=== PATIENT | female | born 1940 | race Caucasian/White ===

== ENCOUNTER → 2016-11-30 | Outpatient (CLI) | payer MEDICARE ==
--- NOTE | 2016-12-01 14:34 | PE ---
Nuclear medicine PET/CT HISTORY: Lung carcinoma Patient received 15.2 mCi F-18 FDG intravenously. Delayed scanning performed from the skull base to t he mid thighs. Localization and attenuation correction CT scan was. Correlation to CT chest December 27, 2015 FINDINGS: Neck and chest: There is a cavitary mass in the right middle lobe measuring approximately 4 cm in siz e with thickened wall. Corresponding hypermetabolic uptake is present, SUV 10.5. Granuloma also prese nt in the right upper lobe. There is a groundglass opacity present within the chest. There are chance ry artery calcifications. Abdomen pelvis: Low dense left adrenal mass is present measuring approximately 2.4 cm. No associated hypermetabolic uptake. Diffuse hypermetabolic uptake within the bowel. No retroperitoneal adenopathy. Granulomas are also present within the liver and spleen. There is a hiatal hernia. Osseous structures within normal limits IMPRESSION: Hypermetabolic uptake corresponding to patient's cavitary mass.
== END | disposition home or self-care (01) ==
LOC: RADPETMAIN 13:10
PROVIDERS: ATTEND Family Medicine
DX: R91.8 Other nonspecific abnormal finding of lung field (principal)
CPT/HCPCS: 78815; A9552

== ENCOUNTER → 2016-12-27 | Outpatient (CLI) | payer MEDICARE ==
[2016-12-27 09:55] LABS: EKG EKG PERFORMED
[2016-12-27 10:44] LABS: Basophils % (A) 0 %; CH 28.8; CHCM 31.9; Eosinophils # (A) 0.2 k/uL (0-0.7); Eosinophils % (A) 2 %; HCT 35.2 % (34.0-46.0); HGB 11.4 gm/dL (11.4-16.0); Hypochromasia Slight; Luc # (Auto) 0.13; Luc % (Auto) 2; Lymphocytes # (A) 1.3 k/uL (1.0-4.8); Lymphocytes % (A) 19 %; MCH 29.5 pg (25.0-35.0); MCHC 32.5 g/dL (31.0-37.0); MCV 90.8 fL (80.0-100.0); Mean Platelet Volume 7.4; Monocytes # (A) 0.5 k/uL (0-1.0); Monocytes % (A) 8 %; Neutrophils # (A) 4.6 k/uL (1.3-7.7); Neutrophils % (A) 68 %; RBC 3.88 m/uL (3.80-5.40); RDW 13.6 % (11.5-15.5); WBC 6.7 k/uL (3.8-10.6); WBC (Perox) 7.27
[2016-12-27 10:49] LABS: INR 1.1 (<1.1); Partial Thromboplastin Time 23.2 sec (22.0-30.0); Prothrombin Time 11.2 sec (9.0-12.0)
[2016-12-27 10:51] LABS: Appearance,Urine Cloudy (Clear); Bilirubin,Urine Negative (Negative); Glucose,Urine (UA) Negative (Negative); Ketones,Urine Negative (Negative); Leukocyte Esterase,Urine Large (Negative); Nitrite,Urine Negative (Negative); Particle Count 1841; Protein,Urine 1+ (Negative); RBC,Urine 9 /hpf (0-5); Specific Gravity,Urine 1.018 (1.001-1.035); Squamous Epithelial Cell,Urine 3 /hpf (0-4); UA Billing (MACRO vs. MICRO) MICRO; Urobilinogen,Urine <2.0 mg/dL (<2.0); WBC,Urine >182 /hpf (0-5)
[2016-12-27 11:06] LABS: ALT 28 U/L (9-52); AST 26 U/L (14-36); Alkaline Phosphatase 57 U/L (38-126); Anion Gap 13 mmol/L; Blood Urea Nitrogen 31 mg/dL (7-17); Carbon Dioxide 26 mmol/L (22-30); Chloride 104 mmol/L (98-107); Glucose 81 mg/dL (74-99); Non-African American GFR(MDRD) 42 (>60 ml/min/1.73 sqM); Potassium 4.6 mmol/L (3.5-5.1); Sodium 143 mmol/L (137-145); Total Bilirubin 0.6 mg/dL (0.2-1.3); Total Protein 7.1 g/dL (6.3-8.2)
== END | disposition home or self-care (01) ==
LOC: LABPAT 09:42
PROVIDERS: ATTEND Thoracic Surgery (Cardiothoracic Vascular Surgery)
DX: Z01.818 Encounter for other preprocedural examination (principal); I10 Essential (primary) hypertension; R91.8 Other nonspecific abnormal finding of lung field
CPT/HCPCS: 80053; 81001; 85025; 85610; 85730; 86850; 86900; 86901; 93005

== ENCOUNTER 2017-01-06 08:09 | Inpatient (IN) | payer MEDICARE ==
[2016-12-31 14:18] VITALS: BMI 23.3
[~2017-01-06 08:09] MED LIST: DEXAMETHASONE SOD PHOSPHATE 10 MG/ML 1 ML VIAL IV ONE; HYDROmorphone 1 MG/ML 1 ML SYRINGE IVP PRN; LACTATED RINGERS 1,000 ML IV SCH; MIDAZOLAM 2 MG/2 ML VIAL IV PRN; ONDANSETRON 4 MG/2 ML VIAL IVP ONE; ceFAZolin 1,000 MG in DEXTROSE/WATER 1 50ML.BAG IV ONE
[2017-01-06 09:04] LABS: Appearance,Urine Clear (Clear); Bilirubin,Urine Negative (Negative); Glucose,Urine (UA) Negative (Negative); Ketones,Urine Negative (Negative); Leukocyte Esterase,Urine Trace (Negative); Mucus,Urine Rare /hpf; Nitrite,Urine Negative (Negative); PH, Urine 5.5 (5.0-8.0); Particle Count 1179; Protein,Urine Negative (Negative); Specific Gravity,Urine 1.012 (1.001-1.035); Squamous Epithelial Cell,Urine 1 /hpf (0-4); UA Billing (MACRO vs. MICRO) MICRO; Urobilinogen,Urine <2.0 mg/dL (<2.0); WBC,Urine 2 /hpf (0-5)
[2017-01-06] MEDS ORDERED: LIDOCAINE 1% 20 ML VIAL (10MG/ML) FOR IV START INTRADERMA ONE (09:04)
[2017-01-06 09:16] LABS: Glucose,Whole Blood 123 mg/dL (75-99)
[2017-01-06] MEDS ORDERED: ROCURONIUM BROMIDE 10 MG/ML 10 ML VIAL IV ONE (10:44)
[2017-01-06] MEDS ORDERED: PROPOFOL 10 MG/ML 20 ML VIAL IV ONE (10:44)
[2017-01-06] MEDS ORDERED: LIDOCAINE 1% INJ 10MG/ML (20 ML MDV) ONE (10:44)
[2017-01-06] MEDS ORDERED: NEOSTIGMINE 1 MG/ML 10 ML VIAL ONE (10:44)
[2017-01-06] MEDS ORDERED: METOPROLOL TARTRATE 5 MG/5 ML VIAL IVP ONE (10:44)
[2017-01-06] MEDS ORDERED: fentaNYL (PF) 50 MCG/ML 2 ML AMP ONE (10:44)
[2017-01-06] MEDS ORDERED: HYDROmorphone (PF) 1 MG/ML ONE (10:44)
[2017-01-06] MEDS ORDERED: SUCCINYLCHOLINE CHLORIDE 100 MG/5 ML SYR IV ONE (10:44)
[2017-01-06] MEDS ORDERED: GLYCOPYRROLATE 0.2 MG/ML 2 ML VIAL ONE (10:44)
[2017-01-06] MEDS ORDERED: BUPIVACAINE (PF) 0.5% 30 ML VIAL SQ ONE ×2 (10:46→13:41)
[2017-01-06] MEDS ORDERED: LACTATED RINGERS 1,000 ML IV ONE ×3 (11:45→18:08)
--- NOTE | 2017-01-06 14:44 | P.OP ---
Date of Procedure: 01/06/17 Preoperative Diagnosis: Right middle lobe lung mass Postoperative Diagnosis: Right middle lobe lung mass Procedure(s) Performed: Robotic-assisted thoracoscopic right middle lobectomy with mediastinal lymph node sampling Anesthesia: LAZ Surgeon: Horace Dewitt Senior Energy Consultant #1: [place] Car Estimated Blood Loss (ml): 100 Pathology: other (Right middle lobe, R 11 lymph nodes, R4 lymph nodes) Condition: stable Disposition: PACU Indications for Procedure: The patient is a 76 year old female with a chronic mass in the right middle lobe. This has been increasing in size on serial CAT scans. Bronchoscopy was nondiagnostic. PET scan was suggestive of primary malignancy with no evidence of metastasis. Operative Findings: There was a small palpable mass in the right middle lobe. The fissures were incomplete. There was minimal adenopathy present. 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 Frozen section of the bronchial margin was negative. Description of Procedure: The patient was brought to the operating room, placed supine on the operating table, anesthetized and intubated with a double-lumen endotracheal tube. The tube was positioned with fiberoptic bronchoscopy. No endobronchial lesions were noted. The tube was secured and the patient turned into the left lateral decubitus position. The patient was appropriately positioned for robotic lobectomy. The ribs were counted and marked. The chest was sterilely prepped and draped. Initial incision was made in the eighth interspace in the anterior axillary line. It was a centimeter in length. Single lung ventilation was initiated. A robotic camera port was placed into the right pleural space. After confirming appropriate positioning of the port in the right pleural space CO2 insufflation was begun into the pleural space. 3 further robotic ports were placed, one in interspace higher and 10 cm anterior one in the same interspace 10 cm posterior both of these were 8 mm ports. The final robotic port was placed in the sixth interspace just anterior to the spine and this was a 5 mm port. A 15 mm working port was placed in the 10th interspace just anterior to the camera port. The robot was now docked. Appropriate instrumentation was placed through the robotic ports. A bipolar dissector was placed in the most anterior port, a cadiere grasper was placed in the arm to port, and a thoracic grasper was placed through the most posterior port. We now proceeded with the robotic dissection. The inferior pulmonary ligament was taken down. Dissection was carried up anteriorly to the inferior portion of the superior pulmonary vein. The vein draining the middle lobe was identified encircled ligated and divided with a Endo JOSHUA thin stapler. Dissection was now carried out around the bronchus the middle lobe bronchus was encircled ligated and divided with a Endo JOSHUA medium thick stapler. This allowed exposure and dissection of the pulmonary artery branch to the middle lobe. This was encircled and ligated and divided with a Endo JOSHUA thin stapler. We now completed the dissection by dividing the fissures both superior and inferior to the middle lobe with medium thick staplers. The lobectomy was placed in an Endo Catch bag. We completed the hilar lymph node dissection ascending R 11 lymph nodes and then proceeded to the orotracheal region resecting the R4 lymph nodes. Water was used to cover the bronchial stump and the lung was inflated under direct vision no air leaks were noted. We now undocked the robot and removed the lobectomy specimen through the working port. Lobectomy specimen was sent for frozen section with findings as noted above. 28-Malay chest tube was placed through the most anterior incision and positioned posterior apically the lung was then inflated under thoracoscopic visualization. Rib blocks were performed at the level of the incisions. Half percent Marcaine was used. Total of 18 mL was used. Incisions were then closed with layers of Vicryl suture. They were dressed with skin glue. Chest tube dressing was placed around the chest tube site. His tube was connected to a Pleur-evac. The patient was turned supine and extubated and transferred to recovery in stable condition.
[2017-01-06] MEDS ORDERED: KETOROLAC 30 MG/ML 1 ML VIAL IVP ONE (14:55)
[2017-01-06] MEDS ORDERED: INSULIN LISPRO (humaLOG) 300 UNIT/3 ML VIAL SQ ONE (15:00)
[2017-01-06 15:07] LABS: Glucose,Whole Blood 203 mg/dL (75-99)
[2017-01-06] MEDS ORDERED: ACETAMINOPHEN IV (For NPO) 1,000 MG/100 ML VIAL IVPB ONE (15:14)
--- NOTE | 2017-01-06 15:16 | XR ---
EXAMINATION TYPE: XR chest 1V portable DATE OF EXAM: 01/06/2017 3:01 PM COMPARISON: 12/20/2015 HISTORY: Postop TECHNIQUE: Single frontal view of the chest is obtained. FINDINGS: Postsurgical changes noted with right-sided chest tube with no sizable pneumothorax. Subse gmental consolidation right lung base suggestive of scar or atelectasis. Heart size stable. Atheroscl erotic change aorta and arthritic change shoulders. No overt failure. Radiopaque density along the right heart border likely from lobectomy. Correlate clinically. IMPRESSION: 1. Postoperative change with no sizable pneumothorax.
[2017-01-06] MEDS ORDERED: IPRATROPIUM-ALBUTEROL 3 ML NEB IH PRN (20:04)
[2017-01-06] MEDS ORDERED: BISACODYL 10 MG SUPP RECTAL PRN (20:04)
[2017-01-06] MEDS ORDERED: SODIUM CHLORIDE 0.9% 1,000 ML IV SCH (20:04)
--- NOTE | 2017-01-06 20:28 | XR ---
EXAMINATION TYPE: XR chest 1V DATE OF EXAM: 01/06/2017 8:21 PM CLINICAL HISTORY: Difficulty breathing progress study. Postop right lobectomy. TECHNIQUE: Single AP portable semiupright view of the chest is obtained. COMPARISON: Chest x-ray from earlier today FINDINGS: There is persistent right apical chest tube. No sizable pneumothorax is seen. There is int erval improvement in interstitial edema. No new focal airspace opacity, pleural effusion, or pneumoth orax is present bilaterally. No mediastinal shift is seen. Cardiac silhouette size is upper limits of normal with atherosclerotic thoracic aorta. Osseous structures are intact. IMPRESSION: Interval resolution of mild interstitial edema. No acute pulmonary process currently.
[2017-01-06 20:38] LABS: Glucose,Whole Blood 154 mg/dL (75-99)
[2017-01-06] MEDS: ACETAMINOPHEN IV (For NPO) 1,000 MG in EMPTY BAG 1 BAG IVPB SCH (21:07)
[2017-01-06] MEDS: HEPARIN SODIUM,PORCINE 5,000 UNIT/ML 1 ML VIAL SQ SCH (21:12)
[2017-01-06] MEDS: IPRATROPIUM-ALBUTEROL 3 ML NEB IH SCH (21:20)
[2017-01-06] MEDS: ceFAZolin 2 GM in SODIUM CHLORIDE 0.9% 100 ML IVPB SCH (21:54)
[2017-01-06] MEDS: TOBRAMYCIN 0.3% OPHTH OINT 3.5 GM TUBE LEFT EYE SCH ×2 (22:00)
[2017-01-07] MEDS: ACETAMINOPHEN IV (For NPO) 1,000 MG in EMPTY BAG 1 BAG IVPB SCH ×3 (03:19→15:00)
[2017-01-07 06:21] LABS: Glucose,Whole Blood 220 mg/dL (75-99)
[2017-01-07] MEDS: LEVOTHYROXINE 25 MCG TAB PO SCH (06:38)
[2017-01-07] MEDS: ceFAZolin 2 GM in SODIUM CHLORIDE 0.9% 100 ML IVPB SCH (06:38)
[2017-01-07] MEDS: REPAGLINIDE 1 MG TAB PO SCH ×2 (06:38→16:54)
[2017-01-07 06:53] LABS: Basophils % (A) 0 %; CH 28.5; CHCM 31.7; Eosinophils % (A) 0 %; HCT 27.3 % (34.0-46.0); HDW 2.81; HGB 8.8 gm/dL (11.4-16.0); Hypochromasia Slight; Luc # (Auto) 0.09; Luc % (Auto) 1; Lymphocytes # (A) 1.3 k/uL (1.0-4.8); Lymphocytes % (A) 16 %; MCH 28.9 pg (25.0-35.0); MCV 90.2 fL (80.0-100.0); Mean Platelet Volume 8.2; Monocytes # (A) 0.6 k/uL (0-1.0); Monocytes % (A) 8 %; Neutrophils # (A) 6.3 k/uL (1.3-7.7); Neutrophils % (A) 75 %; RBC 3.03 m/uL (3.80-5.40); RDW 13.6 % (11.5-15.5); WBC 8.3 k/uL (3.8-10.6); WBC (Perox) 8.49
[2017-01-07 07:07] LABS: Calcium 8.2 mg/dL (8.4-10.2); Potassium 4.6 mmol/L (3.5-5.1); Total Bilirubin 0.3 mg/dL (0.2-1.3)
[2017-01-07] MEDS: IPRATROPIUM-ALBUTEROL 3 ML NEB IH SCH ×5 (07:14→19:36)
[2017-01-07] MEDS ORDERED: ATORVASTATIN 40 MG TAB PO SCH (09:00)
[2017-01-07] MEDS: ASPIRIN 81 MG CHEW PO SCH (09:06)
[2017-01-07] MEDS: HEPARIN SODIUM,PORCINE 5,000 UNIT/ML 1 ML VIAL SQ SCH ×3 (09:06→23:24)
[2017-01-07] MEDS: DILTIAZEM CD 120 MG CAP.ER.24H PO SCH (09:07)
[2017-01-07] MEDS: TOBRAMYCIN 0.3% OPHTH OINT 3.5 GM TUBE LEFT EYE SCH ×3 (09:07→20:48)
[2017-01-07] MEDS: metFORMIN 500 MG TAB PO SCH ×2 (09:07→20:48)
--- NOTE | 2017-01-07 09:07 | XR ---
EXAMINATION TYPE: XR chest 1V portable DATE OF EXAM: 01/07/2017 7:30 AM COMPARISON: 01/06/2017 HISTORY: Post surgery TECHNIQUE: Single frontal view of the chest is obtained. FINDINGS: Right-sided chest tube seen with no pneumothorax. Right hilar prominence noted. No new con solidation. Arthropathy of the shoulders. Heart size stable. Atherosclerotic change aorta. IMPRESSION: 1. Postsurgical changes with no sizable pneumothorax. Persistent right hilar prominence is stable.
[2017-01-07] MEDS: traMADol 50 MG TAB PO PRN (10:29)
[2017-01-07 12:07] LABS: Glucose,Whole Blood 201 mg/dL (75-99)
--- NOTE | 2017-01-07 12:37 | P.CNPUL ---
History of Present Illness Consult date: 01/07/17 Chief complaint: Lung mass History of present illness: 76-year-old female patient, was being evaluated and treated for a right lung cavitating mass involving the right middle lobe. The patient had an outpatient bronchoscopy by Dr. Raza and that was nondiagnostic. At that point she was referred to thoracic surgery due to the high concern of malignancy. The patient 's scan was suggestive of primary malignancy without evidence of any metastases. 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 The frozen section margins were negative. Based on that, the patient underwent a robotic-assisted thoracoscopic right middle lobectomy with mediastinal lymph node sampling involving the R 11 and R4 lymph nodes. Today the patient is doing well. She has a right-sided chest tube today without significant output. There is minimal amount of air leak. On the chest x-ray there is no evidence of pneumothorax in the right lung is well expanded. Her pain is under good control. No respiratory distress. No nausea or vomiting. No change in mental status. No other complaints otherwise for now. Review of Systems 12 point review of system was done and the positive findings are almost above in history of present illness Past Medical History Past Medical History: Cancer, Diabetes Mellitus, Hyperlipidemia, Hypertension, Pneumonia, Thyroid Disorder Additional Past Medical History / Comment(s): Thyroid cancer in November 2015, post thyroidectomy, right lung mass on that investigation, diabetes mellitus, hyperlipidemia, hypertension History of Any Multi-Drug Resistant Organisms: None Reported Past Surgical History: Appendectomy, Heart Catheterization, Hysterectomy, Orthopedic Surgery, Tonsillectomy Additional Past Surgical History / Comment(s): Partial thyroidectomy December 08, 2015,ORIF lt ankle,rt shoulder rotator cuff Past Anesthesia/Blood Transfusion Reactions: Previous Problems w/ Anesthesia, Postoperative Nausea & Vomiting (PONV) Additional Past Anesthesia/Blood Transfusion Reaction / Comment(s): states "has a hard time waking up with anesthesia" Past Psychological History: No Psychological Hx Reported Smoking Status: Former smoker Past Alcohol Use History: None Reported Additional Past Alcohol Use History / Comment(s): quit smoking ,started 1952 <1ppd Past Drug Use History: None Reported - Past Family History Father Additional Family Medical History / Comment(s): emphysema Mother Additional Family Medical History / Comment(s): -fell down stairs Sister(s) Family Medical History: Cancer Additional Family Medical History / Comment(s): breast Medications and Allergies Home Medications Medication Instructions Recorded Confirmed Type Repaglinide [Prandin] 1 mg PO AC-BID 12/15/15 01/06/17 History Simvastatin [Zocor] 80 mg PO HS 12/15/15 01/06/17 History metFORMIN HCL [Glucophage] 1,000 mg PO BID 12/15/15 01/06/17 History Aspirin 81 mg PO DAILY 12/31/16 01/06/17 History Bisacodyl [Dulcolax] 5 mg PO HS 12/31/16 01/06/17 History Diltiazem HCl [Cardizem] 120 mg PO DAILY 12/31/16 01/06/17 History Iron Complex 1 tab PO DAILY 12/31/16 01/06/17 History Levothyroxine Sodium [Synthroid] 25 mcg PO DAILY 12/31/16 01/06/17 History Lisinopril [Zestril] 10 mg PO DAILY 12/31/16 01/06/17 History Lutein 10 mg PO DAILY 12/31/16 01/06/17 History Super Cleanse 1 tab PO Q2D PRN 12/31/16 01/06/17 History Allergies Allergy/AdvReac Type Severity Reaction Status Date / Time ciprofloxacin [From Cipro] Allergy Nausea & Verified 12/31/16 14:11 Vomiting-severe Penicillins Allergy Rash/Hives Verified 12/31/16 14:11 codeine AdvReac Nausea & Verified 01/06/17 20:02 Vomiting Physical Exam Vitals: Vital Signs Temp Pulse Pulse Resp BP BP BP 01/07/17 11:49 100 18 01/07/17 11:48 98.0 F 100 18 112/53 01/07/17 11:16 96 01/07/17 11:03 92 01/07/17 08:00 98.4 F 88 18 132/64 01/07/17 07:15 01/07/17 04:00 98.6 F 94 16 127/60 01/07/17 00:00 98.4 F 107 H 16 123/53 01/06/17 21:35 94 01/06/17 21:25 90 01/06/17 20:00 97.6 F 88 16 130/62 01/06/17 19:02 83 16 119/62 01/06/17 18:45 84 16 121/62 01/06/17 18:15 92 18 123/60 01/06/17 18:00 80 18 127/60 01/06/17 17:30 81 18 129/60 01/06/17 17:00 84 16 133/61 01/06/17 16:25 88 16 122/61 01/06/17 16:10 86 16 124/65 01/06/17 15:55 87 16 124/62 01/06/17 15:40 85 16 118/62 01/06/17 15:25 84 16 119/58 01/06/17 15:10 83 16 01/06/17 14:55 88 16 129/63 01/06/17 14:40 84 16 130/61 01/06/17 14:25 86 16 123/58 01/06/17 14:10 96.8 F L 86 16 106/56 Pulse Ox 01/07/17 11:49 01/07/17 11:48 97 01/07/17 11:16 01/07/17 11:03 01/07/17 08:00 98 01/07/17 07:15 98 01/07/17 04:00 98 01/07/17 00:00 99 01/06/17 21:35 01/06/17 21:25 01/06/17 20:00 98 01/06/17 19:02 96 01/06/17 18:45 92 L 01/06/17 18:15 96 01/06/17 18:00 98 01/06/17 17:30 98 01/06/17 17:00 98 01/06/17 16:25 97 01/06/17 16:10 98 01/06/17 15:55 98 01/06/17 15:40 100 01/06/17 15:25 100 01/06/17 15:10 100 01/06/17 14:55 100 01/06/17 14:40 100 01/06/17 14:25 100 01/06/17 14:10 100 Intake and Output 01/06/17 01/07/17 01/07/17 22:59 06:59 14:59 Intake Total 1460 1070 300 Output Total 275 60 600 Balance 1185 1010 -300 Intake: IV 1460 720 ACETAMINOPHEN IV (For NPO 400 400 ) 1,000 mg In Empty Bag 1 bag @ 400 mls/hr IVPB Q6H [facility] Rx#:[id number] Lactated Ringers 1,000 ml 40 @ 20 mls/hr IV .Q24H [facility] Rx#:[id number] Sodium Chloride 0.9% 1, 120 320 000 ml @ 40 mls/hr IV . Q24H [facility] Rx#:[id number] ceFAZolin 2 gm In Sodium 100 Chloride 0.9% 100 ml @ 100 mls/hr IVPB Q8H [facility] Rx#:[id number] Oral 350 300 Output: Chest Tube Drainage 60 0 Chest Tube Right Lateral 60 0 Chest Urine 275 600 Uretheral (Murray) 600 Other: Voiding Method Indwelling Catheter Indwelling Catheter Indwelling Catheter Weight 63.503 kg 67.9 kg The patient appeared well nourished and normally developed. Vital signs as documented. Head exam is unremarkable. No scleral icterus or corneal arcus noted. Neck is without jugular venous distension, thyromegaly, or carotid bruits. Carotid upstrokes are brisk bilaterally. Lung examination shows the mesh breast on the right compared to the left. No wheezes or rhonchi. There is a right-sided chest tube in place. Surgical wound site over the right chest area is clean and intact.. Cardiac exam reveals the PMI to be normally sized and situated. Rhythm is regular. First and second heart sounds normal. No murmurs, rubs or gallops. Abdominal exam reveals normal bowel sounds, no masses , no organomegaly and no aortic enlargement. Extremities are nonedematous and both femoral and pedal pulses are normal. Results - Laboratory Findings CBC and BMP: 01/07/17 05:32 01/07/17 05:32 PT/INR, D-dimer PT Cancelled 12/27/16 09:49 INR Cancelled 12/27/16 09:49 Abnormal lab findings: Abnormal Labs 01/06/17 01/06/17 01/06/17 08:50 09:05 14:55 RBC Hgb Hct Sodium BUN Creatinine Glucose POC Glucose (mg/dL) 123 H 203 H Calcium Total Protein Albumin Ur Leukocyte Esterase Trace H Urine Mucus Rare H 01/06/17 01/07/17 01/07/17 20:36 05:32 05:32 RBC 3.03 L Hgb 8.8 L D Hct 27.3 L Sodium 136 L BUN 27 H Creatinine 1.22 H Glucose 183 H POC Glucose (mg/dL) 154 H Calcium 8.2 L Total Protein 5.0 L Albumin 2.9 L Ur Leukocyte Esterase Urine Mucus 01/07/17 01/07/17 06:20 11:50 RBC Hgb Hct Sodium BUN Creatinine Glucose POC Glucose (mg/dL) 220 H 201 H Calcium Total Protein Albumin Ur Leukocyte Esterase Urine Mucus - Diagnostic Findings Chest x-ray: image reviewed Assessment and Plan Plan: Assessment 1 right mid lobe cavitating lesion/mass, status post right middle lobe resection and the patient is postop day #1. The patient underwent a robotic- assisted thoracoscopic right middle lobe resection with mediastinal lymph node sampling. 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 2 postoperative anemia, hemoglobin is stable 3 postoperative thoracic/chest wall pain and the patient has a right-sided chest tube in place 4 diabetes mellitus 5 hypertension 6 hyperlipidemia 7 thyroid cancer status post thyroidectomy currently on thyroid hormone replacement 8 renal insufficiency, likely chronic Plan Continue using incentive spirometer. The patient is adequate pain control. Monitor the output from the chest tube. Daily chest x-rays. Awaiting final path from the thoracotomy. We'll continue to follow make further recommendations based on her progress. Continue bronchodilators. Heparin subcu for DVT prophylaxis
[2017-01-07] MEDS: MORPHINE SULFATE 2 MG/ML SYRINGE IVP PRN ×3 (13:03→20:51)
--- NOTE | 2017-01-07 16:02 | P.PN ---
Progress Note - Text CV Surgery Nursing Principal diagnosis: Right middle lobe lung mass Postop day #1, robot-assisted thoracoscopic right middle lobectomy with mediastinal lymph node sampling. Patient awake and alert, no distress noted, no specific complaints. Patient is sitting up to bedside chair. Vital Signs: Afebrile Vital Signs - 24 hr 01/06/17 01/06/17 01/06/17 15:55 16:10 16:25 Temperature Pulse Rate Pulse Rate [ 87 86 88 Right Pulse Oximetery] Respiratory 16 16 16 Rate Blood Pressure [Left Arm] Blood Pressure 124/62 124/65 122/61 [Right Arm Supine] O2 Sat by Pulse 98 98 97 Oximetry 01/06/17 01/06/17 01/06/17 17:00 17:30 18:00 Temperature Pulse Rate Pulse Rate [ 84 81 80 Right Pulse Oximetery] Respiratory 16 18 18 Rate Blood Pressure [Left Arm] Blood Pressure 133/61 129/60 127/60 [Right Arm Supine] O2 Sat by Pulse 98 98 98 Oximetry 01/06/17 01/06/17 01/06/17 18:15 18:45 19:02 Temperature Pulse Rate Pulse Rate [ 92 84 83 Right Pulse Oximetery] Respiratory 18 16 16 Rate Blood Pressure [Left Arm] Blood Pressure 123/60 121/62 119/62 [Right Arm Supine] O2 Sat by Pulse 96 92 L 96 Oximetry 01/06/17 01/06/17 01/06/17 20:00 21:25 21:35 Temperature 97.6 F Pulse Rate 90 94 Pulse Rate [ 88 Right Pulse Oximetery] Respiratory 16 Rate Blood Pressure [Left Arm] Blood Pressure 130/62 [Right Arm Supine] O2 Sat by Pulse 98 Oximetry 01/07/17 01/07/17 01/07/17 00:00 04:00 07:15 Temperature 98.4 F 98.6 F Pulse Rate Pulse Rate [ 107 H 94 Right Pulse Oximetery] Respiratory 16 16 Rate Blood Pressure 123/53 127/60 [Left Arm] Blood Pressure [Right Arm Supine] O2 Sat by Pulse 99 98 98 Oximetry 01/07/17 01/07/17 01/07/17 08:00 11:03 11:16 Temperature 98.4 F Pulse Rate 92 96 Pulse Rate [ 88 Right Pulse Oximetery] Respiratory 18 Rate Blood Pressure 132/64 [Left Arm] Blood Pressure [Right Arm Supine] O2 Sat by Pulse 98 Oximetry 01/07/17 01/07/17 01/07/17 11:48 11:49 14:58 Temperature 98.0 F Pulse Rate Pulse Rate [ 100 100 86 Right Pulse Oximetery] Respiratory 18 18 18 Rate Blood Pressure [Left Arm] Blood Pressure 112/53 [Right Arm Supine] O2 Sat by Pulse 97 Oximetry 01/07/17 01/07/17 01/07/17 15:13 15:37 15:47 Temperature 97.6 F Pulse Rate 90 90 Pulse Rate [ 89 Right Pulse Oximetery] Respiratory 16 Rate Blood Pressure [Left Arm] Blood Pressure 114/57 [Right Arm Supine] O2 Sat by Pulse 99 Oximetry Labs: Short CBC 01/07/17 Range/Units 05:32 WBC 8.3 (3.8-10.6) k/uL Hgb 8.8 L D (11.4-16.0) gm/dL Hct 27.3 L (34.0-46.0) % Plt Count 211 (150-450) k/uL Neutrophils # 6.3 (1.3-7.7) k/uL BMP 01/07/17 05:32 Sodium 136 L Potassium 4.6 Chloride 103 Carbon Dioxide 24 BUN 27 H Creatinine 1.22 H Glucose 183 H Calcium 8.2 L Liver Function 01/07/17 Range/Units 05:32 Total Bilirubin 0.3 (0.2-1.3) mg/dL AST 23 (14-36) U/L ALT 23 (9-52) U/L Alkaline Phosphatase 42 (38-126) U/L Albumin 2.9 L (3.5-5.0) g/dL Pathology results pending. IV Fluids: 0.9% normal saline at 40 mL per hour. Lungs: Essentially clear throughout, diminished bilateral bases. Respirations are unlabored. Patient is is guarding her respirations when taking deep breaths. O2 sat: 99% on room air. I/S: 1250 mL, reviewed with the patient importance of using her incentive spirometry every hour while awake. The patient did give a good return demonstration on her incentive spirometry. Heart: S1S2, regular rhythm and rate, negative for S3, gallop or murmur. Remote telemetry showing normal sinus rhythm with first-degree heart block and slight ST elevation in her feet lead. Right chest incisions clean and dry. No drainage noted. Right chest tube secured in place with dressing dry and intact. Knee-high WENDIE hose and sequential compression devices in place to bilateral lower extremity Warren. Abdomen: Soft, Positive bowel sounds present in all 4 quadrants, CBGs: 123-220 mg/dL in the last 24 hours. U/O: Adequate, Murray catheter for accurate I&O. Chest Tubes: Right pleural chest tube with intermittent air leak, draining thin serosanguineous drainage. 60 mL output in the last 8 hours, 250 mL output since surgery. 24 hr Total: Intake & Output 01/05/17 01/06/17 01/07/17 01/08/17 06:59 06:59 06:59 06:59 Intake Total 5130 480 Output Total 1085 600 Balance 4045 -120 Weight 67.9 kg Active Medications Albuterol/Ipratropium (Duoneb 0.5 Mg-3 Mg/3 Ml Soln) 3 ml IH RT-Q1H PRN PRN Reason: Shortness Of Breath Or Wheezing Albuterol/Ipratropium (Duoneb 0.5 Mg-3 Mg/3 Ml Soln) 3 ml IH RT-QID [facility] Last Admin: 01/07/17 15:36 Dose: 3 ml Aspirin (Aspirin) 81 mg PO DAILY [facility] Last Admin: 01/07/17 09:06 Dose: 81 mg Atorvastatin Calcium (Lipitor) 40 mg PO DAILY [facility] Last Admin: 01/07/17 09:07 Dose: 40 mg Atorvastatin Calcium (Lipitor) 40 mg PO HS [facility] Bisacodyl (Dulcolax) 10 mg RECTAL DAILY PRN PRN Reason: Constipation Diltiazem HCl (Cardizem Cd) 120 mg PO DAILY [facility] Last Admin: 01/07/17 09:07 Dose: 120 mg Heparin Sodium (Porcine) (Heparin) 5,000 unit SQ Q8HR [facility] Last Admin: 01/07/17 09:06 Dose: 5,000 unit Levothyroxine Sodium (Synthroid) 25 mcg PO DAILY@0630 [facility] Last Admin: 01/07/17 06:38 Dose: 25 mcg Metformin HCl (Glucophage) 1,000 mg PO BID [facility] Last Admin: 01/07/17 09:07 Dose: 1,000 mg Metoclopramide HCl (Reglan) 5 mg IVP Q4HR PRN PRN Reason: Nausea And Vomiting Morphine Sulfate (Morphine Sulfate (Inj)) 2 mg IVP Q4H PRN PRN Reason: Pain/Discomfort Last Admin: 01/07/17 13:03 Dose: 2 mg Ondansetron HCl (Zofran) 4 mg IVP Q8HR PRN PRN Reason: Nausea And Vomiting Repaglinide (Prandin) 1 mg PO AC-BID [facility] Last Admin: 01/07/17 06:38 Dose: 1 mg Tobramycin (Tobrex) 1 applic LEFT EYE TID [facility] Last Admin: 01/07/17 09:07 Dose: 1 applic Tramadol HCl (Ultram) 50 mg PO Q6H PRN PRN Reason: Pain Last Admin: 01/07/17 10:29 Dose: 50 mg Plan: 1. Pain control per when necessary orders. 2. Encourage use of incentive spirometry every hour while awake. 3. Continue tobramycin ointment to left eye as scheduled. Dr. Reeves ophthalmology consult and recommendations pending. 4. Pathology results for lung specimen pending, will monitor. 5. Out of bed to chair 3 times a day as tolerated, physical therapy consult. 6. DVT prophylaxis in place. 7. Saline lock IV, discontinue Murray catheter. 8. Maintain right pleural chest tube to low continuous wall suction. 9. Further recommendations to follow as the patient progresses.
[2017-01-07 16:57] LABS: Glucose,Whole Blood 232 mg/dL (75-99)
[2017-01-07 20:47] LABS: Glucose,Whole Blood 239 mg/dL (75-99)
--- NOTE | 2017-01-07 21:04 | CONS ---
DATE OF CONSULTATION: 01/07/2017 REASON FOR CONSULTATION: Medical management requested by Dr. Dewitt. CONSULTATION: This is a pleasant 76-year-old patient of my partner Dr. Arciniega. Patient has undergone a right middle lobectomy with lymph node resection for a mass. Patient has a chest tube in place. Some pain is present. Patient's chronic stable medical conditions include chronic kidney disease, diabetes, hyperlipidemia, hypertension, hypothyroid. Patient did eat some food. Somewhat uncomfortable, lying in bed. REVIEW OF SYSTEMS: CONSTITUTIONAL: Tired. HEENT: None. RESPIRATORY: None. CARDIOVASCULAR: None. GASTROINTESTINAL: None. GENITOURINARY: None. MUSCULOSKELETAL: None. DERMATOLOGIC: None. HEMATOLOGIC: None. LYMPHATICS: None. PSYCHIATRY: None. NEUROLOGICAL: None. PAST HISTORY: 1. Chronic kidney disease. 2. Diabetes. 3. Hyperlipidemia. 4. Hypertension. 5. Hypothyroid. PAST SURGICAL HISTORY: 1. Thyroid cancer leading to thyroidectomy. 2. Appendectomy. 3. Cardiac catheterization. 4. Hysterectomy. 5. Tonsillectomy. 6. ORIF of left ankle. 7. Right shoulder rotator cuff surgery. SOCIAL HISTORY: Patient smoked a pack a day for 20 years; stopped in the '70s. Lives by herself. FAMILY HISTORY: Cancer and emphysema. HOME MEDICATIONS: 1. Metformin 1000 mg p.o. b.i.d. 2. Super Cleanse 1 tablet p.o. daily p.r.n. 3. Zocor 80 mg at bedtime. 4. Prandin 1 mg p.o. before meals t.i.d. 5. Lutein 10 mg p.o. daily. 6. Zestril 10 mg p.o. daily. 7. Synthroid 25 mcg p.o. daily. 8. Cardizem 120 mg p.o. daily. 9. Dulcolax 5 mg p.o. at bedtime. 10. Aspirin 81 mg p.o. daily. ALLERGIES: 1. CIPRO. 2. PENICILLIN. 3. CODEINE. On examination, temperature 98, pulse 100, respiration 18, blood pressure 112/53, pulse ox 97% on room air. GENERAL APPEARANCE: Average build. Lying in bed, not in distress. EYES: Pupils equal. Conjunctivae normal. HEENT: External appearance of nose and ears normal. Oral cavity normal. NECK: JVD not raised. Mass not palpable. RESPIRATORY: Effort normal. LUNGS: Decreased breath sounds on the right side. CARDIOVASCULAR: First and second sounds normal. No edema. ABDOMEN: Soft, non-tender. Liver and spleen not palpable. LYMPHATIC: No lymph node palpable in neck or axillae. PSYCHIATRIC: Alert and oriented x3. Mood and affect normal. NEUROLOGICAL: Pupils equal. Cranial nerves grossly intact. Power and sensation grossly intact. MUSCULOSKELETAL: Right chest tube present ( ). INVESTIGATIONS: White count 8.3, hemoglobin 8.8, platelets 211. Potassium 4.6. BUN 27, creatinine 1.22. Patient's BUN and creatinine were 31 and 1.24 on 12/27/16. Hemoglobin was 11.4 on 12/27/16. ASSESSMENT: 1. Lung mass leading to right middle lobectomy with lymph node removal with a resulting chest tube in place, right-sided. 2. Acute blood loss anemia as expected from right middle lobectomy. 3. Chronic kidney disease, stage III, likely hypertensive nephrosclerosis and diabetic nephropathy. 4. Diabetes mellitus, type 2, on oral hypoglycemic. 5. Hyperlipidemia. 6. Essential hypertension. 7. Hypothyroidism. PLAN: Home medications are resumed. Accu-Cheks will be followed. DuoNeb and pain control are place. Patient also has Venodyne boots in place. Care was discussed with the patient. Thank you, Dr. Dewitt.
[2017-01-07] MEDS: INSULIN LISPRO (humaLOG) 300 UNIT/3 ML VIAL SQ SCH (21:37)
[2017-01-07] MEDS: ATORVASTATIN 40 MG TAB PO SCH (21:37)
[2017-01-08] MEDS: MORPHINE SULFATE 2 MG/ML SYRINGE IVP PRN ×5 (01:10→23:57)
[2017-01-08 06:12] LABS: Glucose,Whole Blood 169 mg/dL (75-99)
[2017-01-08] MEDS: LEVOTHYROXINE 25 MCG TAB PO SCH (06:32)
[2017-01-08] MEDS: INSULIN LISPRO (humaLOG) 300 UNIT/3 ML VIAL SQ SCH ×4 (06:34→22:10)
[2017-01-08] MEDS: REPAGLINIDE 1 MG TAB PO SCH ×2 (07:01→17:33)
--- NOTE | 2017-01-08 07:47 | XR ---
EXAMINATION TYPE: XR chest 1V portable DATE OF EXAM: 01/08/2017 7:02 AM COMPARISON: 01/07/2017 HISTORY: Postoperative lobectomy TECHNIQUE: Single frontal view of the chest is obtained. FINDINGS: Right-sided chest tube seen with no pneumothorax. Right hilar prominence noted. Right jl hilar left lower lobe subsegmental consolidation. Granuloma right lower lobe suspected. No new consol idation. Arthropathy of the shoulders. Heart size stable. Atherosclerotic change aorta. IMPRESSION: 1. Postsurgical changes with no sizable pneumothorax. Persistent right hilar prominence is stable. Ferreira bsegmental right perihilar consolidation noted. There now is linear changes at the left lung base. Co rrelate postoperative atelectasis.
[2017-01-08 07:49] LABS: Hemoglobin A1C 6.4 % (4.2-6.1)
[2017-01-08] MEDS: IPRATROPIUM-ALBUTEROL 3 ML NEB IH SCH ×4 (08:01→21:05)
[2017-01-08 08:11] LABS: Basophils % (A) 0 %; CH 28.5; Eosinophils # (A) 0.2 k/uL (0-0.7); Eosinophils % (A) 2 %; HCT 31.4 % (34.0-46.0); HDW 2.58; HGB 9.6 gm/dL (11.4-16.0); Hypochromasia Slight; Luc % (Auto) 1; Lymphocytes # (A) 1.2 k/uL (1.0-4.8); Lymphocytes % (A) 12 %; MCH 28.3 pg (25.0-35.0); MCHC 30.7 g/dL (31.0-37.0); MCV 92.3 fL (80.0-100.0); Mean Platelet Volume 7.7; Monocytes # (A) 0.7 k/uL (0-1.0); Monocytes % (A) 7 %; Neutrophils # (A) 7.9 k/uL (1.3-7.7); Neutrophils % (A) 78 %; RDW 13.9 % (11.5-15.5); WBC 10.1 k/uL (3.8-10.6); WBC (Perox) 10.14
[2017-01-08 08:17] LABS: Calcium 8.6 mg/dL (8.4-10.2); Potassium 4.3 mmol/L (3.5-5.1)
[2017-01-08] MEDS ORDERED: DOCUSATE 100 MG CAP PO PRN (08:54)
[2017-01-08] MEDS: HEPARIN SODIUM,PORCINE 5,000 UNIT/ML 1 ML VIAL SQ SCH ×3 (09:01→23:39)
[2017-01-08] MEDS: metFORMIN 500 MG TAB PO SCH ×2 (09:02→22:10)
[2017-01-08] MEDS: ASPIRIN 81 MG CHEW PO SCH (09:02)
[2017-01-08] MEDS: TOBRAMYCIN 0.3% OPHTH OINT 3.5 GM TUBE LEFT EYE SCH ×3 (09:50→22:10)
[2017-01-08 11:30] LABS: Glucose,Whole Blood 165 mg/dL (75-99)
[2017-01-08] MEDS: DILTIAZEM CD 120 MG CAP.ER.24H PO SCH (11:44)
[2017-01-08] MEDS: ONDANSETRON 4 MG/2 ML VIAL IVP PRN (11:51)
[2017-01-08] MEDS: METOCLOPRAMIDE 5 MG/ML 2 ML VIAL IVP PRN ×2 (12:10→18:08)
--- NOTE | 2017-01-08 13:43 | P.PN ---
Progress Note - Text CV Surgery Nursing Principal diagnosis: Right middle lobe lung mass Postop day #2, robot-assisted thoracoscopic right middle lobectomy with mediastinal lymph node sampling. Patient awake and alert, no distress noted, she states that she has had some complaints of nausea this a.m and had an emesis 1. She states she has had the emesis she feels much better. Patient is sitting up to bedside chair. Vital Signs: Afebrile Vital Signs - 24 hr 01/07/17 01/07/17 01/07/17 14:58 15:13 15:37 Temperature 97.6 F Pulse Rate 90 Pulse Rate [ 86 89 Right Pulse Oximetery] Respiratory 18 16 Rate Blood Pressure [Left Arm] Blood Pressure 114/57 [Right Arm Supine] O2 Sat by Pulse 99 Oximetry 01/07/17 01/07/17 01/07/17 15:47 19:36 19:50 Temperature 97.9 F Pulse Rate 90 90 90 Pulse Rate [ 100 Right Pulse Oximetery] Respiratory 18 Rate Blood Pressure 129/61 [Left Arm] Blood Pressure [Right Arm Supine] O2 Sat by Pulse 99 Oximetry 01/07/17 01/08/17 01/08/17 23:41 04:00 08:00 Temperature 98.7 F 98.2 F 98.1 F Pulse Rate Pulse Rate [ 98 95 98 Right Pulse Oximetery] Respiratory 16 18 16 Rate Blood Pressure 113/60 141/67 127/60 [Left Arm] Blood Pressure [Right Arm Supine] O2 Sat by Pulse 93 L 96 95 Oximetry 01/08/17 01/08/17 01/08/17 08:01 08:13 08:30 Temperature Pulse Rate 80 80 Pulse Rate [ Right Pulse Oximetery] Respiratory 16 Rate Blood Pressure [Left Arm] Blood Pressure [Right Arm Supine] O2 Sat by Pulse Oximetry 01/08/17 11:51 Temperature 98.4 F Pulse Rate Pulse Rate [ 101 H Right Pulse Oximetery] Respiratory 16 Rate Blood Pressure 141/65 [Left Arm] Blood Pressure [Right Arm Supine] O2 Sat by Pulse 93 L Oximetry Labs: Short CBC 01/08/17 Range/Units 07:23 WBC 10.1 (3.8-10.6) k/uL Hgb 9.6 L (11.4-16.0) gm/dL Hct 31.4 L (34.0-46.0) % Plt Count 226 (150-450) k/uL Neutrophils # 7.9 H (1.3-7.7) k/uL BMP 01/08/17 07:23 Sodium 138 Potassium 4.3 Chloride 102 Carbon Dioxide 25 BUN 23 H Creatinine 1.14 H Glucose 135 H Calcium 8.6 Lungs: Essentially clear throughout, diminished bilateral bases right greater than left. Respirations are unlabored and symmetrical. O2 sat: 93% on room air. I/S: 1000 mL, reviewed with patient the importance of using her incentive spirometry every hour while awake. The patient did give a good return demonstration on her incentive spirometry. Heart: S1S2, regular rhythm and rate, negative for S3, gallop or murmur. Remote telemetry showing normal sinus rhythm heart rate 91. Right chest incisions clean dry and well approximated, no drainage noted. Chest tube insertion site with some scant serosanguineous drainage. Knee-high WENDIE hose and sequential compression devices in place to bilateral lower extremities Abdomen: Soft, Positive bowel sounds present in all 4 quadrants. No complaints of nausea at this time although did have 1 episode of emesis. CBGs: 169-239 mg/dL in the last 24 hours. U/O: Adequate, getting up to the restroom with assist. Chest Tubes: Right pleural chest tube with intermittent air leak, remains to low continuous wall suction. Draining thin serosanguineous drainage. 40 mL output in the last 8 hours, 100 mL output in the last 24 hours. 24 hr Total: Intake & Output 01/06/17 01/07/17 01/08/17 01/09/17 06:59 06:59 06:59 06:59 Intake Total 5130 2120 118 Output Total 1085 1740 190 Balance 4045 380 -72 Weight 67.9 kg 68.4 kg Active Medications Albuterol/Ipratropium (Duoneb 0.5 Mg-3 Mg/3 Ml Soln) 3 ml IH RT-Q1H PRN PRN Reason: Shortness Of Breath Or Wheezing Albuterol/Ipratropium (Duoneb 0.5 Mg-3 Mg/3 Ml Soln) 3 ml IH RT-QID [facility] Last Admin: 01/08/17 08:01 Dose: 3 ml Aspirin (Aspirin) 81 mg PO DAILY [facility] Last Admin: 01/08/17 09:02 Dose: 81 mg Atorvastatin Calcium (Lipitor) 40 mg PO HS [facility] Last Admin: 01/07/17 21:37 Dose: 40 mg Bisacodyl (Dulcolax) 10 mg RECTAL DAILY PRN PRN Reason: Constipation Last Admin: 01/08/17 11:44 Dose: 10 mg Diltiazem HCl (Cardizem Cd) 120 mg PO DAILY [facility] Last Admin: 01/08/17 11:44 Dose: 120 mg Docusate Sodium (Colace) 100 mg PO DAILY PRN PRN Reason: Constipation Last Admin: 01/08/17 11:44 Dose: 100 mg Heparin Sodium (Porcine) (Heparin) 5,000 unit SQ Q8HR [facility] Last Admin: 01/08/17 09:01 Dose: 5,000 unit Insulin Human Lispro (Humalog) 0 unit SQ [facility] PRN Reason: Protocol Last Admin: 01/08/17 12:32 Dose: 1 unit Levothyroxine Sodium (Synthroid) 25 mcg PO DAILY@0630 [facility] Last Admin: 01/08/17 06:32 Dose: 25 mcg Metformin HCl (Glucophage) 1,000 mg PO BID [facility] Last Admin: 01/08/17 09:02 Dose: 1,000 mg Metoclopramide HCl (Reglan) 5 mg IVP Q4HR PRN PRN Reason: Nausea And Vomiting Last Admin: 01/08/17 12:10 Dose: 5 mg Morphine Sulfate (Morphine Sulfate (Inj)) 2 mg IVP Q4H PRN PRN Reason: Pain/Discomfort Last Admin: 01/08/17 11:51 Dose: 2 mg Ondansetron HCl (Zofran) 4 mg IVP Q8HR PRN PRN Reason: Nausea And Vomiting Last Admin: 01/08/17 11:51 Dose: 4 mg Repaglinide (Prandin) 1 mg PO AC-BID [facility] Last Admin: 01/08/17 07:01 Dose: 1 mg Tobramycin (Tobrex) 1 applic LEFT EYE TID [facility] Last Admin: 01/08/17 09:50 Dose: 1 applic Tramadol HCl (Ultram) 50 mg PO Q6H PRN PRN Reason: Pain Last Admin: 01/07/17 10:29 Dose: 50 mg Plan: 1. Pain control per when necessary orders. 2. Encourage use of incentive spirometry every hour while awake. 3. Continue tobramycin ointment to left eye as scheduled. Dr. Reeves ophthalmology consult and recommendations pending. 4. Pathology results for lung specimen pending, will monitor for results. 5. Out of bed to chair 3 times a day as tolerated, ambulate in the hallway with minimal assistance as tolerated. Physical therapy consult. 6. DVT prophylaxis in place. 7. Saline lock IV, discontinue Murray catheter. 8. Right pleural chest tube will be placed to waterseal. 9. Dulcolax suppository today. 10. Further recommendations to follow as the patient progresses.
--- NOTE | 2017-01-08 13:52 | XR ---
EXAMINATION TYPE: XR chest 1V portable DATE OF EXAM: 01/08/2017 1:40 PM COMPARISON: NONE HISTORY: Postop TECHNIQUE: Single frontal view of the chest is obtained. FINDINGS: Right-sided chest tube seen with no pneumothorax. Right hilar prominence noted. Right jl hilar left lower lobe subsegmental consolidation. Granuloma right lower lobe suspected. No new consol idation. Arthropathy of the shoulders. Heart size stable. Atherosclerotic change aorta. IMPRESSION: 1. Postsurgical changes with no sizable pneumothorax. Persistent right hilar prominence is stable. Ferreira bsegmental right perihilar consolidation noted. There now is linear changes at the left lung base. Co rrelate postoperative atelectasis.
--- NOTE | 2017-01-08 15:41 | P.PN ---
Subjective 76-year-old female patient, was being evaluated and treated for a right lung cavitating mass involving the right middle lobe. The patient had an outpatient bronchoscopy by Dr. Raza and that was nondiagnostic. At that point she was referred to thoracic surgery due to the high concern of malignancy. The patient 's scan was suggestive of primary malignancy without evidence of any metastases. 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 The frozen section margins were negative. Based on that, the patient underwent a robotic-assisted thoracoscopic right middle lobectomy with mediastinal lymph node sampling involving the R 11 and R4 lymph nodes. Today the patient is doing well. She has a right-sided chest tube today without significant output. There is minimal amount of air leak. On the chest x-ray there is no evidence of pneumothorax in the right lung is well expanded. Her pain is under good control. No respiratory distress. No nausea or vomiting. No change in mental status. No other complaints otherwise for now. On 01/08/2017 the patient is being seen in follow-up. She is doing well. Her pain is under better control. She still has a right-sided chest tube in place and output has been around 70 mL over the past 12 hours. No significant air leaks. Chest x-ray shows adequate expansion of the right lung and the results of pneumothorax. The patient has been otherwise stable and she has no specific complaints. No nausea. No vomiting. No abdominal pain. No cardiac arrhythmias. The pain is under good control for now. Objective - Vital Signs Vital signs: Vital Signs Temp 98.4 F 01/08/17 11:51 Pulse 101 H 01/08/17 11:51 Resp 16 01/08/17 11:51 BP 141/65 01/08/17 11:51 Pulse Ox 93 L 01/08/17 11:51 Intake & Output 01/07/17 01/08/17 01/08/17 18:59 06:59 18:59 Intake Total 2100 20 168 Output Total 700 1040 500 Balance 1400 -1020 -332 Weight 68.4 kg Intake: IV 1020 20 0.9% NS FLUSH 10 mL 20 ACETAMINOPHEN IV (For NPO 800 ) 1,000 mg In Empty Bag 1 bag @ 400 mls/hr IVPB Q6H [facility] Rx#:[id number] Sodium Chloride 0.9% 1, 120 000 ml @ 40 mls/hr IV . Q24H [facility] Rx#:[id number] ceFAZolin 2 gm In Sodium 100 Chloride 0.9% 100 ml @ 100 mls/hr IVPB Q8H [facility] Rx#:[id number] Oral 1080 168 Output: Chest Tube Drainage 0 90 50 Chest Tube Right Lateral 0 90 50 Chest Urine 700 950 300 Uretheral (Murray) 600 Emesis 150 Other: Voiding Method Indwelling Catheter Toilet Toilet # Voids 1 1 1 # Bowel Movements 0 - Exam The patient appeared well nourished and normally developed. Vital signs as documented. Head exam is unremarkable. No scleral icterus or corneal arcus noted. Neck is without jugular venous distension, thyromegaly, or carotid bruits. Carotid upstrokes are brisk bilaterally. Lung examination shows the mesh breast on the right compared to the left. No wheezes or rhonchi. There is a right-sided chest tube in place. Surgical wound site over the right chest area is clean and intact.. Cardiac exam reveals the PMI to be normally sized and situated. Rhythm is regular. First and second heart sounds normal. No murmurs, rubs or gallops. Abdominal exam reveals normal bowel sounds, no masses , no organomegaly and no aortic enlargement. Extremities are nonedematous and both femoral and pedal pulses are normal. - Labs CBC & Chem 7: 01/08/17 07:23 01/08/17 07:23 Labs: Abnormal Lab Results - Last 24 Hours (Table) 01/07/17 01/07/17 01/07/17 Range/Units 05:32 16:45 20:45 RBC (3.80-5.40) m/uL Hgb (11.4-16.0) gm/dL Hct (34.0-46.0) % MCHC (31.0-37.0) g/dL Neutrophils # (1.3-7.7) k/uL BUN (7-17) mg/dL Creatinine (0.52-1.04) mg/dL Glucose (74-99) mg/dL POC Glucose (mg/dL) 232 H 239 H (75-99) mg/dL Hemoglobin A1c 6.4 H (4.2-6.1) % 01/08/17 01/08/1701/08/17 Range/Units 06:10 07:23 07:23 RBC 3.40 L (3.80-5.40) m/uL Hgb 9.6 L (11.4-16.0) gm/dL Hct 31.4 L (34.0-46.0) % MCHC 30.7 L (31.0-37.0) g/dL Neutrophils # 7.9 H (1.3-7.7) k/uL BUN 23 H (7-17) mg/dL Creatinine 1.14 H (0.52-1.04) mg/dL Glucose 135 H (74-99) mg/dL POC Glucose (mg/dL) 169 H (75-99) mg/dL Hemoglobin A1c (4.2-6.1) % 01/08/17 Range/Units 11:27 RBC (3.80-5.40) m/uL Hgb (11.4-16.0) gm/dL Hct (34.0-46.0) % MCHC (31.0-37.0) g/dL Neutrophils # (1.3-7.7) k/uL BUN (7-17) mg/dL Creatinine (0.52-1.04) mg/dL Glucose (74-99) mg/dL POC Glucose (mg/dL) 165 H (75-99) mg/dL Hemoglobin A1c (4.2-6.1) % Assessment and Plan Plan: Assessment 1 right mid lobe cavitating lesion/mass, status post right middle lobe resection and the patient is postop day #2. The patient underwent a robotic- assisted thoracoscopic right middle lobe resection with mediastinal lymph node sampling. 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 2 postoperative anemia, hemoglobin is stable at 9.6 3 postoperative thoracic/chest wall pain and the patient has a right-sided chest tube in place 4 diabetes mellitus 5 hypertension 6 hyperlipidemia 7 thyroid cancer status post thyroidectomy currently on thyroid hormone replacement 8 renal insufficiency, likely chronic Plan Continue using incentive spirometer. The patient is adequate pain control. Monitor the output from the chest tube. I reviewed the chest x-ray from today and there is no evidence of pneumothorax. There is no evidence of any air leak from the chest tube. Daily chest x-ray. Consider removing the chest tube in a.m. if the output remains diminished. Hemoglobin is at 9.6 and stable. We'll continue to follow.
[2017-01-08 16:48] LABS: Glucose,Whole Blood 174 mg/dL (75-99)
--- NOTE | 2017-01-08 17:41 | PN ---
DATE OF SERVICE: 01/08/2017 Presenting complaint: Status post right middle lobectomy with lymph node resection for a mass. INTERVAL HISTORY: This is a 76-year-old patient who underwent a right middle lobectomy with lymph node dissection for a mass. Patient has a chest tube in place on the right chest wall. Minimal output noted for today. Patient feels better today, sitting up in the chair. States pain control is better. Review of systems done for constitutional GI, cardiovascular, pulmonary, with relevant findings as listed above. Current medications: Continues to be on: 1. DuoNeb. 2. Atorvastatin. 3. Calcium. 4. Diltiazem. 5. Ultram. 6. Morphine sulfate for pain. Physical exam: Vital signs: Temperature 98.7 pulse 89 respirations 16, blood pressure 130/61, oxygen saturation 94% on room air. General appearance: Patient sitting up in the chair, eating lunch, not in any distress. Eyes pupils equal. Conjunctivae normal neck JVD not raised. Mass not palpable. Respiratory effort normal. Lungs decreased breath sounds on the right. Cardiovascular: S1, S2 noted and normal. No edema. Abdomen soft, nontender. Liver and spleen not palpable. Psychiatric: Alert and oriented x3. Mood and affect normal, in good spirits today. Musculoskeletal: Right chest tube present in the chest wall. Investigations: Daily labs, hemoglobin 9.7, creatinine 1.12. Chest x-ray shows no sizable pneumothorax and presence of the right chest tube. ASSESSMENT: 1. Lung mass leading to right middle lobectomy with lymph node removal with resulting chest tube in place located on the right side. 2. Acute blood loss anemia as expected from right middle lobectomy surgery. 3. Chronic kidney disease stage III likely hypertensive nephrosclerosis and diabetic nephropathy. 4. Diabetes mellitus, type II on oral hypoglycemic. 5. Hyperlipidemia. 6. Essential hypertension. 7. Hypothyroidism. PLAN: Continuing to follow Accu-Cheks. We will continue to manage and adjust pain medications as needed. DuoNeb and appropriate pain control is in place. Patient also has Venodyne boots in place. Plan of care was discussed with the patient. The history and physical examination was performed by me and the nurse practitioner and attending/Dr. Mueller. The relevant points of the history, physical, diagnosis/plan was discussed and is as dictated above. I performed a history and physical examination of this patient and discussed the same with the dictator. I agree with the dictator's note. Any additional findings/opinions, etc. will be noted.
[2017-01-08 21:48] LABS: Glucose,Whole Blood 137 mg/dL (75-99)
[2017-01-08] MEDS: ATORVASTATIN 40 MG TAB PO SCH (22:10)
[2017-01-09 06:21] LABS: Glucose,Whole Blood 138 mg/dL (75-99)
[2017-01-09 06:32] LABS: Calcium 8.8 mg/dL (8.4-10.2); Potassium 4.2 mmol/L (3.5-5.1)
[2017-01-09] MEDS: INSULIN LISPRO (humaLOG) 300 UNIT/3 ML VIAL SQ SCH ×4 (06:34→21:00)
[2017-01-09] MEDS: LEVOTHYROXINE 25 MCG TAB PO SCH (06:34)
[2017-01-09] MEDS: REPAGLINIDE 1 MG TAB PO SCH ×2 (06:34→17:18)
[2017-01-09] MEDS: MORPHINE SULFATE 2 MG/ML SYRINGE IVP PRN ×3 (07:50→15:49)
[2017-01-09] MEDS: metFORMIN 500 MG TAB PO SCH ×2 (07:51→21:00)
[2017-01-09] MEDS: HEPARIN SODIUM,PORCINE 5,000 UNIT/ML 1 ML VIAL SQ SCH ×3 (07:51→23:08)
[2017-01-09] MEDS: DILTIAZEM CD 120 MG CAP.ER.24H PO SCH (07:51)
[2017-01-09] MEDS: TOBRAMYCIN 0.3% OPHTH OINT 3.5 GM TUBE LEFT EYE SCH ×3 (07:51→21:00)
[2017-01-09] MEDS: ASPIRIN 81 MG CHEW PO SCH (07:51)
[2017-01-09] MEDS: ONDANSETRON 4 MG/2 ML VIAL IVP PRN (07:59)
[2017-01-09] MEDS: IPRATROPIUM-ALBUTEROL 3 ML NEB IH SCH ×4 (09:03→19:02)
--- NOTE | 2017-01-09 10:04 | XR ---
EXAMINATION TYPE: XR chest 1V portable DATE OF EXAM: 01/09/2017 7:17 AM COMPARISON: 01/08/2017 HISTORY: Postop TECHNIQUE: Single frontal view of the chest is obtained. FINDINGS: There is a less than 5% right apical pneumothorax. Subsegmental consolidation involving th e right perihilar region and stable. Canal is also subsegmental consolidation involving the left lowe r lobe. No overt failure. IMPRESSION: 1. Interval development of a less than 5% right apical pneumothorax. 2. Stable bilateral areas of consolidation.
[2017-01-09 11:21] LABS: Glucose,Whole Blood 166 mg/dL (75-99)
--- NOTE | 2017-01-09 13:03 | P.PN ---
Subjective 76-year-old female patient, was being evaluated and treated for a right lung cavitating mass involving the right middle lobe. The patient had an outpatient bronchoscopy by Dr. Raza and that was nondiagnostic. At that point she was referred to thoracic surgery due to the high concern of malignancy. The patient 's scan was suggestive of primary malignancy without evidence of any metastases. 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 The frozen section margins were negative. Based on that, the patient underwent a robotic-assisted thoracoscopic right middle lobectomy with mediastinal lymph node sampling involving the R 11 and R4 lymph nodes. Today the patient is doing well. She has a right-sided chest tube today without significant output. There is minimal amount of air leak. On the chest x-ray there is no evidence of pneumothorax in the right lung is well expanded. Her pain is under good control. No respiratory distress. No nausea or vomiting. No change in mental status. No other complaints otherwise for now. On 01/08/2017 the patient is being seen in follow-up. She is doing well. Her pain is under better control. She still has a right-sided chest tube in place and output has been around 70 mL over the past 12 hours. No significant air leaks. Chest x-ray shows adequate expansion of the right lung and the results of pneumothorax. The patient has been otherwise stable and she has no specific complaints. No nausea. No vomiting. No abdominal pain. No cardiac arrhythmias. The pain is under good control for now. The patient is seen again today 01/09/2017 in follow-up. She is awake and alert in no acute distress. Her right-sided chest tube remains in place with minimal drainage. Today's chest x-ray shows less than 5% right apical pneumothorax. There is stable bilateral areas of consolidation. He is maintaining good O2 saturations in the 90s on room air. She is afebrile. Hemodynamically stable. She's been up ambulating with assistance. Her pain is under good control. Objective - Vital Signs Vital signs: Vital Signs Temp 97.0 F L 01/09/17 11:39 Pulse 102 H 01/09/17 11:40 Resp 16 01/09/17 11:40 BP 155/67 01/09/17 11:39 Pulse Ox 93 L 01/09/17 11:39 Intake & Output 01/08/17 01/09/17 01/09/17 18:59 06:59 18:59 Intake Total 286 0 Output Total 800 30 150 Balance -514 -30 -150 Weight 66.9 kg Intake: Oral 286 0 Output: Chest Tube Drainage 50 30 0 Chest Tube Right Lateral 50 30 0 Chest Urine 600 Emesis 150 150 Other: Voiding Method Toilet Toilet Toilet # Voids 1 - Exam The patient appeared well nourished and normally developed. Vital signs as documented. Head exam is unremarkable. No scleral icterus or corneal arcus noted. Neck is without jugular venous distension, thyromegaly, or carotid bruits. Carotid upstrokes are brisk bilaterally. Lung examination shows the mesh breast on the right compared to the left. No wheezes or rhonchi. There is a right-sided chest tube in place. Surgical wound site over the right chest area is clean and intact.. Cardiac exam reveals the PMI to be normally sized and situated. Rhythm is regular. First and second heart sounds normal. No murmurs, rubs or gallops. Abdominal exam reveals normal bowel sounds, no masses , no organomegaly and no aortic enlargement. Extremities are nonedematous and both femoral and pedal pulses are normal. - Labs CBC & Chem 7: 01/08/17 07:23 01/09/17 05:41 Labs: Abnormal Lab Results - Last 24 Hours (Table) 01/08/17 01/08/17 01/09/17 Range/Units 16:46 21:47 05:41 Creatinine 1.10 H (0.52-1.04) mg/dL Glucose 120 H (74-99) mg/dL POC Glucose (mg/dL) 174 H 137 H (75-99) mg/dL 01/09/17 01/09/17 Range/Units 06:20 11:20 Creatinine (0.52-1.04) mg/dL Glucose (74-99) mg/dL POC Glucose (mg/dL) 138 H 166 H (75-99) mg/dL Assessment and Plan Plan: Assessment 1 right mid lobe cavitating lesion/mass, status post right middle lobe resection and the patient is postop day #2. The patient underwent a robotic- assisted thoracoscopic right middle lobe resection with mediastinal lymph node sampling. 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 2 postoperative anemia, hemoglobin is stable at 9.6 3 postoperative thoracic/chest wall pain and the patient has a right-sided chest tube in place 4 diabetes mellitus 5 hypertension 6 hyperlipidemia 7 thyroid cancer status post thyroidectomy currently on thyroid hormone replacement 8 renal insufficiency, likely chronic Plan The patient was seen and evaluated by Dr. Diaz. Her chest x-ray and labs were reviewed. She is maintaining good O2 saturations on room air. The plan is for removal of the chest tube today. We'll increase her activity as tolerated. Hopefully home tomorrow.
--- NOTE | 2017-01-09 16:44 | P.PN ---
<Vasquez Rodriguez - Last Filed: 01/09/17 16:43> Progress Note - Text CV Surgery Nursing Principal diagnosis: Right middle lobe lung mass Postop day #2, robot-assisted thoracoscopic right middle lobectomy with mediastinal lymph node sampling. Patient awake and alert, no distress noted, she denies complaints of nausea today. Rates her pain 1 out of 10 on the pain scale. Vital Signs: Afebrile Vital Signs - 24 hr 01/08/17 01/08/17 01/08/17 16:00 20:00 21:07 Temperature 98.7 F 98.9 F Pulse Rate 101 H Pulse Rate [ 89 102 H Right Pulse Oximetery] Respiratory 16 17 Rate Blood Pressure 130/61 [Left Arm] Blood Pressure 161/72 [Right Arm Supine] O2 Sat by Pulse 94 L 93 L 93 L Oximetry 01/08/17 01/09/17 01/09/17 21:25 00:00 04:00 Temperature 98.6 F Pulse Rate 99 Pulse Rate [ 107 H 100 Right Pulse Oximetery] Respiratory 16 16 Rate Blood Pressure 126/59 133/62 [Left Arm] Blood Pressure [Right Arm Supine] O2 Sat by Pulse 92 L 90 L Oximetry 01/09/17 01/09/17 01/09/17 08:00 09:05 09:15 Temperature 97.8 F Pulse Rate 98 98 Pulse Rate [ 100 Right Pulse Oximetery] Respiratory 18 Rate Blood Pressure 159/77 [Left Arm] Blood Pressure [Right Arm Supine] O2 Sat by Pulse 95 Oximetry 01/09/17 01/09/17 11:39 11:40 Temperature 97.0 F L Pulse Rate Pulse Rate [ 102 H 102 H Right Pulse Oximetery] Respiratory 16 16 Rate Blood Pressure 155/67 [Left Arm] Blood Pressure [Right Arm Supine] O2 Sat by Pulse 93 L Oximetry Labs: [facility] 01/09/17 05:41 Sodium 139 Potassium 4.2 Chloride 106 Carbon Dioxide 28 BUN 17 Creatinine 1.10 H Glucose 120 H Calcium 8.8 Lungs: Essentially clear throughout, diminished bilateral bases right greater than left. Respirations are symmetrical and unlabored. O2 sat: 92% on room air. I/S: 1000 mL, reviewed with the patient importance of using her incentive spirometry every hour while awake. The patient did give a good return demonstration on her incentive spirometry. Heart: S1S2, regular rhythm with regular rate. Negative for S3, gallop or murmur. Remote telemetry showing normal sinus rhythm heart rate 98. Right chest incisions clean dry and well approximated. No drainage noted. Scant serosanguineous drainage noted around the chest tube insertion site. Dressing dry and intact. Abdomen: Soft, Positive bowel sounds present in all 4 quadrants, denies bowel movement since surgery. CBGs: 137-174 mg/dL in the last 24 hours. U/O: Adequate. Chest Tubes: Right pleural chest tube without air leak, draining scant thin serosanguineous drainage. 60 mL output within the last 24 hours. 24 hr Total: Intake & Output 01/07/17 01/08/17 01/09/17 01/10/17 06:59 06:59 06:59 06:59 Intake Total 5130 2120 286 0 Output Total 1085 1740 830 150 Balance 4045 380 544 -150 Weight 67.9 kg 68.4 kg 66.9 kg Active Medications Albuterol/Ipratropium (Duoneb 0.5 Mg-3 Mg/3 Ml Soln) 3 ml IH RT-Q1H PRN PRN Reason: Shortness Of Breath Or Wheezing Albuterol/Ipratropium (Duoneb 0.5 Mg-3 Mg/3 Ml Soln) 3 ml IH RT-QID [facility] Last Admin: 01/09/17 09:03 Dose: 3 ml Aspirin (Aspirin) 81 mg PO DAILY [facility] Last Admin: 01/09/17 07:51 Dose: 81 mg Atorvastatin Calcium (Lipitor) 40 mg PO HS [facility] Last Admin: 01/08/17 22:10 Dose: 40 mg Bisacodyl (Dulcolax) 10 mg RECTAL DAILY PRN PRN Reason: Constipation Last Admin: 01/08/17 11:44 Dose: 10 mg Diltiazem HCl (Cardizem Cd) 120 mg PO DAILY [facility] Last Admin: 01/09/17 07:51 Dose: 120 mg Docusate Sodium (Colace) 100 mg PO DAILY PRN PRN Reason: Constipation Last Admin: 01/08/17 11:44 Dose: 100 mg Heparin Sodium (Porcine) (Heparin) 5,000 unit SQ Q8HR [facility] Last Admin: 01/09/17 07:51 Dose: 5,000 unit Insulin Human Lispro (Humalog) 0 unit SQ ACHS [facility] PRN Reason: Protocol Last Admin: 01/09/17 11:58 Dose: 2 unit Levothyroxine Sodium (Synthroid) 25 mcg PO DAILY@0630 [facility] Last Admin: 01/09/17 06:34 Dose: 25 mcg Metformin HCl (Glucophage) 1,000 mg PO BID [facility] Last Admin: 01/09/17 07:51 Dose: 1,000 mg Metoclopramide HCl (Reglan) 5 mg IVP Q4HR PRN PRN Reason: Nausea And Vomiting Last Admin: 01/08/17 18:08 Dose: 5 mg Morphine Sulfate (Morphine Sulfate (Inj)) 2 mg IVP Q4H PRN PRN Reason: Pain/Discomfort Last Admin: 01/09/17 11:57 Dose: 2 mg Ondansetron HCl (Zofran) 4 mg IVP Q8HR PRN PRN Reason: Nausea And Vomiting Last Admin: 01/09/17 07:59 Dose: 4 mg Repaglinide (Prandin) 1 mg PO AC-BID [facility] Last Admin: 01/09/17 06:34 Dose: 1 mg Tobramycin (Tobrex) 1 applic LEFT EYE TID [facility] Last Admin: 01/09/17 07:51 Dose: 1 applic Tramadol HCl (Ultram) 50 mg PO Q6H PRN PRN Reason: Pain Last Admin: 01/07/17 10:29 Dose: 50 mg Intake & Output 01/07/17 01/08/17 01/09/17 01/10/17 06:59 06:59 06:59 06:59 Intake Total 5130 2120 286 0 Output Total 1085 1740 830 150 Balance 4045 380 544 -150 Weight 67.9 kg 68.4 kg 66.9 kg Plan: 1. Pain control per when necessary orders. 2. Encourage use of incentive spirometry every hour while awake. 3. Continue tobramycin ointment to left eye as scheduled. 4. Pathology results for lung specimen pending, will monitor for results. 5. Out of bed to chair 3 times a day as tolerated, ambulate in the hallway with minimal assistance as tolerated. Physical therapy is working with patient. 6. DVT prophylaxis in place. 7. Saline lock IV, discontinue Murray catheter. 8. Right pleural chest tube remains to waterseal. Her chest tube will be removes today. 9. Further recommendations to follow as the patient progresses. 10. Discharge planning, home tomorrow. <JollyRoderick - Last Filed: 01/09/17 16:46> Progress Note - Text The patient was seen and examined. I agree with the above assessment and plan. Overall she looks good. She has ambulated in the hallway and is currently on room air. She does have a poor appetite, and I did encourage her to eat as much as possible. Chest tube has no air leak and we will remove it this afternoon. She will likely be discharged home tomorrow.
[2017-01-09 17:00] LABS: Glucose,Whole Blood 236 mg/dL (75-99)
--- NOTE | 2017-01-09 19:24 | PN ---
DATE OF SERVICE: 01/09/2017 PRESENTING COMPLAINT: Status post right middle lobectomy with lymph node dissection for a mass. INTERVAL HISTORY: This is a 76-year-old patient who underwent a right middle lobectomy with lymph node dissection for a mass. Patient has a chest tube in place on the right chest wall. Minimal output noted for the past 24 hours. Possible removal of chest tube today. Patient feels better today, sitting up in chair. States pain has been well controlled. Review of systems done for constitutional, GI, cardiovascular, pulmonary, with relevant findings as listed above. CURRENT MEDICATIONS: 1. DuoNeb. 2. Atorvastatin. 3. Calcium. 4. Diltiazem. 5. Ultram. 6. Morphine sulfate for pain. PHYSICAL EXAMINATION: VITAL SIGNS: Temperature 97.0, heart rate 102, respirations 16, blood pressure 155/67, oxygen saturation 93% on room air. GENERAL APPEARANCE: Patient is sitting up in the chair. No acute distress noted. EYES: Pupils equal. Conjunctivae normal. NECK: JVD not raised. Mass not palpable. RESPIRATORY: Effort normal. LUNGS: Decreased breath sounds on the right. CARDIOVASCULAR: S1, S2 noted and normal. No edema. ABDOMEN: Soft, nontender. Liver and spleen not palpable. PSYCHIATRIC: Alert and oriented x3. Mood and affect normal. INVESTIGATIONS: Chest x-ray shows interval development of less than a 5% apical pneumothorax and a stable bilateral area of consolidation. Basic metabolic panel within normal limits. ASSESSMENT: 1. Lung mass leading to right middle lobectomy with lymph node removal resulting in a chest tube placed located on the right side. Minimal output from chest tube. Pulmonology planning to pull chest tube today. 2. Acute blood loss anemia, expected from right middle lobectomy surgery. 3. Chronic kidney disease, stage III, likely hypertensive nephrosclerosis and diabetic nephropathy, improving. 4. Diabetes mellitus, type 2, on oral hypoglycemic, stable. 5. Hyperlipidemia. 6. Essential hypertension. 7. Hypothyroidism. PLAN: Continue to follow Accu-Cheks. We will continue to manage and adjust pain medication as needed. DuoNeb and appropriate pain control in place. Patient also has Venodyne boots in place. Expecting chest tube removal later this afternoon by Pulmonology. Possible discharge on 01/10/2017. Plan of care was discussed with the patient. History and physical exam were performed by me, the nurse practitioner, and attending, Dr. Mueller. The relevant points of the history, physical, diagnoses and plan were discussed and are as dictated above.
[2017-01-09 20:20] LABS: Glucose,Whole Blood 234 mg/dL (75-99)
[2017-01-09] MEDS: ATORVASTATIN 40 MG TAB PO SCH (21:00)
[2017-01-09] MEDS: traMADol 50 MG TAB PO PRN (21:03)
[2017-01-10 05:53] LABS: Glucose,Whole Blood 172 mg/dL (75-99)
[2017-01-10] MEDS: REPAGLINIDE 1 MG TAB PO SCH (06:36)
[2017-01-10] MEDS: INSULIN LISPRO (humaLOG) 300 UNIT/3 ML VIAL SQ SCH (06:36)
[2017-01-10] MEDS: LEVOTHYROXINE 25 MCG TAB PO SCH (06:36)
[2017-01-10] MEDS: IPRATROPIUM-ALBUTEROL 3 ML NEB IH SCH ×2 (06:57→10:58)
[2017-01-10 07:06] LABS: Calcium 9.3 mg/dL (8.4-10.2); Magnesium 1.4 mg/dL (1.6-2.3)
[2017-01-10] MEDS ORDERED: Magnesium Replacement Protocol 1 EACH MISC MISCELLANE PRN (07:50)
[2017-01-10 08:58] LABS: CH 28.1; CHCM 30.3; HCT 30.2 % (34.0-46.0); HDW 2.57; HGB 9.5 gm/dL (11.4-16.0); Hypochromasia Moderate; MCH 29.2 pg (25.0-35.0); MCHC 31.4 g/dL (31.0-37.0); Mean Platelet Volume 8.6; RBC 3.24 m/uL (3.80-5.40); RDW 13.9 % (11.5-15.5); WBC 9.2 k/uL (3.8-10.6)
--- NOTE | 2017-01-10 09:57 | XR ---
EXAMINATION TYPE: XR chest 2V DATE OF EXAM: 01/10/2017 6:37 AM COMPARISON: 01/09/2017 TECHNIQUE: PA and lateral views submitted. HISTORY: Chest tube removal FINDINGS: Tiny less than 5% right apical residual pneumothorax noted. Subsegmental right lower lobe and perihil ar consolidation stable with stable right hilar soft tissue prominence. Arthropathy of the shoulders. No pleural effusion. Granuloma right lower lobe. IMPRESSION: 1. Less than 5% right apical pneumothorax post chest tube removal.
[2017-01-10] MEDS: MAGNESIUM SULFATE-D5W PMX 1 GM in DEXTROSE/WATER 1 100ML.BAG IVPB SCH ×2 (10:18→11:44)
[2017-01-10] MEDS: metFORMIN 500 MG TAB PO SCH (10:19)
[2017-01-10] MEDS: ASPIRIN 81 MG CHEW PO SCH (10:19)
[2017-01-10] MEDS: HEPARIN SODIUM,PORCINE 5,000 UNIT/ML 1 ML VIAL SQ SCH (10:19)
[2017-01-10] MEDS: DILTIAZEM CD 120 MG CAP.ER.24H PO SCH (10:19)
[2017-01-10] MEDS: TOBRAMYCIN 0.3% OPHTH OINT 3.5 GM TUBE LEFT EYE SCH (10:20)
[2017-01-10 11:37] VITALS: BP 128/58; PULSE 98; RESP 18; TEMP 98.7
[2017-01-10 11:57] LABS: Glucose,Whole Blood 198 mg/dL (75-99)
--- NOTE | 2017-01-10 15:36 | P.PN ---
Subjective 76-year-old female patient, was being evaluated and treated for a right lung cavitating mass involving the right middle lobe. The patient had an outpatient bronchoscopy by Dr. Raza and that was nondiagnostic. At that point she was referred to thoracic surgery due to the high concern of malignancy. The patient 's scan was suggestive of primary malignancy without evidence of any metastases. 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 The frozen section margins were negative. Based on that, the patient underwent a robotic-assisted thoracoscopic right middle lobectomy with mediastinal lymph node sampling involving the R 11 and R4 lymph nodes. Today the patient is doing well. She has a right-sided chest tube today without significant output. There is minimal amount of air leak. On the chest x-ray there is no evidence of pneumothorax in the right lung is well expanded. Her pain is under good control. No respiratory distress. No nausea or vomiting. No change in mental status. No other complaints otherwise for now. On 01/08/2017 the patient is being seen in follow-up. She is doing well. Her pain is under better control. She still has a right-sided chest tube in place and output has been around 70 mL over the past 12 hours. No significant air leaks. Chest x-ray shows adequate expansion of the right lung and the results of pneumothorax. The patient has been otherwise stable and she has no specific complaints. No nausea. No vomiting. No abdominal pain. No cardiac arrhythmias. The pain is under good control for now. On 01/09/2017, the patient is doing well. The chest is of utmost. The patient is breathing comfortably. She is using incentive spirometer. No respiratory difficulties. No fever. No chills. Tolerating diet. No nausea. No vomiting. No other complaints otherwise for now. Post chest tube removal, there was a less than 5% right apical pneumothorax. Objective - Vital Signs Vital signs: Vital Signs Temp 98.7 F 01/10/17 08:00 Pulse 88 01/10/17 11:12 Resp 18 01/10/17 08:00 BP 128/58 01/10/17 08:00 Pulse Ox 93 L 01/10/17 08:00 Intake & Output 01/09/17 01/10/17 01/10/17 18:59 06:59 18:59 Intake Total 380 100 125 Output Total 170 275 Balance 210 -175 125 Weight 66.7 kg Intake: Oral 380 100 125 Output: Chest Tube Drainage 20 Chest Tube Right Lateral 20 Chest Urine 275 Emesis 150 Other: Voiding Method Toilet Toilet # Voids 1 - Exam The patient appeared well nourished and normally developed. Vital signs as documented. Head exam is unremarkable. No scleral icterus or corneal arcus noted. Neck is without jugular venous distension, thyromegaly, or carotid bruits. Carotid upstrokes are brisk bilaterally. Lung examination shows the mesh breast on the right compared to the left. No wheezes or rhonchi. There is a right-sided chest tube in place. Surgical wound site over the right chest area is clean and intact.. Cardiac exam reveals the PMI to be normally sized and situated. Rhythm is regular. First and second heart sounds normal. No murmurs, rubs or gallops. Abdominal exam reveals normal bowel sounds, no masses , no organomegaly and no aortic enlargement. Extremities are nonedematous and both femoral and pedal pulses are normal. - Labs CBC & Chem 7: 01/10/17 05:33 01/10/17 05:33 Labs: Abnormal Lab Results - Last 24 Hours (Table) 01/09/17 01/09/17 01/10/17 Range/Units 16:46 20:18 05:33 RBC (3.80-5.40) m/uL Hgb (11.4-16.0) gm/dL Hct (34.0-46.0) % Creatinine 1.16 H (0.52-1.04) mg/dL Glucose 152 H (74-99) mg/dL POC Glucose (mg/dL) 236 H 234 H (75-99) mg/dL Magnesium 1.4 L (1.6-2.3) mg/dL 01/10/17 01/10/17 01/10/17 Range/Units 05:33 05:52 11:52 RBC 3.24 L (3.80-5.40) m/uL Hgb 9.5 L (11.4-16.0) gm/dL Hct 30.2 L (34.0-46.0) % Creatinine (0.52-1.04) mg/dL Glucose (74-99) mg/dL POC Glucose (mg/dL) 172 H 198 H (75-99) mg/dL Magnesium (1.6-2.3) mg/dL Assessment and Plan Plan: Assessment 1 right mid lobe cavitating lesion/mass, status post right middle lobe resection and the patient is postop day #3. The patient underwent a robotic- assisted thoracoscopic right middle lobe resection with mediastinal lymph node sampling. Post operative diagnosis is consistent with adenocarcinoma of the right lung. The post surgical staging is T2a,N 0, M0. The tumor is moderate to poorly differentiated. Greatest dimension is 4 cm in the right middle lobe and margins were clear. 2 postoperative anemia, hemoglobin is stable at 9.5 3 postoperative thoracic/chest wall pain and the patient has a right-sided chest tube in place 4 diabetes mellitus 5 hypertension 6 hyperlipidemia 7 thyroid cancer status post thyroidectomy currently on thyroid hormone replacement 8 renal insufficiency, likely chronic Plan Continue using incentive spirometer. The post operative staging was noted. Postoperative histology was noted. The patient can be discharged home today to be followed up by surgery and pulmonary.
[2017-01-10] MEDS: traMADol 50 MG TAB PO PRN (16:10)
--- NOTE | 2017-01-10 17:32 | P.PN ---
Progress Note - Text CV Surgery Nursing Principal diagnosis: Right middle lobe lung mass Postop day #3, robot-assisted thoracoscopic right middle lobectomy with mediastinal lymph node sampling. Patient awake and alert, no distress noted, no specific complaints. Denies complaints of pain at this time. Vital Signs: Afebrile Vital Signs - 24 hr 01/09/17 01/09/17 01/09/17 11:39 11:40 13:15 Temperature 97.0 F L Pulse Rate 96 Pulse Rate [ 102 H 102 H Right Pulse Oximetery] Respiratory 16 16 Rate Blood Pressure 155/67 [Left Arm] Blood Pressure [Right Arm Supine] O2 Sat by Pulse 93 L Oximetry 01/09/17 01/09/17 01/09/17 16:00 19:02 19:14 Temperature 97.6 F Pulse Rate 107 H 107 H Pulse Rate [ 109 H Right Pulse Oximetery] Respiratory 16 Rate Blood Pressure 135/65 [Left Arm] Blood Pressure [Right Arm Supine] O2 Sat by Pulse 93 L 95 Oximetry 01/09/17 01/10/17 01/10/17 20:00 00:00 04:00 Temperature 99.7 F H 98.9 F Pulse Rate Pulse Rate [ 114 H 104 H 96 Right Pulse Oximetery] Respiratory 16 16 17 Rate Blood Pressure 108/54 [Left Arm] Blood Pressure 123/58 126/63 [Right Arm Supine] O2 Sat by Pulse 93 L 92 L 92 L Oximetry 01/10/17 01/10/17 06:57 07:06 Temperature Pulse Rate 88 92 Pulse Rate [ Right Pulse Oximetery] Respiratory Rate Blood Pressure [Left Arm] Blood Pressure [Right Arm Supine] O2 Sat by Pulse Oximetry Labs: Short CBC 01/10/17 Range/Units 05:33 WBC 9.2 (3.8-10.6) k/uL Hgb 9.5 L (11.4-16.0) gm/dL Hct 30.2 L (34.0-46.0) % Plt Count 249 (150-450) k/uL BMP 01/10/17 05:33 Sodium 139 Potassium 5.0 Chloride 103 Carbon Dioxide 26 BUN 16 Creatinine 1.16 H Glucose 152 H Calcium 9.3 Magnesium 1.4 Lungs: Essentially clear throughout, diminished bilateral bases right greater than left. Respirations are symmetrical and unlabored. O2 sat: 93% on room air. I/S: 1250 mL, reviewed with the patient the importance of using her incentive spirometry every hour while awake. The patient did give a good return demonstration on the incentive spirometry. Heart: S1S2, regular rhythm and rate, negative for S3, gallop or murmur. Remote telemetry showing normal sinus rhythm heart rate 90. Right chest incisions clean dry and well approximated. No drainage noted. Abdomen: Soft, Positive bowel sounds present in all 4 quadrants, CBGs: 138-236 mg/dL in the last 24 hours. U/O: Adequate. 24 hr Total: Intake & Output 01/08/17 01/09/17 01/10/17 01/11/17 06:59 06:59 06:59 06:59 Intake Total 2120 286 480 125 Output Total 1740 830 445 Balance 380 -544 35 125 Weight 68.4 kg 66.9 kg 66.7 kg Active Medications Albuterol/Ipratropium (Duoneb 0.5 Mg-3 Mg/3 Ml Soln) 3 ml IH RT-Q1H PRN PRN Reason: Shortness Of Breath Or Wheezing Albuterol/Ipratropium (Duoneb 0.5 Mg-3 Mg/3 Ml Soln) 3 ml IH RT-QID [facility] Last Admin: 01/10/17 06:57 Dose: 3 ml Aspirin (Aspirin) 81 mg PO DAILY [facility] Last Admin: 01/09/17 07:51 Dose: 81 mg Atorvastatin Calcium (Lipitor) 40 mg PO HS [facility] Last Admin: 01/09/17 21:00 Dose: 40 mg Bisacodyl (Dulcolax) 10 mg RECTAL DAILY PRN PRN Reason: Constipation Last Admin: 01/08/17 11:44 Dose: 10 mg Diltiazem HCl (Cardizem Cd) 120 mg PO DAILY [facility] Last Admin: 01/09/17 07:51 Dose: 120 mg Docusate Sodium (Colace) 100 mg PO DAILY PRN PRN Reason: Constipation Last Admin: 01/08/17 11:44 Dose: 100 mg Heparin Sodium (Porcine) (Heparin) 5,000 unit SQ Q8HR [facility] Last Admin: 01/09/17 23:08 Dose: 5,000 unit Magnesium Sulfate/Dextrose 1 (gm/ IV Solution) 100 mls @ 100 mls/hr IVPB Q1H [facility] Stop: 01/10/17 11:59 Insulin Human Lispro (Humalog) 0 unit SQ ACHS [facility] PRN Reason: Protocol Last Admin: 01/10/17 06:36 Dose: 2 unit Levothyroxine Sodium (Synthroid) 25 mcg PO DAILY@0630 [facility] Last Admin: 01/10/17 06:36 Dose: 25 mcg Metformin HCl (Glucophage) 1,000 mg PO BID [facility] Last Admin: 01/09/17 21:00 Dose: 1,000 mg Metoclopramide HCl (Reglan) 5 mg IVP Q4HR PRN PRN Reason: Nausea And Vomiting Last Admin: 01/08/17 18:08 Dose: 5 mg Miscellaneous Information (Magnesium Per Protocol) 1 each MISCELLANE DAILY PRN ; Protocol PRN Reason: Per Protocol Morphine Sulfate (Morphine Sulfate (Inj)) 2 mg IVP Q4H PRN PRN Reason: Pain/Discomfort Last Admin: 01/09/17 15:49 Dose: 2 mg Ondansetron HCl (Zofran) 4 mg IVP Q8HR PRN PRN Reason: Nausea And Vomiting Last Admin: 01/09/17 07:59 Dose: 4 mg Repaglinide (Prandin) 1 mg PO AC-BID [facility] Last Admin: 01/10/17 06:36 Dose: 1 mg Tobramycin (Tobrex) 1 applic LEFT EYE TID [facility] Last Admin: 01/09/17 21:00 Dose: 1 applic Tramadol HCl (Ultram) 50 mg PO Q6H PRN PRN Reason: Pain Last Admin: 01/09/17 21:03 Dose: 50 mg Plan: 1. Pain control per when necessary orders. 2. Encourage use of incentive spirometry every hour while awake. 3. Continue tobramycin ointment to left eye as scheduled. 4. Pathology results for lung specimen will be reviewed with the patient by Dr. Dewitt. 5. Out of bed to chair 3 times a day as tolerated, ambulate in the hallway with minimal assistance as tolerated. Physical therapy is working with patient. 6. DVT prophylaxis in place. 7. Discharge planning, home today, discharge instructions reviewed with the patient.
--- NOTE | 2017-01-10 17:49 | P.DS ---
Providers Date of admission: 01/06/17 08:09 Attending physician: Horace Dewitt Consults: 01/06/17 13:47 Consult Physician Routine Consulting Provider: Malachi Mueller Consult Reason/Comments: Medical mangement Do you want consulting provider notified?: Yes 01/06/17 14:50 Consult Physician Routine Consulting Provider: Tigre Reeves Consult Reason/Comments: Conjunctivitis Do you want consulting provider notified?: Yes 01/06/17 20:04 Consult Physician Routine Consulting Provider: Eldon Lynn Consult Reason/Comments: Pulmonary Management Do you want consulting provider notified?: Yes Primary care physician: [facility] Course: FINAL DIAGNOSIS: 1.[Right middle lobe lung mass, consistent with adenocarcinoma stage TIIa N0 M0] 2.[Hyperlipidemia] 3.[Hypertension] 4.[Hypothyroidism] 5.[Diabetes type 2] 6.[Chronic kidney disease, stage III] PRINCIPAL PROCEDURE: 1.[Robotic assisted thorascopic right middle lobectomy with mediastinal lymph node sampling] HISTORY OF PRESENT ILLNESS: [This is a 76-year-old female patient who is followed by Dr. Arciniega on an outpatient basis. The patient has a history of a right lung mass which is been followed closely by Dr. Lynn from pulmonary medicine. It is a cavitary mass in the right middle lobe which is progressively increasing in size. Subsequently she had undergone evaluation including a bronchoscopy with diagnostic approach and unfortunately no diagnosis was made. In November 2016 the patient underwent a PET scan which demonstrated hypermetabolic uptake corresponding to patient's cavitary mass to her right middle lobe. Subsequently she was referred to Dr. Dewitt from cardiothoracic surgery who also reviewed the studies with the patient and recommended an elective robotic assisted thoracoscopic right middle lobectomy.] HOSPITAL COURSE:[The patient was admitted to the hospital and after obtaining consent underwent an elective robotic assisted thoracoscopic right middle lobectomy with mediastinal lymph node sampling. The patient was recovered and then transferred to [address] [place] [address] for further monitoring and rehabilitation. Her pathology results demonstrated adenocarcinoma of the lung with the lymph nodes negative for metastasis. Pathology is consistent with T2aN0 M0 staging. The pathology results were reviewed with the patient by Dr. Dewitt and the patient will follow-up in the office as scheduled.] COMPLICATIONS: [There were no postoperative, locations] CONSULTATIONS: 1.[Dr. Lynn for pulmonary management] 2.[Dr. Mueller for medical management] DISCHARGE INSTRUCTIONS: 1. No driving for 4 weeks, or until physician gives their ok. 2. The patient may take a shower in the a.m. 01/11/2017 and remove the dressing to her right chest tube site. Plan - Discharge Summary New Discharge Prescriptions: traMADol HCl [Ultram] 50 mg PO Q6H PRN #60 tab PRN Reason: Pain Discharge Medication List Repaglinide [Prandin] 1 mg PO AC-BID 12/15/15 [History] Simvastatin [Zocor] 80 mg PO HS 12/15/15 [History] metFORMIN HCL [Glucophage] 1,000 mg PO BID 12/15/15 [History] Aspirin 81 mg PO DAILY 12/31/16 [History] Bisacodyl [Dulcolax] 5 mg PO HS 12/31/16 [History] Diltiazem HCl [Cardizem] 120 mg PO DAILY 12/31/16 [History] Iron Complex 1 tab PO DAILY 12/31/16 [History] Levothyroxine Sodium [Synthroid] 25 mcg PO DAILY 12/31/16 [History] Lisinopril [Zestril] 10 mg PO DAILY 12/31/16 [History] Lutein 10 mg PO DAILY 12/31/16 [History] Super Cleanse 1 tab PO Q2D PRN 12/31/16 [History] traMADol HCl [Ultram] 50 mg PO Q6H PRN #60 tab 01/10/17 [Rx] Follow up Appointment(s)/Referral(s): Champ Arciniega MD [Primary Care Provider] - 01/23/17 2:00 pm Horace Dewitt MD [STAFF PHYSICIAN] - 01/29/17 9:00 am Eldon Lynn DO [Doctor of Osteopathic Medicine] - 01/28/17 1:00 pm [facility], [NON-STAFF] - Patient Instructions/Handouts: Lung Lobectomy (DC) Discharge Disposition: HOME SELF-CARE
--- NOTE | 2017-01-10 19:18 | PN ---
DATE OF SERVICE: 01/10/2017 PRESENTING COMPLAINT: Status post right middle lobectomy with lymph node dissection for a mass. INTERVAL HISTORY: This is a 76-year-old patient who underwent a right middle lobectomy with lymph node dissection for a mass. Chest tube was removed yesterday. Patient is awake, alert, looking very comfortable. Patient states she feels better today, lying on the bed. States pain has been well controlled. Review of systems done for constitutional, GI, cardiovascular, pulmonary, relevant findings as listed above. CURRENT MEDICATIONS: 1. DuoNeb. 2. Atorvastatin. 3. Calcium. 4. Diltiazem. 5. Ultram. 6. Morphine sulfate for pain. PHYSICAL EXAMINATION: VITAL SIGNS: Temperature 98.7, pulse 98, respiratory rate 18, blood pressure 128/58, oxygen saturation 93% on room air. GENERAL APPEARANCE: Patient is sitting up in the bed. No acute distress noted. EYES: Pupils equal. Conjunctivae normal. NECK: JVD not raised. Mass not palpable. RESPIRATORY: Effort normal. LUNGS: Decreased breath sounds on the right. Dressing over chest tube site. CARDIOVASCULAR: S1, S2 noted and normal. No edema. ABDOMEN: Soft, nontender. Liver and spleen not palpable. PSYCHIATRIC: Alert and oriented x3. Mood and affect normal. INVESTIGATIONS: Hemoglobin 9.5. Creatinine 1.16, slightly increased from previous day's value of 1.10. Pathology report returned: lung, right middle lobectomy: adenocarcinoma of the lung, [id number] carcinoma; lymph node negative for metastasis. ASSESSMENT: 1. Lung mass leading to right middle lobectomy with lymph node removal. Pathology reveals [id number] adenocarcinoma of the lung; negative for metastases. 2. Acute blood loss anemia, expected from right middle lobectomy surgery. 3. Chronic kidney disease, stage III, likely hypertensive nephrosclerosis and diabetic nephropathy, improving. 4. Diabetes mellitus, type 2, on oral hypoglycemics, stable. 5. Hyperlipidemia. 6. Essential hypertension. 7. Hypothyroidism. PLAN: Continue to follow Accu-Cheks. Pain is well controlled on current regimen. DuoNeb continues. Patient to be discharged later today, 01/10/2017. History and physical was performed on the patient by me, the nurse practitioner, and attending, Dr. Mueller. The relevant points of the history, physical, diagnoses and plan were discussed and are as dictated above.
--- NOTE | 2017-02-05 22:37 | PN ---
DATE OF SERVICE: 01/06/2017 Attending note: This patient was seen and examined by me. I reviewed the note of my nurse practitioner, Ms. Shanks, agree with the same, discussed with her. Patient is status post right middle lobectomy and lymph node dissection. Chest tube remains in place. The patient is sitting up. On examination, blood pressure 155/67, pulse ox 93% on room on room air. LUNGS: Decreased breath sounds especially on the right side. CARDIOVASCULAR: First and second sounds normal. Answering questions. BMP noted. ASSESSMENT: 1. Status post right middle lobectomy with chest tube in place. 2. Acute blood loss anemia as expected from surgery. PLAN: Continue current medication and treatment plan. Follow.
--- NOTE | 2017-02-07 06:33 | PN ---
DATE OF SERVICE: 01/08/2017 ATTENDING NOTE: This patient was seen and examined by me on 01/08/2017. I reviewed the note of my nurse practitioner, Ms. Shanks. I discussed and agreed with the same. Patient is status post right middle lobectomy with a chest tube in place. Pain is somewhat better controlled, sitting up in a chair. On examination, blood pressure 130/61, pulse ox 94% on room air. Sitting on a chair. On examination, lungs reveal decreased breath sounds right side. CARDIOVASCULAR: First and second sounds normal. No edema. PSYCH: Awake. Right chest wall tube in place. Hemoglobin is 9.7. ASSESSMENT: 1. Right middle lobectomy with a chest tube in place. 2. Chronic kidney disease stage III. PLAN: Continue current medication and treatment plan including DuoNeb. Care was discussed with the patient.
--- NOTE | 2017-02-07 07:26 | PN ---
DATE OF SERVICE: 01/10/2017 ATTENDING NOTE: This patient was seen and examined by me on 01/10/2017. I reviewed the note of my nurse practitioner, Ms. Shanks. Agreed and discussed. Patient is status post right middle lobectomy. Pathology showing non-small cell adenocarcinoma, negative for mets. Chest tube has been out. Patient more comfortable, lying in bed. On examination, afebrile, blood pressure 120/58, pulse ox 93% on room air. LUNGS: Decreased breath sounds with a dressing over the chest tube site. CARDIOVASCULAR: First and second sounds normal. PSYCH: Alert and oriented x3. INVESTIGATIONS: Pathology as above. ASSESSMENT: 1. Right middle lobectomy showing non-small cell adenocarcinoma of the lung. 2. Chronic kidney disease stage III. Overall, patient doing better. Care was discussed with the patient. Continue medications.
--- NOTE | 2017-02-15 18:25 | PN ---
ADDENDUM: DATE OF SERVICE: 01/09/2017 The progress note dictated on 02/05/2017, time 1949, dated transcribed 02/05/2017 at 2235. The correct date of service is 01/09/2017.
== END 2017-01-10 16:54 | disposition home health service (06) | DRG 164 ==
LOC: 2ORWHC 08:09 → 6SEL 16:13
PROVIDERS: ADMIT Thoracic Surgery (Cardiothoracic Vascular Surgery); ATTEND Thoracic Surgery (Cardiothoracic Vascular Surgery)
PROC: 8E0W0CZ Robotic Assisted Procedure of Trunk Region, Open Approach (ICD-10-PCS; 2017-01-06)
PROC: 0BTD0ZZ Resection of Right Middle Lung Lobe, Open Approach (ICD-10-PCS; principal; 2017-01-06 10:00)
DX: C34.91 Malignant neoplasm of unspecified part of right bronchus or lung (principal); D62 Acute posthemorrhagic anemia; J93.9 Pneumothorax, unspecified; E11.22 Type 2 diabetes mellitus with diabetic chronic kidney disease; N18.3 Chronic kidney disease, stage 3 (moderate); E78.5 Hyperlipidemia, unspecified; E89.0 Postprocedural hypothyroidism; H10.9 Unspecified conjunctivitis; I12.9 Hypertensive chronic kidney disease with stage 1 through stage 4 chronic kidney disease, or unspecified chronic kidney disease; R07.89 Other chest pain; Z79.82 Long term (current) use of aspirin; Z79.84 Long term (current) use of oral hypoglycemic drugs; Z79.899 Other long term (current) drug therapy; Z85.850 Personal history of malignant neoplasm of thyroid; Z87.891 Personal history of nicotine dependence; Z88.1 Allergy status to other antibiotic agents; Z88.5 Allergy status to narcotic agent; Z88.0 Allergy status to penicillin
CPT/HCPCS: 71010; 71020; 80048; 80053; 81001; 83036; 83735; 85025; 85027; 86850; 86900; 86901; 88305; 88309; 88313; 88331; 88332; 88341; 88342; 94640; 94760

== ENCOUNTER 2017-10-25 15:30 | Emergency (ER) | payer MEDICARE ==
[2017-10-25 15:37] VITALS: RESP 20
[2017-10-25] MEDS ORDERED: LORazepam 1 MG TAB PO STA (16:39)
--- NOTE | 2017-10-25 17:02 | XR ---
EXAMINATION TYPE: XR KUB DATE OF EXAM: 10/25/2017 4:48 PM CLINICAL HISTORY: Abdominal pain TECHNIQUE: Single supine KUB image of the abdomen is obtained. COMPARISON: None. FINDINGS: Scattered gas is seen in non-distended small bowel loops. Gas and fecal material is seen in non-distended colon. There is no visceromegaly, pneumoperitoneum, or abnormal calcification apprecia meagan. Some stool is seen in the colon. 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 Multiple phleboli ths are seen in the pelvis. IMPRESSION: Overall nonobstructive bowel gas pattern.
--- NOTE | 2017-10-25 18:06 | ED ---
Abdominal Pain HPI - General Chief Complaint: Abdominal Pain Stated Complaint: Constipated Time Seen by Provider: 10/25/17 16:22 Source: patient, RN notes reviewed Mode of arrival: wheelchair Limitations: no limitations - History of Present Illness Initial Comments: 77-year-old female presented from for constipation. Patient states that she has had constipation a few times in the past. She states she feels ball in the rectum states that she needs to go but can't. She has tried since offers last is were no relief. She did try a suppository though when he came right back out. She denies chest pain, headache, fever, chills, nausea, vomiting. She is very anxious and family states that she has a lot of associated symptoms when she is anxious. - Related Data Home Medications Medication Instructions Recorded Confirmed Repaglinide [Prandin] 1 mg PO AC-BID 12/15/15 10/25/17 Aspirin 81 mg PO DAILY 12/31/16 10/25/17 Diltiazem HCl [Cardizem] 120 mg PO DAILY 12/31/16 10/25/17 Iron Complex 1 tab PO DAILY 12/31/16 10/25/17 Levothyroxine Sodium [Synthroid] 25 mcg PO DAILY 12/31/16 10/25/17 Lisinopril [Zestril] 10 mg PO DAILY 12/31/16 10/25/17 Atorvastatin [Lipitor] 20 mg PO HS 10/25/17 10/25/17 Cholecalciferol [Vitamin D3] 5,000 unit PO DAILY 10/25/17 10/25/17 Docusate [Colace] 100 mg PO DAILY 10/25/17 10/25/17 metFORMIN HCL [Glucophage] 500 mg PO AC-BID 10/25/17 10/25/17 Allergies Allergy/AdvReac Type Severity Reaction Status Date / Time ciprofloxacin [From Cipro] Allergy Nausea & Verified 10/25/17 16:35 Vomiting-severe Penicillins Allergy Rash/Hives Verified 10/25/17 16:35 codeine AdvReac Nausea & Verified 10/25/17 16:35 Vomiting Review of Systems ROS Statement: Those systems with pertinent positive or pertinent negative responses have been documented in the HPI. ROS Other: All systems not noted in ROS Statement are negative. Past Medical History Past Medical History: Cancer, Diabetes Mellitus, Hyperlipidemia, Hypertension, Thyroid Disorder Additional Past Medical History / Comment(s): Thyroid cancer in November 2015, post thyroidectomy, right lung mass on that investigation, diabetes mellitus, hyperlipidemia, hypertension History of Any Multi-Drug Resistant Organisms: None Reported Past Surgical History: Appendectomy, Hysterectomy, Orthopedic Surgery, Tonsillectomy Additional Past Surgical History / Comment(s): Partial thyroidectomy December 08, 2015,ORIF lt ankle,rt shoulder rot cuff Past Anesthesia/Blood Transfusion Reactions: Previous Problems w/ Anesthesia, Postoperative Nausea & Vomiting (PONV) Additional Past Anesthesia/Blood Transfusion Reaction / Comment(s): states "has a hard time waking up with anesthesia" Past Psychological History: No Psychological Hx Reported Smoking Status: Former smoker Past Alcohol Use History: None Reported Past Drug Use History: None Reported - Past Family History Father Additional Family Medical History / Comment(s): emphysema Mother Additional Family Medical History / Comment(s): -fell down stairs Sister(s) Family Medical History: Cancer Additional Family Medical History / Comment(s): breast General Exam Limitations: no limitations General appearance: alert, in no apparent distress, anxious Respiratory exam: Present: normal lung sounds bilaterally. Absent: respiratory distress, wheezes, rales, rhonchi, stridor Cardiovascular Exam: Present: regular rate, normal rhythm, normal heart sounds. Absent: systolic murmur, diastolic murmur, rubs, gallop, clicks GI/Abdominal exam: Present: soft, normal bowel sounds. Absent: distended, tenderness, guarding, rebound, rigid Course Vital Signs 10/25/17 15:35 Temperature 98.1 F Pulse Rate 102 H Respiratory 20 Rate Blood Pressure 133/63 O2 Sat by Pulse 99 Oximetry Medical Decision Making - Medical Decision Making 77-year-old female presents from for constipation. X-ray which showed a moderate amount of stool, enema given large amount of stool evacuated. Patient will be discharged advised take Colace or other stool softeners daily. Disposition Clinical Impression: Constipation Disposition: HOME SELF-CARE Condition: Stable Instructions: Constipation (ED) Additional Instructions: Please take Colace or other stool softeners as directed. Please return to the Emergency Department if symptoms worsen or any other concerns. Referrals: Champ Arciniega MD [Primary Care Provider] - 1-2 days Time of Disposition: 18:06
[2017-10-25 18:53] VITALS: BP 135/65; PULSE 98; TEMP 98.3
== END 2017-10-25 18:45 | disposition home or self-care (01) ==
LOC: EC 15:30
DX: K59.00 Constipation, unspecified (principal); E11.9 Type 2 diabetes mellitus without complications; E78.5 Hyperlipidemia, unspecified; I10 Essential (primary) hypertension; E07.9 Disorder of thyroid, unspecified; Z85.850 Personal history of malignant neoplasm of thyroid; Z87.891 Personal history of nicotine dependence; Z90.89 Acquired absence of other organs; Z79.82 Long term (current) use of aspirin; Z79.84 Long term (current) use of oral hypoglycemic drugs; Z79.899 Other long term (current) drug therapy; Z88.0 Allergy status to penicillin; Z88.1 Allergy status to other antibiotic agents; Z88.5 Allergy status to narcotic agent
CPT/HCPCS: 74018; 99283

== ENCOUNTER → 2018-01-28 | Outpatient (CLI) | payer MEDICARE ==
--- NOTE | 2018-01-28 16:35 | US ---
EXAMINATION TYPE: US carotid duplex BILAT DATE OF EXAM: 01/28/2018 COMPARISON: NONE CLINICAL HISTORY: R55 Syncope and collapse. EXAM MEASUREMENTS: RIGHT: Peak Systolic Velocity (PSV) cm/sec ----- Right CCA: 72.9 ----- Right ICA: 78.1 ----- Right ECA: 50.7 ICA/CCA ratio: 1.1 RIGHT: End Diastole cm/sec ----- Right CCA: 11.6 ----- Right ICA: 23.3 ----- Right ECA: 2.5 LEFT: Peak Systolic Velocity (PSV) cm/sec ----- Left CCA: 59.4 ----- Left ICA: 83.2 ----- Left ECA: 67.3 ICA/CCA ratio: 1.4 LEFT: End Diastole cm/sec ----- Left CCA: 11.8 ----- Left ICA: 22.3 ----- Left ECA: 6.5 VERTEBRALS (direction of flow): Right Vertebral: Antegrade Left Vertebral: Antegrade Rhythm: Normal Mild amount of plaque visualized bilaterally. No elevated velocities, no significant stenosis. Grayscale, color Doppler, spectral Doppler imaging performed of the carotid arteries. IMPRESSION: No hemodynamic significant stenosis of the proximal internal carotid arteries bilaterall y by Doppler criteria, an indirect measurement of carotid stenosis
--- NOTE | 2018-01-28 20:31 | ECHOF ---
Referral Reason:R55 Syncope and collapse MEASUREMENTS -------- HEIGHT: 165.1 cm WEIGHT: 63.5 kg BP: 131/67 RVIDd: 2.7 cm (< 3.3) IVSd: 1.1 cm (0.6 - 1.1) LVIDd: 5.4 cm (3.9 - 5.3) LVPWd: 1.2 cm (0.6 - 1.1) IVSs: 1.2 cm LVIDs: 4.7 cm LVPWs: 1.5 cm LAESV Index (A-L): 23.90 ml/m Ao Diam: 3.3 cm (2.0 - 3.7) AV Cusp: 2.0 cm (1.5 - 2.6) LA Diam: 2.3 cm (2.7 - 3.8) MV EXCURSION: 12.690 mm (> 18.000) MV EF SLOPE: 83 mm/s (70 - 150) EPSS: 1.9 cm MV E Kishore: 0.65 m/s MV DecT: 309 ms MV A Kishore: 1.24 m/s MV E/A Ratio: 0.52 RAP: 5.00 mmHg RVSP: 36.78 mmHg FINDINGS -------- Sinus rhythm. This was a technically adequate study. The left ventricle is mildly dilated. There is borderline concentric left ventricular hypertrophy. There is severe global hypokinesis of LV . Overall left ventricular systolic function is severely impaired with, an EF between 20 - 25 %. The right ventricle is normal in size and function. The right ventricular systolic function is mode rately impaired. Normal LA size by volume 22+/-6 ml/m2. The right atrium is normal in size. The aortic valve is trileaflet, and appears structurally normal. No aortic stenosis or regurgitation. The mitral valve leaflets are mildly thickened. [id number] mitral regurgitation is present. Mild tricuspid regurgitation present. There is mild pulmonary hypertension. The right ventricular systolic pressure, as measured by Doppler, is 36.78mmHg. Trace/mild (physiologic) pulmonic regurgitation. The aortic root size is normal. Normal inferior vena cava with normal inspiratory collapse consistent with estimated right atrial pre ssure of 5 mmHg. There is no pericardial effusion. CONCLUSIONS -------- 1. Sinus rhythm. 2. This was a technically adequate study. 3. The left ventricle is mildly dilated. 4. There is borderline concentric left ventricular hypertrophy. 5. There is severe global hypokinesis of LV . 6. Overall left ventricular systolic function is severely impaired with, an EF between 20 - 25 %. 7. The right ventricular systolic function is moderately impaired. 8. Normal LA size by volume 22+/-6 ml/m2. 9. The aortic valve is trileaflet, and appears structurally normal. No aortic stenosis or regurgitati on. 10. The mitral valve leaflets are mildly thickened. 11. Ksui-ca-wkqynabn mitral regurgitation is present. 12. Mild tricuspid regurgitation present. 13. There is mild pulmonary hypertension. 14. Trace/mild (physiologic) pulmonic regurgitation. 15. The aortic root size is normal. 16. There is no pericardial effusion. LITIGATION EXAMINER: Ventura Osborne RDCS
== END | disposition home or self-care (01) ==
LOC: RADECHMAIN 14:39
PROVIDERS: ATTEND Family Medicine
DX: R55 Syncope and collapse (principal)
CPT/HCPCS: 93306; 93880

== ENCOUNTER → 2018-09-10 | Outpatient (CLI) | payer MEDICARE ==
--- NOTE | 2018-09-11 16:59 | BD ---
EXAMINATION TYPE: Axial Bone Density DATE OF EXAM: 09/10/2018 COMPARISON: 07.14.2009 CLINICAL HISTORY: 78 YR OLD FEMALE....ICD-10 CODE: Z78.0 ASYMPTOMATIC MENOPAUSE Height: 63.6 Weight: 149 FRAX RISK QUESTIONS: ADRENAL INSUFFICEINCY History of Fracture in Adulthood: YES Secondary Osteoporosis: YES 3. Menopause before 45: YES AT 28 YRS OLD RISK FACTORS HISTORY OF: HX OF LT ANKLE, AND UPPER TIB FIB FX....WITH SURGICAL REPAIR, OVER 50 YRS OLD WHEN OCCURED Postmenopausal woman: TOTAL HYST AT AGE 28 Take estrogen and/or progesterone medications: IN THE PAST FOR 5 YRS Adrenal Insufficiency: YES, KIDNEY DISEASE, WITH MASS ON ADRENAL GLAND MEDICATIONS: Thyroid Medications: YES, SYNTHROID FOR UNDER 1 YR Additional Medications: BP MEDS, ORAL DIABETIC MEDS, ASPIRIN, STATIN FOR CHOLESTEROL, MULTIVITAMIN, V IT D3 Additional History: HX OF THYROID CANCER, AND LUNG CANCER...RT MIDDLE LOBE, DIABETIC, HYPERTENSION, C HOLESTEROL EXAM MEASUREMENTS: Bone mineral densitometry was performed using the [employer] System. Bone mineral density as measured about the Lumbar spine is: ----- L1-L4(G/cm2): 1.701 T Score Values are as follows: ----- L1: 3.8 ----- L2: 4.5 ----- L3: 4.2 ----- L4: 4.7 ----- L1-L4: 4.3 Bone mineral density has: Increased 9.3% since study of: 07.14.2009 Bone mineral density about the R hip (g/cm2): 0.978 Bone mineral density about the L hip (g/cm2): 1.048 T Score values are as follows: -----R Neck: -1.3 -----L Neck: -0.7 -----R Total: -0.2 -----L Total: 0.3 Bone mineral density has: Decreased -9.0% since study of: 07.14.2009 FRAX%s: THERE IS A 18.2% CHANCE FOR A MAJOR OSTEOPOROTIC FX AND A 3.5% FOR HIP.....PROBABILITY OF FX IN 10 YRS TIME IMPRESSION: Osteopenia (T Score between -2.5 and -1). There is slightly increased risk of fracture and the patient may be considered for treatment. Re-Screen 2-5 years. NOTE: T-SCORE=SD OF THE YOUNG ADULT MEAN.
--- NOTE | 2018-09-14 09:45 | MM ---
Reason for exam: screening (asymptomatic). Last mammogram was performed 6 years ago. History: Patient is postmenopausal. Family history of breast cancer in sister at age 73 and breast cancer in maternal aunt at age 70. Took hormonal contraceptives for 4 years. Took estrogen for 5 years. Physical Findings: A clinical breast exam by your physician is recommended on an annual basis and results should be correlated with mammographic findings. MG 3D Screening Mammo W/Cad Bilateral CC and MLO view(s) were taken. Prior study comparison: September 11, 2012, bilateral digital screening mammo w/CAD. September 02, 2011, bilateral digital screening mammo w/CAD. There are scattered fibroglandular densities. There is no discrete abnormality. ASSESSMENT: Benign, BI-RAD 2 RECOMMENDATION: Routine screening mammogram of both breasts in 1 year.
== END | disposition home or self-care (01) ==
LOC: RADMAMWWP 14:52
PROVIDERS: ATTEND Family Medicine
DX: Z12.31 Encounter for screening mammogram for malignant neoplasm of breast (principal); M85.80 Other specified disorders of bone density and structure, unspecified site; Z78.0 Asymptomatic menopausal state
CPT/HCPCS: 77063; 77067; 77080

== ENCOUNTER → 2019-01-26 | Outpatient (CLI) | payer MEDICARE ==
--- NOTE | 2019-01-26 15:29 | CT ---
EXAMINATION TYPE: CT chest w con DATE OF EXAM: 01/26/2019 COMPARISON: Prior PET/CT 11/30/2016 and 12/20/2015 HISTORY: 78-year-old female Prior abnormal exam. History of lung cancer. TECHNIQUE: Contiguous axial scanning of the chest after the administration of 80ml mL of Isovue 300. Coronal/sagittal reconstructions performed. CT DLP: 482mGycm. Automatic exposure control utilized for a dose reduction. FINDINGS: Heart upper limits of normal in size with small basilar pericardial effusion towards the right. Coron alex vessel calcifications are present and are a marker for coronary artery disease. Aorta normal caliber with mild atherosclerotic arch calcifications and conventional arch vessel branc perez anatomy. Some stable nodularity posteriorly along the left lobe of the thyroid gland. No thoracic lymphadenopathy by CT size criteria. Mild centrilobular emphysema. No consolidation or pleural effusion. Postsurgical changes of prior right middle lobectomy. There is a 4 mm peripheral right basilar pulmonary nodule at the site of prior calcified granuloma. S ome punctate densities just adjacent confirm that this is the same lesion despite the lack of apparen t calcifications on the current study. Small 6 mm groundglass focus posterior right lower lobe on axial image 35 was present back in 2016. Minimal new nodularity measuring 4 mm at the right upper lobe, axial image 11. Six-month follow-up re commended. Small hiatal hernia. Multiple calcified granulomas in the spleen. Bones: No osseous destructive process. IMPRESSION: 1. COPD with mild emphysema. Status post right middle lobectomy. 2. Minimal new 4 mm nodularity at the right upper lobe, axial image 11. Six-month follow-up recommend ed. 3. Prior granulomatous disease. A couple other nodules are stable back to 2016. 4. Small hiatal hernia.
== END | disposition home or self-care (01) ==
LOC: RADCTMAIN 13:25
PROVIDERS: ATTEND Internal Medicine Critical Care Medicine
DX: J43.9 Emphysema, unspecified (principal); R91.8 Other nonspecific abnormal finding of lung field; Z98.890 Other specified postprocedural states
CPT/HCPCS: 82565; 84520; 71260; 36415; Q9967

== ENCOUNTER → 2019-07-28 | Outpatient (CLI) | payer MEDICARE ==
--- NOTE | 2019-07-28 12:10 | CT ---
EXAMINATION TYPE: CT chest w con DATE OF EXAM: 07/28/2019 COMPARISON: Prior CT chest 01/26/2019 HISTORY: Follow up prior Ct. abnormal imaging. CT DLP: 430 mGycm Automated exposure control for dose reduction was used. CONTRAST: CT scan of the chest is performed with IV Contrast, patient injected with 80 mL of Isovue 300. FINDINGS: LUNGS: The lungs are grossly clear, there is no concerning parenchymal mass or nodule identified. The lungs show stable appearance. There is emphysematous change. Evidence of old granulomatous disease. There is no pleural effusion or pneumothorax seen. The tracheobronchial tree is patent. MEDIASTINUM: There are no greater than 1 cm hilar or mediastinal lymph nodes. No pericardial effusi on is seen. There are coronary calcifications present. There is a small hiatal hernia. AORTA: No additional significant abnormality is seen. OTHER: Calcifications are scattered within the spleen and liver. Liver shows a small low-attenuation focus left lobe which is stable lateral segment. Left adrenal mass is again seen and is stable. Cyst ic focus in the pancreatic neck is again seen. IMPRESSION: Stable findings.
== END | disposition home or self-care (01) ==
LOC: RADCTMAIN 10:06
PROVIDERS: ATTEND Internal Medicine Critical Care Medicine
DX: R91.8 Other nonspecific abnormal finding of lung field (principal); Z88.0 Allergy status to penicillin
CPT/HCPCS: 82565; 84520; 71260; 36415; Q9967

== ENCOUNTER → 2019-10-29 | Outpatient (CLI) | payer MEDICARE ==
--- NOTE | 2019-11-02 09:08 | MM ---
Reason for exam: screening (asymptomatic). Last mammogram was performed 1 year and 2 months ago. History: Patient is postmenopausal and history of other cancer. Family history of breast cancer in sister at age 73 and breast cancer in maternal aunt at age 70. Took hormonal contraceptives for 4 years. Took estrogen for 5 years. Physical Findings: A clinical breast exam by your physician is recommended on an annual basis and results should be correlated with mammographic findings. MG 3D Screening Mammo W/Cad Bilateral CC and MLO view(s) were taken. Prior study comparison: September 10, 2018, bilateral MG 3d screening mammo w/cad. There are scattered fibroglandular densities. No significant changes when compared with prior studies. ASSESSMENT: Negative, BI-RAD 1 RECOMMENDATION: Routine screening mammogram of both breasts in 1 year.
== END | disposition home or self-care (01) ==
LOC: RADMAMWWP 16:30
PROVIDERS: ATTEND Family Medicine
DX: Z12.31 Encounter for screening mammogram for malignant neoplasm of breast (principal)
CPT/HCPCS: 77063; 77067

== ENCOUNTER → 2020-11-22 | Outpatient (CLI) | payer MEDICARE ==
--- NOTE | 2020-11-22 15:49 | BD ---
EXAMINATION TYPE: Axial Bone Density DATE OF EXAM: 11/22/2020 COMPARISON: 09.10.2018 CLINICAL HISTORY: 80 YR OLD FEMALE....ICD-10 CODE: Z78.0 MENOPAUSAL STATE Height: 63.4 Weight: 142 FRAX RISK QUESTIONS: History of Fracture in Adulthood: YES Secondary Osteoporosis: YES 3. Menopause before 45: YES RISK FACTORS HISTORY OF: HX OF LT ANKLE FX AN ADULT, WITH SURGICAL REPAIR Postmenopausal woman: YES, AT AGE 29 TOTAL HYST Take estrogen and/or progesterone medications: IN THE PAST FOR 5 YRS, NONE NOW Hyperparathyroidism: NO Adrenal Insufficiency: NO MEDICATIONS: Prednisone or other steroids: YES, IN THE PAST FOR ILLNESS ONLY Thyroid Medications: YES, FOR ABOUT 3-4 YRS Additional Medications: BP MEDS, DIABETIC MEDS, STATIN FOR CHOLESTEROL, VIT D AND CALCIUM Additional History: HYPERTENSION, DIABETES, CHOLESTEROL EXAM MEASUREMENTS: Bone mineral densitometry was performed using the [employer] System. Bone mineral density as measured about the Lumbar spine is: ----- L1-L4(G/cm2): 1.700 T Score Values are as follows: ----- L1: 3.6 ----- L2: 4.9 ----- L3: 4.2 ----- L4: 4.5 ----- L1-L4: 4.3 Bone mineral density has: Increased 0.6% since study of: 09.10.2018 Bone mineral density about the R hip (g/cm2): 0.934 Bone mineral density about the L hip (g/cm2): 0.985 T Score values are as follows: -----R Neck: -0.9 -----L Neck: -0.7 -----R Total: -0.6 -----L Total: -0.2 Bone mineral density has: Decreased -5.3% since study of: 09.10.2018 FRAX%s: THERE IS A 16.9% CHANCE FOR A MAJOR OSTEOPOROTIC FX AND A 3.1% FOR HIP..........PROBABILIT Y FOR A FX IN 10 YRS TIME IMPRESSION: Osteopenia (T Score between -2.5 and -1). There is slightly increased risk of fracture and the patient may be considered for treatment. Re-Screen 2-5 years. NOTE: T-SCORE=SD OF THE YOUNG ADULT MEAN.
--- NOTE | 2020-11-23 13:35 | MM ---
Reason for exam: screening (asymptomatic). Last mammogram was performed 1 year and 1 month ago. History: Patient is postmenopausal and has history of other cancer at age 78. Family history of breast cancer in sister at age 73 and breast cancer in maternal aunt at age 70. Took hormonal contraceptives for 4 years. Took estrogen for 5 years. Physical Findings: A clinical breast exam by your physician is recommended on an annual basis and results should be correlated with mammographic findings. MG 3D Screening Mammo W/Cad Bilateral CC and MLO view(s) were taken. Prior study comparison: October 29, 2019, bilateral MG 3d screening mammo w/cad. September 10, 2018, bilateral MG 3d screening mammo w/cad. The breast tissue is heterogeneously dense. This may lower the sensitivity of mammography. Finding #1: There is a 7 mm equal density (isodense) mass in the central position of the right breast. Finding #2: There are typically benign calcifications in both breasts. ASSESSMENT: Incomplete: need additional imaging evaluation, BI-RAD 0 RECOMMENDATION: Special view mammogram of the right breast. If lesion persists on supplemental views, image directed ultrasound is recommended. [facility] will attempt to contact patient to return for supplemental views and ultrasound if indicated.
== END | disposition home or self-care (01) ==
LOC: RADMAMWWP 07:56
PROVIDERS: ATTEND Family Medicine
DX: Z12.31 Encounter for screening mammogram for malignant neoplasm of breast (principal); M85.80 Other specified disorders of bone density and structure, unspecified site; Z78.0 Asymptomatic menopausal state
CPT/HCPCS: 77063; 77067; 77080

== ENCOUNTER → 2020-11-28 | Outpatient (CLI) | payer MEDICARE ==
--- NOTE | 2020-11-28 14:23 | MM ---
Reason for exam: additional evaluation requested from abnormal screening. Last mammogram was performed less than 1 month ago. History: Patient is postmenopausal and has history of other cancer at age 78. Family history of breast cancer in sister at age 73 and breast cancer in maternal aunt at age 70. Took hormonal contraceptives for 4 years. Took estrogen for 5 years. Physical Findings: Nurse did not find any significant physical abnormalities on exam. MG 3D Work Up W/Cad RT Spot compression CC, spot compression MLO, and ML view(s) were taken of the right breast. Prior study comparison: November 22, 2020, bilateral MG 3d screening mammo w/cad. October 29, 2019, bilateral MG 3d screening mammo w/cad. The breast tissue is heterogeneously dense. This may lower the sensitivity of mammography. There is no discrete abnormality including area of concern marked right upper outer quadrant. No significant new findings when compared with previous films. These results were verbally communicated with the patient and result sheet given to the patient on 11/28/20. ASSESSMENT: Benign, BI-RAD 2 RECOMMENDATION: Return to routine screening mammogram schedule for both breasts. Manage patient on a clinical basis.
== END ==
LOC: RADMAMWWP 13:32
PROVIDERS: ATTEND Family Medicine
DX: R92.8 Other abnormal and inconclusive findings on diagnostic imaging of breast (principal); Z78.0 Asymptomatic menopausal state; Z80.3 Family history of malignant neoplasm of breast
CPT/HCPCS: 77065; G0279; 77061

== ENCOUNTER 2021-04-26 15:43 | Emergency (ER) | payer MEDICARE ==
[2021-04-26 15:53] VITALS: RESP 18
--- NOTE | 2021-04-26 15:54 | ED ---
General Adult HPI - General Chief complaint: Fall Stated complaint: Abnormal EKG Time Seen by Provider: 04/26/21 15:49 Source: patient, EMS Mode of arrival: EMS Limitations: no limitations - History of Present Illness Initial comments: Dictation was produced using [employer] dictation software. please excuse any grammatical, word or spelling errors. Chief Complaint: 80-year-old female presents with head injury and ankle pain History of Present Illness: 80-year-old female she presents was via EMS from home. Patient states she was walking around trying to clean up some corn husk when she stepped on an uneven surface causing her left ankle to invert. She lost her balance fell to the ground per she struck the back of her head. She denies any loss of consciousness. She was screaming for help. After the fall she complained of some dizziness that she attributes to hitting the back of her head. EMS was called. She was about to sign out AGAINST MEDICAL ADVICE when EMS performed an EKG showing concerning EKG. She was convinced to come to the ER. The ROS documented in this emergency department record has been reviewed and confirmed by me. Those systems with pertinent positive or negative responses have been documented in the HPI. All other systems are other negative and/or noncontributory. PHYSICAL EXAM: General Impression: Alert and oriented x3, not in acute distress HEENT: Normocephalic atraumatic, extra-ocular movements intact, pupils equal and reactive to light bilaterally, mucous membranes moist. Cardiovascular: Heart regular rate and rhythm Chest: Able to complete full sentences, no retractions, no tachypnea Abdomen: abdomen soft, non-tender, non-distended, no organomegaly Musculoskeletal: Pulses present and equal in all extremities, no peripheral edema Motor: no focal deficits noted Left ankle: Tenderness to palpation over the anterior talofibular ligament Neurological: CN II-XII grossly intact, no focal motor or sensory deficits noted Skin: Intact with no visualized rashes Psych: Normal affect and mood ED course: 80 Year old female brought to the emergency department for left ankle pain, head pain, dizziness and abnormal EKG according to EMS. Signs upon arrival are within acceptable limits. Patient denies any chest pain or shortness of breath. She denies any history of any coronary artery disease or coronary artery stents. She has remote history of smoking, high cholesterol. Prehospital EKG was reviewed showing left bundle branch block. EKG performed emergency department shows left bundle branch block without any signs of ischemia or infarction per Sgarbossa criteria. Chin has a left bundle branch block that was seen on 12/27/2016 Laboratory evaluation obtained. CBC is unremarkable. Metabolic panel shows glucose of 71. Patient ordered for dextrose. Magnesium is 1.3. Patient given parenterally magnesium. Computed tomography scan of the head and C-spine was obtained. There was finding of malt parafalcine subdural hematoma. No midline shift or hydrocephalus. There is also incidental finding of right lung nodule. Case discussed with Dr. Bejarano at [facility] is willing to accept patient care for transfer. Patient reverted bedside at 4:50 PM 5 to be in stable medical condition. She is still GCS 15 showing no signs of distress. He has not taken any anticoagulation medications. EKG interpretation: Ventricular rate 80, normal sinus rhythm, left bundle branch block,. 182, QRS 168, QTc 520. No OK prolongation, , no ST or T-wave changes noted. EKG compared to 12/27/2016 showing no changes. Overall, this EKG is unremarkable - Related Data Home Medications Medication Instructions Recorded Confirmed Repaglinide [Prandin] 1 mg PO AC-BID 12/15/15 10/25/17 Aspirin 81 mg PO DAILY 12/31/16 10/25/17 Diltiazem HCl [Cardizem] 120 mg PO DAILY 12/31/16 10/25/17 Iron Complex 1 tab PO DAILY 12/31/16 10/25/17 Levothyroxine Sodium [Synthroid] 25 mcg PO DAILY 12/31/16 10/25/17 lisinopriL [Zestril] 10 mg PO DAILY 12/31/16 10/25/17 Atorvastatin [Lipitor] 20 mg PO HS 10/25/17 10/25/17 Cholecalciferol [Vitamin D3] 5,000 unit PO DAILY 10/25/17 10/25/17 Docusate [Colace] 100 mg PO DAILY 10/25/17 10/25/17 metFORMIN HCL [Glucophage] 500 mg PO AC-BID 10/25/17 10/25/17 Allergies Allergy/AdvReac Type Severity Reaction Status Date / Time ciprofloxacin [From Cipro] Allergy Nausea & Verified 10/25/17 16:35 Vomiting-severe nitrofurantoin Allergy Confusion Verified 04/26/21 15:51 [From Macrobid] Penicillins Allergy Rash/Hives Verified 10/25/17 16:35 codeine AdvReac Nausea & Verified 10/25/17 16:35 Vomiting Review of Systems ROS Statement: Those systems with pertinent positive or pertinent negative responses have been documented in the HPI. ROS Other: All systems not noted in ROS Statement are negative. Past Medical History Past Medical History: Cancer, Diabetes Mellitus, Hyperlipidemia, Hypertension, Thyroid Disorder Additional Past Medical History / Comment(s): Thyroid cancer in November 2015, post thyroidectomy, right lung mass on that investigation, diabetes mellitus, hyperlipidemia, hypertension History of Any Multi-Drug Resistant Organisms: None Reported Past Surgical History: Appendectomy, Hysterectomy, Orthopedic Surgery, Tonsi llectomy Additional Past Surgical History / Comment(s): Partial thyroidectomy November,ORIF lt ankle,rt shoulder rot cuff Past Anesthesia/Blood Transfusion Reactions: Previous Problems w/ Anesthesia, Postoperative Nausea & Vomiting (PONV) Additional Past Anesthesia/Blood Transfusion Reaction / Comment(s): states "has a hard time waking up with anesthesia" Past Psychological History: No Psychological Hx Reported Smoking Status: Former smoker Past Alcohol Use History: None Reported Past Drug Use History: None Reported - Past Family History Father Additional Family Medical History / Comment(s): emphysema Mother Additional Family Medical History / Comment(s): -fell down stairs Sister(s) Family Medical History: Cancer Additional Family Medical History / Comment(s): breast General Exam Limitations: no limitations Course Vital Signs 04/26/21 15:44 Temperature 97.9 F Pulse Rate 95 Respiratory 18 Rate Blood Pressure 139/65 O2 Sat by Pulse 98 Oximetry Medical Decision Making - Lab Data Result diagrams: 04/26/21 15:56 04/26/21 15:56 Lab Results 04/26/21 04/26/21 04/26/21 Range/Units 15:56 15:56 15:56 WBC 7.9 (3.8-10.6) k/uL RBC 4.05 (3.80-5.40) m/uL Hgb 12.0 (11.4-16.0) gm/dL Hct 35.7 (34.0-46.0) % MCV 88.1 (80.0-100.0) fL MCH 29.5 (25.0-35.0) pg MCHC 33.5 (31.0-37.0) g/dL RDW 14.6 (11.5-15.5) % Plt Count 226 (150-450) k/uL MPV 8.7 Neutrophils % 51 % Lymphocytes % 34 % Monocytes % 8 % Eosinophils % 2 % Basophils % 1 % Neutrophils # 4.1 (1.3-7.7) k/uL Lymphocytes # 2.7 (1.0-4.8) k/uL Monocytes # 0.6 (0-1.0) k/uL Eosinophils # 0.2 (0-0.7) k/uL Basophils # 0.0 (0-0.2) k/uL Sodium 134 L (137-145) mmol/L Potassium 3.3 L (3.5-5.1) mmol/L Chloride 103 (98-107) mmol/L Carbon Dioxide 22 (22-30) mmol/L Anion Gap 9 mmol/L BUN 29 H (7-17) mg/dL Creatinine 1.36 H (0.52-1.04) mg/dL Est GFR (CKD-EPI)AfAm 42 (>60 ml/min/1.73 sqM) Est GFR (CKD-EPI)NonAf 37 (>60 ml/min/1.73 sqM) Glucose 71 L (74-99) mg/dL Calcium 9.3 (8.4-10.2) mg/dL Magnesium 1.3 L (1.6-2.3) mg/dL Troponin I <0.012 (0.000-0.034) ng/mL Critical Care Time Critical Care Time: Yes Total Critical Care Time: 33 Disposition Clinical Impression: Subdural hematoma Disposition: OTHER INSTITUTION NOT DEFINED Condition: Critical Referrals: Champ Arciniega MD [Primary Care Provider] - 1-2 days - Out of Hospital Transfer - Req. Specs Out of Hospital Transfer - Requested Specifics: Other Emergency Center ([facility])
[2021-04-26 16:05] LABS: Basophils % (A) 1 %; Eosinophils # (A) 0.2 k/uL (0-0.7); Eosinophils % (A) 2 %; HCT 35.7 % (34.0-46.0); Lymphocytes # (A) 2.7 k/uL (1.0-4.8); Lymphocytes % (A) 34 %; MCH 29.5 pg (25.0-35.0); MCHC 33.5 g/dL (31.0-37.0); MCV 88.1 fL (80.0-100.0); Mean Platelet Volume 8.7; Monocytes # (A) 0.6 k/uL (0-1.0); Monocytes % (A) 8 %; Neutrophils # (A) 4.1 k/uL (1.3-7.7); Neutrophils % (A) 51 %; Platelet Count 226 k/uL (150-450); RBC 4.05 m/uL (3.80-5.40); RDW 14.6 % (11.5-15.5); WBC 7.9 k/uL (3.8-10.6)
[2021-04-26 16:22] LABS: Calcium 9.3 mg/dL (8.4-10.2); Magnesium 1.3 mg/dL (1.6-2.3); Potassium 3.3 mmol/L (3.5-5.1)
--- NOTE | 2021-04-26 16:33 | CT ---
EXAMINATION TYPE: CT brain melyine wo con DATE OF EXAM: 04/26/2021 COMPARISON: None available. HISTORY: Fall with injury. CT DLP: 1401.4 mGycm Automated exposure control for dose reduction was used. TECHNIQUE: CT scan of the head and cervical spine are performed without contrast. FINDINGS: There is small right parafalcine subdural hematoma measuring 4 mm in thickness. No signif icant midline shift or hydrocephalus. The right matter is grossly preserved. The ellison-white different iation is maintained. The ventricles and sulci are within normal limits in size. The globes are inta ct and the visualized sinuses are clear. Cervical spine is visualized in its entirety from C1 through upper thoracic levels and demonstrates s atisfactory alignment without evidence of acute fracture or dislocation. There is mild cervical spond ylosis. Prevertebral soft tissue appears within normal limits. The C1-C2 articulation is unremarkabl e. The visualized lung apices demonstrate a 8mm right apical nodular opacity. IMPRESSION: Small parafalcine subdural hematoma. No midline shift or hydrocephalus. Incidental 8 mm right apical nodular opacity, recommend follow-up. Findings were reported to caring physician by me at time of dictation.
[2021-04-26] MEDS ORDERED: DEXTROSE 50% SYRINGE 50 ML IVP STA (16:49)
[2021-04-26] MEDS ORDERED: MAGNESIUM SULFATE-D5W PMX 1 GM in DEXTROSE/WATER 1 100ML.BAG IVPB SCH (17:00)
[2021-04-26 17:20] VITALS: BP 138/73; PULSE 96; TEMP 97.8
== END 2021-04-26 17:16 | disposition other institution (70) ==
LOC: EC 15:43
DX: S06.5X9A Traumatic subdural hemorrhage with loss of consciousness of unspecified duration, initial encounter (principal); E11.9 Type 2 diabetes mellitus without complications; E78.5 Hyperlipidemia, unspecified; I10 Essential (primary) hypertension; E07.9 Disorder of thyroid, unspecified; Z90.49 Acquired absence of other specified parts of digestive tract; Z79.82 Long term (current) use of aspirin; Z79.84 Long term (current) use of oral hypoglycemic drugs; Z88.0 Allergy status to penicillin; Z88.5 Allergy status to narcotic agent; Z88.1 Allergy status to other antibiotic agents; Z90.89 Acquired absence of other organs; Z90.710 Acquired absence of both cervix and uterus; Z85.850 Personal history of malignant neoplasm of thyroid; Z87.891 Personal history of nicotine dependence; W01.0XXA Fall on same level from slipping, tripping and stumbling without subsequent striking against object, initial encounter; Y93.01 Activity, walking, marching and hiking
CPT/HCPCS: 99291; 96374; 36415; 93005; 80048; 83735; 84484; 85025; 72125; 70450; J3475

== ENCOUNTER → 2021-10-17 | Outpatient (CLI) | payer MEDICARE ==
--- NOTE | 2021-10-17 12:50 | CT ---
EXAMINATION TYPE: CT chest wo con DATE OF EXAM: 10/17/2021 COMPARISON: 07/28/2019 HISTORY: 81-year-old female R9 1.1, Lung nodule TECHNIQUE: Contiguous axial scanning of the chest without IV contrast. Coronal and sagittal reconstru ctions performed. CT DLP: 339.5 mGycm Automated exposure control for dose reduction was used. FINDINGS: Heart borderline to mildly enlarged. Small anterior basilar pericardial effusion measuring 8 mm, unch anged. Three-vessel coronary artery calcifications are present and are a marker for coronary artery d isease. Aorta normal caliber with mild atherosclerotic arch calcifications and conventional arch vessel branc perez anatomy. The right lobe of the thyroid gland is either small or surgically absent. Unchanged from prior. No thoracic lymphadenopathy by CT size criteria. Mild centrilobular emphysema. 8mm right upper lobe pulmonary nodule, axial image 15, increased soft tissue component now, previousl y 5 mm. Surgical material along the right heart margin. Stable linear density along the minor fissure, likel y additional postsurgical change. Scattered calcified granulomas. A couple subtle areas of groundglass density in the lower lobes remain unchanged. No consolidation or pleural effusion. There is a small hiatal hernia. Numerous calcified granulomas within the spleen and a few within the liver. 2.4 cm mass of the left adrenal gland is unchanged suggesting a adrenal adenoma Numerous cortical lesions within both kidneys, largest measuring 1.7 cm likely benign cysts. Some of these are larger and some are indeterminate, for example, anterior right mid kidney measuring 1.0 cm, possible proteinaceous or hemorrhagic cyst. 3-6 month follow-up CT to ensure stability and exclude a small solid mass. Bones: No osseous destructive process. IMPRESSION: 1. COPD WITH MILD EMPHYSEMA. 2. SUSPICIOUS 8 MM RIGHT UPPER LOBE PULMONARY NODULE. EARLY NEOPLASM NOT EXCLUDED. EITHER PET CT OR 3 MONTH FOLLOW-UP CT CHEST SHOULD BE CONSIDERED. 3. CAD WITH 3 VESSEL CORONARY ARTERY CALCIFICATIONS. BORDERLINE TO MILD CARDIOMEGALY. 4. NUMEROUS CORTICAL LESIONS WITHIN THE KIDNEYS , SOME OF WHICH ARE INCREASED IN SIZE AND SOME OF WHI CH ARE INDETERMINATE. 3-6 MONTH FOLLOW-UP CT TO ENSURE STABILITY. 5. SMALL HIATAL HERNIA. EVIDENCE OF PRIOR GRANULOMATOUS DISEASE. 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
== END | disposition home or self-care (01) ==
LOC: RADCTMAIN 09:42
PROVIDERS: ATTEND Internal Medicine Critical Care Medicine
DX: J43.2 Centrilobular emphysema (principal); I25.10 Atherosclerotic heart disease of native coronary artery without angina pectoris; D35.02 Benign neoplasm of left adrenal gland; D71 Functional disorders of polymorphonuclear neutrophils; I51.7 Cardiomegaly; N28.89 Other specified disorders of kidney and ureter; K44.9 Diaphragmatic hernia without obstruction or gangrene
CPT/HCPCS: 36415; 71250; 82565; 84520

== ENCOUNTER 2022-04-23 11:28 | Inpatient (IN) | payer MEDICARE ==
[2022-04-23] MEDS ORDERED: SODIUM CHLORIDE 0.9% 1,000 ML IV ONE (12:34)
[2022-04-23] MEDS ORDERED: ONDANSETRON 4 MG/2 ML VIAL IVP STA (12:34)
[2022-04-23] MEDS ORDERED: DEXAMETHASONE SOD PHOSPHATE 10 MG/ML 1 ML VIAL IVP STA (12:35)
--- NOTE | 2022-04-23 12:58 | XR ---
EXAMINATION TYPE: XR chest 2V DATE OF EXAM: 04/23/2022 COMPARISON: NONE TECHNIQUE: PA and lateral views submitted. HISTORY: Weakness FINDINGS: The lungs are clear and there is no pneumothorax, pleural effusion, or focal pneumonia. Sclerotic d ensity overlying the left humeral head. Arthropathy of the AC joints. No overt failure pneumothorax. Atherosclerotic change aorta. Linear density in the left upper lobe. IMPRESSION: 1. No acute process. Linear band of density in the right upper lobe may be related to superimposed st ructures in the anterior margin of the first rib but was not seen on prior exam. Recommend short-term follow-up CT of the chest.
[2022-04-23 13:12] LABS: Basophils % (A) 1 %; Eosinophils # (A) 0.1 k/uL (0-0.7); Eosinophils % (A) 1 %; HCT 35.5 % (34.0-46.0); HGB 11.6 gm/dL (11.4-16.0); Lymphocytes % (A) 15 %; MCH 28.8 pg (25.0-35.0); MCHC 32.6 g/dL (31.0-37.0); MCV 88.3 fL (80.0-100.0); Mean Platelet Volume 8.3; Monocytes # (A) 0.5 k/uL (0-1.0); Monocytes % (A) 7 %; Neutrophils # (A) 4.8 k/uL (1.3-7.7); Neutrophils % (A) 75 %; Platelet Count 239 k/uL (150-450); RBC 4.02 m/uL (3.80-5.40); RDW 13.9 % (11.5-15.5); WBC 6.4 k/uL (3.8-10.6)
[2022-04-23 13:32] LABS: Albumin 3.6 g/dL (3.5-5.0); Calcium 8.9 mg/dL (8.4-10.2); Potassium 3.2 mmol/L (3.5-5.1); Total Bilirubin 0.4 mg/dL (0.2-1.3); Total Protein 6.1 g/dL (6.3-8.2)
[2022-04-23] MEDS ORDERED: POTASSIUM CHLORIDE ER 20 MEQ TAB.ER PO STA (15:42)
[2022-04-23] MEDS ORDERED: DEXTROSE 50% SYRINGE 50 ML IVP STA (15:43)
--- NOTE | 2022-04-23 15:48 | ED ---
General Adult HPI - General Chief complaint: Recheck/Abnormal Lab/Rx Stated complaint: Covid+ Time Seen by Provider: 04/23/22 12:25 Source: patient Mode of arrival: EMS - History of Present Illness Initial comments: 81-year-old female with past medical history of diabetes, hypertension, hyperlipidemia, lung cancer with radiation presents to the emergency department with fatigue, nausea, vomiting, myalgias that all started on Friday. Patient took a home Covid test and was found to be positive. She has been trying to deal with her symptoms at home however states that she is fatigued. Reports to sore throat with difficulty swallowing therefore she has been unable to take her medications. Patient had also an episode of chest discomfort earlier today. Patient is vaccinated. Follows with Dr. Lynn. Does not wear oxygen. 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 - Related Data Home Medications Medication Instructions Recorded Confirmed Repaglinide [Prandin] 1 mg PO AC-BID 12/15/15 04/23/22 Aspirin 81 mg PO DAILY 12/31/16 04/23/22 Levothyroxine Sodium [Synthroid] 37.5 mcg PO DAILY 12/31/16 04/23/22 dilTIAZem HCL [Cardizem] 120 mg PO DAILY 12/31/16 04/23/22 Atorvastatin [Lipitor] 20 mg PO HS 10/25/17 04/23/22 metFORMIN HCL [Glucophage] 500 mg PO AC-BID 10/25/17 04/23/22 Citalopram Hydrobromide [CeleXA] 20 mg PO DAILY 04/26/21 04/23/22 Ascorbic Acid [Vitamin C] 500 mg PO DAILY 04/23/22 04/23/22 Cholecalciferol [Vitamin D3 (25 25 mcg PO DAILY 04/23/22 04/23/22 Mcg = 1000 Iu)] Multivitamins, Thera [Multivitamin 1 tab PO DAILY 04/23/22 04/23/22 (formulary)] Zinc 50 mg PO DAILY 04/23/22 04/23/22 Previous Rx's Medication Instructions Recorded Metoprolol Succinate (ER) [Toprol 25 mg PO DAILY 30 Days #30 tab 04/25/22 XL] lisinopriL [Zestril] 2.5 mg PO DAILY 30 Days #30 tab 04/25/22 methylPREDNISolone [Medrol] 4 mg PO DIRECTED #6 tab 04/25/22 Allergies Allergy/AdvReac Type Severity Reaction Status Date / Time ciprofloxacin [From Cipro] Allergy Nausea & Verified 04/23/22 12:34 Vomiting-severe nitrofurantoin Allergy Confusion Verified 04/23/22 12:34 [From Macrobid] Penicillins Allergy Rash/Hives Verified 04/23/22 12:34 codeine AdvReac Nausea & Verified 04/23/22 12:34 Vomiting Review of Systems ROS Statement: Those systems with pertinent positive or pertinent negative responses have been documented in the HPI. ROS Other: All systems not noted in ROS Statement are negative. Past Medical History Past Medical History: Cancer, Diabetes Mellitus, Hyperlipidemia, Hypertension, Thyroid Disorder Additional Past Medical History / Comment(s): Thyroid cancer in November 2015, post thyroidectomy, right lung mass on that investigation, diabetes mellitus, hyperlipidemia, hypertension History of Any Multi-Drug Resistant Organisms: None Reported Past Surgical History: Appendectomy, Hysterectomy, Orthopedic Surgery, Tonsillectomy Additional Past Surgical History / Comment(s): Partial thyroidectomy November,ORIF lt ankle,rt shoulder rot cuff Past Anesthesia/Blood Transfusion Reactions: Previous Problems w/ Anesthesia, Postoperative Nausea & Vomiting (PONV) Additional Past Anesthesia/Blood Transfusion Reaction / Comment(s): states "has a hard time waking up with anesthesia" Past Psychological History: No Psychological Hx Reported Smoking Status: Former smoker Past Alcohol Use History: None Reported Past Drug Use History: None Reported - Past Family History Father Additional Family Medical History / Comment(s): emphysema Mother Additional Family Medical History / Comment(s): -fell down stairs Sister(s) Family Medical History: Cancer Additional Family Medical History / Comment(s): breast General Exam General appearance: alert, in no apparent distress Head exam: Present: atraumatic, normocephalic, normal inspection Eye exam: Present: normal appearance, PERRL, EOMI. Absent: scleral icterus, conjunctival injection, periorbital swelling ENT exam: Present: normal exam, mucous membranes dry Neck exam: Present: normal inspection. Absent: tenderness, meningismus, lymphadenopathy Respiratory exam: Present: normal lung sounds bilaterally. Absent: respiratory distress, wheezes, rales, rhonchi, stridor Cardiovascular Exam: Present: regular rate, normal rhythm, normal heart sounds. Absent: systolic murmur, diastolic murmur, rubs, gallop, clicks GI/Abdominal exam: Present: soft, normal bowel sounds. Absent: distended, tenderness, guarding, rebound, rigid Extremities exam: Present: normal inspection, full ROM, normal capillary refill. Absent: tenderness, pedal edema, joint swelling, calf tenderness Back exam: Present: normal inspection Neurological exam: Present: alert, oriented X3, CN II-XII intact Psychiatric exam: Present: normal affect, normal mood Skin exam: Present: warm, dry, intact, normal color. Absent: rash Course Vital Signs 04/23/22 04/23/22 04/23/22 11:30 15:07 18:41 Temperature 98.5 F 98.1 F 98 F Pulse Rate 95 96 100 Respiratory 18 18 18 Rate Blood Pressure 125/89 117/68 119/64 O2 Sat by Pulse 98 97 94 L Oximetry 04/23/22 22:04 Temperature 97.8 F Pulse Rate 95 Respiratory 18 Rate Blood Pressure 121/76 O2 Sat by Pulse 96 Oximetry EKG Findings - EKG Comments: EKG Findings:: EKG demonstrates sinus rhythm with a rate of 86. NM interval 212. QRS 173. QTC of 585. Left bundle branch block. Does not meet Sgarbossa criteria Medical Decision Making - Medical Decision Making Upon arrival patient was placed in the hallway 23. A thorough history and physical exam was performed. IV access was established and the patient was given a liter bolus of normal saline. Laboratory studies were conducted reviewed. Potassium 3.2 which is replaced. Glucose 66. Troponin mildly elevated at 0.040. Patient given a chewable aspirin. Dextrose also ordered however patient does have improvement in her glucose upon recheck without any medication administered. She is given Zofran for nausea and Decadron for her sore throat. As she is a high risk patient she is given antibodies because of her history of lung cancer. I spoke with Dr. Gómez we will trend the patient's troponins. Patient agreeable to admission and is awaiting a bed on the floor - Lab Data Result diagrams: 04/23/22 12:56 04/25/22 06:57 Lab Results 04/23/22 04/23/22 04/23/22 Range/Units 12:56 12:56 12:56 WBC 6.4 (3.8-10.6) k/uL RBC 4.02 (3.80-5.40) m/uL Hgb 11.6 (11.4-16.0) gm/dL Hct 35.5 (34.0-46.0) % MCV 88.3 (80.0-100.0) fL MCH 28.8 (25.0-35.0) pg MCHC 32.6 (31.0-37.0) g/dL RDW 13.9 (11.5-15.5) % Plt Count 239 (150-450) k/uL MPV 8.3 Neutrophils % 75 % Lymphocytes % 15 % Monocytes % 7 % Eosinophils % 1 % Basophils % 1 % Neutrophils # 4.8 (1.3-7.7) k/uL Lymphocytes # 1.0 (1.0-4.8) k/uL Monocytes # 0.5 (0-1.0) k/uL Eosinophils # 0.1 (0-0.7) k/uL Basophils # 0.0 (0-0.2) k/uL Sodium 134 L (137-145) mmol/L Potassium 3.2 L (3.5-5.1) mmol/L Chloride 96 L (98-107) mmol/L Carbon Dioxide 26 (22-30) mmol/L Anion Gap 12 mmol/L BUN 17 (7-17) mg/dL Creatinine 1.20 H (0.52-1.04) mg/dL Est GFR (CKD-EPI)AfAm 49 (>60 ml/min/1.73 sqM) Est GFR (CKD-EPI)NonAf 42 (>60 ml/min/1.73 sqM) Glucose 66 L (74-99) mg/dL POC Glucose (mg/dL) (70-110) mg/dL POC Glu Mangle Press Catcher ID Plasma Lactic Acid Ricky (0.7-2.0) mmol/L Calcium 8.9 (8.4-10.2) mg/dL Total Bilirubin 0.4 (0.2-1.3) mg/dL AST 25 (14-36) U/L ALT 12 (4-34) U/L Alkaline Phosphatase 78 (38-126) U/L Troponin I 0.040 H* (0.000-0.034) ng/mL Total Protein 6.1 L (6.3-8.2) g/dL Albumin 3.6 (3.5-5.0) g/dL Coronavirus (PCR) (Not Detectd) 04/23/22 04/23/22 04/23/22 Range/Units 12:56 15:50 16:51 WBC (3.8-10.6) k/uL RBC (3.80-5.40) m/uL Hgb (11.4-16.0) gm/dL Hct (34.0-46.0) % MCV (80.0-100.0) fL MCH (25.0-35.0) pg MCHC (31.0-37.0) g/dL RDW (11.5-15.5) % Plt Count (150-450) k/uL MPV Neutrophils % % Lymphocytes % % Monocytes % % Eosinophils % % Basophils % % Neutrophils # (1.3-7.7) k/uL Lymphocytes # (1.0-4.8) k/uL Monocytes # (0-1.0) k/uL Eosinophils # (0-0.7) k/uL Basophils # (0-0.2) k/uL Sodium (137-145) mmol/L Potassium (3.5-5.1) mmol/L Chloride (98-107) mmol/L Carbon Dioxide (22-30) mmol/L Anion Gap mmol/L BUN (7-17) mg/dL Creatinine (0.52-1.04) mg/dL Est GFR (CKD-EPI)AfAm (>60 ml/min/1.73 sqM) Est GFR (CKD-EPI)NonAf (>60 ml/min/1.73 sqM) Glucose (74-99) mg/dL POC Glucose (mg/dL) 106 (70-110) mg/dL POC Glu Mangle Press Catcher ID Sue Hope Plasma Lactic Acid Ricky 1.0 (0.7-2.0) mmol/L Calcium (8.4-10.2) mg/dL Total Bilirubin (0.2-1.3) mg/dL AST (14-36) U/L ALT (4-34) U/L Alkaline Phosphatase (38-126) U/L Troponin I (0.000-0.034) ng/mL Total Protein (6.3-8.2) g/dL Albumin (3.5-5.0) g/dL Coronavirus (PCR) Detected A (Not Detectd) 04/23/22 04/23/22 04/23/22 Range/Units 17:36 18:29 20:31 WBC (3.8-10.6) k/uL RBC (3.80-5.40) m/uL Hgb (11.4-16.0) gm/dL Hct (34.0-46.0) % MCV (80.0-100.0) fL MCH (25.0-35.0) pg MCHC (31.0-37.0) g/dL RDW (11.5-15.5) % Plt Count (150-450) k/uL MPV Neutrophils % % Lymphocytes % % Monocytes % % Eosinophils % % Basophils % % Neutrophils # (1.3-7.7) k/uL Lymphocytes # (1.0-4.8) k/uL Monocytes # (0-1.0) k/uL Eosinophils # (0-0.7) k/uL Basophils # (0-0.2) k/uL Sodium (137-145) mmol/L Potassium (3.5-5.1) mmol/L Chloride (98-107) mmol/L Carbon Dioxide (22-30) mmol/L Anion Gap mmol/L BUN (7-17) mg/dL Creatinine (0.52-1.04) mg/dL Est GFR (CKD-EPI)AfAm (>60 ml/min/1.73 sqM) Est GFR (CKD-EPI)NonAf (>60 ml/min/1.73 sqM) Glucose (74-99) mg/dL POC Glucose (mg/dL) 221 H 303 H (70-110) mg/dL POC Glu Mangle Press Catcher Thalia Mcdonough Heather Plasma Lactic Acid Ricky (0.7-2.0) mmol/L Calcium (8.4-10.2) mg/dL Total Bilirubin (0.2-1.3) mg/dL AST (14-36) U/L ALT (4-34) U/L Alkaline Phosphatase (38-126) U/L Troponin I 0.032 (0.000-0.034) ng/mL Total Protein (6.3-8.2) g/dL Albumin (3.5-5.0) g/dL Coronavirus (PCR) (Not Detectd) 04/23/22 04/24/22 04/24/22 Range/Units 20:33 06:56 11:06 WBC (3.8-10.6) k/uL RBC (3.80-5.40) m/uL Hgb (11.4-16.0) gm/dL Hct (34.0-46.0) % MCV (80.0-100.0) fL MCH (25.0-35.0) pg MCHC (31.0-37.0) g/dL RDW (11.5-15.5) % Plt Count (150-450) k/uL MPV Neutrophils % % Lymphocytes % % Monocytes % % Eosinophils % % Basophils % % Neutrophils # (1.3-7.7) k/uL Lymphocytes # (1.0-4.8) k/uL Monocytes # (0-1.0) k/uL Eosinophils # (0-0.7) k/uL Basophils # (0-0.2) k/uL Sodium (137-145) mmol/L Potassium (3.5-5.1) mmol/L Chloride (98-107) mmol/L Carbon Dioxide (22-30) mmol/L Anion Gap mmol/L BUN (7-17) mg/dL Creatinine (0.52-1.04) mg/dL Est GFR (CKD-EPI)AfAm (>60 ml/min/1.73 sqM) Est GFR (CKD-EPI)NonAf (>60 ml/min/1.73 sqM) Glucose (74-99) mg/dL POC Glucose (mg/dL) 244 H 383 H (70-110) mg/dL POC Glu Mangle Press Catcher ID Jessy, Tierra Jessy, Tierra Plasma Lactic Acid Ricky (0.7-2.0) mmol/L Calcium (8.4-10.2) mg/dL Total Bilirubin (0.2-1.3) mg/dL AST (14-36) U/L ALT (4-34) U/L Alkaline Phosphatase (38-126) U/L Troponin I 0.021 (0.000-0.034) ng/mL Total Protein (6.3-8.2) g/dL Albumin (3.5-5.0) g/dL Coronavirus (PCR) (Not Detectd) 04/24/22 Range/Units 11:37 WBC (3.8-10.6) k/uL RBC (3.80-5.40) m/uL Hgb (11.4-16.0) gm/dL Hct (34.0-46.0) % MCV (80.0-100.0) fL MCH (25.0-35.0) pg MCHC (31.0-37.0) g/dL RDW (11.5-15.5) % Plt Count (150-450) k/uL MPV Neutrophils % % Lymphocytes % % Monocytes % % Eosinophils % % Basophils % % Neutrophils # (1.3-7.7) k/uL Lymphocytes # (1.0-4.8) k/uL Monocytes # (0-1.0) k/uL Eosinophils # (0-0.7) k/uL Basophils # (0-0.2) k/uL Sodium 131 L (137-145) mmol/L Potassium 3.7 (3.5-5.1) mmol/L Chloride 96 L (98-107) mmol/L Carbon Dioxide 21 L (22-30) mmol/L Anion Gap 14 mmol/L BUN 33 H (7-17) mg/dL Creatinine 1.46 H (0.52-1.04) mg/dL Est GFR (CKD-EPI)AfAm 38 (>60 ml/min/1.73 sqM) Est GFR (CKD-EPI)NonAf 33 (>60 ml/min/1.73 sqM) Glucose 348 H (74-99) mg/dL POC Glucose (mg/dL) (70-110) mg/dL POC Glu Mangle Press Catcher ID Plasma Lactic Acid Ricky (0.7-2.0) mmol/L Calcium 8.2 L (8.4-10.2) mg/dL Total Bilirubin (0.2-1.3) mg/dL AST (14-36) U/L ALT (4-34) U/L Alkaline Phosphatase (38-126) U/L Troponin I (0.000-0.034) ng/mL Total Protein (6.3-8.2) g/dL Albumin (3.5-5.0) g/dL Coronavirus (PCR) (Not Detectd) Disposition Clinical Impression: COVID-19, Hypoglycemia, Sore throat, Elevated troponin Disposition: ADMITTED IP TO THIS HOSP Condition: Fair Is patient prescribed a controlled substance at d/c from ED?: No Time of Disposition: 15:57 Decision to Admit Reason: Admit from EC Decision Date: 04/23/22 Decision Time: 15:57
[2022-04-23 15:54] LABS: Glucose,Whole Blood 106 mg/dL (70-110)
[2022-04-23] MEDS ORDERED: ONDANSETRON 4 MG/2 ML VIAL IVP PRN (15:57)
[2022-04-23] MEDS ORDERED: NALOXONE 0.4 MG/ML 1 ML VIAL IV PRN (15:57)
[2022-04-23] MEDS ORDERED: ACETAMINOPHEN TAB 325 MG TAB PO PRN (15:57)
[2022-04-23] MEDS ORDERED: BEBTELOVIMAB (EUA) 175 MG/2 ML VIAL IV ONE (16:15)
[2022-04-23] MEDS ORDERED: ASPIRIN 81 MG PO STA (16:42)
[2022-04-23] MEDS ORDERED: DEXTROSE 50% SYRINGE 50 ML IVP PRN ×2 (17:12)
--- NOTE | 2022-04-23 17:15 | P.HPIM ---
History of Present Illness H&P Date: 04/23/22 Chief Complaint: Chest pain Patient is a 81-year-old female with a past medical history of lung cancer status post resection and radiation, hyperlipidemia, hypertension hypothyroidism, type 2 diabetes mellitus, CK D stage III who presents to the ED with weakness. Patient stated that she was diagnosed with COVID-19 4 days ago. In the ED patient was found to have a blood glucose of 66. She was given 1 time dose of dextrose. Her blood glucose improved. Patient stated that once her blood glucose improved she was feeling much better. While patient was in the ED she had an episode of chest pain that was midsternal sharp and only lasted for a few seconds. Her troponin was mildly elevated at 0.040. So patient was then referred for admission for evaluation of her chest pain. When I went to see she states that she feels much better and her chest pain has resolved. She states that the chest pain was not associated with exertion or rest. She stated that it did not radiate anywhere. Review of Systems 10 ROS reviewed and are negative except as noted in HPI Past Medical History Past Medical History: Cancer, Diabetes Mellitus, Hyperlipidemia, Hypertension, Thyroid Disorder Additional Past Medical History / Comment(s): Thyroid cancer in November 2015, post thyroidectomy, right lung mass on that investigation, diabetes mellitus, hyperlipidemia, hypertension History of Any Multi-Drug Resistant Organisms: None Reported Past Surgical History: Appendectomy, Hysterectomy, Orthopedic Surgery, Tonsillectomy Additional Past Surgical History / Comment(s): Partial thyroidectomy November,ORIF lt ankle,rt shoulder rot cuff Past Anesthesia/Blood Transfusion Reactions: Previous Problems w/ Anesthesia, Postoperative Nausea & Vomiting (PONV) Additional Past Anesthesia/Blood Transfusion Reaction / Comment(s): states "has a hard time waking up with anesthesia" Past Psychological History: No Psychological Hx Reported Smoking Status: Former smoker Past Alcohol Use History: None Reported Past Drug Use History: None Reported - Past Family History Father Additional Family Medical History / Comment(s): emphysema Mother Additional Family Medical History / Comment(s): -fell down stairs Sister(s) Family Medical History: Cancer Additional Family Medical History / Comment(s): breast Medications and Allergies Home Medications Medication Instructions Recorded Confirmed Type Repaglinide [Prandin] 1 mg PO AC-BID 12/15/15 04/23/22 History Aspirin 81 mg PO DAILY 12/31/16 04/23/22 History Levothyroxine Sodium [Synthroid] 37.5 mcg PO DAILY 12/31/16 04/23/22 History dilTIAZem HCL [Cardizem] 120 mg PO DAILY 12/31/16 04/23/22 History Atorvastatin [Lipitor] 20 mg PO HS 10/25/17 04/23/22 History metFORMIN HCL [Glucophage] 500 mg PO AC-BID 10/25/17 04/23/22 History Citalopram Hydrobromide [CeleXA] 20 mg PO DAILY 04/26/21 04/23/22 History hydroCHLOROthiazide [Hydrodiuril] 25 mg PO DAILY 04/26/21 04/23/22 History Ascorbic Acid [Vitamin C] 500 mg PO DAILY 04/23/22 04/23/22 History Cholecalciferol [Vitamin D3 (25 25 mcg PO DAILY 04/23/22 04/23/22 History Mcg = 1000 Iu)] Multivitamins, Thera [Multivitamin 1 tab PO DAILY 04/23/22 04/23/22 History (formulary)] Zinc 50 mg PO DAILY 04/23/22 04/23/22 History Allergies Allergy/AdvReac Type Severity Reaction Status Date / Time ciprofloxacin [From Cipro] Allergy Nausea & Verified 04/23/22 12:34 Vomiting-severe nitrofurantoin Allergy Confusion Verified 04/23/22 12:34 [From Macrobid] Penicillins Allergy Rash/Hives Verified 04/23/22 12:34 codeine AdvReac Nausea & Verified 04/23/22 12:34 Vomiting Physical Exam Osteopathic Statement: *. No significant issues noted on an osteopathic structural exam other than those noted in the History and Physical/Consult. Vitals: Vital Signs Temp Pulse Resp BP Pulse Ox 04/23/22 15:07 98.1 F 96 18 117/68 97 04/23/22 11:30 98.5 F 95 18 125/89 98 Intake and Output 04/23/22 04/23/22 04/23/22 06:59 14:59 22:59 Other: Weight 68.039 kg General: [Alert and oriented, well nourished, no acute distress, appears chronically debilitated]. Eye: [PERRL, EOMI, normal conjunctiva]. HENT: [Normocephalic, clear tympanic membranes, normal hearing, moist oral mucosa, no scleral icterus, no sinus tenderness]. Neck: [Supple, non-tender, no carotid bruits, no JVD, no lymphadenopathy]. Lungs: [Clear to auscultation and percussion, non-labored respiration]. Heart: [Normal rate, regular rhythm, no murmur, gallop or edema]. Abdomen: [Soft, non-tender, non-distended, normal bowel sounds, no masses]. Musculoskeletal: [Normal range of motion and strength, no tenderness or swelling ]. Skin: [Skin is warm, dry and pink, no rashes or lesions]. Neurologic: [Awake, alert, and oriented X3, CN II-XII intact]. Psychiatric: [Cooperative, appropriate mood and affect]. Results CBC & Chem 7: 04/23/22 12:56 04/23/22 12:56 Labs: Abnormal Lab Results - Last 24 Hours (Table) 04/23/22 04/23/22 04/23/22 Range/Units 12:56 12:56 16:51 Sodium 134 L (137-145) mmol/L Potassium 3.2 L (3.5-5.1) mmol/L Chloride 96 L (98-107) mmol/L Creatinine 1.20 H (0.52-1.04) mg/dL Glucose 66 L (74-99) mg/dL Troponin I 0.040 H* (0.000-0.034) ng/mL Total Protein 6.1 L (6.3-8.2) g/dL Coronavirus (PCR) Detected A (Not Detectd) Assessment and Plan Assessment: Atypical chest pain Mildly elevated troponin likely due to demand ischemia Chest pain is reproducible to point tenderness Likely etiology is musculoskeletal We'll start patient on Medrol Dosepak Trend troponins 3. Echocardiogram and cardiology consult. Resume aspirin and atorvastatin COVID-19 Patient asymptomatic said no need for treatment Patient is vaccinated for COVID-19 and is also status post 2 booster shots Hyperlipidemia Resume statin Hypothyroidism Resume Synthroid Diabetes mellitus Sliding scale insulin CK D stage III Patient's creatinine at baseline CODE STATUS:full code DVT prophylaxis: mechanical Discussed with: Patient, ER, rn Anticipated length of stay < than [address]: home A total of 50 minutes was spent on the care of this complex patient more than 5 0% of the time was spent in counseling and care coordination.
[2022-04-23] MEDS: methylPREDNISolone 4 MG TAB TAPER PO SCH (18:34)
[2022-04-23] MEDS: REPAGLINIDE 1 MG TAB PO SCH (18:34)
[2022-04-23] MEDS: INSULIN ASPART (NovoLOG) 100 UNIT/ML VIAL SQ SCH ×2 (18:35→22:15)
[2022-04-23] MEDS: SODIUM CHLORIDE 0.9% 1,000 ML IV SCH (18:36)
[2022-04-23 18:49] LABS: Glucose,Whole Blood 221 mg/dL (70-110)
[2022-04-23 20:39] LABS: Glucose,Whole Blood 303 mg/dL (70-110)
[2022-04-23] MEDS: ATORVASTATIN 20 MG TAB PO SCH (22:15)
[2022-04-23] MEDS: HEPARIN SODIUM,PORCINE/PF 5,000 UNIT/0.5 ML SYRINGE SQ SCH (22:15)
[2022-04-24] MEDS: LEVOTHYROXINE 25 MCG TAB PO SCH (06:25)
[2022-04-24] MEDS: SODIUM CHLORIDE 0.9% 1,000 ML IV SCH (06:29)
[2022-04-24 06:58] LABS: Glucose,Whole Blood 244 mg/dL (70-110)
[2022-04-24] MEDS: ASPIRIN 81 MG PO SCH (07:39)
[2022-04-24] MEDS: INSULIN ASPART (NovoLOG) 100 UNIT/ML VIAL SQ SCH ×4 (07:39→21:18)
[2022-04-24] MEDS: methylPREDNISolone 4 MG TAB TAPER PO SCH (07:40)
[2022-04-24] MEDS: REPAGLINIDE 1 MG TAB PO SCH ×2 (07:40→17:06)
[2022-04-24] MEDS: CITALOPRAM HYDROBROMIDE 20 MG TAB PO SCH (07:41)
[2022-04-24] MEDS: DILTIAZEM CD 120 MG CAP.ER.24H PO SCH (07:41)
[2022-04-24] MEDS: HEPARIN SODIUM,PORCINE/PF 5,000 UNIT/0.5 ML SYRINGE SQ SCH ×2 (07:41→21:18)
--- NOTE | 2022-04-24 10:07 | CA ---
Transthoracic Echo Report Name: Cyndee Sapp Age: 81 Gender: F : 1940 Exam Date: 04/24/2022 08:28 Exam Location: [place] [facility] Ht (in): 64 Wt (lb): 150 Ordering Physician: Jamaica Dawson MD Attending/Referring Phys: Glove Wrapper Thu Blanco RDCS Procedure CPT: Indications: Chest Pain Cardiac Hx: Technical Quality: Fair Contrast 1: Total Dose (mL): Contrast 2: Total Dose (mL): MEASUREMENTS (Male / Female) Normal Values 2D ECHO LV Diastolic Diameter PLAX 5.9 cm 4.2 - 5.9 / 3.9 - 5.3 cm LV Systolic Diameter PLAX 4.3 cm IVS Diastolic Thickness 1.2 cm 0.6 - 1.0 / 0.6 - 0.9 cm LVPW Diastolic Thickness 1.3 cm 0.6 - 1.0 / 0.6 - 0.9 cm LV Relative Wall Thickness 0.4 RV Internal Dim ED PLAX 2.7 cm LA Systolic Diameter LX 2.9 cm 3.0 - 4.0 / 2.7 - 3.8 cm M-MODE Aortic Root Diameter MM 3.4 cm MV E Point Septal Separation 2.2 cm AV Cusp Separation MM 2.1 cm DOPPLER AV Peak Velocity 119.8 cm/s AV Peak Gradient 5.7 mmHg MV Area PHT 5.2 cm??? Mitral E Point Velocity 134.3 cm/s Mitral A Point Velocity 29.2 cm/s Mitral E to A Ratio 4.6 MV Deceleration Time 147.2 ms MV E' Velocity 10.5 cm/s Mitral E to MV E' Ratio 12.8 TR Peak Velocity 216.4 cm/s TR Peak Gradient 18.7 mmHg Right Ventricular Systolic Press 23.4 mmHg FINDINGS Left Ventricle Left ventricular ejection fraction is estimated at 15 %. Moderate left ventricular dilatation. Mild concentric left ventricular hypertrophy. Global hypokinesis Right Ventricle Normal right ventricular size and function. Right ventricular systolic pressure within normal limits. Right Atrium Normal right atrial size. Left Atrium Normal left atrial size. No evidence for an atrial septal defect. Mitral Valve Mitral valve thickened. Mild mitral annular calcification. Mild mitral regurgitation. Aortic Valve Trileaflet aortic valve. No aortic valve stenosis or regurgitation. Focal thickening of the aortic valve cusps. Tricuspid Valve Mild tricuspid regurgitation. Pulmonic Valve Trace to mild pulmonic regurgitation. Pericardium Normal pericardium. No pericardial effusion. Aorta Normal size aortic root and proximal ascending aorta. CONCLUSIONS Severe LV systolic dysfunction Mild mitral regurgitation Mild tricuspid regurgitation Previewed by: Dr. Gaurav Watson MD (Electronically Signed) Final Date: 24 April 2022 10:06
[2022-04-24 11:08] LABS: Glucose,Whole Blood 383 mg/dL (70-110)
--- NOTE | 2022-04-24 11:53 | P.CRDCN ---
History of Present Illness Consult date: 04/24/22 History of present illness: Patient is an 81-year-old female with a past medical history of hypertension, hyperlipidemia, panic kidney disease lung cancer with resection and radiation, thyroid cancer post thyroidectomy, diabetic. We were consulted for chest pain. Patient does not follow with a consulting it architect. She initially came into the hospital with weakness, and was found to be Covid positive. While in the ER she developed chest pain which was midsternal and sharp and radiated to the left side of her chest, pain is reproducible by touch. EKG showed sinus rhythm with a first degree and a left bundle branch block and left axis deviation. Initial troponin was elevated at 0.040, 0.032, 0.021. Her echocardiogram showed a severely decreased LV function with an ejection fraction of 15% and mild mitral and tricuspid regurgitation. Chest x-ray is negative for acute cardiopulmonary process. She is examined sitting in bed resting comfortably in no signs of acute distress. At this time she denies chest pain or increased shortness of breath. chest pain is atypical and seems to be muscleskeletal. Her cardio myopathy is believed to be secondary to Covid area will start lisinopril and Toprol. Recommend patient undergo an echocardiogram in 6-8 weeks outpatient after acute Covid is resolved Review of Systems REVIEW OF SYSTEMS At the time of my exam: CONSTITUTIONAL: Denies fever or chills. EYES: Negative for vision changes ENT: Negative for hearing loss CARDIOVASCULAR: Denies chest pain, shortness of breath, diaphoresis, orthopnea, PND or palpitations. VASCULAR: Denies edema RESPIRATORY: Denies cough. GASTROINTESTINAL: Denies abdominal pain, diarrhea, constipation, nausea or vomiting. MUSCULOSKELETAL: Denies myalgias. NEUROLOGIC: Denies numbness, tingling, headache or weakness. ENDOCRINE: Denies fatigue, weight change, polydipsia or polyurina. GENITOURINARY: Denies burning, hematuria or urgency with micturation. HEMATOLOGIC: Denies history of anemia or bleeding. DERMATOLOGY: Denies rash or skin sores PSYCH: Negative for depression or hallucinations. Past Medical History Past Medical History: Cancer, Diabetes Mellitus, Hyperlipidemia, Hypertension, Thyroid Disorder Additional Past Medical History / Comment(s): Thyroid cancer in November 2015, post thyroidectomy, right lung mass on that investigation, diabetes mellitus, hyperlipidemia, hypertension History of Any Multi-Drug Resistant Organisms: None Reported Past Surgical History: Appendectomy, Hysterectomy, Orthopedic Surgery, Tonsille ctomy Additional Past Surgical History / Comment(s): Partial thyroidectomy November,ORIF lt ankle,rt shoulder rot cuff Past Anesthesia/Blood Transfusion Reactions: Previous Problems w/ Anesthesia, Postoperative Nausea & Vomiting (PONV) Additional Past Anesthesia/Blood Transfusion Reaction / Comment(s): states "has a hard time waking up with anesthesia" Past Psychological History: No Psychological Hx Reported Smoking Status: Former smoker Past Alcohol Use History: None Reported Additional Past Alcohol Use History / Comment(s): quit smoking ,started 1952 <1ppd Past Drug Use History: None Reported - Past Family History Father Additional Family Medical History / Comment(s): emphysema Mother Additional Family Medical History / Comment(s): -fell down stairs Sister(s) Family Medical History: Cancer Additional Family Medical History / Comment(s): breast Medications and Allergies Home Medications Medication Instructions Recorded Confirmed Type Repaglinide [Prandin] 1 mg PO AC-BID 12/15/15 04/23/22 History Aspirin 81 mg PO DAILY 12/31/16 04/23/22 History Levothyroxine Sodium [Synthroid] 37.5 mcg PO DAILY 12/31/16 04/23/22 History dilTIAZem HCL [Cardizem] 120 mg PO DAILY 12/31/16 04/23/22 History Atorvastatin [Lipitor] 20 mg PO HS 10/25/17 04/23/22 History metFORMIN HCL [Glucophage] 500 mg PO AC-BID 10/25/17 04/23/22 History Citalopram Hydrobromide [CeleXA] 20 mg PO DAILY 04/26/21 04/23/22 History hydroCHLOROthiazide [Hydrodiuril] 25 mg PO DAILY 04/26/21 04/23/22 History Ascorbic Acid [Vitamin C] 500 mg PO DAILY 04/23/22 04/23/22 History Cholecalciferol [Vitamin D3 (25 25 mcg PO DAILY 04/23/22 04/23/22 History Mcg = 1000 Iu)] Multivitamins, Thera [Multivitamin 1 tab PO DAILY 04/23/22 04/23/22 History (formulary)] Zinc 50 mg PO DAILY 04/23/22 04/23/22 History Allergies Allergy/AdvReac Type Severity Reaction Status Date / Time ciprofloxacin [From Cipro] Allergy Nausea & Verified 04/23/22 12:34 Vomiting-severe nitrofurantoin Allergy Confusion Verified 04/23/22 12:34 [From Macrobid] Penicillins Allergy Rash/Hives Verified 04/23/22 12:34 codeine AdvReac Nausea & Verified 04/23/22 12:34 Vomiting Physical Exam Vitals: Vital Signs Temp Pulse Pulse Resp BP BP Pulse Ox 04/24/22 10:05 97.9 F 84 15 111/67 97 04/24/22 08:00 97.8 F 82 16 119/65 93 L 04/24/22 02:04 97.7 F 80 17 100/61 94 L 04/24/22 02:00 94 18 04/23/22 23:15 97.7 F 94 18 107/56 95 04/23/22 22:04 97.8 F 95 18 121/76 96 04/23/22 18:41 98 F 100 18 119/64 94 L 04/23/22 15:07 98.1 F 96 18 117/68 97 Intake and Output 04/23/22 04/24/22 04/24/22 22:59 06:59 14:59 Other: Voiding Method Toilet Toilet # Voids 1 1 Weight 68.039 kg 69.7 kg PHYSICAL EXAMINATION VITAL SIGNS: Reviewed General: The patient is awake and alert, in no distress, and does not appear acutely ill. Skin: Skin is warm and dry and no rashes or lesions are noted. Eye: Pupils are equal, round and reactive to light, extra-ocular movements are intact; there is normal conjunctiva bilaterally. Ears, nose, mouth and throat: There are moist mucous membranes and no oral lesions. Neck: The neck is supple, there is no tenderness or JVD. Cardiovascular: There is regular rate and rhythm. No murmur, rub or gallop is appreciated. Respiratory: Lungs are clear to auscultation, respirations are non-labored, breath sounds are equal. Gastrointestinal: Soft, non-distended, non-tender abdomen without masses or organomegaly noted. There is no rebound or guarding present. Bowel sounds are unremarkable. Back: There is no tenderness to palpation in the midline. There is no obvious deformity. Musculoskeletal: Normal ROM, no tenderness, There is no pedal edema. There is no calf tenderness or swelling. Extremities: Mild bilateral pitting edema Vascular: Femoral pulse is normal. Posterior tibial pulses are normal .Dorsalis pedis is palpable. Neurological: CN II-XII intact. There are no obvious motor or sensory deficits. Speech is normal. Psychiatric: Cooperative, appropriate mood & affect, normal judgment Results 04/23/22 12:56 04/23/22 12:56 Cardiac Enzymes 04/23/22 04/23/22 04/23/22 Range/Units 12:56 12:56 17:36 AST 25 (14-36) U/L Troponin I 0.040 H* 0.032 (0.000-0.034) ng/mL 04/23/22 Range/Units 20:33 AST (14-36) U/L Troponin I 0.021 (0.000-0.034) ng/mL CBC 04/23/22 Range/Units 12:56 WBC 6.4 (3.8-10.6) k/uL RBC 4.02 (3.80-5.40) m/uL Hgb 11.6 (11.4-16.0) gm/dL Hct 35.5 (34.0-46.0) % Plt Count 239 (150-450) k/uL Comprehensive Metabolic Panel 04/23/22 Range/Units 12:56 Sodium 134 L (137-145) mmol/L Potassium 3.2 L (3.5-5.1) mmol/L Chloride 96 L (98-107) mmol/L Carbon Dioxide 26 (22-30) mmol/L BUN 17 (7-17) mg/dL Creatinine 1.20 H (0.52-1.04) mg/dL Glucose 66 L (74-99) mg/dL Calcium 8.9 (8.4-10.2) mg/dL AST 25 (14-36) U/L ALT 12 (4-34) U/L Alkaline Phosphatase 78 (38-126) U/L Total Protein 6.1 L (6.3-8.2) g/dL Albumin 3.6 (3.5-5.0) g/dL Current Medications Generic Name Dose Route Start Last Admin Trade Name Freq PRN Reason Stop Dose Admin Acetaminophen 650 mg 04/23/22 15:57 Acetaminophen Tab 325 Mg Tab PO Q6HR PRN Mild Pain or Fever > 100.5 Aspirin 81 mg 04/24/22 09:00 04/24/22 07:39 Aspirin 81 Mg PO 81 mg DAILY CARMEN Administration Atorvastatin Calcium 20 mg 04/23/22 21:00 04/23/22 22:15 Atorvastatin 20 Mg Tab PO 20 mg HS CARMEN Administration Citalopram Hydrobromide 20 mg 04/24/22 09:00 04/24/22 07:41 Citalopram Hydrobromide 20 Mg Tab PO 20 mg DAILY CARMEN Administration Dextrose/Water 25 ml 04/23/22 17:12 Dextrose 50% Syringe 50 Ml IVP PER PROTOCOL PRN Hypoglycemia Protocol Dextrose/Water 50 ml 04/23/22 17:12 Dextrose 50% Syringe 50 Ml IVP PER PROTOCOL PRN Hypoglycemia Protocol Diltiazem HCl 120 mg 04/24/22 09:00 04/24/22 07:41 Diltiazem Cd 120 Mg Cap.Er.24h PO 120 mg DAILY CARMEN Administration Heparin Sodium (Porcine) 5,000 unit 04/23/22 21:00 04/24/22 07:41 Heparin Sodium,Porcine/Pf 5,000 Unit/0.5 Ml Syringe SQ 5,000 unit Q12HR CARMEN Administration Sodium Chloride 1,000 mls @ 10 mls/hr 04/23/22 16:00 04/24/22 06:29 Saline 0.9% IV 75 mls/hr .Q24H CARMEN Administration Insulin Aspart 0 unit 04/23/22 17:30 04/24/22 11:31 Insulin Aspart (Novolog) 100 Unit/Ml Vial SQ 5 unit ACHS CARMEN Administration Protocol Levothyroxine Sodium 37.5 mcg 04/24/22 06:30 04/24/22 06:25 Levothyroxine 25 Mcg Tab PO 37.5 mcg DAILY@0630 CARMEN Administration Methylprednisolone 20 mg 04/23/22 18:00 04/24/22 07:40 Methylprednisolone 4 Mg Tab Taper PO 04/29/22 08:59 20 mg DAILY CARMEN Administration Taper Naloxone HCl 0.2 mg 04/23/22 15:57 Naloxone 0.4 Mg/Ml 1 Ml Vial IV Q2M PRN Opioid Reversal Ondansetron HCl 4 mg 04/23/22 15:57 Ondansetron 4 Mg/2 Ml Vial IVP Q8HR PRN Nausea And Vomiting Repaglinide 1 mg 04/23/22 17:30 04/24/22 07:40 Repaglinide 1 Mg Tab PO 1 mg AC-BID CARMEN Administration Intake and Output 04/23/22 04/24/22 04/24/22 22:59 06:59 14:59 Other: Voiding Method Toilet Toilet # Voids 1 1 Weight 68.039 kg 69.7 kg Patient Weight 04/25/22 06:59 Weight 69.7 kg 04/23/22 12:56 04/23/22 12:56 Assessment and Plan Assessment: Atypical chest pain, appears to be muscloskeletal and noncardiac in origin Mildly elevated troponin secondary to Covid 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 Liliana Garcia, nurse practitioner, acting as scribe for signing physician.
[2022-04-24 12:25] LABS: African American GFR (CKD) 38 (>60 ml/min/1.73 sqM); Anion Gap 14 mmol/L; Blood Urea Nitrogen 33 mg/dL (7-17); Calcium 8.2 mg/dL (8.4-10.2); Carbon Dioxide 21 mmol/L (22-30); Chloride 96 mmol/L (98-107); Glucose 348 mg/dL (74-99); Non-African American GFR(CKD) 33 (>60 ml/min/1.73 sqM); Potassium 3.7 mmol/L (3.5-5.1); Sodium 131 mmol/L (137-145)
[2022-04-24] MEDS: METOPROLOL SUCCINATE (ER) 25 MG TAB.ER.24H PO SCH (13:32)
--- NOTE | 2022-04-24 13:47 | P.PN ---
Subjective Progress Note Date: 04/24/22 Principal diagnosis: Generalized weakness Patient says that she still feels very weak. She states that she had some chest pain this morning that was similar to the one yesterday. She says they were sharp and lasted for a few seconds and was midsternal. Chest pain is also repr oducible. Patient's echocardiogram showed EF of 15%. I discussed the results with patient. 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 spontaneously Psych - Calm and cooperative - Labs CBC & Chem 7: 04/23/22 12:56 04/24/22 11:37 Labs: Abnormal Lab Results - Last 24 Hours (Table) 04/23/22 04/23/22 04/23/22 Range/Units 12:56 16:51 18:29 Sodium (137-145) mmol/L Chloride (98-107) mmol/L Carbon Dioxide (22-30) mmol/L BUN (7-17) mg/dL Creatinine (0.52-1.04) mg/dL Glucose (74-99) mg/dL POC Glucose (mg/dL) 221 H (70-110) mg/dL Calcium (8.4-10.2) mg/dL Troponin I 0.040 H* (0.000-0.034) ng/mL Coronavirus (PCR) Detected A (Not Detectd) 04/23/22 04/24/22 04/24/22 Range/Units 20:31 06:56 11:06 Sodium (137-145) mmol/L Chloride (98-107) mmol/L Carbon Dioxide (22-30) mmol/L BUN (7-17) mg/dL Creatinine (0.52-1.04) mg/dL Glucose (74-99) mg/dL POC Glucose (mg/dL) 303 H 244 H 383 H (70-110) mg/dL Calcium (8.4-10.2) mg/dL Troponin I (0.000-0.034) ng/mL Coronavirus (PCR) (Not Detectd) 04/24/22 Range/Units 11:37 Sodium 131 L (137-145) mmol/L Chloride 96 L (98-107) mmol/L Carbon Dioxide 21 L (22-30) mmol/L BUN 33 H (7-17) mg/dL Creatinine 1.46 H (0.52-1.04) mg/dL Glucose 348 H (74-99) mg/dL POC Glucose (mg/dL) (70-110) mg/dL Calcium 8.2 L (8.4-10.2) mg/dL Troponin I (0.000-0.034) ng/mL Coronavirus (PCR) (Not Detectd) Assessment and Plan Assessment: Atypical chest pain Mildly elevated troponin likely due to demand ischemia 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 Troponin peak was 0.04 Echocardiogram shows EF 50% We'll consult cardiology and await for further recommendations Patient appears hypovolemic. At this time will encourage patient to drink adequately and we'll discontinue fluids Resume aspirin and atorvastatin Generalized weakness Consult PT OT COVID-19 Patient asymptomatic said no need for treatment Patient is vaccinated for COVID-19 and is also status post 2 booster shots Hyperlipidemia Resume statin Hypothyroidism Resume Synthroid Diabetes mellitus Sliding scale insulin CK D stage III Patient's creatinine at baseline CODE STATUS:full code DVT prophylaxis: Subcu heparin Anticipated length of stay: 24-[address]: Awaiting for physical therapy recommendations
[2022-04-24 16:49] LABS: Glucose,Whole Blood 276 mg/dL (70-110)
[2022-04-24 21:14] LABS: Glucose,Whole Blood 305 mg/dL (70-110)
[2022-04-24] MEDS: ATORVASTATIN 20 MG TAB PO SCH (21:19)
[2022-04-25 03:34] VITALS: RESP 17
[2022-04-25] MEDS: SODIUM CHLORIDE 0.9% 1,000 ML IV SCH (05:53)
[2022-04-25] MEDS: LEVOTHYROXINE 25 MCG TAB PO SCH (05:53)
[2022-04-25 07:26] LABS: Glucose,Whole Blood 171 mg/dL (70-110)
[2022-04-25 07:38] VITALS: BP 109/67; PULSE 63; TEMP 97.8
[2022-04-25 09:06] LABS: African American GFR (CKD) 40 (>60 ml/min/1.73 sqM); Anion Gap 11 mmol/L; Blood Urea Nitrogen 34 mg/dL (7-17); Calcium 8.2 mg/dL (8.4-10.2); Carbon Dioxide 25 mmol/L (22-30); Chloride 98 mmol/L (98-107); Glucose 161 mg/dL (74-99); Non-African American GFR(CKD) 35 (>60 ml/min/1.73 sqM); Sodium 134 mmol/L (137-145)
--- NOTE | 2022-04-25 10:06 | P.PN ---
Subjective Progress Note Date: 04/25/22 Patient is an 81-year-old female with a past medical history of hypertension, hyperlipidemia, panic kidney disease lung cancer with resection and radiation, thyroid cancer post thyroidectomy, diabetic. We were consulted for chest pain. Patient does not follow with a rhia. She initially came into the hospital with weakness, and was found to be Covid positive. While in the ER she developed chest pain which was midsternal and sharp and radiated to the left side of her chest, pain is reproducible by touch. EKG showed sinus rhythm with a first degree and a left bundle branch block and left axis deviation. Initial troponin was elevated at 0.040, 0.032, 0.021. Her echocardiogram showed a s everely decreased LV function with an ejection fraction of 15% and mild mitral and tricuspid regurgitation. Chest x-ray is negative for acute cardiopulmonary process. Patient is examined sitting today comfortably in the chair in no signs of acute distress. She reports she was able to get up in the shower. She did have shortness of breath was accompanied by very mild chest pain durning her shower. The chest pain subsided quickly. Patient does not require LifeVest at this time due to Her cardiomyopathy is believed to be secondary to Covid. Will continue with lisinopril and Toprol. Advised patient to undergo an echocardiogram in 6-8 weeks outpatient after acute Covid is resolved. Patient is clear for discharge from a cardiology standpoint. Will follow-up outpatient Objective - Vital Signs Vital signs: Vital Signs Temp 97.8 F 04/25/22 07:37 Pulse 63 04/25/22 07:37 Resp 17 04/25/22 07:37 BP 109/67 04/25/22 07:37 Pulse Ox 96 04/25/22 07:37 FiO2 Intake & Output 04/24/22 04/25/22 04/25/22 18:59 06:59 18:59 Intake Total 120 Balance 120 Weight 69.7 kg 67 kg Intake: Oral 120 Other: Voiding Method Toilet Toilet # Voids 4 1 # Bowel Movements 1 - Exam PHYSICAL EXAM: VITAL SIGNS: Reviewed. GENERAL: Well-developed in no acute distress. HEENT: Head is normocephalic. Pupils are equal, round. Sclerae anicteric. Mucous membranes of the mouth are moist. NECK: Supple. No JVD or thyromegaly RESPIRATORY: Respirations even and unlabored. Lungs diminished to auscultation bilaterally. CARDIO: Regular rate and rhythm. S1 and S2 heard. No murmur or gallops. EXTREMITIES: Normal range of motion. No clubbing or cyanosis. Peripheral pulses intact. Negative for bilateral lower extremity edema NEURO: Orientated to person, time, mood is appropriate - Labs CBC & Chem 7: 04/23/22 12:56 04/25/22 06:57 Labs: Abnormal Lab Results - Last 24 Hours (Table) 04/24/22 04/24/22 04/24/22 Range/Units 11:06 11:37 16:48 Sodium 131 L (137-145) mmol/L Chloride 96 L (98-107) mmol/L Carbon Dioxide 21 L (22-30) mmol/L BUN 33 H (7-17) mg/dL Creatinine 1.46 H (0.52-1.04) mg/dL Glucose 348 H (74-99) mg/dL POC Glucose (mg/dL) 383 H 276 H (70-110) mg/dL Calcium 8.2 L (8.4-10.2) mg/dL 04/24/22 04/25/22 04/25/22 Range/Units 21:12 06:57 07:22 Sodium 134 L (137-145) mmol/L Chloride (98-107) mmol/L Carbon Dioxide (22-30) mmol/L BUN 34 H (7-17) mg/dL Creatinine 1.40 H (0.52-1.04) mg/dL Glucose 161 H (74-99) mg/dL POC Glucose (mg/dL) 305 H 171 H (70-110) mg/dL Calcium 8.2 L (8.4-10.2) mg/dL Assessment and Plan Assessment: Atypical chest pain, appears to be muscloskeletal and noncardiac in origin Mildly elevated troponin secondary to Covid 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 Liliana Garcia, nurse practitioner, acting as scribe for signing physician.
[2022-04-25] MEDS: INSULIN ASPART (NovoLOG) 100 UNIT/ML VIAL SQ SCH ×2 (10:07→12:46)
[2022-04-25] MEDS: CITALOPRAM HYDROBROMIDE 20 MG TAB PO SCH (10:07)
[2022-04-25] MEDS: methylPREDNISolone 4 MG TAB TAPER PO SCH (10:07)
[2022-04-25] MEDS: REPAGLINIDE 1 MG TAB PO SCH (10:07)
[2022-04-25] MEDS: ASPIRIN 81 MG PO SCH (10:07)
[2022-04-25] MEDS: DILTIAZEM CD 120 MG CAP.ER.24H PO SCH (10:07)
[2022-04-25] MEDS: METOPROLOL SUCCINATE (ER) 25 MG TAB.ER.24H PO SCH (10:07)
[2022-04-25] MEDS: HEPARIN SODIUM,PORCINE/PF 5,000 UNIT/0.5 ML SYRINGE SQ SCH (10:08)
--- NOTE | 2022-04-25 11:26 | P.DS ---
Providers Date of admission: 04/24/22 13:40 Expected date of discharge: 04/25/22 Attending physician: Janelle Gómez DO Consults: 04/24/22 10:11 Consult Physician Urgent Consulting Provider: Linus Schrader Consult Reason/Comments: chest pain, heart failure. 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 She was recently diagnosed with COVID-19 4 days ago. While patient was in the ED she did have an episode of chest pain so she was referred for admission. Patient had an echocardiogram done that showed an EF of 15%. Patient was diagnosed with newly discovered cardiomyopathy. On exam patient appeared euvolemic. Cardiology was consulted. Patient was started on metoprolol lisinopril. Per cardiology cardiomyopathy likely due to COVID-19. Cardiology recommended to follow up outpatient for repeat echocardiogram in 6 weeks. Patient's chest pain was atypical and also reproducible so likely musculoskeletal. Patient started on Medrol Dosepak. At the time of discharge patient denied any chest pain. At the time of discharge patient was able to take shower on her own. I did co unsel the patient on low-salt diet and fluid restriction of 2 L. Patient is looking forward to going home. Of note patient was on room air so no need to treat for her COVID-19. Patient seen and examined at bedside.[] Vital signs reviewed and stable. General: [non toxic], [no distress], [appears at stated age] patient appears chronically debilitated Derm: [warm], [dry] Head: [atraumatic], [normocephalic], [symmetric] Eyes: [EOMI], [no lid lag], [anicteric sclera] Mouth: [no lip lesion], [mucus membranes moist] Cardiovascular: [S1S2 reg], [no murmur], [positive posterior tibial pulse bilateral], Lungs: [CTA bilateral], [no rhonchi, no rales] , [no accessory muscle use] Abdominal: [soft], [ nontender to palpation], [no guarding], [no appreciable organomegaly] Ext: [no gross muscle atrophy], [no edema], [no contractures] Neuro: [ CN II-XI grossly intact], [no focal neuro deficits] Psych: [Alert], [oriented], [appropriate affect] A total of [33] minutes of time were spent preparing this complex discharge summary . Patient Condition at Discharge: Fair Plan - Discharge Summary Discharge Rx Participant: Yes New Discharge Prescriptions: New Metoprolol Succinate (ER) [Toprol XL] 25 mg PO DAILY 30 Days #30 tab methylPREDNISolone [Medrol] 4 mg PO DIRECTED #6 tab lisinopriL [Zestril] 2.5 mg PO DAILY 30 Days #30 tab Continue Repaglinide [Prandin] 1 mg PO AC-BID dilTIAZem HCL [Cardizem] 120 mg PO DAILY Aspirin 81 mg PO DAILY Levothyroxine Sodium [Synthroid] 37.5 mcg PO DAILY Atorvastatin [Lipitor] 20 mg PO HS metFORMIN HCL [Glucophage] 500 mg PO AC-BID Citalopram Hydrobromide [CeleXA] 20 mg PO DAILY Multivitamins, Thera [Multivitamin (formulary)] 1 tab PO DAILY Ascorbic Acid [Vitamin C] 500 mg PO DAILY Cholecalciferol [Vitamin D3 (25 Mcg = 1000 Iu)] 25 mcg PO DAILY Zinc 50 mg PO DAILY Discontinued hydroCHLOROthiazide [Hydrodiuril] 25 mg PO DAILY Discharge Medication List Repaglinide [Prandin] 1 mg PO AC-BID 12/15/15 [History] Aspirin 81 mg PO DAILY 12/31/16 [History] Levothyroxine Sodium [Synthroid] 37.5 mcg PO DAILY 12/31/16 [History] dilTIAZem HCL [Cardizem] 120 mg PO DAILY 12/31/16 [History] Atorvastatin [Lipitor] 20 mg PO HS 10/25/17 [History] metFORMIN HCL [Glucophage] 500 mg PO AC-BID 10/25/17 [History] Citalopram Hydrobromide [CeleXA] 20 mg PO DAILY 04/26/21 [History] Ascorbic Acid [Vitamin C] 500 mg PO DAILY 04/23/22 [History] Cholecalciferol [Vitamin D3 (25 Mcg = 1000 Iu)] 25 mcg PO DAILY 04/23/22 [History] Multivitamins, Thera [Multivitamin (formulary)] 1 tab PO DAILY 04/23/22 [History] Zinc 50 mg PO DAILY 04/23/22 [History] Metoprolol Succinate (ER) [Toprol XL] 25 mg PO DAILY 30 Days #30 tab 04/25/22 [Rx] lisinopriL [Zestril] 2.5 mg PO DAILY 30 Days #30 tab 04/25/22 [Rx] methylPREDNISolone [Medrol] 4 mg PO DIRECTED #6 tab 04/25/22 [Rx] Follow up Appointment(s)/Referral(s): Champ Arciniega MD [Primary Care Provider] - 1-2 days Gaurav Watson MD [STAFF PHYSICIAN] - 1 Week Discharge Disposition: HOME SELF-CARE
[2022-04-25 11:27] LABS: Glucose,Whole Blood 243 mg/dL (70-110)
== END 2022-04-25 13:20 | disposition home health service (06) | DRG 314 ==
LOC: EC 11:28 → 3SCARD 15:58 → 4SSUR 17:57 → OBSVTOIN 04-24 13:40
PROVIDERS: ADMIT Internal Medicine; ATTEND Internal Medicine
DX: B33.24 Viral cardiomyopathy (principal); U07.1 COVID-19; I24.8 Other forms of acute ischemic heart disease; E11.649 Type 2 diabetes mellitus with hypoglycemia without coma; E78.5 Hyperlipidemia, unspecified; E86.1 Hypovolemia; E89.0 Postprocedural hypothyroidism; R07.89 Other chest pain; E11.22 Type 2 diabetes mellitus with diabetic chronic kidney disease; I12.9 Hypertensive chronic kidney disease with stage 1 through stage 4 chronic kidney disease, or unspecified chronic kidney disease; I08.1 Rheumatic disorders of both mitral and tricuspid valves; N18.30 Chronic kidney disease, stage 3 unspecified; I44.7 Left bundle-branch block, unspecified; R13.10 Dysphagia, unspecified; Z79.82 Long term (current) use of aspirin; Z79.84 Long term (current) use of oral hypoglycemic drugs; Z79.890 Hormone replacement therapy; Z79.899 Other long term (current) drug therapy; Z85.118 Personal history of other malignant neoplasm of bronchus and lung; Z85.850 Personal history of malignant neoplasm of thyroid; Z87.891 Personal history of nicotine dependence; Z90.2 Acquired absence of lung [part of]; Z92.3 Personal history of irradiation; Z88.1 Allergy status to other antibiotic agents; Z88.5 Allergy status to narcotic agent; Z88.0 Allergy status to penicillin
CPT/HCPCS: 36415; 71046; 80048; 80053; 83605; 84484; 85025; 87635; 93005; 93306; 96361; 96372; 96374; 96375; 99285

== ENCOUNTER → 2022-05-17 | Outpatient (CLI) | payer MEDICARE ==
--- NOTE | 2022-05-17 09:44 | CT ---
EXAMINATION TYPE: CT chest wo con DATE OF EXAM: 05/17/2022 COMPARISON: Most recent chest CT February 01, 2022 and older studies HISTORY: Lung CA follow up post radiation. Right-sided cancer diagnosed 2017. CT DLP: 531 mGycm. Automated Exposure Control for Dose Reduction was Utilized. TECHNIQUE: CT scan of the thorax is performed without IV contrast. FINDINGS: LUNGS: Area of groundglass opacity right lung apex now shows more prominent central bronchiectasis me asuring roughly 3.3 x 4.2 cm current study slightly more prominent from prior study with more superio r anterior extension but less prominent posterior inferior extension. Mild linear scarring right mid to lower lung anteromedially is present. There is stable 8 mm calcified nodule or benign granuloma la teral right lower lobe axial image 41. Adjacent tiny calcified nodules are stable. Left lung remains clear. There is no pleural effusion or pneumothorax seen. The tracheobronchial tree is patent. MEDIASTINUM: Lack of IV contrast is noted to limit evaluation for mediastinal and especially hilar ad enopathy. There are no definitive new greater than 1 cm mediastinal lymph nodes. Heart size stable an d upper limits of normal. Small to tiny pericardial effusion is seen. Severe three-vessel coronary ar shree calcification. Hypoplastic or small sized right thyroid lobe redemonstrated. OTHER: Calcifications throughout the spleen consistent with product of old granulomatous disease rede monstrated. Occasional low dense lesions scattered throughout the right kidney consistent with benign thin-walled cyst. There is subcentimeter hyperdense lesion peripheral right kidney favoring proteina ceous 6 axial image 71. Oval 2.1 x 1.5 cm low dense lesion in the pancreatic head axial image 66 show s overall stability from 2019 CT consistent with pseudocyst or cystic lesion/neoplasm. Correlate clin ically to determine need for follow-up. IMPRESSION: Slightly more prominent groundglass opacity with new bronchiectasis thought to reflect or ganizing scar and/or posttreatment change related to ongoing radiation treatment. No new suspicious n odules or abnormal thoracic adenopathy clearly seen
== END | disposition home or self-care (01) ==
LOC: RADCTMAIN 09:00
PROVIDERS: ATTEND Radiology Radiation Oncology
DX: C34.11 Malignant neoplasm of upper lobe, right bronchus or lung (principal); C34.2 Malignant neoplasm of middle lobe, bronchus or lung; Z92.3 Personal history of irradiation; Z90.3 Acquired absence of stomach [part of]
CPT/HCPCS: 71250

== ENCOUNTER 2022-06-10 13:49 | Observation (INO) | payer MEDICARE ==
[2022-06-10] MEDS ORDERED: IPRATROPIUM-ALBUTEROL 3 ML NEB INHALATION STA (14:01)
--- NOTE | 2022-06-10 14:05 | ED ---
General Adult HPI - General Chief complaint: Shortness of Breath Stated complaint: SOB Time Seen by Provider: 06/10/22 13:50 Source: patient, EMS, RN notes reviewed Mode of arrival: EMS Limitations: no limitations - History of Present Illness Initial comments: Patient is a pleasant 81-year-old female presenting to the emergency department with concerns for difficulty breathing. Onset of symptoms was around 4 days ago. Patient symptoms have slowly progressively worsened since that time. Patient does have minimal cough however that has been chronic for weeks. No fever. No history of chronic lung disease except for history of previous lung cancer. Patient did have a partial lobectomy. Patient is having mild discomfort in her chest that is difficult to describe. Patient did have covid 19 infection around 6 weeks ago - Related Data Home Medications Medication Instructions Recorded Confirmed Repaglinide [Prandin] 1 mg PO AC-BID 12/15/15 04/23/22 Aspirin 81 mg PO DAILY 12/31/16 04/23/22 Levothyroxine Sodium [Synthroid] 37.5 mcg PO DAILY 12/31/16 04/23/22 dilTIAZem HCL [Cardizem] 120 mg PO DAILY 12/31/16 04/23/22 Atorvastatin [Lipitor] 20 mg PO HS 10/25/17 04/23/22 metFORMIN HCL [Glucophage] 500 mg PO AC-BID 10/25/17 04/23/22 Citalopram Hydrobromide [CeleXA] 20 mg PO DAILY 04/26/21 04/23/22 Ascorbic Acid [Vitamin C] 500 mg PO DAILY 04/23/22 04/23/22 Cholecalciferol [Vitamin D3 (25 25 mcg PO DAILY 04/23/22 04/23/22 Mcg = 1000 Iu)] Multivitamins, Thera [Multivitamin 1 tab PO DAILY 04/23/22 04/23/22 (formulary)] Zinc 50 mg PO DAILY 04/23/22 04/23/22 Previous Rx's Medication Instructions Recorded Metoprolol Succinate (ER) [Toprol 25 mg PO DAILY 30 Days #30 tab 04/25/22 XL] lisinopriL [Zestril] 2.5 mg PO DAILY 30 Days #30 tab 04/25/22 methylPREDNISolone [Medrol] 4 mg PO DIRECTED #6 tab 04/25/22 Allergies Allergy/AdvReac Type Severity Reaction Status Date / Time ciprofloxacin [From Cipro] Allergy Nausea & Verified 06/10/22 14:02 Vomiting-severe nitrofurantoin Allergy Confusion Verified 06/10/22 14:02 [From Macrobid] Penicillins Allergy Rash/Hives Verified 06/10/22 14:02 codeine AdvReac Nausea & Verified 06/10/22 14:02 Vomiting Review of Systems ROS Statement: Those systems with pertinent positive or pertinent negative responses have been documented in the HPI. ROS Other: All systems not noted in ROS Statement are negative. Constitutional: Denies: fever Eyes: Denies: eye pain ENT: Denies: ear pain Respiratory: Reports: as per HPI, cough, dyspnea Cardiovascular: Denies: chest pain Endocrine: Reports: fatigue Gastrointestinal: Denies: abdominal pain Genitourinary: Denies: dysuria Musculoskeletal: Denies: back pain Skin: Denies: rash Neurological: Denies: weakness Past Medical History Past Medical History: Cancer, Diabetes Mellitus, Hyperlipidemia, Hypertension, Thyroid Disorder Additional Past Medical History / Comment(s): Thyroid cancer in November 2015, post thyroidectomy, right lung mass on that investigation, diabetes mellitus, hyperlipidemia, hypertension History of Any Multi-Drug Resistant Organisms: None Reported Past Surgical History: Appendectomy, Hysterectomy, Orthopedic Surgery, Tonsillectomy Additional Past Surgical History / Comment(s): Partial thyroidectomy November,ORIF lt ankle,rt shoulder rot cuff, right partial lobectomy Past Anesthesia/Blood Transfusion Reactions: Previous Problems w/ Anesthesia, Postoperative Nausea & Vomiting (PONV) Additional Past Anesthesia/Blood Transfusion Reaction / Comment(s): states "has a hard time waking up with anesthesia" Past Psychological History: No Psychological Hx Reported Smoking Status: Former smoker Past Alcohol Use History: None Reported Past Drug Use History: None Reported - Past Family History Father Additional Family Medical History / Comment(s): emphysema Mother Additional Family Medical History / Comment(s): -fell down stairs Sister(s) Family Medical History: Cancer Additional Family Medical History / Comment(s): breast General Exam Limitations: no limitations General appearance: alert, in no apparent distress Head exam: Present: normocephalic Eye exam: Present: normal appearance Neck exam: Present: normal inspection Respiratory exam: Present: rhonchi Cardiovascular Exam: Present: regular rate, normal rhythm GI/Abdominal exam: Present: soft. Absent: tenderness Extremities exam: Present: normal inspection. Absent: pedal edema, calf tenderness Neurological exam: Present: alert Psychiatric exam: Present: normal affect, normal mood Skin exam: Present: normal color Course Vital Signs 06/10/22 06/10/22 06/10/22 13:52 14:02 14:35 Pulse Rate 85 67 Respiratory 18 22 23 Rate Blood Pressure 148/83 O2 Sat by Pulse 100 Oximetry 06/10/22 06/10/22 14:41 15:32 Pulse Rate 68 80 Respiratory 21 20 Rate Blood Pressure 139/72 O2 Sat by Pulse 97 Oximetry EKG Findings - EKG Comments: EKG Findings:: Sinus rhythm rate 72. AK 192. QRS 181. QT 500. QTc 524. Left axis. Left bundle branch block. No acute ST change. Medical Decision Making - Medical Decision Making Patient reevaluated. Patient and family updated. [facility] physician group has been paged for admission covering Dr. Arciniega - Lab Data Result diagrams: 06/10/22 14:16 06/10/22 14:16 Lab Results 06/10/22 06/10/22 06/10/22 Range/Units 14:16 14:16 14:16 WBC 5.8 (3.8-10.6) k/uL RBC 4.05 (3.80-5.40) m/uL Hgb 11.8 (11.4-16.0) gm/dL Hct 36.4 (34.0-46.0) % MCV 90.0 (80.0-100.0) fL MCH 29.1 (25.0-35.0) pg MCHC 32.4 (31.0-37.0) g/dL RDW 14.8 (11.5-15.5) % Plt Count 213 (150-450) k/uL MPV 8.7 Neutrophils % 58 % Lymphocytes % 28 % Monocytes % 8 % Eosinophils % 3 % Basophils % 1 % Neutrophils # 3.3 (1.3-7.7) k/uL Lymphocytes # 1.6 (1.0-4.8) k/uL Monocytes # 0.5 (0-1.0) k/uL Eosinophils # 0.2 (0-0.7) k/uL Basophils # 0.1 (0-0.2) k/uL Hypochromasia Slight PT 11.3 (9.0-12.0) sec INR 1.1 (<1.2) APTT 23.1 (22.0-30.0) sec D-Dimer 1.38 H (<0.60) mg/L FEU Sodium 137 (137-145) mmol/L Potassium 3.8 (3.5-5.1) mmol/L Chloride 103 (98-107) mmol/L Carbon Dioxide 21 L (22-30) mmol/L Anion Gap 13 mmol/L BUN 20 H (7-17) mg/dL Creatinine 1.24 H (0.52-1.04) mg/dL Est GFR (CKD-EPI)AfAm 47 (>60 ml/min/1.73 sqM) Est GFR (CKD-EPI)NonAf 41 (>60 ml/min/1.73 sqM) Glucose 173 H (74-99) mg/dL Plasma Lactic Acid Ricky (0.7-2.0) mmol/L Calcium 8.4 (8.4-10.2) mg/dL Magnesium 1.1 L (1.6-2.3) mg/dL Total Bilirubin 0.8 (0.2-1.3) mg/dL AST 27 (14-36) U/L ALT 14 (4-34) U/L Alkaline Phosphatase 48 (38-126) U/L Troponin I (0.000-0.034) ng/mL Total Protein 6.1 L (6.3-8.2) g/dL Albumin 4.0 (3.5-5.0) g/dL Coronavirus (PCR) (Not Detectd) Influenza Type A RNA (Not Detectd) Influenza Type B (PCR) (Not Detectd) 06/10/22 06/10/22 06/10/22 Range/Units 14:16 14:16 14:16 WBC (3.8-10.6) k/uL RBC (3.80-5.40) m/uL Hgb (11.4-16.0) gm/dL Hct (34.0-46.0) % MCV (80.0-100.0) fL MCH (25.0-35.0) pg MCHC (31.0-37.0) g/dL RDW (11.5-15.5) % Plt Count (150-450) k/uL MPV Neutrophils % % Lymphocytes % % Monocytes % % Eosinophils % % Basophils % % Neutrophils # (1.3-7.7) k/uL Lymphocytes # (1.0-4.8) k/uL Monocytes # (0-1.0) k/uL Eosinophils # (0-0.7) k/uL Basophils # (0-0.2) k/uL Hypochromasia PT (9.0-12.0) sec INR (<1.2) APTT (22.0-30.0) sec D-Dimer (<0.60) mg/L FEU Sodium (137-145) mmol/L Potassium (3.5-5.1) mmol/L Chloride (98-107) mmol/L Carbon Dioxide (22-30) mmol/L Anion Gap mmol/L BUN (7-17) mg/dL Creatinine (0.52-1.04) mg/dL Est GFR (CKD-EPI)AfAm (>60 ml/min/1.73 sqM) Est GFR (CKD-EPI)NonAf (>60 ml/min/1.73 sqM) Glucose (74-99) mg/dL Plasma Lactic Acid Ricky 2.3 H* (0.7-2.0) mmol/L Calcium (8.4-10.2) mg/dL Magnesium (1.6-2.3) mg/dL Total Bilirubin (0.2-1.3) mg/dL AST (14-36) U/L ALT (4-34) U/L Alkaline Phosphatase (38-126) U/L Troponin I 0.020 (0.000-0.034) ng/mL Total Protein (6.3-8.2) g/dL Albumin (3.5-5.0) g/dL Coronavirus (PCR) (Not Detectd) Influenza Type A RNA Not Detected (Not Detectd) Influenza Type B (PCR) Not Detected (Not Detectd) 06/10/22 Range/Units 14:16 WBC (3.8-10.6) k/uL RBC (3.80-5.40) m/uL Hgb (11.4-16.0) gm/dL Hct (34.0-46.0) % MCV (80.0-100.0) fL MCH (25.0-35.0) pg MCHC (31.0-37.0) g/dL RDW (11.5-15.5) % Plt Count (150-450) k/uL MPV Neutrophils % % Lymphocytes % % Monocytes % % Eosinophils % % Basophils % % Neutrophils # (1.3-7.7) k/uL Lymphocytes # (1.0-4.8) k/uL Monocytes # (0-1.0) k/uL Eosinophils # (0-0.7) k/uL Basophils # (0-0.2) k/uL Hypochromasia PT (9.0-12.0) sec INR (<1.2) APTT (22.0-30.0) sec D-Dimer (<0.60) mg/L FEU Sodium (137-145) mmol/L Potassium (3.5-5.1) mmol/L Chloride (98-107) mmol/L Carbon Dioxide (22-30) mmol/L Anion Gap mmol/L BUN (7-17) mg/dL Creatinine (0.52-1.04) mg/dL Est GFR (CKD-EPI)AfAm (>60 ml/min/1.73 sqM) Est GFR (CKD-EPI)NonAf (>60 ml/min/1.73 sqM) Glucose (74-99) mg/dL Plasma Lactic Acid Ricky (0.7-2.0) mmol/L Calcium (8.4-10.2) mg/dL Magnesium (1.6-2.3) mg/dL Total Bilirubin (0.2-1.3) mg/dL AST (14-36) U/L ALT (4-34) U/L Alkaline Phosphatase (38-126) U/L Troponin I (0.000-0.034) ng/mL Total Protein (6.3-8.2) g/dL Albumin (3.5-5.0) g/dL Coronavirus (PCR) Not Detected (Not Detectd) Influenza Type A RNA (Not Detectd) Influenza Type B (PCR) (Not Detectd) - Radiology Data Radiology results: report reviewed (Computed tomography scan no evidence of pulmonary embolism. Suspected CHF or fluid overload state. Small bilateral effusions and lower lung interstitial edema.) Disposition Clinical Impression: Congestive heart failure Disposition: ADMITTED IP TO THIS HOSP Is patient prescribed a controlled substance at d/c from ED?: No Referrals: Champ Arciniega MD [Primary Care Provider] - 1-2 days Time of Disposition: 16:04
[2022-06-10 14:30] LABS: Basophils # (A) 0.1 k/uL (0-0.2); Basophils % (A) 1 %; Eosinophils # (A) 0.2 k/uL (0-0.7); Eosinophils % (A) 3 %; HCT 36.4 % (34.0-46.0); HGB 11.8 gm/dL (11.4-16.0); Hypochromasia Slight; Lymphocytes # (A) 1.6 k/uL (1.0-4.8); Lymphocytes % (A) 28 %; MCH 29.1 pg (25.0-35.0); MCHC 32.4 g/dL (31.0-37.0); Mean Platelet Volume 8.7; Monocytes # (A) 0.5 k/uL (0-1.0); Monocytes % (A) 8 %; Neutrophils # (A) 3.3 k/uL (1.3-7.7); Neutrophils % (A) 58 %; Platelet Count 213 k/uL (150-450); RBC 4.05 m/uL (3.80-5.40); RDW 14.8 % (11.5-15.5); WBC 5.8 k/uL (3.8-10.6)
[2022-06-10 14:43] LABS: INR 1.1 (<1.2); Partial Thromboplastin Time 23.1 sec (22.0-30.0); Prothrombin Time 11.3 sec (9.0-12.0)
[2022-06-10 14:46] LABS: Calcium 8.4 mg/dL (8.4-10.2); Total Bilirubin 0.8 mg/dL (0.2-1.3); Total Protein 6.1 g/dL (6.3-8.2)
--- NOTE | 2022-06-10 14:55 | XR ---
EXAMINATION TYPE: XR chest 2V DATE OF EXAM: 06/10/2022 COMPARISON: Chest CT May 17, 2022 HISTORY: Difficulty in breathing. TECHNIQUE: Frontal and lateral views of the chest are obtained. FINDINGS: Chronic parenchymal changes bilaterally with right apical chronic scar like opacity redemon strated. There is no suspicious focal air space opacity, pleural effusion, or pneumothorax seen. The cardiac silhouette size is stable and upper limits of normal with atherosclerotic change aortic knob . The osseous structures are demineralized. IMPRESSION: Chronic changes without acute pulmonary process.
[2022-06-10 15:09] LABS: Potassium 3.8 mmol/L (3.5-5.1)
[2022-06-10 15:10] LABS: Magnesium 1.1 mg/dL (1.6-2.3)
--- NOTE | 2022-06-10 15:46 | CT ---
EXAMINATION TYPE: CT angio chest DATE OF EXAM: 06/10/2022 COMPARISON: Prior chest CT May 17, 2022 and older studies HISTORY: pe, elevated d-dimer, shortness of breath CT DLP: 298.1 mGycm. Automated Exposure Control for Dose Reduction was Utilized. CONTRAST: CTA scan of the thorax is performed with IV Contrast, patient injected with 60cc mL of Isovue 370, pu lmonary embolism protocol. MIP Images are created on CT scanner and reviewed. FINDINGS: LUNGS: Fairly stable in size but more dense irregular consolidation in the right apical lesion now me asuring 4.9 x 3.6 cm axial image 20 on background mild underlying emphysematous change with some area s of bronchiectasis and pleural thickening. There are new small bilateral pleural effusions. No pneum othorax seen bilaterally. Mild interstitial edema in the bilateral lower lungs with interlobular sept al thickening in the periphery. MEDIASTINUM: There is satisfactory enhancement of the pulmonary artery and its branches, there is no CT evidence for pulmonary embolism. There are no greater than 1 cm hilar or mediastinal lymph nodes. No cardiomegaly. Small pericardial effusion is slightly larger from prior. Coronary artery calcifi cations are redemonstrated. Moderate to severe left ventricular dilatation is noted. Hypoplastic or s mall-sized thyroid gland again seen. OTHER: Stable small sized hiatal hernia. Calcifications throughout the spleen consistent with product of old granulomatous disease redemonstrated. Occasional thin-walled cysts throughout both kidneys pa rtially imaged. Stable 1.9 cm thin-walled cyst or cystic lesion in the pancreatic head region axial i mage 154 is noted. IMPRESSION: No CT evidence for acute pulmonary embolism. Suspect CHF exacerbation or a fluid overloa d state as there are new small bilateral pleural effusions and mild lower lung interstitial edema pre sent. Correlate clinically. Prominent consolidation in the right apical lesion could reflect focal pn eumonia, correlate clinically. Progress study advised.
[2022-06-10] MEDS ORDERED: MAGNESIUM SULFATE-D5W PMX 1 GM in DEXTROSE/WATER 1 100ML.BAG IVPB ONE (15:58)
[2022-06-10] MEDS ORDERED: ASPIRIN 325 MG TAB PO STA (16:00)
[2022-06-10] MEDS: MAGNESIUM OXIDE 400 MG TAB PO SCH ×2 (17:17→21:32)
[2022-06-10] MEDS: FUROSEMIDE 10 MG/ML 4 ML VIAL IV SCH (17:17)
[2022-06-10] MEDS ORDERED: DEXTROSE 50% SYRINGE 50 ML IVP PRN ×2 (17:24)
[2022-06-10] MEDS: NITROGLYCERIN OINT 1 INCH/GM PACKET TOPICAL SCH ×3 (17:25→23:22)
[2022-06-10] MEDS ORDERED: ALPRAZolam 0.25 MG TAB PO PRN (17:32)
--- NOTE | 2022-06-10 17:32 | P.HPIM ---
History of Present Illness H&P Date: 06/10/22 Chief Complaint: shortness of breath Patient is a 81-year-old female with a past medical history of cardiomyopathy with an EF of 15% suspected to be due to COVID-19 and diagnosed about a month ago, lung cancer status post resection and radiation, hyperlipidemia, hy pertension, hypothyroidism, type 2 diabetes mellitus, CK D stage III who presents to the ED with shortness of breath. Patient states that her symptoms started 3 days ago. States that she has orthopnea but no PND. She states that she has a cough but only produces mild amount of sputum. She denies any fever chills nausea vomiting. In the ED labs showed her BMP was greater than 14,000, d-dimer was 1.38, lactic acid 2.3. CTA chest was negative for pulmonary embolism but did show findings consistent with fluid overload. Patient was admitted for CHF. Review of Systems 10 ROS reviewed and are negative except as noted in HPI Past Medical History Past Medical History: Cancer, Diabetes Mellitus, Hyperlipidemia, Hypertension, Thyroid Disorder Additional Past Medical History / Comment(s): Thyroid cancer in November 2015, post thyroidectomy, right lung mass on that investigation, diabetes mellitus, hyperlipidemia, hypertension History of Any Multi-Drug Resistant Organisms: None Reported Past Surgical History: Appendectomy, Hysterectomy, Orthopedic Surgery, Tonsillectomy Additional Past Surgical History / Comment(s): Partial thyroidectomy November,ORIF lt ankle,rt shoulder rot cuff, right partial lobectomy Past Anesthesia/Blood Transfusion Reactions: Previous Problems w/ Anesthesia, Postoperative Nausea & Vomiting (PONV) Additional Past Anesthesia/Blood Transfusion Reaction / Comment(s): states "has a hard time waking up with anesthesia" Past Psychological History: No Psychological Hx Reported Smoking Status: Former smoker Past Alcohol Use History: None Reported Past Drug Use History: None Reported - Past Family History Father Additional Family Medical History / Comment(s): emphysema Mother Additional Family Medical History / Comment(s): -fell down stairs Sister(s) Family Medical History: Cancer Additional Family Medical History / Comment(s): breast Medications and Allergies Home Medications Medication Instructions Recorded Confirmed Type Aspirin 81 mg PO DAILY 12/31/16 06/10/22 History Levothyroxine Sodium [Synthroid] 37.5 mcg PO DAILY 12/31/16 06/10/22 History Atorvastatin [Lipitor] 20 mg PO HS 10/25/17 06/10/22 History metFORMIN HCL [Glucophage] 500 mg PO AC-BID 10/25/17 06/10/22 History Citalopram Hydrobromide [CeleXA] 20 mg PO DAILY 04/26/21 06/10/22 History Ascorbic Acid [Vitamin C] 500 mg PO DAILY 04/23/22 06/10/22 History Cholecalciferol [Vitamin D3 (25 25 mcg PO DAILY 04/23/22 06/10/22 History Mcg = 1000 Iu)] Multivitamins, Thera [Multivitamin 1 tab PO DAILY 04/23/22 06/10/22 History (formulary)] Zinc 50 mg PO DAILY 04/23/22 06/10/22 History Metoprolol Succinate (ER) [Toprol 50 mg PO DAILY 06/10/22 06/10/22 History Xl] Allergies Allergy/AdvReac Type Severity Reaction Status Date / Time ciprofloxacin [From Cipro] Allergy Nausea & Verified 06/10/22 16:42 Vomiting-severe nitrofurantoin Allergy Confusion Verified 06/10/22 16:42 [From Macrobid] Penicillins Allergy Rash/Hives Verified 06/10/22 16:42 codeine AdvReac Nausea & Verified 06/10/22 16:42 Vomiting Physical Exam Osteopathic Statement: *. No significant issues noted on an osteopathic structural exam other than those noted in the History and Physical/Consult. Vitals: Vital Signs Pulse Resp BP Pulse Ox 06/10/22 17:16 75 18 143/64 99 06/10/22 15:32 80 20 139/72 97 06/10/22 14:41 68 21 06/10/22 14:35 67 23 06/10/22 14:02 22 06/10/22 13:52 85 18 148/83 100 Intake and Output 06/10/22 06/10/22 06/10/22 06:59 14:59 22:59 Other: Weight 67.132 kg General: [Alert and oriented, well nourished, no acute distress, appears chronically debilitated]. Eye: [PERRL, EOMI, normal conjunctiva]. HENT: [Normocephalic, clear tympanic membranes, normal hearing, moist oral mucosa, no scleral icterus, no sinus tenderness]. Neck: [Supple, non-tender, no carotid bruits, no JVD, no lymphadenopathy]. Lungs: [Diminished breath sounds bilaterally, non-labored respiration]. Heart: [Normal rate, regular rhythm, no murmur, gallop or edema]. Abdomen: [Soft, non-tender, non-distended, normal bowel sounds, no masses]. Musculoskeletal: [Normal range of motion and strength, no tenderness or swelling]. Skin: [Skin is warm, dry and pink, no rashes or lesions]. Neurologic: [Awake, alert, and oriented X3, CN II-XII intact]. Psychiatric: [Cooperative, appropriate mood and affect]. Results CBC & Chem 7: 06/10/22 14:16 06/10/22 14:16 Labs: Abnormal Lab Results - Last 24 Hours (Table) 06/10/22 06/10/22 06/10/22 Range/Units 14:16 14:16 14:16 D-Dimer 1.38 H (<0.60) mg/L FEU Carbon Dioxide 21 L (22-30) mmol/L BUN 20 H (7-17) mg/dL Creatinine 1.24 H (0.52-1.04) mg/dL Glucose 173 H (74-99) mg/dL Plasma Lactic Acid Ricky 2.3 H* (0.7-2.0) mmol/L Magnesium 1.1 L (1.6-2.3) mg/dL Total Protein 6.1 L (6.3-8.2) g/dL Assessment and Plan Assessment: Acute on chronic systolic heart failure Resume IV Lasix 40 mg every 8 hours Resume metoprolol Patient is not on an EDSON inhibitor due to renal failure daily weight, strick I/O Patient was supposed to get a repeat echocardiogram in 6 weeks so we'll order for echocardiogram. CK D stage III Patient's creatinine at baseline Diabetes mellitus Hold metformin Patient started on insulin regimen based off of her weight Hyperlipidemia Resume statin Hypertension Resume current BP meds CODE STATUS: DNR/DNI DVT prophylaxis: Subcu heparin Discussed with: Patient, ER, rn Anticipated length of stay > than [address]: home A total of 75 minutes was spent on the care of this complex patient more than 50% of the time was spent in counseling and care coordination.
[2022-06-10 19:25] LABS: Glucose,Whole Blood 216 mg/dL (70-110)
[2022-06-10] MEDS: INSULIN ASPART (NovoLOG) 100 UNIT/ML VIAL SQ SCH ×2 (19:30→21:28)
[2022-06-10] MEDS: HEPARIN SODIUM,PORCINE/PF 5,000 UNIT/0.5 ML SYRINGE SQ SCH (21:32)
[2022-06-10] MEDS: ATORVASTATIN 20 MG TAB PO SCH (21:32)
[2022-06-10] MEDS: INSULIN DETEMIR (LEVEMIR) 100 UNIT/ML SYR SQ SCH (21:34)
[2022-06-10 22:11] LABS: Glucose,Whole Blood 47 mg/dL (70-110)
[2022-06-10 22:28] LABS: Glucose,Whole Blood 94 mg/dL (70-110)
[2022-06-11] MEDS: FUROSEMIDE 10 MG/ML 4 ML VIAL IV SCH ×3 (00:07→16:29)
[2022-06-11 06:23] LABS: Glucose,Whole Blood 147 mg/dL (70-110)
[2022-06-11] MEDS: INSULIN ASPART (NovoLOG) 100 UNIT/ML VIAL SQ SCH ×6 (06:42→17:05)
[2022-06-11 08:49] LABS: Basophils % (A) 1 %; Eosinophils # (A) 0.2 k/uL (0-0.7); Eosinophils % (A) 3 %; HCT 38.8 % (34.0-46.0); HGB 12.1 gm/dL (11.4-16.0); Hypochromasia Slight; Lymphocytes # (A) 1.6 k/uL (1.0-4.8); Lymphocytes % (A) 27 %; MCH 28.2 pg (25.0-35.0); MCHC 31.3 g/dL (31.0-37.0); MCV 90.2 fL (80.0-100.0); Monocytes # (A) 0.7 k/uL (0-1.0); Monocytes % (A) 12 %; Neutrophils # (A) 3.3 k/uL (1.3-7.7); Neutrophils % (A) 56 %; Platelet Count 216 k/uL (150-450); RBC 4.31 m/uL (3.80-5.40); RDW 14.9 % (11.5-15.5); WBC 5.8 k/uL (3.8-10.6)
[2022-06-11] MEDS ORDERED: ASPIRIN 325 MG TAB PO SCH (09:00)
[2022-06-11 09:03] LABS: Calcium 9.1 mg/dL (8.4-10.2); Magnesium 1.3 mg/dL (1.6-2.3); Potassium 3.6 mmol/L (3.5-5.1)
[2022-06-11] MEDS: CHOLECALCIFEROL 25 MCG (1000 IU) TABLET PO SCH (09:26)
[2022-06-11] MEDS: MAGNESIUM OXIDE 400 MG TAB PO SCH ×2 (09:26→20:34)
[2022-06-11] MEDS: NITROGLYCERIN OINT 1 INCH/GM PACKET TOPICAL SCH ×4 (09:26→20:23)
[2022-06-11] MEDS: ASCORBIC ACID 500 MG TAB PO SCH (09:26)
[2022-06-11] MEDS: LEVOTHYROXINE 25 MCG TAB PO SCH (09:27)
[2022-06-11] MEDS: CITALOPRAM HYDROBROMIDE 20 MG TAB PO SCH (09:27)
[2022-06-11] MEDS: MULTIVITAMINS, THERA 1 EACH TAB PO SCH (09:27)
[2022-06-11] MEDS: ASPIRIN 81 MG PO SCH (09:27)
[2022-06-11] MEDS: METOPROLOL SUCCINATE (ER) 50 MG TAB.ER.24H PO SCH (09:27)
[2022-06-11] MEDS: INSULIN DETEMIR (LEVEMIR) 100 UNIT/ML SYR SQ SCH ×2 (09:28→20:23)
[2022-06-11] MEDS: HEPARIN SODIUM,PORCINE/PF 5,000 UNIT/0.5 ML SYRINGE SQ SCH ×2 (09:28→20:34)
--- NOTE | 2022-06-11 10:19 | P.CRDCN ---
History of Present Illness History of present illness: HISTORY OF PRESENTING ILLNESS This is a pleasant 81-year-old female past medical history significant for chronic heart failure with reduced ejection fraction, nonischemic cardiomyopathy, hypertension, dyslipidemia, type 2 diabetes, former nicotine dependence, lung cancer status post resection and radiation, thyroid cancer status post thyroidectomy, chronic kidney disease, admission to hospital for covid-19 in 04/2022 . She follows in the office with Dr. Watson. We have been asked to see in consultation for congestive heart failure. Patient presents to emergency department with complaints of worsening shortness of breath. She states that it started on Friday she felt more short of breath. Yesterday her shortness of breath progressively got worse, she was bowling with some friends and had increased shortness of breath, had increased anxiety because she could not breath and was brought to the emergency department for further evaluation. She was started on nebulizer treatments and IV Lasix with improvement in her shortness of breath. She denied any chest pain, lightheadedness, dizziness, palpitations, syncope or near syncope. She does not normally take diuretics at home. No change in diet or medications. DIAGNOSTICS * EKG reveals sinus rhythm, left bundle branch block, heart rate 72, left axis deviation, nonspecific STT wave abnormalities * Echocardiogram 04/24/2022 EF 15%, global hypokinesis, mild mitral regurgitation, mild tricuspid regurgitation * Telemetry tracings indicate sinus rhythm, heart rate 60s/70s, left bundle branch block * CTA revealed no evidence of pulmonary embolism, fluid overload state with squamous small bilateral pleural effusions, mild lower lung interstitial edema. Prominent consolidation in the right apical region. * Laboratory reviewed, troponin negative 1, proBNP 14,300, CBC unremarkable, d- dimer 1.38, sodium 139, potassium 3.6, BUN 16, serum creatinine 1.3, magnesium 1.3 * Current home cardiac medications include metoprolol succinate 50 mg daily, aspirin 81 mg daily, atorvastatin 20 mg nightly REVIEW OF SYSTEMS At the time of my exam: CONSTITUTIONAL: Denies fever or chills. CARDIOVASCULAR: Denies chest pain, +shortness of breath, Denies orthopnea, PND or palpitations. RESPIRATORY: Denies cough. GASTROINTESTINAL: Denies abdominal pain, diarrhea, constipation, nausea or vomiting. MUSCULOSKELETAL: Denies myalgias. NEUROLOGIC: Denies numbness, tingling, headacbe or weakness. ENDOCRINE: Denies fatigue, weight change, polydipsia or polyurina. GENITOURINARY: Denies burning, hematuria or urgency with micturation. HEMATOLOGIC: Denies history of anemia or bleeding. PHYSICAL EXAMINATION Blood pressure 126/73, heart rate 78, afebrile, oxygen saturation 75% on room air CONSTITUTIONAL: No apparent distress. HEENT: Head is normocephalic. Pupils are equal, round. Sclerae anicteric. Mucous membranes of the mouth are moist. No JVD. CHEST EXAMINATION: Lungs are mild crackles in the bases to auscultation. No chest wall tenderness is noted on palpation or with deep breathing. HEART EXAMINATION: Regular rate and rhythm. S1, S2 heard. ABDOMEN: Soft, nontender. Positive bowel sounds. EXTREMITIES: 2+ peripheral pulses, no lower extremity edema and no calf tenderness. NEUROLOGIC EXAMINATION: Patient is awake, alert and oriented x3. ASSESSMENT Acute on chronic heart failure with reduced ejection fraction, EF 15% Nonischemic cardiomyopathy History of hypertension Dyslipidemia Type 2 diabetes Former nicotine dependence History of lung cancer status post resection and radiation History of thyroid cancer status post thyroidectomy Chronic kidney disease Recent admission in 04/2022 with Covid19 PLAN Patient with improvement with IV Diuresis, Recommend IV Diuresis for 24 hours, likely transition to PO tomorrow Continue metoprolol succinate 50mg daily and statin Patient not on ACEI/ARB/ARNi secondary to kidney function Monitor I/Os, daily weights, renal function and electrolytes If continues to improve, possible discharge in the next 24 hours Further recommendations based on clinical course On discharge patient to follow-up in the office with Dr. Watson Nurse practitioner note has been reviewed by physician. Signing provider agrees with the documented findings, assessment, and plan of care. Past Medical History Past Medical History: Cancer, Diabetes Mellitus, Hyperlipidemia, Hypertension, Thyroid Disorder Additional Past Medical History / Comment(s): Thyroid cancer in November 2015, post thyroidectomy, right lung mass on that investigation, diabetes mellitus, hyperlipidemia, hypertension History of Any Multi-Drug Resistant Organisms: None Reported Past Surgical History: Appendectomy, Hysterectomy, Orthopedic Surgery, Tonsillectomy Additional Past Surgical History / Comment(s): Partial thyroidectomy November,ORIF lt ankle,rt shoulder rot cuff, right partial lobectomy Past Anesthesia/Blood Transfusion Reactions: Previous Problems w/ Anesthesia, Postoperative Nausea & Vomiting (PONV) Additional Past Anesthesia/Blood Transfusion Reaction / Comment(s): states "has a hard time waking up with anesthesia" Past Psychological History: No Psychological Hx Reported Smoking Status: Former smoker Past Alcohol Use History: None Reported Additional Past Alcohol Use History / Comment(s): quit smoking ,started 1952 <1ppd Past Drug Use History: None Reported - Past Family History Father Additional Family Medical History / Comment(s): emphysema Mother Additional Family Medical History / Comment(s): -fell down stairs Sister(s) Family Medical History: Cancer Additional Family Medical History / Comment(s): breast Medications and Allergies Home Medications Medication Instructions Recorded Confirmed Type Aspirin 81 mg PO DAILY 12/31/16 06/10/22 History Levothyroxine Sodium [Synthroid] 37.5 mcg PO DAILY 12/31/16 06/10/22 History Atorvastatin [Lipitor] 20 mg PO HS 10/25/17 06/10/22 History metFORMIN HCL [Glucophage] 500 mg PO AC-BID 10/25/17 06/10/22 History Citalopram Hydrobromide [CeleXA] 20 mg PO DAILY 04/26/21 06/10/22 History Ascorbic Acid [Vitamin C] 500 mg PO DAILY 04/23/22 06/10/22 History Cholecalciferol [Vitamin D3 (25 25 mcg PO DAILY 04/23/22 06/10/22 History Mcg = 1000 Iu)] Multivitamins, Thera [Multivitamin 1 tab PO DAILY 04/23/22 06/10/22 History (formulary)] Zinc 50 mg PO DAILY 04/23/22 06/10/22 History Metoprolol Succinate (ER) [Toprol 50 mg PO DAILY 06/10/22 06/10/22 History Xl] Allergies Allergy/AdvReac Type Severity Reaction Status Date / Time ciprofloxacin [From Cipro] Allergy Nausea & Verified 06/10/22 16:42 Vomiting-severe nitrofurantoin Allergy Confusion Verified 06/10/22 16:42 [From Macrobid] Penicillins Allergy Rash/Hives Verified 06/10/22 16:42 codeine AdvReac Nausea & Verified 06/10/22 16:42 Vomiting Physical Exam Vitals: Vital Signs Temp Pulse Pulse Resp BP BP Pulse Ox 06/11/22 04:47 78 16 126/74 95 06/11/22 02:00 18 06/11/22 00:00 97.4 F L 69 16 148/73 94 L 06/10/22 22:23 97.2 F L 66 16 138/71 95 06/10/22 22:00 18 06/10/22 20:48 97.9 F 68 18 134/76 96 06/10/22 19:29 73 16 145/80 98 06/10/22 17:16 75 18 143/64 99 06/10/22 15:32 80 20 139/72 97 06/10/22 14:41 68 21 06/10/22 14:35 67 23 06/10/22 14:02 22 06/10/22 13:52 85 18 148/83 100 Intake and Output 06/10/22 06/11/22 06/11/22 22:59 06:59 14:59 Intake Total 10 Output Total 1850 Balance -1840 Intake: IV 10 Invasive Line 1 10 Output: Urine 1850 Other: Voiding Method Toilet Toilet Weight 63.8 kg Results 06/11/22 08:15 06/11/22 08:15 Cardiac Enzymes 06/10/22 06/10/22 Range/Units 14:16 14:16 AST 27 (14-36) U/L Troponin I 0.020 (0.000-0.034) ng/mL Coagulation 06/10/22 Range/Units 14:16 PT 11.3 (9.0-12.0) sec APTT 23.1 (22.0-30.0) sec CBC 06/10/22 Range/Units 14:16 WBC 5.8 (3.8-10.6) k/uL RBC 4.05 (3.80-5.40) m/uL Hgb 11.8 (11.4-16.0) gm/dL Hct 36.4 (34.0-46.0) % Plt Count 213 (150-450) k/uL Comprehensive Metabolic Panel 06/10/22 Range/Units 14:16 Sodium 137 (137-145) mmol/L Potassium 3.8 (3.5-5.1) mmol/L Chloride 103 (98-107) mmol/L Carbon Dioxide 21 L (22-30) mmol/L BUN 20 H (7-17) mg/dL Creatinine 1.24 H (0.52-1.04) mg/dL Glucose 173 H (74-99) mg/dL Calcium 8.4 (8.4-10.2) mg/dL AST 27 (14-36) U/L ALT 14 (4-34) U/L Alkaline Phosphatase 48 (38-126) U/L Total Protein 6.1 L (6.3-8.2) g/dL Albumin 4.0 (3.5-5.0) g/dL Current Medications Generic Name Dose Route Start Last Admin Trade Name Marek PRN Reason Stop Dose Admin Alprazolam 0.25 mg 06/10/22 17:32 Alprazolam 0.25 Mg Tab PO BID PRN Anxiety Ascorbic Acid 500 mg 06/11/22 09:00 Ascorbic Acid 500 Mg Tab PO DAILY [facility] Aspirin 325 mg 06/11/22 09:00 Aspirin 325 Mg Tab PO DAILY [facility] Atorvastatin Calcium 20 mg 06/10/22 21:00 06/10/22 21:32 Atorvastatin 20 Mg Tab PO 20 mg HS CARMEN Administration Cholecalciferol 25 mcg 06/11/22 09:00 Cholecalciferol 25 Mcg (1000 Iu) Tablet PO DAILY [facility] Citalopram Hydrobromide 20 mg 06/11/22 09:00 Citalopram Hydrobromide 20 Mg Tab PO DAILY [facility] Dextrose/Water 50 ml 06/10/22 17:24 Dextrose 50% Syringe 50 Ml IVP PER PROTOCOL PRN Hypoglycemia Protocol Dextrose/Water 25 ml 06/10/22 17:24 Dextrose 50% Syringe 50 Ml IVP PER PROTOCOL PRN Hypoglycemia Protocol Furosemide 40 mg 06/10/22 16:30 06/11/22 00:07 Furosemide 10 Mg/Ml 4 Ml Vial IV 40 mg Q8HR [facility]MEN Administration Heparin Sodium (Porcine) 5,000 unit 06/10/22 21:00 06/10/22 21:32 Heparin Sodium,Porcine/Pf 5,000 Unit/0.5 Ml Syringe SQ 5,000 unit Q12HR [facility] Administration Insulin Aspart 0 unit 06/10/22 17:30 06/11/22 06:42 Insulin Aspart (Novolog) 100 Unit/Ml Vial SQ Not Given AC-TID [facility] Protocol Insulin Aspart 2 unit 06/10/22 17:30 06/11/22 06:42 Insulin Aspart (Novolog) 100 Unit/Ml Vial SQ Not Given AC-TID [facility] Insulin Detemir 7 unit 06/10/22 21:00 06/10/22 21:34 Insulin Detemir (Levemir) 100 Unit/Ml Syr SQ 7 unit BID [facility] Administration Levothyroxine Sodium 37.5 mcg 06/11/22 09:00 Levothyroxine 25 Mcg Tab PO DAILY [facility] Magnesium Oxide 400 mg 06/10/22 16:00 06/10/22 21:32 Magnesium Oxide 400 Mg Tab PO 400 mg BID [facility] Administration Metoprolol Succinate 50 mg 06/11/22 09:00 Metoprolol Succinate (Er) 50 Mg Tab.Er.24h PO DAILY [facility] Multivitamins 1 each 06/11/22 09:00 Multivitamins, Thera 1 Each Tab PO DAILY [facility] Nitroglycerin 0.5 inch 06/10/22 18:00 06/10/22 23:22 Nitroglycerin Oint 1 Inch/Gm Packet TOPICAL Not Given QID [facility] Sodium Chloride 10 ml 06/10/22 21:00 06/10/22 21:33 Sodium Chloride 0.9% Flush 10 Ml Syringe IV 10 ml BID [facility] Administration Intake and Output 06/10/22 06/11/22 06/11/22 22:59 06:59 14:59 Intake Total 10 Output Total 1850 Balance -1840 Intake: IV 10 Invasive Line 1 10 Output: Urine 1850 Other: Voiding Method Toilet Toilet Weight 63.8 kg 06/10/22 14:16 06/10/22 14:16
[2022-06-11] MEDS ORDERED: Potassium Replacement Protocol 1 EACH MISC MISCELLANE PRN (10:28)
[2022-06-11] MEDS ORDERED: Magnesium Replacement Protocol 1 EACH MISC MISCELLANE PRN (10:28)
[2022-06-11] MEDS ORDERED: POTASSIUM CHLORIDE ER 20 MEQ TAB.ER PO SCH (11:00)
[2022-06-11 11:19] VITALS: RESP 18
[2022-06-11 12:01] LABS: Glucose,Whole Blood 177 mg/dL (70-110)
[2022-06-11 12:06] VITALS: BMI 24.1
[2022-06-11] MEDS: MAGNESIUM SULFATE-D5W PMX 1 GM in DEXTROSE/WATER 1 100ML.BAG IVPB SCH ×3 (12:50→18:24)
--- NOTE | 2022-06-11 14:00 | P.PN ---
Subjective Progress Note Date: 06/11/22 Patient is a 81-year-old female with a past medical history of cardiomyopathy with an EF of 15% suspected to be due to COVID-19 and diagnosed about a month ago, lung cancer status post resection and radiation, hyperlipidemia, hypertension, hypothyroidism, type 2 diabetes mellitus, CK D stage III who prese nts to the ED with shortness of breath. Patient states that her symptoms started 3 days ago. States that she has orthopnea but no PND. She states that she has a cough but only produces mild amount of sputum. She denies any fever chills nausea vomiting. In the ED labs showed her BMP was greater than 14,000, d-dimer was 1.38, lactic acid 2.3. CTA chest was negative for pulmonary embolism but did show findings consistent with fluid overload. Patient was admitted for CHF. Patient was seen and examined. No acute events overnight. Patient reports improvement in her breathing. She denies any chest pain or palpitations. No nausea or vomiting. No fever or chills. General: non toxic, no distress, appears at stated age Derm: warm, dry Head: atraumatic, normocephalic, symmetric Eyes: EOMI, no lid lag, anicteric sclera Mouth: no lip lesion, mucus membranes moist Cardiovascular: S1S2 reg, no murmur Lungs: CTA bilateral, no rhonchi, no rales , no accessory muscle use Abdominal: soft, nontender to palpation, no guarding, no appreciable organomegaly Ext: no gross muscle atrophy, no edema, no contractures Neuro: no focal neuro deficits Psych: Alert, oriented, appropriate affect Acute on chronic systolic CHF exacerbation Elevated d-dimer Hypomagnesemia Chronic kidney disease stage III Diabetes mellitus Dyslipidemia Hypertension Hypothyroidism Depression Echocardiogram done April 2022 shows EF of 15% with moderate LV dilatation and mild concentric LVH. Continue Lasix 40 mg IV 3 times a day. Strict intake and uptake. Daily weights. Telemetry monitoring. Maintain K > 4 and Mg > 2. Cardiology consulted for further management of this patient. Continue metoprolol. No ACEi due to CKD as per Cardiology. CTA chest was ruled out PE. Mg 1.3. Replace today. Repeat magnesium level tomorrow Renal function at baseline. Repeat BMP pending this morning. Continue Levemir. Continue sliding scale with Accu-Cheks 4 times a day and hypoglycemic precautions. Continue Lipitor. Continue metoprolol. Monitor vitals, adjust medication if necessary. Continue Synthroid. Continue citalopram. Objective - Vital Signs Vital signs: Vital Signs Temp 97.4 F L 06/11/22 00:00 Pulse 78 06/11/22 04:47 Resp 16 06/11/22 04:47 BP 126/74 06/11/22 04:47 Pulse Ox 95 06/11/22 04:47 FiO2 Intake & Output 06/10/22 06/11/22 06/11/22 18:59 06:59 18:59 Intake Total 10 Output Total 1850 Balance -1840 Weight 67.132 kg 63.8 kg Intake: IV 10 Invasive Line 1 10 Output: Urine 1850 Other: Voiding Method Toilet - Labs CBC & Chem 7: 06/11/22 08:15 06/11/22 08:15 Labs: Abnormal Lab Results - Last 24 Hours (Table) 06/10/22 06/10/22 06/10/22 Range/Units 14:16 14:16 14:16 D-Dimer 1.38 H (<0.60) mg/L FEU Carbon Dioxide 21 L (22-30) mmol/L BUN 20 H (7-17) mg/dL Creatinine 1.24 H (0.52-1.04) mg/dL Glucose 173 H (74-99) mg/dL POC Glucose (mg/dL) (70-110) mg/dL Plasma Lactic Acid Ricky 2.3 H* (0.7-2.0) mmol/L Magnesium 1.1 L (1.6-2.3) mg/dL Total Protein 6.1 L (6.3-8.2) g/dL 06/10/22 06/10/22 06/11/22 Range/Units 19:23 22:10 06:21 D-Dimer (<0.60) mg/L FEU Carbon Dioxide (22-30) mmol/L BUN (7-17) mg/dL Creatinine (0.52-1.04) mg/dL Glucose (74-99) mg/dL POC Glucose (mg/dL) 216 H 47 L 147 H (70-110) mg/dL Plasma Lactic Acid Ricky (0.7-2.0) mmol/L Magnesium (1.6-2.3) mg/dL Total Protein (6.3-8.2) g/dL
--- NOTE | 2022-06-11 14:47 | P.CNPUL ---
History of Present Illness Consult date: 06/11/22 Requesting physician: [place] Dawson Reason for consult: dyspnea, abnormal CXR/CT Chief complaint: Shortness of breath History of present illness: This is a very pleasant 81-year-old female patient with a history of diabetes mellitus, hyperlipidemia, hypertension, thyroid cancer status post partial thyroidectomy in 2016 with subsequent hypothyroidism, impaired left ventricular systolic function ejection fraction of 15%, right sided lung cancer status post right partial lobectomy in 2017. She did have some evidence of recurrence and did undergo SB RT in November 2021. A recent CAT scan of 05/17/2022 revealed some changes difficult to exclude malignancy versus scarring post radiation therapy. She is following with Dr. Lynn and Dr. Aguilar. She presented to the emergency room yesterday with complaints of increasing shortness of breath. Chest x-ray revealed chronic changes without acute pulmonary process. Right apical chronic scar redemonstrated. CT angiogram ruled out acute pulmonary embolism. Suspect CHF exacerbation with fluid volume overload and small bilateral effusions. She was initiated on IV diuretics. She is seen today in consultation on the selective care unit. Currently sitting up in a chair at the bedside. Awake and alert in no acute distress. Feeling quite a bit better today compared to yesterday. She is maintaining good O2 saturations in the 90s on room air. She has a solar crackles noted. No productive sputum. No fever. White count 5.8. Hemoglobin 12.1. Sodium 139. Potassium 3.6. BUN 16. Creatinine 1.39. Glucose 144. Chronic virus by PCR negative. Influenza screen negative. ProBNP 14,300. Review of Systems REVIEW OF SYSTEMS: CONSTITUTIONAL: Denies any recent significant weight loss or weight gain. EYES: Denies change in vision. EARS, NOSE, MOUTH, THROAT: Denies headaches, denies sore throat. CARDIOVASCULAR: Denies chest pain, palpitations or syncopal episodes. RESPIRATORY: Positive for shortness of breath, cough, congestion no hemoptysis. GASTROINTESTINAL: Denies change in appetite, denies abdominal pain GENITOURINARY: Denies hematuria, denies infections. MUSKULOSKELETAL: Denies pain, denies swelling. INTEGUMENTARY: Denies rash, denies eczema. NEUROLOGICAL: Denies recent memory loss, no recent seizure activity. PSYCHIATRIC: Denies anxiety, denies depression. HEMATOLOGIC/LYMPHATIC: Denies anemia, denies enlarged lymph nodes. Past Medical History Past Medical History: Cancer, Diabetes Mellitus, Hyperlipidemia, Hypertension, Thyroid Disorder Additional Past Medical History / Comment(s): Thyroid cancer in November 2015, post thyroidectomy, right lung mass on that investigation, diabetes mellitus, hyperlipidemia, hypertension History of Any Multi-Drug Resistant Organisms: None Reported Past Surgical History: Appendectomy, Hysterectomy, Orthopedic Surgery, Tonsillectomy Additional Past Surgical History / Comment(s): Partial thyroidectomy November,ORIF lt ankle,rt shoulder rot cuff, right partial lobectomy Past Anesthesia/Blood Transfusion Reactions: Previous Problems w/ Anesthesia, Postoperative Nausea & Vomiting (PONV) Additional Past Anesthesia/Blood Transfusion Reaction / Comment(s): states "has a hard time waking up with anesthesia" Past Psychological History: No Psychological Hx Reported Smoking Status: Former smoker Past Alcohol Use History: None Reported Additional Past Alcohol Use History / Comment(s): quit smoking ,started 1952 <1ppd Past Drug Use History: None Reported - Past Family History Father Additional Family Medical History / Comment(s): emphysema Mother Additional Family Medical History / Comment(s): -fell down stairs Sister(s) Family Medical History: Cancer Additional Family Medical History / Comment(s): breast Medications and Allergies Home Medications Medication Instructions Recorded Confirmed Type Aspirin 81 mg PO DAILY 12/31/16 06/10/22 History Levothyroxine Sodium [Synthroid] 37.5 mcg PO DAILY 12/31/16 06/10/22 History Atorvastatin [Lipitor] 20 mg PO HS 10/25/17 06/10/22 History metFORMIN HCL [Glucophage] 500 mg PO AC-BID 10/25/17 06/10/22 History Citalopram Hydrobromide [CeleXA] 20 mg PO DAILY 04/26/21 06/10/22 History Ascorbic Acid [Vitamin C] 500 mg PO DAILY 04/23/22 06/10/22 History Cholecalciferol [Vitamin D3 (25 25 mcg PO DAILY 04/23/22 06/10/22 History Mcg = 1000 Iu)] Multivitamins, Thera [Multivitamin 1 tab PO DAILY 04/23/22 06/10/22 History (formulary)] Zinc 50 mg PO DAILY 04/23/22 06/10/22 History Metoprolol Succinate (ER) [Toprol 50 mg PO DAILY 06/10/22 06/10/22 History Xl] Allergies Allergy/AdvReac Type Severity Reaction Status Date / Time ciprofloxacin [From Cipro] Allergy Nausea & Verified 06/10/22 16:42 Vomiting-severe nitrofurantoin Allergy Confusion Verified 06/10/22 16:42 [From Macrobid] Penicillins Allergy Rash/Hives Verified 06/10/22 16:42 codeine AdvReac Nausea & Verified 06/10/22 16:42 Vomiting Physical Exam Vitals: Vital Signs Temp Pulse Pulse Resp BP BP Pulse Ox 06/11/22 08:00 97.8 F 72 18 121/76 96 06/11/22 04:47 78 16 126/74 95 06/11/22 02:00 18 06/11/22 00:00 97.4 F L 69 16 148/73 94 L 06/10/22 22:23 97.2 F L 66 16 138/71 95 06/10/22 22:00 18 06/10/22 20:48 97.9 F 68 18 134/76 96 06/10/22 19:29 73 16 145/80 98 06/10/22 17:16 75 18 143/64 99 06/10/22 15:32 80 20 139/72 97 06/10/22 14:41 68 21 Intake and Output 06/10/22 06/11/22 06/11/22 22:59 06:59 14:59 Intake Total 10 360 Output Total 1850 450 Balance -0 -90 Intake: IV 10 Invasive Line 1 10 Oral 360 Output: Urine 1850 450 Other: Voiding Method Toilet Toilet Toilet Weight 63.8 kg 63.8 kg GENERAL EXAM: Alert, very pleasant 81-year-old female, in a chair at the bedside, on room air, comfortable in no apparent distress. HEAD: Normocephalic. EYES: Normal reaction of pupils, equal size. NOSE: Clear with pink turbinates. THROAT: No erythema or exudates. NECK: No masses, no JVD. CHEST: No chest wall deformity. LUNGS: Equal air entry with crackles in the bilateral bases. CVS: S1 and S2 normal with no audible murmur, regular rhythm. ABDOMEN: No hepatosplenomegaly, normal bowel sounds, no guarding or rigidity. SPINE: No scoliosis or deformity SKIN: No rashes CENTRAL NERVOUS SYSTEM: No focal deficits, tone is normal in all 4 extremities. EXTREMITIES: There is no peripheral edema. No clubbing, no cyanosis. Peripheral pulses are intact. Results - Laboratory Findings CBC and BMP: 06/11/22 08:15 06/11/22 08:15 PT/INR, D-dimer PT 11.3 sec (9.0-12.0) 06/10/22 14:16 INR 1.1 (<1.2) 06/10/22 14:16 D-Dimer 1.38 mg/L FEU (<0.60) H 06/10/22 14:16 Abnormal lab findings: Abnormal Labs 06/10/22 06/10/22 06/10/22 14:16 14:16 14:16 D-Dimer 1.38 H Chloride Carbon Dioxide 21 L BUN 20 H Creatinine 1.24 H Glucose 173 H POC Glucose (mg/dL) Plasma Lactic Acid Ricky 2.3 H* Magnesium 1.1 L Total Protein 6.1 L 06/10/22 06/10/22 06/11/22 19:23 22:10 06:21 D-Dimer Chloride Carbon Dioxide BUN Creatinine Glucose POC Glucose (mg/dL) 216 H 47 L 147 H Plasma Lactic Acid Ricky Magnesium Total Protein 06/11/22 06/11/22 08:15 12:00 D-Dimer Chloride 97 L Carbon Dioxide BUN Creatinine 1.39 H Glucose 144 H POC Glucose (mg/dL) 177 H Plasma Lactic Acid Ricky Magnesium 1.3 L Total Protein - Diagnostic Findings Chest x-ray: image reviewed CT scan - chest: image reviewed Assessment and Plan Assessment: Acute exacerbation of chronic systolic congestive heart failure in a patient with a known impaired left ventricular systolic function with ejection fraction of 15% History of right-sided lung cancer with previous lobectomy in 2016 with recurren ce and status post SBRT in November 2021, chronic right apical scarring noted Acute renal failure, current creatinine 1.39 History of thyroid cancer status post partial thyroidectomy Hypothyroidism Hypertension Hyperlipidemia Diabetes mellitus History of anxiety/depression Plan: The patient was seen and evaluated Chest x-ray, CAT scans and labs reviewed Continue IV diuretics Continue bronchodilators Heparin for DVT prophylaxis Increase activity as tolerated Home once cleared by cardiology I have personally seen and examined the patient, performed the documentation and the assessment and plan as written. Number of minutes spent on the visit: 20.
[2022-06-11] MEDS: IPRATROPIUM-ALBUTEROL 3 ML NEB INHALATION SCH ×2 (16:09→20:27)
[2022-06-11 17:00] LABS: Glucose,Whole Blood 307 mg/dL (70-110)
[2022-06-11 20:03] LABS: Glucose,Whole Blood 116 mg/dL (70-110)
[2022-06-11] MEDS: ATORVASTATIN 20 MG TAB PO SCH (20:34)
[2022-06-12] MEDS: FUROSEMIDE 10 MG/ML 4 ML VIAL IV SCH ×2 (00:27→10:38)
[2022-06-12 07:03] LABS: Glucose,Whole Blood 195 mg/dL (70-110)
[2022-06-12] MEDS: INSULIN ASPART (NovoLOG) 100 UNIT/ML VIAL SQ SCH ×4 (07:24→12:28)
[2022-06-12 07:50] LABS: Potassium 3.7 mmol/L (3.5-5.1)
[2022-06-12] MEDS: IPRATROPIUM-ALBUTEROL 3 ML NEB INHALATION SCH ×2 (08:07→11:39)
[2022-06-12] MEDS ORDERED: POTASSIUM CHLORIDE ER 20 MEQ TAB.ER PO SCH (09:00)
[2022-06-12] MEDS: CITALOPRAM HYDROBROMIDE 20 MG TAB PO SCH (09:37)
[2022-06-12] MEDS: MULTIVITAMINS, THERA 1 EACH TAB PO SCH (09:37)
[2022-06-12] MEDS: MAGNESIUM OXIDE 400 MG TAB PO SCH (09:37)
[2022-06-12] MEDS: ASPIRIN 81 MG PO SCH (09:37)
[2022-06-12] MEDS: CHOLECALCIFEROL 25 MCG (1000 IU) TABLET PO SCH (09:37)
[2022-06-12] MEDS: METOPROLOL SUCCINATE (ER) 50 MG TAB.ER.24H PO SCH (09:37)
[2022-06-12] MEDS: ASCORBIC ACID 500 MG TAB PO SCH (09:37)
[2022-06-12] MEDS: LEVOTHYROXINE 25 MCG TAB PO SCH (09:38)
[2022-06-12] MEDS: HEPARIN SODIUM,PORCINE/PF 5,000 UNIT/0.5 ML SYRINGE SQ SCH (09:40)
[2022-06-12] MEDS ORDERED: FUROSEMIDE 20 MG TAB PO SCH ×2 (10:00→16:00)
[2022-06-12] MEDS: NITROGLYCERIN OINT 1 INCH/GM PACKET TOPICAL SCH (10:38)
--- NOTE | 2022-06-12 10:46 | P.DS ---
Providers Date of admission: 06/10/22 16:03 Expected date of discharge: 06/12/22 Attending physician: Jamaica Dawson MD Consults: 06/10/22 16:00 Consult Physician Routine Consulting Provider: Linus Schrader Consult Reason/Comments: dyspnea, chf Do you want consulting provider notified?: Yes Primary care physician: [facility] Course: Patient is a 81-year-old female with a past medical history of cardiomyopathy with an EF of 15% suspected to be due to COVID-19 and diagnosed about a month ago, lung cancer status post resection and radiation, hyperlipidemia, hypertension, hypothyroidism, type 2 diabetes mellitus, CK D stage III who presents to the ED with shortness of breath. Patient states that her symptoms started 3 days ago. States that she has orthopnea but no PND. She states that she has a cough but only produces mild amount of sputum. She denies any fever chills nausea vomiting. In the ED labs showed her BMP was greater than 14,000, d-dimer was 1.38, lactic acid 2.3. CTA chest was negative for pulmonary embolism but did show findings consistent with fluid overload. Patient was admitted for CHF. Patient was diuresed with Lasix 40 mg IV 3 times a day. She diuresed well. Her magnesium was replaced. Cardiology was consulted and followed the patient during her hospitalization. She did have redness and swelling of her right great toe, uric acid was negative. Patient was seen and examined. No acute events overnight. Patient reports significant improvement in her breathing. Her right toe pain is well- controlled. She has no complaints. Patient is stable for discharge today. She is advised to follow-up with her PCP within 1-2 days of discharge. She is advised follow-up with cardiology within 1 week of discharge. Case was discussed with Flower CARROLL regarding possible AICD placement for LifeVest. She will discuss this with Dr. Cruz who is the patient's primary brick machine operator. General: non toxic, no distress, appears at stated age Derm: warm, dry Head: atraumatic, normocephalic, symmetric Eyes: EOMI, no lid lag, anicteric sclera Mouth: no lip lesion, mucus membranes moist Cardiovascular: S1S2 reg, no murmur Lungs: CTA bilateral, no rhonchi, no rales , no accessory muscle use Abdominal: soft, nontender to palpation, no guarding, no appreciable organomegaly Ext: no gross muscle atrophy, no edema, no contractures Neuro: no focal neuro deficits Psych: Alert, oriented, appropriate affect Disharge Diagnosis: Acute on chronic systolic CHF exacerbation Elevated d-dimer Hypomagnesemia CHRIS on Chronic kidney disease stage III Diabetes mellitus Dyslipidemia Hypertension Hypothyroidism Depression This complex discharge took about 35 minutes to complete. Pertinent Studies: CTA chest Patient Condition at Discharge: Stable Plan - Discharge Summary Discharge Rx Participant: No New Discharge Prescriptions: New Furosemide [Lasix] 40 mg PO BID@0900,1600 #120 tab Continue Aspirin 81 mg PO DAILY Levothyroxine Sodium [Synthroid] 37.5 mcg PO DAILY Atorvastatin [Lipitor] 20 mg PO HS metFORMIN HCL [Glucophage] 500 mg PO AC-BID Citalopram Hydrobromide [CeleXA] 20 mg PO DAILY Multivitamins, Thera [Multivitamin (formulary)] 1 tab PO DAILY Ascorbic Acid [Vitamin C] 500 mg PO DAILY Cholecalciferol [Vitamin D3 (25 Mcg = 1000 Iu)] 25 mcg PO DAILY Zinc 50 mg PO DAILY Metoprolol Succinate (ER) [Toprol XL] 50 mg PO DAILY Discharge Medication List Aspirin 81 mg PO DAILY 12/31/16 [History] Levothyroxine Sodium [Synthroid] 37.5 mcg PO DAILY 12/31/16 [History] Atorvastatin [Lipitor] 20 mg PO HS 10/25/17 [History] metFORMIN HCL [Glucophage] 500 mg PO AC-BID 10/25/17 [History] Citalopram Hydrobromide [CeleXA] 20 mg PO DAILY 04/26/21 [History] Ascorbic Acid [Vitamin C] 500 mg PO DAILY 04/23/22 [History] Cholecalciferol [Vitamin D3 (25 Mcg = 1000 Iu)] 25 mcg PO DAILY 04/23/22 [History] Multivitamins, Thera [Multivitamin (formulary)] 1 tab PO DAILY 04/23/22 [History] Zinc 50 mg PO DAILY 04/23/22 [History] Metoprolol Succinate (ER) [Toprol XL] 50 mg PO DAILY 06/10/22 [History] Furosemide [Lasix] 40 mg PO BID@0900,1600 #120 tab 06/12/22 [Rx] Follow up Appointment(s)/Referral(s): Champ Arciniega MD [Primary Care Provider] - 1-2 days Gaurav Watson MD [Family Provider] - 1 Week Activity/Diet/Wound Care/Special Instructions: Diet: Cardiac Follow-up with your PCP within 1-2 days of discharge. Follow-up with cardiology within 1 week of discharge. Take all medications as advised. Discharge Disposition: HOME SELF-CARE
--- NOTE | 2022-06-12 11:00 | P.PN ---
Subjective This is a pleasant 81-year-old female past medical history significant for chronic heart failure with reduced ejection fraction, nonischemic cardiomy opathy, hypertension, dyslipidemia, type 2 diabetes, former nicotine dependence, lung cancer status post resection and radiation, thyroid cancer status post thyroidectomy, chronic kidney disease, admission to hospital for covid-19 in 04/2022 . She follows in the office with Dr. Watson. We have been asked to see in consultation for congestive heart failure. Patient presents to emergency department with complaints of worsening shortness of breath. She states that it started on Friday she felt more short of breath. Yesterday her shortness of breath progressively got worse, she was bowling with some friends and had increased shortness of breath, had increased anxiety because she could not breat h and was brought to the emergency department for further evaluation. She was started on nebulizer treatments and IV Lasix with improvement in her shortness of breath. She denied any chest pain, lightheadedness, dizziness, palpitations, syncope or near syncope. She does not normally take diuretics at home. No change in diet or medications. DIAGNOSTICS * Echocardiogram 04/24/2022 EF 15%, global hypokinesis, mild mitral regurgitation, mild tricuspid regurgitation 06/12/2022 Patient seen and examined at bedside, distress. She denies any shortness of breath, chest pain, lightheadedness or dizziness. She is ambulating without any difficulty. Her lungs are clear. Patient with 2.1 L urine output over the past 24 hours. Serum creatinine 1.74, BUN 24. PHYSICAL EXAMINATION Vitals reviewed CONSTITUTIONAL: No apparent distress. HEENT: Neck Supple No JVD. CHEST EXAMINATION: Lungs are clear to auscultation. No chest wall tenderness is noted on palpation or with deep breathing. HEART EXAMINATION: Regular rate and rhythm. S1, S2 heard. ABDOMEN: Soft, nontender. Positive bowel sounds. EXTREMITIES: 2+ peripheral pulses, no lower extremity edema and no calf tenderness. NEUROLOGIC EXAMINATION: Patient is awake, alert and oriented x3. ASSESSMENT Acute on chronic heart failure with reduced ejection fraction, EF 15% Nonischemic cardiomyopathy History of hypertension Dyslipidemia Type 2 diabetes Former nicotine dependence History of lung cancer status post resection and radiation History of thyroid cancer status post thyroidectomy Chronic kidney disease Recent admission in 04/2022 with Covid19 PLAN Patient with improvement with IV Diuresis, Transition to PO Lasix 20mg BID Continue metoprolol succinate 50mg daily and statin Patient not on ACEI/ARB/ARNi secondary to kidney function Ok to discharge today from a cardiology perspective. Patient evaluated by Dr. Watson, no indication for Lifevest at this time. Will monitor Echo in the office. On discharge patient to follow-up in the office with Dr. Watson in 1 week. Nurse practitioner note has been reviewed by physician. Signing provider agrees with the documented findings, assessment, and plan of care. Objective - Vital Signs Vital signs: Vital Signs Temp 97.9 F 06/12/22 04:00 Pulse 102 H 06/12/22 08:17 Resp 18 06/12/22 04:00 BP 110/64 06/12/22 04:00 Pulse Ox 98 06/12/22 08:07 FiO2 Intake & Output 06/11/22 06/12/22 06/12/22 18:59 06:59 18:59 Intake Total 540 10 Output Total 850 1300 Balance -310 -1290 Weight 63.8 kg 63.4 kg Intake: IV 10 Invasive Line 1 10 Oral 540 Output: Urine 850 1300 Other: Voiding Method Toilet Toilet - Labs CBC & Chem 7: 06/11/22 08:15 06/12/22 06:47 Labs: Abnormal Lab Results - Last 24 Hours (Table) 06/11/22 06/11/22 06/11/22 Range/Units 12:00 16:59 20:01 Sodium (137-145) mmol/L Chloride (98-107) mmol/L Carbon Dioxide (22-30) mmol/L BUN (7-17) mg/dL Creatinine (0.52-1.04) mg/dL Glucose (74-99) mg/dL POC Glucose (mg/dL) 177 H 307 H 116 H (70-110) mg/dL 06/12/22 06/12/22 Range/Units 06:47 07:01 Sodium 136 L (137-145) mmol/L Chloride 93 L (98-107) mmol/L Carbon Dioxide 33 H (22-30) mmol/L BUN 24 H (7-17) mg/dL Creatinine 1.74 H (0.52-1.04) mg/dL Glucose 166 H (74-99) mg/dL POC Glucose (mg/dL) 195 H (70-110) mg/dL
[2022-06-12 11:11] VITALS: BP 100/63; TEMP 97.3
[2022-06-12] MEDS: INSULIN DETEMIR (LEVEMIR) 100 UNIT/ML SYR SQ SCH (11:17)
[2022-06-12 11:49] VITALS: PULSE 88
[2022-06-12 11:50] LABS: Glucose,Whole Blood 319 mg/dL (70-110)
[2022-06-12 13:32] LABS: Glucose,Whole Blood 343 mg/dL (70-110)
--- NOTE | 2022-06-12 14:53 | P.PN ---
Subjective Progress Note Date: 06/12/22 This is a very pleasant 81-year-old female patient with a history of diabetes mellitus, hyperlipidemia, hypertension, thyroid cancer status post partial thyroidectomy in 2016 with subsequent hypothyroidism, impaired left ventricular systolic function ejection fraction of 15%, right sided lung cancer status post right partial lobectomy in 2017. She did have some evidence of recurrence and did undergo SB RT in November 2021. A recent CAT scan of 05/17/2022 revealed some changes difficult to exclude malignancy versus scarring post radiation therapy. She is following with Dr. Lynn and Dr. Aguilar. She presented to the emergency room yesterday with complaints of increasing shortness of breath. Chest x-ray revealed chronic changes without acute pulmonary process. Right apical chronic scar redemonstrated. CT angiogram ruled out acute pulmonary embolism. Suspect CHF exacerbation with fluid volume overload and small bilateral effusions. She was initiated on IV diuretics. She is seen today in consultation on the selective care unit. Currently sitting up in a chair at the bedside. Awake and alert in no acute distress. Feeling quite a bit better today compared to yesterday. She is maintaining good O2 saturations in the 90s on room air. She has a solar crackles noted. No productive sputum. No fever. White count 5.8. Hemoglobin 12.1. Sodium 139. Potassium 3.6. BUN 16. Creatinine 1.39. Glucose 144. Chronic virus by PCR negative. Influenza screen negative. ProBNP 14,300. The patient is seen today 06/12/2022 in follow-up on the regular medical floor. She is sitting up bedside. Awake and alert in no acute distress. Maintaining good O2 saturations in the 90s on room air. Afebrile. Hemodynamically stable. Sodium 136. Potassium 3.7. BUN 24. Creatinine 1.74. Glucose 166. She is continued on oral diuretics. Remains in a negative balance. Objective - Vital Signs Vital signs: Vital Signs Temp 97.3 F L 06/12/22 11:00 Pulse 88 06/12/22 11:48 Resp 18 06/12/22 11:00 BP 100/63 06/12/22 11:00 Pulse Ox 94 L 06/12/22 11:00 FiO2 Intake & Output 06/11/22 06/12/22 06/12/22 18:59 06:59 18:59 Intake Total 540 10 Output Total 850 1300 Balance -310 -1290 Weight 63.8 kg 63.4 kg Intake: IV 10 Invasive Line 1 10 Oral 540 Output: Urine 850 1300 Other: Voiding Method Toilet Toilet Toilet - Exam GENERAL EXAM: Alert, 81-year-old female, in a chair at the bedside, on room air, comfortable in no apparent distress. HEAD: Normocephalic. EYES: Normal reaction of pupils, equal size. NOSE: Clear with pink turbinates. THROAT: No erythema or exudates. NECK: No masses, no JVD. CHEST: No chest wall deformity. LUNGS: Equal air entry with faint crackles in the bilateral bases. CVS: S1 and S2 normal with no audible murmur, regular rhythm. ABDOMEN: No hepatosplenomegaly, normal bowel sounds, no guarding or rigidity. SPINE: No scoliosis or deformity SKIN: No rashes CENTRAL NERVOUS SYSTEM: No focal deficits, tone is normal in all 4 extremities. EXTREMITIES: There is no peripheral edema. No clubbing, no cyanosis. Peripheral pulses are intact. - Labs CBC & Chem 7: 06/11/22 08:15 06/12/22 06:47 Labs: Abnormal Lab Results - Last 24 Hours (Table) 06/11/22 06/11/22 06/12/22 Range/Units 16:59 20:01 06:47 Sodium 136 L (137-145) mmol/L Chloride 93 L (98-107) mmol/L Carbon Dioxide 33 H (22-30) mmol/L BUN 24 H (7-17) mg/dL Creatinine 1.74 H (0.52-1.04) mg/dL Glucose 166 H (74-99) mg/dL POC Glucose (mg/dL) 307 H 116 H (70-110) mg/dL 06/12/22 06/12/22 06/12/22 Range/Units 07:01 11:48 13:30 Sodium (137-145) mmol/L Chloride (98-107) mmol/L Carbon Dioxide (22-30) mmol/L BUN (7-17) mg/dL Creatinine (0.52-1.04) mg/dL Glucose (74-99) mg/dL POC Glucose (mg/dL) 195 H 319 H 343 H (70-110) mg/dL Assessment and Plan Assessment: Acute exacerbation of chronic systolic congestive heart failure in a patient with a known impaired left ventricular systolic function with ejection fraction of 15% History of right-sided lung cancer with previous lobectomy in 2017 with recurrence and status post SBRT in November 2021, chronic right apical scarring noted Acute renal failure, current creatinine 1.39 History of thyroid cancer status post partial thyroidectomy Hypothyroidism Hypertension Hyperlipidemia Diabetes mellitus History of anxiety/depression Plan: The patient was seen and evaluated Medications and labs reviewed Stable and on room air For discharge from the pulmonary standpoint Follow up in the office in 1-2 weeks' I have personally seen and examined the patient, performed the documentation and the assessment and plan as written. Number of minutes spent on the visit: 10.
== END 2022-06-12 16:15 | disposition home or self-care (01) ==
LOC: EC 13:49 → INTOOBSV 16:03 → 3SCARD 16:03 → UNDODISIN 06-12 16:15
PROVIDERS: ADMIT Internal Medicine; ATTEND Internal Medicine
DX: I13.0 Hypertensive heart and chronic kidney disease with heart failure and stage 1 through stage 4 chronic kidney disease, or unspecified chronic kidney disease (principal); I50.23 Acute on chronic systolic (congestive) heart failure; N17.9 Acute kidney failure, unspecified; E83.42 Hypomagnesemia; I42.8 Other cardiomyopathies; N18.30 Chronic kidney disease, stage 3 unspecified; E11.22 Type 2 diabetes mellitus with diabetic chronic kidney disease; E89.0 Postprocedural hypothyroidism; E78.5 Hyperlipidemia, unspecified; I44.7 Left bundle-branch block, unspecified; I08.1 Rheumatic disorders of both mitral and tricuspid valves; J98.4 Other disorders of lung; F32.A Depression, unspecified; F41.9 Anxiety disorder, unspecified; R79.89 Other specified abnormal findings of blood chemistry; Z86.16 Personal history of COVID-19; Z20.822 Contact with and (suspected) exposure to COVID-19; Z66 Do not resuscitate; Z79.82 Long term (current) use of aspirin; Z79.890 Hormone replacement therapy; Z79.84 Long term (current) use of oral hypoglycemic drugs; Z79.899 Other long term (current) drug therapy; Z88.0 Allergy status to penicillin; Z88.1 Allergy status to other antibiotic agents; Z88.5 Allergy status to narcotic agent; Z85.118 Personal history of other malignant neoplasm of bronchus and lung; Z85.850 Personal history of malignant neoplasm of thyroid; Z90.2 Acquired absence of lung [part of]; Z92.3 Personal history of irradiation; Z90.49 Acquired absence of other specified parts of digestive tract; Z98.890 Other specified postprocedural states; Z87.891 Personal history of nicotine dependence; Z82.5 Family history of asthma and other chronic lower respiratory diseases; Z80.3 Family history of malignant neoplasm of breast
CPT/HCPCS: 96376 ×2; 96366 ×2; 96372 ×3; 96365; 96375; 99285; 36415; 94640 ×5; 94760; 93005; 85379; 83880; 80053; 80048 ×2; 83605; 83735 ×3; 84550; 84484; 85025 ×2; 85610; 85730; 87502; 87635; 71046; 71275; G0378 ×3; J1940 ×3; J3475 ×2; Q9967; J1644 ×3

== ENCOUNTER → 2022-07-24 | Outpatient (CLI) | payer MEDICARE ==
[2022-07-24 18:09] LABS: HCT 35.4 % (37.2-46.3); MCH 27.4 pg (27.0-32.0); MCHC 31.1 g/dL (32.0-37.0); MCV 88.1 fL (80.0-97.0); Mean Platelet Volume 11.3 fL (9.5-12.2); NRBC Per 100 WBC 0 /100 WBCS (0.0-0.0); Platelet Count 254 X 10*3/uL (140-440); RBC 4.02 X 10*6/uL (4.10-5.20); RDW 14.9 % (11.5-14.5); WBC 6.15 X 10*3/uL (4.50-10.00)
[2022-07-24 18:47] LABS: African American GFR (CKD) 34.2 (60.0-200.0); Anion Gap 10.9 mmol/L (10.00-18.00); Carbon Dioxide 29.1 mmol/L (20.0-27.5); Non-African American GFR(CKD) 29.5 (60.0-200.0); Potassium 4.2 mmol/L (3.5-5.5)
== END | disposition home or self-care (01) ==
LOC: LABWHC1 13:07
PROVIDERS: ATTEND Internal Medicine Cardiovascular Disease
DX: Z01.812 Encounter for preprocedural laboratory examination (principal); R94.39 Abnormal result of other cardiovascular function study
CPT/HCPCS: 80051; 82565; 84520; 85027

== ENCOUNTER 2022-08-02 05:51 | Day surgery (SDC) | payer MEDICARE, SELFPAY ==
[2022-08-01 08:36] VITALS: BMI 24.3
[2022-08-02] MEDS ORDERED: ALPRAZolam 0.25 MG TAB PO PRN (05:53)
[2022-08-02] MEDS ORDERED: ALPRAZolam 0.5 MG TAB PO PRN (05:53)
[2022-08-02] MEDS ORDERED: SODIUM CHLORIDE 0.9% 1,000 ML in EMPTY BAG 1 BAG IV SCH (05:53)
[2022-08-02] MEDS ORDERED: ATORVASTATIN 80 MG TAB PO STA (05:53)
[2022-08-02] MEDS ORDERED: ASPIRIN 325 MG TAB PO STA (05:53)
[2022-08-02] MEDS ORDERED: NITROGLYCERIN SL TABS 0.4 MG TAB SUBLINGUAL PRN (05:53)
[2022-08-02 06:27] VITALS: RESP 18; TEMP 97.6
[2022-08-02 06:33] LABS: Glucose,Whole Blood 166 mg/dL (70-110)
[2022-08-02] MEDS ORDERED: HEPARIN SODIUM,PORCINE 2,500 UNIT in SODIUM CHLORIDE 0.9% 250 ML IRRIGATION PRN (07:00)
[2022-08-02] MEDS ORDERED: HEPARIN SODIUM,PORCINE 10,000 UNIT in SODIUM CHLORIDE 0.9% 1,000 ML IRRIGATION PRN (07:00)
[2022-08-02] MEDS ORDERED: fentaNYL (PF) 50 MCG/ML 2 ML AMP ONE (07:26)
[2022-08-02] MEDS ORDERED: HEPARIN SODIUM 1,000 UN/ML (10ML VL) ONE (07:26)
[2022-08-02] MEDS ORDERED: MIDAZOLAM 2 MG/2 ML VIAL IV ONE (07:40)
[2022-08-02] MEDS ORDERED: fentaNYL (PF) 50 MCG/ML 2 ML AMP IV ONE (07:40)
[2022-08-02] MEDS ORDERED: LIDOCAINE 1% INJ 10MG/ML (30 ML VIAL-PF) SQ ONE (07:41)
[2022-08-02] MEDS ORDERED: VERAPAMIL SYRINGE (5 MG/10 ML) INTRAARTER ONE (07:42)
[2022-08-02] MEDS ORDERED: HEPARIN SODIUM 1,000 UN/ML (10ML VL) IV ONE (07:46)
[2022-08-02] MEDS ORDERED: IOPAMIDOL-370 125ML BTL INJ ONE (07:53)
--- NOTE | 2022-08-02 10:54 | CC ---
CARDIAC CATHETERIZATION REPORT INDICATION: Cardiomyopathy with severe LV systolic dysfunction. This is an 82-year-old lady with history of lung cancer, status post resection and radiation therapy along with hypertension, diabetes, dyslipidemia, who was admitted to the hospital in April, was found to have severe LV systolic dysfunction, thought to be secondary to COVID infection, subsequently had a stress test that showed dilated cardiomyopathy. She was treated with optimal medical therapy, initially did not go through invasive angiography, subsequently changed her mind and wished to go through. Hence, we advised her to undergo cardiac catheterization. PROCEDURE NOTE: After obtaining informed consent, left heart catheterization and coronary angiogram were performed with the right radial artery using size 3.5 right and left James catheters. The patient tolerated the procedure well without any obvious immediate complications, received moderate conscious sedation. Total sedation time was 15 minutes. A 3.5 right James was used to obtain hemodynamics also. The right radial artery access was obtained using Seldinger technique. A 6-Indonesian sheath was placed in the right radial artery, and under fluoroscopic guidance, catheters and wires were floated into the ascending aorta, where they were exchanged. The patient received 5 mg of verapamil and 3500 units of intravenous heparin per protocol, and a TR band was used for hemostasis. FINDINGS: 1. Hemodynamics: Left ventricular end-diastolic pressure is 10 mm. There is no significant gradient across the aortic valve. 2. Left ventriculogram: Left ventriculogram is not performed. 3. Angiographic data: a.Left main coronary artery: Left main coronary artery appears calcified but is free of significant stenosis, divides into left anterior descending coronary artery and circumflex coronary artery. Circumflex coronary artery is a nondominant vessel and is free of significant stenosis. LAD appears heavily calcified with [id number] nonobstructive disease. The right coronary artery is a large dominant vessel that is calcified without any focal hemodynamically significant lesion. 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 PLAN: The patient's cardiomyopathy seems to be unrelated to ischemic heart disease and her management is going to be in the form of optimal medical therapy. The patient has renal insufficiency. Her contrast threshold was 90. We used a total contrast of about 50 mL. The patient was hydrated prior to cath and will gently hydrate her after the cath. MMODL / IJN: [id number] /
[2022-08-02 11:53] VITALS: BP 106/63; PULSE 63
== END 2022-08-02 12:15 | disposition home or self-care (01) ==
LOC: CATHCVL 05:51
PROVIDERS: ATTEND Internal Medicine Cardiovascular Disease
DX: I42.0 Dilated cardiomyopathy (principal); E11.9 Type 2 diabetes mellitus without complications; E78.5 Hyperlipidemia, unspecified; I10 Essential (primary) hypertension; U07.1 COVID-19
CPT/HCPCS: 93458; C1769; C1894; J2250; J2001; J3010; J1644; Q9967

== ENCOUNTER → 2022-09-30 | Outpatient (CLI) | payer MEDICARE ==
--- NOTE | 2022-09-30 15:53 | CT ---
EXAMINATION TYPE: CT chest wo con DATE OF EXAM: 09/30/2022 COMPARISON: 06/10/2022 HISTORY: Malignant neoplasm of upper lobe, right bronchus CT DLP: 541 mGycm, Automated exposure control for dose reduction was used. CONTRAST: Performed injected with 0 mL of Isovue 300. TECHNIQUE: Axial images were obtained at 5 mm thick sections. Reconstructed images are reviewed on [employer] computer in the coronal plane. FINDINGS: Portion of the thyroid visualized is normal. There is a 0.6 cm calcification in the peripheral right lung base. Series 4 image 40. Additional punc lowe densities are adjacent. There is an area of pneumonitis at the right apex measuring 4.7 x 3.6 cm. This was present previously and appears improved over the interval. Prior pleural effusion is resolved. No enlarged mediastinal or hilar adenopathy is evident. The ascending aorta diameter at the level o f the main pulmonary artery is 3.2 cm. The main pulmonary artery diameter at the bifurcation is 2.9 cm. Moderate coronary artery calcification is present. Vascular calcifications through the thoracic a itzel. Limited CT sections are obtained through the upper abdomen. Left adrenal gland is thickened at 1.8 cm . There is a hyperdense lesion in the anterior right kidney measuring 1.2 cm. Small hiatal hernia is present. IMPRESSIONS: 1. Improved right apical irregular density can be compatible with patient's known lung cancer.
== END | disposition home or self-care (01) ==
LOC: RADCTMAIN 10:12
PROVIDERS: ATTEND Radiology Radiation Oncology
DX: C34.11 Malignant neoplasm of upper lobe, right bronchus or lung (principal); C34.2 Malignant neoplasm of middle lobe, bronchus or lung; J98.4 Other disorders of lung; Z90.2 Acquired absence of lung [part of]
CPT/HCPCS: 71250

== ENCOUNTER → 2023-03-21 | Outpatient (CLI) | payer MEDICARE, SELFPAY ==
--- NOTE | 2023-03-21 15:11 | CT ---
EXAMINATION TYPE: CT chest wo con DATE OF EXAM: 03/21/2023 COMPARISON: 09/30/2022 HISTORY: Malignant neoplasm of lung CT DLP: 351.4 mGycm, Automated exposure control for dose reduction was used. CONTRAST: Performed injected with 0 mL of Isovue 300. TECHNIQUE: Axial images were obtained at 5 mm thick sections. Reconstructed images are reviewed on [employer] computer in the coronal plane. FINDINGS: Left lobe thyroid appears normal. Right lobe thyroid may be surgically absent. There is a focal density in the right apex measuring approximately 3.4 x 2.8 cm in size. This is slig htly smaller than the comparison study of 09/30/2022. There is a 0.6 cm nodularity in the lingula near the base. This is new from comparison. Series 4 imag e 36. There is a stable 0.6 and meter calcification peripheral right lower lobe No enlarged mediastinal or hilar adenopathy is evident. Vascular calcifications within the aorta. Th e ascending aorta diameter at the level of the main pulmonary artery is 3.5 cm. The main pulmonary a rtery diameter at the bifurcation is 2.6 cm. Moderate coronary artery calcification is present. Small hiatal hernia is present. Limited CT sections are obtained through the upper abdomen. Calcified granuloma within the spleen. A few calcified granulomata are scattered within the liver. Left adrenal gland is thickened at 1.9 cm. Right adrenal gland appears normal there is a hyperdense a uzma within the anterior upper pole right kidney measuring 1.7 cm. There is a posterior left renal cys t at the upper pole measuring 1.8 cm. IMPRESSIONS: 1. Slightly diminished size of a irregular density at the right apex. 2. New 0.6 cm nodule within the lingula. 3. Thickened left adrenal gland, stable from comparison 4. Stable cystic and solid findings within the bilateral kidneys
== END | disposition home or self-care (01) ==
LOC: RADCTMAIN 07:30
PROVIDERS: ATTEND Radiology Radiation Oncology
DX: C34.11 Malignant neoplasm of upper lobe, right bronchus or lung (principal); N28.1 Cyst of kidney, acquired; E27.8 Other specified disorders of adrenal gland; R91.1 Solitary pulmonary nodule
CPT/HCPCS: 71250

== ENCOUNTER 2023-05-26 14:55 | Inpatient (IN) | payer MEDICARE, SELFPAY ==
[2023-05-26 15:00] LABS: Glucose,Whole Blood 91 mg/dL (70-110)
[2023-05-26 15:47] LABS: Glucose,Whole Blood 74 mg/dL (70-110)
--- NOTE | 2023-05-26 16:02 | XR ---
EXAMINATION TYPE: XR chest 2V DATE OF EXAM: 05/26/2023 3:58 PM COMPARISON: Chest radiographs from 06/10/2022 TECHNIQUE: XR chest 2V Frontal and lateral views of the chest. CLINICAL INDICATION:Female, 82 years old with history of altered mental status; FINDINGS: Lungs/Pleura: There is no evidence of pleural effusion, focal consolidation, or pneumothorax. Chroni c senescent parenchymal change. Calcified granulomas within the right lower lobe redemonstrated. Pulmonary vascularity: Unremarkable. Heart/mediastinum: Cardiomediastinal silhouette is prominent in size. Atherosclerotic calcifications are seen in the aorta. Musculoskeletal: No acute osseous pathology. IMPRESSION: Chronic changes without acute pulmonary process. No significant change from prior.
[2023-05-26 16:23] LABS: Partial Thromboplastin Time 23.5 sec (22.0-30.0); Prothrombin Time 10.7 sec (9.0-12.0)
[2023-05-26 16:29] LABS: Basophils % (A) 0 %; Eosinophils # (A) 0.3 k/uL (0-0.7); Eosinophils % (A) 4 %; HCT 34.7 % (34.0-46.0); HGB 11.2 gm/dL (11.4-16.0); Lymphocytes # (A) 2.3 k/uL (1.0-4.8); Lymphocytes % (A) 30 %; MCH 29.8 pg (25.0-35.0); MCHC 32.3 g/dL (31.0-37.0); MCV 92.3 fL (80.0-100.0); Mean Platelet Volume 8.9; Monocytes # (A) 0.6 k/uL (0-1.0); Monocytes % (A) 8 %; Neutrophils # (A) 4.2 k/uL (1.3-7.7); Neutrophils % (A) 55 %; Platelet Count 215 k/uL (150-450); RBC 3.76 m/uL (3.80-5.40); RDW 13.2 % (11.5-15.5); WBC 7.6 k/uL (3.8-10.6)
[2023-05-26 16:31] LABS: ALT 22 U/L (4-34); AST 31 U/L (14-36); African American GFR (CKD) 26 (>60 ml/min/1.73 sqM); Albumin 4.2 g/dL (3.5-5.0); Alkaline Phosphatase 80 U/L (38-126); Anion Gap 14 mmol/L; Blood Urea Nitrogen 43 mg/dL (7-17); Calcium 9.4 mg/dL (8.4-10.2); Carbon Dioxide 21 mmol/L (22-30); Chloride 101 mmol/L (98-107); Creatine Kinase 63 U/L (30-135); Glucose 62 mg/dL (74-99); Non-African American GFR(CKD) 22 (>60 ml/min/1.73 sqM); Potassium 3.6 mmol/L (3.5-5.1); Sodium 136 mmol/L (137-145); Total Bilirubin 0.6 mg/dL (0.2-1.3); Total Protein 6.8 g/dL (6.3-8.2)
[2023-05-26] MEDS ORDERED: SODIUM CHLORIDE 0.9% 500 ML 500 ML IV STA (16:52)
[2023-05-26] MEDS ORDERED: IPRATROPIUM-ALBUTEROL 3 ML NEB INHALATION STA (16:52)
--- NOTE | 2023-05-26 16:59 | ED ---
Recheck HPI - General Chief Complaint: Neuro Symptoms/Deficit Stated Complaint: neuro systems Source: patient, family, RN notes reviewed, old records reviewed, Caregiver Mode of arrival: wheelchair Limitations: no limitations - History of Present Illness Initial Comments: This is a 82-year-old female to the emergency department for evaluation severe shortness of breath, currently does not feel well. No other complaints or travel history or sick contacts but does present for severe shortness of breath that his been increasing for some time. Patient fell issues given a pass out today them began to have chest pain and has been otherwise not feeling well. MD Complaint: other (Severe weakness and shortness of breath) -: days(s) Returns Today for: persistent/worsening pain related to initial visit Symptoms Since Prior Visit: no new symptoms Context: planned re-check Associated Symptoms: none Treatments Prior to Arrival: other (0) - Related Data Home Medications Medication Instructions Recorded Confirmed Levothyroxine Sodium [Synthroid] 37.5 mcg PO DAILY 12/31/16 05/26/23 Atorvastatin [Lipitor] 20 mg PO HS 10/25/17 05/26/23 metFORMIN HCL [Glucophage] 500 mg PO AC-BID 10/25/17 05/26/23 Metoprolol Succinate (ER) [Toprol 50 mg PO DAILY 06/10/22 05/26/23 XL] Losartan [Cozaar] 25 mg PO DAILY 08/01/22 05/26/23 Potassium Chloride [K-Tab ER] 20 meq PO DAILY 08/01/22 05/26/23 Citalopram Hydrobromide [CeleXA] 20 mg PO DAILY 08/02/22 05/26/23 Furosemide [Lasix] 40 mg PO BID 05/26/23 05/26/23 Repaglinide [Prandin] 1 mg PO BID 05/26/23 05/26/23 Allergies Allergy/AdvReac Type Severity Reaction Status Date / Time ciprofloxacin [From Cipro] Allergy Nausea & Verified 05/26/23 18:11 Vomiting-severe nitrofurantoin Allergy Confusion Verified 05/26/23 18:11 [From Macrobid] Penicillins Allergy Rash/Hives Verified 05/26/23 18:11 codeine AdvReac Nausea & Verified 05/26/23 18:11 Vomiting Review of Systems ROS Statement: Those systems with pertinent positive or pertinent negative responses have been documented in the HPI. ROS Other: All systems not noted in ROS Statement are negative. Past Medical History Past Medical History: Cancer, Diabetes Mellitus, Hyperlipidemia, Hypertension, Thyroid Disorder Additional Past Medical History / Comment(s): Thyroid cancer in November 2015, post thyroidectomy, right lung mass on that investigation, diabetes mellitus, hyperlipidemia, hypertension History of Any Multi-Drug Resistant Organisms: None Reported Past Surgical History: Appendectomy, Hysterectomy, Orthopedic Surgery, Tonsillectomy Additional Past Surgical History / Comment(s): Partial thyroidectomy November,ORIF lt ankle,rt shoulder rot cuff, right partial lobectomy Past Anesthesia/Blood Transfusion Reactions: Previous Problems w/ Anesthesia, Postoperative Nausea & Vomiting (PONV) Additional Past Anesthesia/Blood Transfusion Reaction / Comment(s): states "has a hard time waking up with anesthesia" Past Psychological History: No Psychological Hx Reported Smoking Status: Former smoker Past Alcohol Use History: None Reported Past Drug Use History: None Reported - Past Family History Father Additional Family Medical History / Comment(s): emphysema Mother Additional Family Medical History / Comment(s): -fell down stairs Sister(s) Family Medical History: Cancer Additional Family Medical History / Comment(s): breast General Exam Limitations: no limitations General appearance: alert, in no apparent distress Head exam: Present: atraumatic, normocephalic, normal inspection Eye exam: Present: normal appearance, PERRL, EOMI. Absent: scleral icterus, conjunctival injection, periorbital swelling ENT exam: Present: normal exam, mucous membranes moist Neck exam: Present: normal inspection. Absent: tenderness, meningismus, lymphadenopathy Respiratory exam: Present: normal lung sounds bilaterally. Absent: respiratory distress, wheezes, rales, rhonchi, stridor Cardiovascular Exam: Present: regular rate, normal rhythm, normal heart sounds. Absent: systolic murmur, diastolic murmur, rubs, gallop, clicks GI/Abdominal exam: Present: soft, normal bowel sounds. Absent: distended, tenderness, guarding, rebound, rigid Extremities exam: Present: normal inspection, full ROM, normal capillary refill. Absent: tenderness, pedal edema, joint swelling, calf tenderness Back exam: Present: normal inspection Neurological exam: Present: alert, oriented X3, CN II-XII intact Psychiatric exam: Present: normal affect, normal mood Skin exam: Present: warm, dry, intact, normal color. Absent: rash Course Vital Signs 05/26/23 05/26/23 05/26/23 14:56 15:50 16:00 Temperature 98.2 F Pulse Rate 61 67 64 Pulse Rate [ Pulse Oximetery ] Respiratory 16 18 18 Rate Blood Pressure 128/63 125/62 125/62 Blood Pressure [Left Arm] O2 Sat by Pulse 100 100 100 Oximetry 05/26/23 05/26/23 05/26/23 16:30 17:00 17:23 Temperature Pulse Rate 69 74 78 Pulse Rate [ Pulse Oximetery ] Respiratory 18 19 Rate Blood Pressure 123/52 94/41 Blood Pressure [Left Arm] O2 Sat by Pulse 100 100 Oximetry 05/26/23 05/26/23 05/26/23 17:30 18:00 18:30 Temperature Pulse Rate 79 90 96 Pulse Rate [ Pulse Oximetery ] Respiratory 18 18 Rate Blood Pressure 107/54 125/54 125/59 Blood Pressure [Left Arm] O2 Sat by Pulse 98 96 100 Oximetry 05/26/23 05/26/23 05/26/23 19:00 19:30 21:30 Temperature Pulse Rate 93 92 94 Pulse Rate [ Pulse Oximetery ] Respiratory Rate Blood Pressure 132/69 123/66 Blood Pressure [Left Arm] O2 Sat by Pulse 98 Oximetry 05/26/23 05/26/23 05/26/23 21:58 22:00 23:00 Temperature Pulse Rate 90 90 65 Pulse Rate [ Pulse Oximetery ] Respiratory Rate Blood Pressure Blood Pressure [Left Arm] O2 Sat by Pulse Oximetry 05/26/23 05/27/23 05/27/23 23:18 00:00 01:00 Temperature Pulse Rate 71 73 69 Pulse Rate [ Pulse Oximetery ] Respiratory 22 Rate Blood Pressure 107/79 107/79 Blood Pressure [Left Arm] O2 Sat by Pulse 98 99 Oximetry 05/27/23 05/27/23 05/27/23 02:00 03:00 04:00 Temperature Pulse Rate 69 62 70 Pulse Rate [ Pulse Oximetery ] Respiratory Rate Blood Pressure 107/79 Blood Pressure [Left Arm] O2 Sat by Pulse 97 96 Oximetry 05/27/23 05/27/23 05/27/23 05:00 06:00 06:34 Temperature Pulse Rate 65 64 75 Pulse Rate [ Pulse Oximetery ] Respiratory 18 Rate Blood Pressure 117/51 Blood Pressure [Left Arm] O2 Sat by Pulse 94 L 95 99 Oximetry 05/27/23 05/27/23 05/27/23 07:00 09:00 09:45 Temperature Pulse Rate 56 L 62 63 Pulse Rate [ Pulse Oximetery ] Respiratory 20 Rate Blood Pressure 117/51 131/61 Blood Pressure [Left Arm] O2 Sat by Pulse 96 100 100 Oximetry 05/27/23 05/27/23 05/27/23 10:00 11:00 12:00 Temperature Pulse Rate 62 60 63 Pulse Rate [ Pulse Oximetery ] Respiratory Rate Blood Pressure Blood Pressure [Left Arm] O2 Sat by Pulse 100 100 99 Oximetry 05/27/23 05/27/23 05/27/23 13:00 14:00 15:00 Temperature Pulse Rate 62 68 63 Pulse Rate [ Pulse Oximetery ] Respiratory Rate Blood Pressure 115/62 Blood Pressure [Left Arm] O2 Sat by Pulse 100 95 96 Oximetry 05/27/23 05/27/23 05/27/23 16:00 17:00 18:00 Temperature Pulse Rate 63 60 61 Pulse Rate [ Pulse Oximetery ] Respiratory Rate Blood Pressure 114/50 112/50 110/57 Blood Pressure [Left Arm] O2 Sat by Pulse 97 100 90 L Oximetry 05/27/23 05/27/23 05/27/23 19:00 20:00 21:00 Temperature Pulse Rate 66 64 64 Pulse Rate [ Pulse Oximetery ] Respiratory Rate Blood Pressure 127/63 126/66 124/63 Blood Pressure [Left Arm] O2 Sat by Pulse 95 89 L 99 Oximetry 05/27/23 05/27/23 05/28/23 22:00 23:00 04:59 Temperature Pulse Rate 57 L 62 69 Pulse Rate [ Pulse Oximetery ] Respiratory 16 Rate Blood Pressure 129/89 96/47 114/57 Blood Pressure [Left Arm] O2 Sat by Pulse 97 98 99 Oximetry 05/28/23 07:00 Temperature 98.4 F Pulse Rate Pulse Rate [ 92 Pulse Oximetery ] Respiratory 16 Rate Blood Pressure Blood Pressure 106/53 [Left Arm] O2 Sat by Pulse 99 Oximetry - Reevaluation(s) Reevaluation #1: 05/26/23 22:34 Medical record is reviewed Reevaluation #2: 05/26/23 22:34 Patient symptoms are unchanged Reevaluation #3: 05/26/23 22:34 Patient informed of results and questions answered Reevaluation #4: 05/26/23 22:34 Was pt. sent in by a medical professional or institution ([facility] Langley, [facility], urgent care, hospital, or usp...) When possible be specific @ -no Did you speak to anyone other than the patient for history (EMS, parent, family, police, friend...)? What history was obtained from this source @ -no Did you review nursing and triage notes (agree or disagree)? Why? @ -agree Are old charts reviewed (outside hosp., previous admission, EMS record, old EKG, old radiological studies, urgent care reports/EKG's, usp records)? Report findings @ -yes Differential Diagnosis (chest pain, altered mental status, abdominal pain women, abdominal pain men, vaginal bleeding, weakness, fever, dyspnea, syncope, headache, dizziness, GI bleed, back pain, seizure, CVA, palpatations, mental health, musculoskeletal)? @ -prior EKG interpreted by me (3pts min.). @ -yes X-rays interpreted by me (1pt min.). @ -yes CT interpreted by me (1pt min.). @ -no U/S interpreted by me (1pt. min.). @ -no What testing was considered but not performed or refused? (CT, X-rays, U/S, labs)? Why? @ -none What meds were considered but not given or refused? Why? @ -none Did you discuss the management of the patient with other professionals (professionals i.e. LAL[facility] Langley, [facility], lab, RT, psych nurse, social problems specialist, communication studies professor, teacher, homicide squad commanding officer, director case management)? Give summary @ -no Was smoking cessation discussed for >3mins.? @ -no Was critical care preformed (if so, how long)? @ -no Were there social determinants of health that impacted care today? How? (Homeles sness, low income, unemployed, alcoholism, drug addiction, transportation, low edu. Level, literacy, decrease access to med. care, [facility], rehab)? @ -none Was there de-escalation of care discussed even if they declined (Discuss DNR or withdrawal of care, Hospice)? DNR status @ -no What co-morbidities impacted this encounter? (DM, HTN, Smoking, COPD, CAD, Cancer, CVA, ARF, Chemo, Hep., AIDS, mental health diagnosis, sleep apnea, morbid obesity)? @ -none Was patient admitted / discharged? Hospital course, mention meds given and route, prescriptions, significant lab abnormalities, going to OR and other pertinent info. @ - 82 female to the ER for evaluation of severe and significant shortness of breath increasing for some time now especially with exertion. Patient does not have underlying COPD but does have history of underlying lung cancer. Patient presents for recurrent evaluation of persistent shortness of breath she did think her blood sugar was low today and has not been feeling well. Patient does have elevated d-dimer and will be admitted for VQ scan secondary to decreased kidney function Admitted Undiagnosed new problem with uncertain prognosis? @ -no Drug Therapy requiring intensive monitoring for toxicity (Heparin, Nitro, Insulin, Cardizem)? @ -no Were any procedures done? @ -no Diagnosis/symptom? @ -COPD, shortness of breath with exertion dyspnea Acute, or Chronic, or Acute on Chronic? @ -Acute Uncomplicated (without systemic symptoms) or Complicated (systemic symptoms)? @ -Complicated Side effects of treatment? @ -no Exacerbation, Progression, or Severe Exacerbation? @ -exacerbation Poses a threat to life or bodily function? How? (Chest pain, [place], [place], pneumonia, PE, COPD, DKA, ARF, appy, cholecystitis, CVA, Diverticulitis, Homicidal, Suicidal, threat to staff... and all critical care pts) @ -yes with significant PE Reevaluation #5: 05/26/23 22:35 Differential Dyspnea: Coronary syndrome, arrhythmia, tamponade, asthma, COPD, pulmonary embolism, pneumonia, pneumothorax, pulmonary effusion, anaphylaxis, diabetic ketoacidosis, flailed chest, pulmonary contusion, diaphragmatic rupture, anemia, neuromus cular, this is not meant to be an all-inclusive list. - Consultations Consultation #1: Spoke with sound who agrees to admit the patient Medical Decision Making - Medical Decision Making 82 female to the ER for evaluation of severe and significant shortness of breath increasing for some time now especially with exertion. Patient does not have underlying COPD but does have history of underlying lung cancer. Patient presents for recurrent evaluation of persistent shortness of breath she did think her blood sugar was low today and has not been feeling well. Patient does have elevated d-dimer and will be admitted for VQ scan secondary to decreased kidney function - Lab Data Result diagrams: 05/28/23 10:50 05/30/23 06:57 Lab Results 05/26/23 05/26/23 05/26/23 Range/Units 14:58 15:45 15:45 WBC 7.6 (3.8-10.6) k/uL RBC 3.76 L (3.80-5.40) m/uL Hgb 11.2 L (11.4-16.0) gm/dL Hct 34.7 (34.0-46.0) % MCV 92.3 (80.0-100.0) fL MCH 29.8 (25.0-35.0) pg MCHC 32.3 (31.0-37.0) g/dL RDW 13.2 (11.5-15.5) % Plt Count 215 (150-450) k/uL MPV 8.9 Neutrophils % 55 % Lymphocytes % 30 % Monocytes % 8 % Eosinophils % 4 % Basophils % 0 % Neutrophils # 4.2 (1.3-7.7) k/uL Lymphocytes # 2.3 (1.0-4.8) k/uL Monocytes # 0.6 (0-1.0) k/uL Eosinophils # 0.3 (0-0.7) k/uL Basophils # 0.0 (0-0.2) k/uL PT 10.7 (9.0-12.0) sec INR 1.0 (<1.2) APTT 23.5 (22.0-30.0) sec D-Dimer (<0.60) mg/L FEU Sodium (137-145) mmol/L Potassium (3.5-5.1) mmol/L Chloride (98-107) mmol/L Carbon Dioxide (22-30) mmol/L Anion Gap mmol/L BUN (7-17) mg/dL Creatinine (0.52-1.04) mg/dL Est GFR (CKD-EPI)AfAm (>60 ml/min/1.73 sqM) Est GFR (CKD-EPI)NonAf (>60 ml/min/1.73 sqM) Glucose (74-99) mg/dL POC Glucose (mg/dL) 91 (70-110) mg/dL POC Glu Inventory Associate And Driver ID Allison Munguia Calcium (8.4-10.2) mg/dL Phosphorus (2.5-4.5) mg/dL Magnesium (1.6-2.3) mg/dL Total Bilirubin (0.2-1.3) mg/dL AST (14-36) U/L ALT (4-34) U/L Alkaline Phosphatase (38-126) U/L Creatine Kinase (30-135) U/L Troponin I (0.000-0.034) ng/mL NT-Pro-B Natriuret Pep pg/mL Total Protein (6.3-8.2) g/dL Albumin (3.5-5.0) g/dL 05/26/23 05/26/23 05/26/23 Range/Units 15:45 15:45 15:46 WBC (3.8-10.6) k/uL RBC (3.80-5.40) m/uL Hgb (11.4-16.0) gm/dL Hct (34.0-46.0) % MCV (80.0-100.0) fL MCH (25.0-35.0) pg MCHC (31.0-37.0) g/dL RDW (11.5-15.5) % Plt Count (150-450) k/uL MPV Neutrophils % % Lymphocytes % % Monocytes % % Eosinophils % % Basophils % % Neutrophils # (1.3-7.7) k/uL Lymphocytes # (1.0-4.8) k/uL Monocytes # (0-1.0) k/uL Eosinophils # (0-0.7) k/uL Basophils # (0-0.2) k/uL PT (9.0-12.0) sec INR (<1.2) APTT (22.0-30.0) sec D-Dimer (<0.60) mg/L FEU Sodium 136 L (137-145) mmol/L Potassium 3.6 (3.5-5.1) mmol/L Chloride 101 (98-107) mmol/L Carbon Dioxide 21 L (22-30) mmol/L Anion Gap 14 mmol/L BUN 43 H (7-17) mg/dL Creatinine 2.03 H (0.52-1.04) mg/dL Est GFR (CKD-EPI)AfAm 26 (>60 ml/min/1.73 sqM) Est GFR (CKD-EPI)NonAf 22 (>60 ml/min/1.73 sqM) Glucose 62 L (74-99) mg/dL POC Glucose (mg/dL) 74 (70-110) mg/dL POC Glu Inventory Associate And Driver Thalia Bates Calcium 9.4 (8.4-10.2) mg/dL Phosphorus (2.5-4.5) mg/dL Magnesium (1.6-2.3) mg/dL Total Bilirubin 0.6 (0.2-1.3) mg/dL AST 31 (14-36) U/L ALT 22 (4-34) U/L Alkaline Phosphatase 80 (38-126) U/L Creatine Kinase 63 (30-135) U/L Troponin I <0.012 (0.000-0.034) ng/mL NT-Pro-B Natriuret Pep pg/mL Total Protein 6.8 (6.3-8.2) g/dL Albumin 4.2 (3.5-5.0) g/dL 05/26/23 05/26/23 Range/Units 17:10 17:10 WBC (3.8-10.6) k/uL RBC (3.80-5.40) m/uL Hgb (11.4-16.0) gm/dL Hct (34.0-46.0) % MCV (80.0-100.0) fL MCH (25.0-35.0) pg MCHC (31.0-37.0) g/dL RDW (11.5-15.5) % Plt Count (150-450) k/uL MPV Neutrophils % % Lymphocytes % % Monocytes % % Eosinophils % % Basophils % % Neutrophils # (1.3-7.7) k/uL Lymphocytes # (1.0-4.8) k/uL Monocytes # (0-1.0) k/uL Eosinophils # (0-0.7) k/uL Basophils # (0-0.2) k/uL PT (9.0-12.0) sec INR (<1.2) APTT (22.0-30.0) sec D-Dimer 1.81 H (<0.60) mg/L FEU Sodium (137-145) mmol/L Potassium (3.5-5.1) mmol/L Chloride (98-107) mmol/L Carbon Dioxide (22-30) mmol/L Anion Gap mmol/L BUN (7-17) mg/dL Creatinine (0.52-1.04) mg/dL Est GFR (CKD-EPI)AfAm (>60 ml/min/1.73 sqM) Est GFR (CKD-EPI)NonAf (>60 ml/min/1.73 sqM) Glucose (74-99) mg/dL POC Glucose (mg/dL) (70-110) mg/dL POC Glu Inventory Associate And Driver ID Calcium (8.4-10.2) mg/dL Phosphorus 3.0 (2.5-4.5) mg/dL Magnesium 1.1 L (1.6-2.3) mg/dL Total Bilirubin (0.2-1.3) mg/dL AST (14-36) U/L ALT (4-34) U/L Alkaline Phosphatase (38-126) U/L Creatine Kinase (30-135) U/L Troponin I (0.000-0.034) ng/mL NT-Pro-B Natriuret Pep 5870 pg/mL Total Protein (6.3-8.2) g/dL Albumin (3.5-5.0) g/dL - EKG Data -: EKG Interpreted by Me (EKG sinus bradycardia 58 KS 199 QRS 172 QTC 502 interpreted by me) - Radiology Data Radiology results: report reviewed (Chest x-rays negative for acute disease), image reviewed Disposition Clinical Impression: Congestive heart failure, Shortness of breath, Weakness, Hypoglycemia, COPD with acute exacerbation Disposition: ADMITTED IP TO THIS HOSP Condition: Serious Is patient prescribed a controlled substance at d/c from ED?: No Time of Disposition: 19:00
[2023-05-26 18:08] LABS: Magnesium 1.1 mg/dL (1.6-2.3)
[2023-05-26] MEDS ORDERED: ONDANSETRON 4 MG/2 ML VIAL IVP PRN (19:03)
[2023-05-26] MEDS ORDERED: NALOXONE 0.4 MG/ML 1 ML VIAL IV PRN (19:03)
[2023-05-26] MEDS ORDERED: MORPHINE SULFATE 4 MG/ML SYRINGE IV PRN (19:03)
[2023-05-26] MEDS ORDERED: HEPARIN SODIUM 1,000 UN/ML (10ML VL) IV PRN (19:06)
[2023-05-26] MEDS ORDERED: HEPARIN SODIUM 1,000 UN/ML (10ML VL) IV ONE (19:06)
[2023-05-26] MEDS: SODIUM CHLORIDE 0.9% 1,000 ML IV SCH (19:13)
[2023-05-26] MEDS: HEPARIN SOD,PORK IN 0.45% NACL 25,000 UNIT in 0.45% NACL 1 250ML.BAG IV SCH (19:13)
[2023-05-26] MEDS ORDERED: IPRATROPIUM-ALBUTEROL 3 ML NEB INHALATION PRN (19:18)
[2023-05-26] MEDS ORDERED: IPRATROPIUM-ALBUTEROL 3 ML NEB INHALATION SCH (20:00)
[2023-05-27] MEDS ORDERED: DEXTROSE 50% SYRINGE 50 ML IVP PRN ×2 (01:37)
--- NOTE | 2023-05-27 01:49 | P.HPIM ---
History of Present Illness H&P Date: 05/26/23 Chief Complaint: shortness of breath 82 year old female with hypertension and DM paitent coming in for 3 weeks history of progressive exertional dyspnea and over the past couple days , she is short of breath while resting doing nothing , just talking makes her short of breath. denies any history of heart attack or blood clots. she does have history of lung cancer that was treated surgically . she reports recent road trip , where she [id number] miles about 4 weeks ago , and her symptoms started suddenly a week later. she denies any orthopnea or leg swelling she denies any coughing, fever, chills, chest pain , nausea , vomiting, abd pain , changes in bowel or urinary habits, denies hemoptysis , or GI bleeding , denies any new focal neuro deficits. she visited her PCP, who referred her to cardiology, who she saw today , and advised her to come to the eED for further workup while in the ED , she was found to have elevated D dimer, and suspected to have PE , but could not have a CTA of the chest due to having CKD denies tobacco smoking, illicit drugs or alcohol review of systems Pertinent positives as noted in HPI. All other systems were reviewed and are negative on exam Constitutional: No acute distress, conversant, pleasant Eyes: Anicteric sclerae, moist conjunctiva, Pupils equal round reactive to light ENMT: NC/AT Oropharynx clear, no erythema, or exudates Neck: Supple, no masses, or JVD No carotid bruits No thyromegaly Lungs: Clear to auscultation Clear to percussion Normal respiratory effort, no accessory muscle use Cardiovascular: Heart regular in rate and rhythm, No murmurs, gallops, or rubs No peripheral edema Abdominal: Soft Nontender, no guarding, rebound or rigidity Abdomen moving with respiration Normoactive bowel sounds No hepatomegaly, No splenomegaly No palpable mass No abdominal wall hernia noted Skin: Normal temperature, tone, texture, turgor No induration No subcutaneous nodules No rash, lesions No ulcers Extremities: No digital cyanosis No clubbing Pedal pulses intact and symmetrical Radial pulses intact and symmetrical tenderness to palpation of the left adrienne muscle , no swelling , no erythema Psychiatric: Alert and oriented to person, place and time Appropriate affect fair judgment Neuro Muscles Strength 5/5 in all 4 extremities Sensation to light touch grossly present throughout Cranial nerves II-XII grossly intact Lymphatics: no palpable cervical or supraclavicular lymph nodes Past Medical History Past Medical History: Cancer, Diabetes Mellitus, Hyperlipidemia, Hypertension, Thyroid Disorder Additional Past Medical History / Comment(s): Thyroid cancer in November 2015, post thyroidectomy, right lung mass on that investigation, diabetes mellitus, hyperlipidemia, hypertension History of Any Multi-Drug Resistant Organisms: None Reported Past Surgical History: Appendectomy, Hysterectomy, Orthopedic Surgery, Tonsillectomy Additional Past Surgical History / Comment(s): Partial thyroidectomy November,ORIF lt ankle,rt shoulder rot cuff, right partial lobectomy Past Anesthesia/Blood Transfusion Reactions: Previous Problems w/ Anesthesia, Postoperative Nausea & Vomiting (PONV) Additional Past Anesthesia/Blood Transfusion Reaction / Comment(s): states "has a hard time waking up with anesthesia" Past Psychological History: No Psychological Hx Reported Smoking Status: Former smoker Past Alcohol Use History: None Reported Past Drug Use History: None Reported - Past Family History Father Additional Family Medical History / Comment(s): emphysema Mother Additional Family Medical History / Comment(s): -fell down stairs Sister(s) Family Medical History: Cancer Additional Family Medical History / Comment(s): breast Medications and Allergies Home Medications Medication Instructions Recorded Confirmed Type Levothyroxine Sodium [Synthroid] 37.5 mcg PO DAILY 12/31/16 05/26/23 History Atorvastatin [Lipitor] 20 mg PO HS 10/25/17 05/26/23 History metFORMIN HCL [Glucophage] 500 mg PO AC-BID 10/25/17 05/26/23 History Metoprolol Succinate (ER) [Toprol 50 mg PO DAILY 06/10/22 05/26/23 History XL] Losartan [Cozaar] 25 mg PO DAILY 08/01/22 05/26/23 History Potassium Chloride [K-Tab ER] 20 meq PO DAILY 08/01/22 05/26/23 History Citalopram Hydrobromide [CeleXA] 20 mg PO DAILY 08/02/22 05/26/23 History Furosemide [Lasix] 40 mg PO BID 05/26/23 05/26/23 History Repaglinide [Prandin] 1 mg PO BID 05/26/23 05/26/23 History Allergies Allergy/AdvReac Type Severity Reaction Status Date / Time ciprofloxacin [From Cipro] Allergy Nausea & Verified 05/26/23 18:11 Vomiting-severe nitrofurantoin Allergy Confusion Verified 05/26/23 18:11 [From Macrobid] Penicillins Allergy Rash/Hives Verified 05/26/23 18:11 codeine AdvReac Nausea & Verified 05/26/23 18:11 Vomiting Physical Exam Vitals: Vital Signs Temp Pulse Resp BP Pulse Ox 05/26/23 23:18 71 22 107/79 98 05/26/23 21:30 94 05/26/23 19:30 92 123/66 05/26/23 19:00 93 132/69 98 05/26/23 18:30 96 125/59 100 05/26/23 18:00 90 18 125/54 96 05/26/23 17:30 79 18 107/54 98 05/26/23 17:23 78 05/26/23 17:00 74 19 94/41 100 05/26/23 16:30 69 18 123/52 100 05/26/23 16:00 64 18 125/62 100 05/26/23 15:50 67 18 125/62 100 05/26/23 14:56 98.2 F 61 16 128/63 100 Intake and Output 05/26/23 05/26/23 05/27/23 14:59 22:59 06:59 Other: Weight 69.4 kg Results CBC & Chem 7: 05/26/23 15:45 05/26/23 15:45 Labs: Abnormal Lab Results - Last 24 Hours (Table) 05/26/23 05/26/23 05/26/23 Range/Units 15:45 15:45 17:10 RBC 3.76 L (3.80-5.40) m/uL Hgb 11.2 L (11.4-16.0) gm/dL D-Dimer 1.81 H (<0.60) mg/L FEU Sodium 136 L (137-145) mmol/L Carbon Dioxide 21 L (22-30) mmol/L BUN 43 H (7-17) mg/dL Creatinine 2.03 H (0.52-1.04) mg/dL Glucose 62 L (74-99) mg/dL Magnesium (1.6-2.3) mg/dL 05/26/23 Range/Units 17:10 RBC (3.80-5.40) m/uL Hgb (11.4-16.0) gm/dL D-Dimer (<0.60) mg/L FEU Sodium (137-145) mmol/L Carbon Dioxide (22-30) mmol/L BUN (7-17) mg/dL Creatinine (0.52-1.04) mg/dL Glucose (74-99) mg/dL Magnesium 1.1 L (1.6-2.3) mg/dL Assessment and Plan Assessment: 82 year old female with h/o lung cancer s/p surgery, HTN , DM , coming in for progressive SOB, I discussed the case with ED doc and I accepted the admission for progressive SOB to rule out PE , CHF, with anticipated length of stay < 2 midnights progressive SOB h/o lung cancer 6 years ago post surgical removal no hypoxemia fall precautions PT evaluation D dimer elevated Hgb 11.2, WBC 7.6 elevated pro BNP 5870 initiated on heparin drip check venous doppler US of bilateral LE check Echo cardiogram check VQ scan ED placed pulm and cardio consult EKG shows unchanged LBBB, left heart cath done 2021 showed mild - mod non obstructive disease in the LAD hypomagnesemia Mg 1.1 replace and follow up levels CKD stable BUN 43, Cr 2 Na 136, K 3.6 avoid nephrotoxic meds monitor urine output DM insulin sliding scale Hypertension , controlled continue losartan , metoprolol hypothyroid resume levothyroxine full code DVT PPX on heparin drip
--- NOTE | 2023-05-27 02:33 | P.CNPUL ---
History of Present Illness Consult date: 05/27/23 Requesting physician: Champ Bryan Reason for consult: dyspnea Chief complaint: Progressively worsening shortness of breath over the last 3 weeks History of present illness: I am seeing this patient in new consultation today 05/27/2023 after the patient presented to emergency room yesterday evening complaining of progressively worsening shortness of breath over the last 3 weeks. Patient is an 82-year-old white female with past medical history significant for non small cell lung canc er status post right middle lobectomy back in 2016 with recurrence and subsequent SBRT in November 2021, thyroid cancer status post partial thyroidectomy, diabetes mellitus, hyperlipidemia, hypertension, nonischemic cardiomyopathy, and chronic kidney disease stage III. Her PCP is Dr. Arciniega. She does also follow in the office with Dr. Lynn for her history of lung cancer. Most recent non- enhanced chest CAT scan done in March, shows a slightly diminished size of the right apical irregular density, a new 0.6 cm nodule within the lingula, thickened left adrenal gland which was stable from comparison, and stable cystic and solid findings within bilateral kidneys. Patient presented to the emergency room yesterday evening complaining of shortness of breath that has progressively worsened over the last 3 weeks. This is accompanied with a non-radiating left-sided chest pain. She first noticed it while at her great grandson's [employer] game. It has worsened to the point where she now is dyspneic even with conversations. She was given a when necessary albuterol inhaler by her PCP last Friday, which reportedly did not help much with her dyspnea. Denies any history of COPD or asthma. Denies cough, fever, chills, myalgias. Denies heart palpitations, syncope, orthopnea, or lower extremity swelling. She has been taking her Lasix. She was on her way to her shape carver's office yesterday, when she became confused and was brought in by a family member to the emergency room. On arrival to the emergency room, she was found to be mildly hypoglycemic, which was corrected. Chest x-ray on arrival showed no acute cardiopulmonary process. No focal infiltrates or evidence of pneumonia. D-dimer was elevated at 1.81. Patient does admit some recent prolonged car travel. Denies any leg pain or unilateral swelling. Denies any personal history of blood clots or coagulopathy. Chest CTA was deferred due to the patient's renal status. There is a scheduled VQ scan. Currently, the patient is on the high intensity heparin protocol. CBC was unremarkable on arrival. BMP shows sodium 136, potassium 3.6, chloride 101, serum bicarb 21, BUN 43, creatinine 2.03, glucose 74. Normal saline is infusing at 75 mL per hour. Troponins less than 0.012. NT proBNP elevated at 5870. No CXR evidence of fluid overload or pulmonary edema. She is currently sitting up in bed, on room air, in no acute distress. Hemodynamically she is stable. Review of Systems REVIEW OF SYSTEMS: CONSTITUTIONAL: Denies any recent significant weight loss or weight gain. EYES: Denies change in vision. EARS, NOSE, MOUTH, THROAT: Denies headaches, denies sore throat. CARDIOVASCULAR: Denies palpitations or syncopal episodes. Admits nonradiating left-sided chest pain RESPIRATORY: See HPI GASTROINTESTINAL: Denies change in appetite, abdominal pain, nausea and vomiting, or diarrhea GENITOURINARY: Denies hematuria, denies infections. MUSKULOSKELETAL: Denies pain, denies swelling. INTEGUMENTARY: Denies rash, denies eczema. NEUROLOGICAL: Denies recent memory loss, no recent seizure activity. PSYCHIATRIC: Denies anxiety, denies depression. HEMATOLOGIC/LYMPHATIC: Denies anemia, denies enlarged lymph node Past Medical History Past Medical History: Cancer, Diabetes Mellitus, Hyperlipidemia, Hypertension, Thyroid Disorder Additional Past Medical History / Comment(s): Thyroid cancer in November 2015, post thyroidectomy, right lung mass on that investigation, diabetes mellitus, hyperlipidemia, hypertension History of Any Multi-Drug Resistant Organisms: None Reported Past Surgical History: Appendectomy, Hysterectomy, Orthopedic Surgery, Tonsillectomy Additional Past Surgical History / Comment(s): Partial thyroidectomy November,ORIF lt ankle,rt shoulder rot cuff, right partial lobectomy Past Anesthesia/Blood Transfusion Reactions: Previous Problems w/ Anesthesia, Po stoperative Nausea & Vomiting (PONV) Additional Past Anesthesia/Blood Transfusion Reaction / Comment(s): states "has a hard time waking up with anesthesia" Past Psychological History: No Psychological Hx Reported Smoking Status: Former smoker Past Alcohol Use History: None Reported Past Drug Use History: None Reported - Past Family History Father Additional Family Medical History / Comment(s): emphysema Mother Additional Family Medical History / Comment(s): -fell down stairs Sister(s) Family Medical History: Cancer Additional Family Medical History / Comment(s): breast Medications and Allergies Home Medications Medication Instructions Recorded Confirmed Type Levothyroxine Sodium [Synthroid] 37.5 mcg PO DAILY 12/31/16 05/26/23 History Atorvastatin [Lipitor] 20 mg PO HS 10/25/17 05/26/23 History metFORMIN HCL [Glucophage] 500 mg PO AC-BID 10/25/17 05/26/23 History Metoprolol Succinate (ER) [Toprol 50 mg PO DAILY 06/10/22 05/26/23 History XL] Losartan [Cozaar] 25 mg PO DAILY 08/01/22 05/26/23 History Potassium Chloride [K-Tab ER] 20 meq PO DAILY 08/01/22 05/26/23 History Citalopram Hydrobromide [CeleXA] 20 mg PO DAILY 08/02/22 05/26/23 History Furosemide [Lasix] 40 mg PO BID 05/26/23 05/26/23 History Repaglinide [Prandin] 1 mg PO BID 05/26/23 05/26/23 History Allergies Allergy/AdvReac Type Severity Reaction Status Date / Time ciprofloxacin [From Cipro] Allergy Nausea & Verified 05/26/23 18:11 Vomiting-severe nitrofurantoin Allergy Confusion Verified 05/26/23 18:11 [From Macrobid] Penicillins Allergy Rash/Hives Verified 05/26/23 18:11 codeine AdvReac Nausea & Verified 05/26/23 18:11 Vomiting Physical Exam Vitals: Vital Signs Temp Pulse Resp BP Pulse Ox 05/26/23 23:18 71 22 107/79 98 05/26/23 21:30 94 05/26/23 19:30 92 123/66 05/26/23 19:00 93 132/69 98 05/26/23 18:30 96 125/59 100 05/26/23 18:00 90 18 125/54 96 05/26/23 17:30 79 18 107/54 98 05/26/23 17:23 78 05/26/23 17:00 74 19 94/41 100 05/26/23 16:30 69 18 123/52 100 05/26/23 16:00 64 18 125/62 100 05/26/23 15:50 67 18 125/62 100 05/26/23 14:56 98.2 F 61 16 128/63 100 Intake and Output 05/26/23 05/26/23 05/27/23 14:59 22:59 06:59 Other: Weight 69.4 kg GENERAL EXAM: Alert, 82-year-old white female appearing stated age, comfortable in no apparent distress. HEAD: Normocephalic and atraumatic EYES: Normal reaction of pupils, equal size. NOSE: Clear with pink turbinates. THROAT: No erythema or exudates. NECK: No masses, no JVD. CHEST: No chest wall deformity. LUNGS: Equal air entry with no crackles, wheeze, rhonchi or dullness. On room air. Mildly dyspneic with conversation. CVS: S1 and S2 normal with no audible murmur, regular rhythm. No extra heart sounds ABDOMEN: No hepatosplenomegaly, active bowel sounds, no guarding or rigidity. SPINE: No scoliosis or deformity SKIN: No rashes CENTRAL NERVOUS SYSTEM: No focal deficits, tone is normal in all 4 extremities. EXTREMITIES: There is no peripheral edema, clubbing, or cyanosis. Peripheral pulses are intact. Results - Laboratory Findings CBC and BMP: 05/27/23 04:09 05/27/23 04:09 PT/INR, D-dimer PT 10.7 sec (9.0-12.0) 05/26/23 15:45 INR 1.0 (<1.2) 05/26/23 15:45 D-Dimer 1.81 mg/L FEU (<0.60) H 05/26/23 17:10 Abnormal lab findings: Abnormal Labs 05/26/23 05/26/23 05/26/23 15:45 15:45 17:10 RBC 3.76 L Hgb 11.2 L D-Dimer 1.81 H Sodium 136 L Carbon Dioxide 21 L BUN 43 H Creatinine 2.03 H Glucose 62 L Magnesium 05/26/23 17:10 RBC Hgb D-Dimer Sodium Carbon Dioxide BUN Creatinine Glucose Magnesium 1.1 L - Diagnostic Findings Chest x-ray: image reviewed Assessment and Plan Assessment: Acute dyspnea, currently under investigation. Chest x-ray on arrival showed no acute cardiopulmonary process. D-dimer was elevated at 1.81. Chest CTA was deferred due to the patient's renal status. There is a scheduled VQ scan. Currently, the patient is on the high intensity heparin protocol. Elevated d-dimer Hypoglycemia, improved Acute on chronic kidney disease, creatinine 2.03 Hypomagnesemia, being corrected History of nonischemic cardiomyopathy, left ventricular ejection fraction estimated at 15% on most recent available echocardiogram done April,. History of non small cell lung carcinoma, status post right middle lobectomy back in 2016, with recurrence and subsequent SBRT in November 2021. History of pulmonary nodules, being followed on outpatient basis History of thyroid cancer, status post partial thyroidectomy Hypothyroidism, secondary to above Benign essential hypertension Hyperlipidemia Diabetes mellitus type 2 Chronic kidney disease stage IV Plan: Patient's medications, labs, chest x-ray reviewed On room air VQ scan and lower extremity venous Doppler pending Continue high intensity heparin protocol for now. Echocardiogram pending Magnesium is being replaced Patient is receiving gentle hydration in the form of normal saline at 75 mL per hour Currently, the patient is hemodynamically stable. Additional recommendations are forthcoming I have personally seen and examined the patient, performed the documentation and the assessment and plan as written. Number of minutes spent on the visit:20 On today's evaluation of 05/27/2023 I did a joint evaluation along with a nurse practitioner and his evaluation within a more than 30 minutes. I reviewed the case. Doppler of the lower extremity is negative. The VQ scan is indeterminate. The patient's oxygenation is within normal limits. She has exertional dyspnea and orthopnea. I doubt the possibility of pulmonary embolism. I would suggest repeating the echocardiogram. The patient has impaired LV function with an ejection fraction of 15%. She is already on Lasix. Her proBNP is 5870. The shortness of breath is essentially related to her heart failure. Cardiology consultation is appreciated. I also reviewed her lung CAT scans from before. The patient has chronic radiation scar in the right upper lobe. 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 Subsequently, the patient was found to have a abnormal nodule in the right upper lobe that was treated with SBR T. This fibrotic area is irregular and tender diminished in size based on the most recent CAT scan of the chest that was done on 03/21/2023. There is however a 6 mm nodule in the left that can be followed up on outpatient basis. Her staff interpreter is Dr. Lynn and she is also being followed up by radiation oncology regarding the pulmonary nodules. No active intervention is recommended regarding those nodules. I do not see the need for a CT angiogram. Low likelihood for pulmonary embolism. Time with Patient: Greater than 30
[2023-05-27] MEDS: MAGNESIUM SULFATE-D5W PMX 1 GM in DEXTROSE/WATER 1 100ML.BAG IVPB SCH ×5 (02:51→18:20)
[2023-05-27 06:02] LABS: Basophils % (A) 0 %; Eosinophils # (A) 0.3 k/uL (0-0.7); Eosinophils % (A) 5 %; HCT 31.5 % (34.0-46.0); Lymphocytes % (A) 32 %; MCH 29.8 pg (25.0-35.0); MCHC 31.8 g/dL (31.0-37.0); MCV 93.8 fL (80.0-100.0); Monocytes # (A) 0.6 k/uL (0-1.0); Monocytes % (A) 9 %; Neutrophils # (A) 3.4 k/uL (1.3-7.7); Neutrophils % (A) 52 %; Platelet Count 205 k/uL (150-450); RBC 3.36 m/uL (3.80-5.40); RDW 13.4 % (11.5-15.5); WBC 6.4 k/uL (3.8-10.6)
[2023-05-27 06:11] LABS: ALT 17 U/L (4-34); AST 30 U/L (14-36); African American GFR (CKD) 27 (>60 ml/min/1.73 sqM); Albumin 3.1 g/dL (3.5-5.0); Albumin/Globulin Ratio 1.3; Alkaline Phosphatase 70 U/L (38-126); Anion Gap 8 mmol/L; Blood Urea Nitrogen 39 mg/dL (7-17); Calcium 8.4 mg/dL (8.4-10.2); Carbon Dioxide 24 mmol/L (22-30); Chloride 105 mmol/L (98-107); Globulin 2.3 g/dL; Glucose 124 mg/dL (74-99); Magnesium 1.5 mg/dL (1.6-2.3); Non-African American GFR(CKD) 24 (>60 ml/min/1.73 sqM); Phosphorus 3.5 mg/dL (2.5-4.5); Potassium 3.3 mmol/L (3.5-5.1); Sodium 137 mmol/L (137-145); Total Bilirubin 0.5 mg/dL (0.2-1.3); Total Protein 5.4 g/dL (6.3-8.2)
[2023-05-27] MEDS: LEVOTHYROXINE 25 MCG TAB PO SCH (06:33)
[2023-05-27 06:57] LABS: Glucose,Whole Blood 136 mg/dL (70-110)
[2023-05-27] MEDS ORDERED: LOSARTAN 25 MG TAB PO SCH (09:00)
[2023-05-27] MEDS: INSULIN ASPART (NovoLOG) 100 UNIT/ML VIAL SQ SCH ×4 (09:25→23:15)
[2023-05-27] MEDS ORDERED: POTASSIUM CHLORIDE ER 20 MEQ TAB.ER PO STA (09:25)
[2023-05-27 09:26] LABS: Glucose,Whole Blood 116 mg/dL (70-110)
--- NOTE | 2023-05-27 09:29 | NM ---
EXAMINATION TYPE: NM pul vent and perfuse DATE OF EXAM: 05/27/2023 CLINICAL INDICATION: Female, 82 years old with history of PE; HISTORY: Altered mental status TECHNIQUE: Utilizing inhalation of 68.9 mCi Tc 99m DTPA aerosol and intravenous injection of 5.2 mCi of Tc 99m MAA, ventilation and perfusion images are acquired post injection in multiple projections. FINDINGS: There is a sizable perfusion ventilation matched defects involving the right lung. No definite corres ponding chest x-ray abnormality IMPRESSION: Intermediate probability for pulmonary embolism.
[2023-05-27] MEDS: METOPROLOL SUCCINATE (ER) 50 MG TAB.ER.24H PO SCH (09:43)
[2023-05-27] MEDS: CITALOPRAM HYDROBROMIDE 20 MG TAB PO SCH (09:43)
[2023-05-27] MEDS: PANTOPRAZOLE 40 MG/10 ML VIAL IV SCH (09:43)
[2023-05-27] MEDS: FUROSEMIDE 10 MG/ML 4 ML VIAL IV SCH ×2 (09:44→23:08)
--- NOTE | 2023-05-27 09:52 | US ---
EXAMINATION TYPE: US venous doppler duplex LE BI DATE OF EXAM: 05/27/2023 9:20 AM COMPARISON: NONE CLINICAL INDICATION: Female, 82 years old with history of rule out DVT; SOB, no leg swelling, no h/o dvt SIDE PERFORMED: Bilateral TECHNIQUE: The lower extremity deep venous system is examined utilizing real time linear array sonog elaine with graded compression, doppler sonography and color-flow sonography. VESSELS IMAGED: Common Femoral Vein Deep Femoral Vein Greater Saphenous Vein * Femoral Vein Popliteal Vein Small Saphenous Vein * Proximal Calf Veins (* superficial vessels) Right Leg: Negative for DVT Left Leg: Negative for DVT 4.5cm medial anterior fluid collection, most likely a Farris's cyst IMPRESSION: 1. No diagnostic evidence DVT. 2. 4.5 cm left popliteal fossa fluid collection most likely related to popliteal fossa cyst.
[2023-05-27] MEDS: DAPAGLIFLOZIN PROPANEDIOL 10 MG TABLET PO SCH (10:00)
--- NOTE | 2023-05-27 11:40 | P.CRDCN ---
History of Present Illness History of present illness: HISTORY OF PRESENT ILLNESS: This is a 82-year-old female with a past medical history significant for hypertension, hyperlipidemia, diabetes, cardiomyopathy, congestive heart failure, nonobstructive coronary artery disease, and lung cancer with previous lobectomy and radiation. Patient follows in the office with Dr. Watson. We have been asked to see the patient in consultation for shortness of breath. Patient examined at the bedside in the emergency room. Patient states yesterday she saw her primary care physician secondary to shortness of breath. Her primary care physician recommended that she call her shell mold bonder to see if she could be seen. Patient was seen yesterday by Dr. Watson and referred to come to the ER. Patient states she has been having shortness of breath over the past couple weeks it has gotten progressively worse. She also reports having some mild chest discomfort. She reports that she has been feeling dizzy as well lately. Denies any episodes of syncope. She states she has been feeling extremely tired and has been taking a lot of naps at home. She denies any fever or chills. * EKG reveals sinus bradycardia with left bundle branch block * Chest xray chronic changes without acute pulmonary process. * VQ scan: Intermediate probability for pulmonary embolism * Venous Doppler: Negative for DVT bilaterally * Laboratory data: WBC 6.4. Hemoglobin 10.0. Platelet count 205. Sodium 137. Potassium 3.3. BUN 39. Creatinine 1.92. ProBNP 5870. * Current home cardiac medications include losartan 25 mg daily, metoprolol succinate 50 mg daily, Lasix 40 mg twice a day, Lipitor 20 g at night * Most recent echocardiogram obtained in November 2022 at the office revealed ejection fraction 20-25%, large hypokinetic areas of the anterior and anteroseptal partida, medium-sized akinetic area of the inferior septal wall, mild aortic regurgitation, moderate mitral regurgitation, mild tricuspid regurgitation. * Cardiac catheterization history: July 2022 revealing mild nonobstructive coronary artery disease REVIEW OF SYSTEMS: At the time of my exam: CONSTITUTIONAL: Denies fever or chills. HEENT: Denies blurred vision, vision changes, or eye pain. Denies hemoptysis CARDIOVASCULAR: Denies chest pain. Denies orthopnea. Denies PND. Denies palpitations RESPIRATORY: Denies shortness of breath. GASTROINTESTINAL: Denies abdominal pain. Denies nausea or vomiting. HEMATOLOGIC: Denies bleeding disorders. GENITOURINARY: Denies any blood in urine. SKIN: Denies pruitis. Denies rash. PHYSICAL EXAM: VITAL SIGNS: Reviewed. GENERAL: Well-developed in no acute distress. HEENT: Head is normocephalic. Pupils are equal, round. Sclerae anicteric. Mucous membranes of the mouth are moist. Neck supple. No JVD or thyromegaly LUNGS: Respirations even and unlabored. Lungs essentially clear to auscultation bilaterally. HEART: Regular rate and rhythm. S1 and S2 heard. Systolic murmur noted. ABDOMEN: Soft. Nondistended. Nontender. EXTREMITIES: Normal range of motion. No clubbing or cyanosis. Peripheral pulses intact. No lower extremity edema NEUROLOGIC: Awake and alert. Oriented x 3. ASSESSMENT: Shortness of breath Acute on chronic heart failure with reduced EF, proBNP 5870 Intermediate probability of PE, per VQ scan Nonischemic cardiomyopathy, EF 20-25% Mild nonobstructive coronary artery disease, per cardiac catheterization in July 2022 Acute on chronic kidney disease History of lung cancer with previous lobectomy and radiation therapy Hypertension Hyperlipidemia Former nicotine dependence PLAN: Obtain 2-D echo to assess cardiac structure and function Continue IV heparin Begin IV Lasix 40 mg every 12 hours. Anticipate IV diuresis for 24 hours and then transition to oral Daily weights, accurate I&O, and monitor kidney function Depending on patients prognosis in terms of her lung cancer, patient may benefit from AICD implantation secondary to LBBB and cardiomyopathy Further recommendations pending patient course Nurse practitioner note has been reviewed by physician. Signing provider agrees with the documented findings, assessment, and plan of care. Past Medical History Past Medical History: Cancer, Diabetes Mellitus, Hyperlipidemia, Hypertension, Thyroid Disorder Additional Past Medical History / Comment(s): Thyroid cancer in November 2015, post thyroidectomy, right lung mass on that investigation, diabetes mellitus, hyperlipidemia, hypertension History of Any Multi-Drug Resistant Organisms: None Reported Past Surgical History: Appendectomy, Hysterectomy, Orthopedic Surgery, Tonsillectomy Additional Past Surgical History / Comment(s): Partial thyroidectomy November,ORIF lt ankle,rt shoulder rot cuff, right partial lobectomy Past Anesthesia/Blood Transfusion Reactions: Previous Problems w/ Anesthesia, Po stoperative Nausea & Vomiting (PONV) Additional Past Anesthesia/Blood Transfusion Reaction / Comment(s): states "has a hard time waking up with anesthesia" Past Psychological History: No Psychological Hx Reported Smoking Status: Former smoker Past Alcohol Use History: None Reported Past Drug Use History: None Reported - Past Family History Father Additional Family Medical History / Comment(s): emphysema Mother Additional Family Medical History / Comment(s): -fell down stairs Sister(s) Family Medical History: Cancer Additional Family Medical History / Comment(s): breast Medications and Allergies Home Medications Medication Instructions Recorded Confirmed Type Levothyroxine Sodium [Synthroid] 37.5 mcg PO DAILY 12/31/16 05/26/23 History Atorvastatin [Lipitor] 20 mg PO HS 10/25/17 05/26/23 History metFORMIN HCL [Glucophage] 500 mg PO AC-BID 10/25/17 05/26/23 History Metoprolol Succinate (ER) [Toprol 50 mg PO DAILY 06/10/22 05/26/23 History XL] Losartan [Cozaar] 25 mg PO DAILY 08/01/22 05/26/23 History Potassium Chloride [K-Tab ER] 20 meq PO DAILY 08/01/22 05/26/23 History Citalopram Hydrobromide [CeleXA] 20 mg PO DAILY 08/02/22 05/26/23 History Furosemide [Lasix] 40 mg PO BID 05/26/23 05/26/23 History Repaglinide [Prandin] 1 mg PO BID 05/26/23 05/26/23 History Allergies Allergy/AdvReac Type Severity Reaction Status Date / Time ciprofloxacin [From Cipro] Allergy Nausea & Verified 05/26/23 18:11 Vomiting-severe nitrofurantoin Allergy Confusion Verified 05/26/23 18:11 [From Macrobid] Penicillins Allergy Rash/Hives Verified 05/26/23 18:11 codeine AdvReac Nausea & Verified 05/26/23 18:11 Vomiting Physical Exam Vitals: Vital Signs Temp Pulse Resp BP Pulse Ox 05/27/23 09:45 63 20 131/61 100 05/27/23 06:34 75 18 117/51 99 05/26/23 23:18 71 22 107/79 98 05/26/23 21:30 94 05/26/23 19:30 92 123/66 05/26/23 19:00 93 132/69 98 05/26/23 18:30 96 125/59 100 05/26/23 18:00 90 18 125/54 96 05/26/23 17:30 79 18 107/54 98 05/26/23 17:23 78 05/26/23 17:00 74 19 94/41 100 05/26/23 16:30 69 18 123/52 100 05/26/23 16:00 64 18 125/62 100 05/26/23 15:50 67 18 125/62 100 05/26/23 14:56 98.2 F 61 16 128/63 100 Intake and Output 05/26/23 05/27/23 05/27/23 22:59 06:59 14:59 Intake Total 140.743 Balance 140.743 Intake: Intake, IV Titration 140.743 Amount Heparin Sod,Pork in 0.45% 140.743 NaCl 25,000 unit In 0.45 % NaCl 1 250ml.bag @ 18 UNITS/KG/HR 12.492 mls/hr IV .Q20H1M [facility] Rx#: [id number] Results 05/27/23 04:09 05/27/23 04:09 Cardiac Enzymes 05/26/23 05/26/23 05/27/23 Range/Units 15:45 15:45 04:09 AST 31 30 (14-36) U/L Troponin I <0.012 (0.000-0.034) ng/mL Coagulation 05/26/23 05/27/23 Range/Units 15:45 02:56 PT 10.7 (9.0-12.0) sec APTT 23.5 179.8 H* (22.0-30.0) sec CBC 05/26/23 05/27/23 Range/Units 15:45 04:09 WBC 7.6 6.4 (3.8-10.6) k/uL RBC 3.76 L 3.36 L (3.80-5.40) m/uL Hgb 11.2 L 10.0 L (11.4-16.0) gm/dL Hct 34.7 31.5 L (34.0-46.0) % Plt Count 215 205 (150-450) k/uL Comprehensive Metabolic Panel 05/26/23 05/27/23 Range/Units 15:45 04:09 Sodium 136 L 137 (137-145) mmol/L Potassium 3.6 3.3 L (3.5-5.1) mmol/L Chloride 101 105 (98-107) mmol/L Carbon Dioxide 21 L 24 (22-30) mmol/L BUN 43 H 39 H (7-17) mg/dL Creatinine 2.03 H 1.92 H (0.52-1.04) mg/dL Glucose 62 L 124 H (74-99) mg/dL Calcium 9.4 8.4 (8.4-10.2) mg/dL AST 31 30 (14-36) U/L ALT 22 17 (4-34) U/L Alkaline Phosphatase 80 70 (38-126) U/L Total Protein 6.8 5.4 L (6.3-8.2) g/dL Albumin 4.2 3.1 L (3.5-5.0) g/dL Current Medications Generic Name Dose Route Start Last Admin Trade Name Freq PRN Reason Stop Dose Admin Albuterol/Ipratropium 3 ml 05/26/23 19:18 Ipratropium-Albuterol 3 Ml Neb INHALATION RT-Q4H PRN Shortness Of Breath Or Wheezing Atorvastatin Calcium 20 mg 05/27/23 21:00 Atorvastatin 20 Mg Tab PO HS CARMEN Citalopram Hydrobromide 20 mg 05/27/23 09:00 05/27/23 09:43 Citalopram Hydrobromide 20 Mg Tab PO 20 mg DAILY CARMEN Administration Dapagliflozin 10 mg 05/27/23 09:00 05/27/23 10:00 Dapagliflozin Propanediol 10 Mg Tablet PO 10 mg DAILY CARMEN Administration Dextrose/Water 25 ml 05/27/23 01:37 Dextrose 50% Syringe 50 Ml IVP PER PROTOCOL PRN Hypoglycemia Protocol Dextrose/Water 50 ml 05/27/23 01:37 Dextrose 50% Syringe 50 Ml IVP PER PROTOCOL PRN Hypoglycemia Protocol Furosemide 40 mg 05/27/23 09:00 05/27/23 09:44 Furosemide 10 Mg/Ml 4 Ml Vial IV 40 mg Q12HR CARMEN Administration Heparin Sodium (Porcine) 0 unit 05/26/23 19:06 Heparin Sodium 1,000 Un/Ml (10ml Vl) IV PER PROTOCOL PRN Low PTT Protocol Heparin Sodium/Sodium Chloride 250 mls @ 12.492 mls/hr 05/26/23 19:15 05/27/23 06:29 25,000 unit/ Sodium Chloride IV 15 units/kg/hr .Q20H1M CARMEN 10.41 mls/hr Titration Protocol 18 UNITS/KG/HR Magnesium Sulfate/Dextrose 1 100 mls @ 100 mls/hr 05/27/23 09:30 05/27/23 09:42 gm/ IV Solution IVPB 05/27/23 12:29 100 mls/hr Q1H CARMEN Administration Insulin Aspart 0 unit 05/27/23 07:30 05/27/23 09:25 Insulin Aspart (Novolog) 100 Unit/Ml Vial SQ Not Given ACHS CARMEN Protocol Levothyroxine Sodium 37.5 mcg 05/27/23 06:30 05/27/23 06:33 Levothyroxine 25 Mcg Tab PO 37.5 mcg DAILY@0630 CARMEN Administration Losartan Potassium 25 mg 05/27/23 09:00 05/27/23 09:43 Losartan 25 Mg Tab PO 25 mg DAILY CARMEN Administration Metoprolol Succinate 50 mg 05/27/23 09:00 05/27/23 09:43 Metoprolol Succinate (Er) 50 Mg Tab.Er.24h PO 50 mg DAILY CARMEN Administration Morphine Sulfate 4 mg 05/26/23 19:03 Morphine Sulfate 4 Mg/Ml Syringe IV Q4HR PRN Severe Pain (Scale 7 to 10) Naloxone HCl 0.2 mg 05/26/23 19:03 Naloxone 0.4 Mg/Ml 1 Ml Vial IV Q2M PRN Opioid Reversal Ondansetron HCl 4 mg 05/26/23 19:03 Ondansetron 4 Mg/2 Ml Vial IVP Q8HR PRN Nausea And Vomiting Pantoprazole Sodium 40 mg 05/27/23 09:00 05/27/23 09:43 Pantoprazole 40 Mg/10 Ml Vial IV 40 mg DAILY CARMEN Administration Intake and Output 05/26/23 05/27/23 05/27/23 22:59 06:59 14:59 Intake Total 140.743 Balance 140.743 Intake: Intake, IV Titration 140.743 Amount Heparin Sod,Pork in 0.45% 140.743 NaCl 25,000 unit In 0.45 % NaCl 1 250ml.bag @ 18 UNITS/KG/HR 12.492 mls/hr IV .Q20H1M [facility] Rx#: [id number] 05/27/23 04:09 05/27/23 04:09
[2023-05-27 12:04] LABS: Glucose,Whole Blood 189 mg/dL (70-110)
--- NOTE | 2023-05-27 13:35 | CA ---
Transthoracic Echo Report Name: Cyndee Sapp Age: 82 Gender: F : 1940 Exam Date: 05/27/2023 10:30 Exam Location: [facility] Ht (in): 64 Wt (lb): 153 Ordering Physician: Catie Scott MD Attending/Referring Phys: [id number] P[employer] Recovery Specialist Megan Reid [facility] Procedure CPT: Indications: exertional dyspnea Cardiac Hx: Technical Quality: Technically difficult study Contrast 1: Lumason Total Dose (mL): 5 Contrast 2: Total Dose (mL): MEASUREMENTS (Male / Female) Normal Values 2D ECHO LV Diastolic Diameter PLAX 6.5 cm 4.2 - 5.9 / 3.9 - 5.3 cm LV Systolic Diameter PLAX 5.6 cm IVS Diastolic Thickness 1.0 cm 0.6 - 1.0 / 0.6 - 0.9 cm LVPW Diastolic Thickness 0.9 cm 0.6 - 1.0 / 0.6 - 0.9 cm LV Relative Wall Thickness 0.3 LVOT Diameter 2.0 cm LV Diastolic Volume MOD BP 197.9 cm??? 67 - 155 / 56 - 104 cm??? LV Systolic Volume MOD BP 149.1 cm??? 22 - 58 / 19 - 49 cm??? LV Ejection Fraction MOD BP 24.6 % >= 55 % LV Cardiac Index MOD BP 1747.5 cm???/min???m??? LV Diastolic Volume MOD 4C 185.0 cm??? LV Systolic Volume MOD 4C 145.9 cm??? LV Ejection Fraction MOD 4C 21.1 % LV Cardiac Index MOD 4C 1400.0 cm???/min???m??? LV Diastolic Length 4C 9.2 cm LV Systolic Length 4C 7.6 cm LV Diastolic Volume MOD 2C 196.9 cm??? LV Systolic Volume MOD 2C 130.8 cm??? LV Ejection Fraction MOD 2C 33.6 % LV Cardiac Index MOD 2C 2370.3 cm???/min???m??? LV Diastolic Length 2C 9.9 cm LV Systolic Length 2C 8.9 cm Ascending Aorta Diameter 3.0 cm M-MODE Aortic Root Diameter MM 2.7 cm LA Systolic Diameter MM 3.2 cm LA Ao Ratio MM 1.2 AV Cusp Separation MM 1.9 cm DOPPLER AV Peak Velocity 136.8 cm/s AV Peak Gradient 7.5 mmHg AV Mean Velocity 92.7 cm/s AV Mean Gradient 4.0 mmHg AV Velocity Time Integral 33.4 cm LVOT Peak Velocity 120.8 cm/s LVOT Peak Gradient 5.8 mmHg LVOT Velocity Time Integral 23.7 cm LVOT Stroke Volume 77.9 cm??? LVOT Stroke Volume Index 44.6 ml/m??? LVOT Cardiac Index 2792.5 cm???/min???m??? AV Area Cont Eq vti 2.3 cm??? AV Area Cont Eq pk 2.9 cm??? Mitral E Point Velocity 64.8 cm/s Mitral A Point Velocity 118.3 cm/s Mitral E to A Ratio 0.5 MV Deceleration Time 131.3 ms LV E' Lateral Velocity 8.1 cm/s Mitral E to LV E' Lateral Ratio 8.0 LV E' Septal Velocity 4.2 cm/s Mitral E to LV E' Septal Ratio 15.4 TR Peak Velocity 231.1 cm/s TR Peak Gradient 21.4 mmHg Right Atrial Pressure 8.0 mmHg Pulmonary Artery Systolic Pressu 29.4 mmHg Right Ventricular Systolic Press 29.4 mmHg FINDINGS Left Ventricle Dilated left ventricle. Severely decreased left ventricular ejection fraction. Left ventricular wall thickness normal. Left ventricular ejection fraction is estimated at 15-20%. Global hypokinesis Right Ventricle Normal right ventricular size. Mild pulmonary hypertension. Right Atrium Normal right atrial size. Left Atrium Mild left atrial dilatation. Mitral Valve Mitral valve thickened. Mild mitral annular calcification. Mild mitral regurgitation. Aortic Valve Trileaflet aortic valve. Trace aortic regurgitation.aortic valve sclerosis. Tricuspid Valve Structurally normal tricuspid valve. Mild tricuspid regurgitation. Pulmonic Valve Pulmonic valve not well visualized. Trace pulmonic regurgitation. Pericardium No pericardial effusion. Aorta Normal size aortic root and proximal ascending aorta. CONCLUSIONS 1. Dilated left ventricle with severe global hypokinesis consistent with nonischemic cardiomyopathy 2. Mild mitral and tricuspid regurgitation Previewed by: Dr. Ubaldo Thorpe MD (Electronically Signed) Final Date: 27 May 2023 13:34
[2023-05-27] MEDS: HEPARIN SOD,PORK IN 0.45% NACL 25,000 UNIT in 0.45% NACL 1 250ML.BAG IV SCH ×2 (15:52→19:02)
[2023-05-27 17:39] LABS: Glucose,Whole Blood 133 mg/dL (70-110)
--- NOTE | 2023-05-27 18:04 | P.PN ---
Subjective Progress Note Date: 05/27/23 Hospital course: Patient is a very pleasant 82-year-old female with a past medical history of hypertension, hyperlipidemia, congestive heart failure, ood-ghwhxco-ysgmbfnks diabetes mellitus, chronic kidney disease stage IIIB and hypothyroidism with previous diagnosis of thyroid cancer status post partial thyroidectomy. She presented to the emergency department on 05/26/23 with a chief complaint of shortness of breath. Patient reported progressively worsening exertional shortness of breath 3 weeks now shortness of breath at rest and/or with talking. She underwent full evaluation in the emergency department. EKG was completed showing sinus bradycardia at 58 bpm with a left bundle branch block (left bundle branch block previously known and on EKG from 10/18/22). X-ray was completed showing chronic changes negative for acute process and per radiology report showing no significant changes from prior chest x-ray completed 06/10/22. Labs completed and reviewed. CBC showing normocytic anemia with hemoglobin of 11.2. BMP revealing acute kidney injury with BUN of 43, creatinine 2.03, and GFR of 22. Blood glucose level was only 62 and magnesium low at 1.1. Troponin was less than 0.012 and pro-BMP was 5870. D-dimer was elevated at 1.81 and patient recently underwent a 1500 mile car ride. VQ scan and bilateral large family Dopplers were ordered. Patient was started on heparin infusion and admitted under our services with consultation to cardiology. Physical exam: Vital signs reviewed and stable. General: Nontoxic, no distress and appears stated age. Derm: Skin warm and dry, normal coloration for ethnicity. Head: Atraumatic, normocephalic and symmetric. Eyes: EOMs intact, no lid lag, and anicteric sclera Mouth: no lip lesions, mucus membranes moist Cardiovascular: regular rate and rhythm with normal S1S2, systolic murmur, positive posterior tibial pulses bilaterally, and cap refill < 2 seconds. Lungs: Respirations even, regular, and unlabored on room air. Lungs CTA bilaterally, no rhonchi, no rales, no wheezing, and no accessory muscle usage. Abdominal: soft, nontender to palpation, no guarding, no appreciable organomegaly Ext: ROM intact. No gross muscle atrophy, no edema, no contractures Neuro: Speech clear, face symmetrical and CN II-XII grossly intact with no noted focal neuro deficits Psych: Alert and oriented to person, place, time, and situation. Appropriate and pleasant affect. Assessment and Plan of Care: Exertional shortness of breath Acute on chronic Congestive heart failure exacerbation Elevated d-dimer History of left bundle branch block Hypertension Hyperlipidemia -Cardiology consulted, appreciate recommendations -Pulmonology following, reviewed documentation in chart -Continue heparin infusion pending VQ scan and Doppler results -Follow up on VQ scan results once available -Follow up on bilateral large family Doppler results -Telemetry monitoring -Stop fluids and start patient on Lasix 40 mg IVP every 12 hours -Echocardiogram to be completed -Patient to continue with cardiac medication regimen with atorvastatin 20 mg nightly, Acute kidney injury on stage III B chronic kidney disease Hypomagnesemia Hypokalemia Rdw-bzcjbng-wjoqqzrqh diabetes mellitus with episode of hypoglycemia -Hold losartan at this time secondary to acute kidney injury and patient requiring IV diuresis with Lasix. -Replace abnormal electrolyte values. Repeat morning labs showing potassium of 3.3 and magnesium of 1.5. Orders placed for K Dur 40 mEq by mouth 1 dose along with magnesium sulfate 3 g IVPB. -Orders placed for repeat BMP tomorrow morning to follow up on renal function and electrolyte levels. CODE STATUS: Full code DVT prophylaxis: heparin Discussed with: patient and RN Anticipated discharge date: clinical course to determine Anticipated discharge place: clinical course to determine Patient was seen independently by Nurse Pracitioner. This document was prepared using [employer] dictation software. Please allow for errors in music leader, while rare they do occur. Vitor Tse NP rendered care for this patient independently, reviewed the findings and plan as documented in the note above. I did not physically speak with or examine the patient on this date. Objective - Vital Signs Vital signs: Vital Signs Temp 98.2 F 05/26/23 14:56 Pulse 75 05/27/23 06:34 Resp 18 05/27/23 06:34 BP 117/51 05/27/23 06:34 Pulse Ox 99 05/27/23 06:34 FiO2 Intake & Output 05/26/23 05/27/23 05/27/23 18:59 06:59 18:59 Intake Total 140.743 Balance 140.743 Weight 69.4 kg Intake: Intake, IV Titration 140.743 Amount Heparin Sod,Pork in 0.45% 140.743 NaCl 25,000 unit In 0.45 % NaCl 1 250ml.bag @ 18 UNITS/KG/HR 12.492 mls/hr IV .Q20H1M [facility] Rx#: [id number] - Labs CBC & Chem 7: 05/28/23 10:50 05/28/23 10:50 Labs: Abnormal Lab Results - Last 24 Hours (Table) 05/26/23 05/26/23 05/26/23 Range/Units 15:45 15:45 17:10 RBC 3.76 L (3.80-5.40) m/uL Hgb 11.2 L (11.4-16.0) gm/dL Hct (34.0-46.0) % APTT (22.0-30.0) sec D-Dimer 1.81 H (<0.60) mg/L FEU Sodium 136 L (137-145) mmol/L Potassium (3.5-5.1) mmol/L Carbon Dioxide 21 L (22-30) mmol/L BUN 43 H (7-17) mg/dL Creatinine 2.03 H (0.52-1.04) mg/dL Glucose 62 L (74-99) mg/dL POC Glucose (mg/dL) (70-110) mg/dL Magnesium (1.6-2.3) mg/dL Total Protein (6.3-8.2) g/dL Albumin (3.5-5.0) g/dL 05/26/23 05/27/23 05/27/23 Range/Units 17:10 02:56 04:09 RBC 3.36 L (3.80-5.40) m/uL Hgb 10.0 L (11.4-16.0) gm/dL Hct 31.5 L (34.0-46.0) % APTT 179.8 H* (22.0-30.0) sec D-Dimer (<0.60) mg/L FEU Sodium (137-145) mmol/L Potassium (3.5-5.1) mmol/L Carbon Dioxide (22-30) mmol/L BUN (7-17) mg/dL Creatinine (0.52-1.04) mg/dL Glucose (74-99) mg/dL POC Glucose (mg/dL) (70-110) mg/dL Magnesium 1.1 L (1.6-2.3) mg/dL Total Protein (6.3-8.2) g/dL Albumin (3.5-5.0) g/dL 05/27/23 05/27/23 05/27/23 Range/Units 04:09 06:45 09:25 RBC (3.80-5.40) m/uL Hgb (11.4-16.0) gm/dL Hct (34.0-46.0) % APTT (22.0-30.0) sec D-Dimer (<0.60) mg/L FEU Sodium (137-145) mmol/L Potassium 3.3 L (3.5-5.1) mmol/L Carbon Dioxide (22-30) mmol/L BUN 39 H (7-17) mg/dL Creatinine 1.92 H (0.52-1.04) mg/dL Glucose 124 H (74-99) mg/dL POC Glucose (mg/dL) 136 H 116 H (70-110) mg/dL Magnesium 1.5 L (1.6-2.3) mg/dL Total Protein 5.4 L (6.3-8.2) g/dL Albumin 3.1 L (3.5-5.0) g/dL
[2023-05-27] MEDS: ATORVASTATIN 20 MG TAB PO SCH (23:08)
[2023-05-27 23:11] LABS: Glucose,Whole Blood 200 mg/dL (70-110)
[2023-05-27] MEDS: SODIUM CHLORIDE 0.9% 1,000 ML IV SCH (23:49)
[2023-05-28] MEDS: LEVOTHYROXINE 25 MCG TAB PO SCH (07:05)
[2023-05-28] MEDS: INSULIN ASPART (NovoLOG) 100 UNIT/ML VIAL SQ SCH ×4 (09:00→20:57)
[2023-05-28] MEDS: CITALOPRAM HYDROBROMIDE 20 MG TAB PO SCH (09:01)
[2023-05-28] MEDS: FUROSEMIDE 10 MG/ML 4 ML VIAL IV SCH (09:01)
[2023-05-28] MEDS: PANTOPRAZOLE 40 MG/10 ML VIAL IV SCH (09:01)
[2023-05-28] MEDS: METOPROLOL SUCCINATE (ER) 50 MG TAB.ER.24H PO SCH (09:01)
[2023-05-28] MEDS: DAPAGLIFLOZIN PROPANEDIOL 10 MG TABLET PO SCH (09:01)
[2023-05-28 11:14] LABS: HCT 36.4 % (34.0-46.0); HGB 11.3 gm/dL (11.4-16.0); Hypochromasia Slight; MCH 29.4 pg (25.0-35.0); MCHC 31.1 g/dL (31.0-37.0); MCV 94.8 fL (80.0-100.0); Mean Platelet Volume 9.1; Platelet Count 233 k/uL (150-450); RBC 3.84 m/uL (3.80-5.40); RDW 13.4 % (11.5-15.5); WBC 8.4 k/uL (3.8-10.6)
[2023-05-28 11:40] LABS: Glucose,Whole Blood 318 mg/dL (70-110)
--- NOTE | 2023-05-28 11:58 | P.PN ---
Subjective Progress Note Date: 05/28/23 HISTORY OF PRESENT ILLNESS: This is a 82-year-old female with a past medical history significant for hypertension, hyperlipidemia, diabetes, cardiomyopathy, congestive heart failure, nonobstructive coronary artery disease, and lung cancer with previous lobectomy and radiation. Patient follows in the office with Dr. Watson. We have been asked to see the patient in consultation for shortness of breath. Patient examined at the bedside in the emergency room. Patient states yesterday she saw her primary care physician secondary to shortness of breath. Her primary care physician recommended that she call her creeler to see if she could be seen. Patient was seen yesterday by Dr. Watson and referred to come to the ER. Patient states she has been having shortness of breath over the past couple weeks it has gotten progressively worse. She also reports having some mild lang st discomfort. She reports that she has been feeling dizzy as well lately. Denies any episodes of syncope. She states she has been feeling extremely tired and has been taking a lot of naps at home. She denies any fever or chills. * EKG reveals sinus bradycardia with left bundle branch block * Chest xray chronic changes without acute pulmonary process. * VQ scan: Intermediate probability for pulmonary embolism * Venous Doppler: Negative for DVT bilaterally * Laboratory data: WBC 6.4. Hemoglobin 10.0. Platelet count 205. Sodium 137. Potassium 3.3. BUN 39. Creatinine 1.92. ProBNP 5870. * Current home cardiac medications include losartan 25 mg daily, metoprolol succinate 50 mg daily, Lasix 40 mg twice a day, Lipitor 20 g at night * Most recent echocardiogram obtained in November 2022 at the office revealed ejection fraction 20-25%, large hypokinetic areas of the anterior and anteroseptal partida, medium-sized akinetic area of the inferior septal wall, mild aortic regurgitation, moderate mitral regurgitation, mild tricuspid regurgitation. * Cardiac catheterization history: July 2022 revealing mild nonobstructive coronary artery disease 05/28 Patient was transferred to the cardiac stepdown unit. Patient is seen today in follow-up. Echocardiogram reveals dilated ventricle with severe global hypokinesia consistent with nonischemic cardiomyopathy. Mild mitral and tricuspid regurgitation. EF 15-20%. Telemetry is sinus rhythm in the 90s, blood pressure 114/57, pulse ox 99% on room air. Patient remains on IV heparin and patient has been evaluated by pulmonary medicine thought to be low likelihood of pulmonary embolism and no need for CTA. Patient is also on IV Lasix 40 mg every 12. Weights and I&O not accurate. Patient is feeling better today from yesterday. Reviewed results with the patient. Plan to increase activity and plan for discharge soon. PHYSICAL EXAM: VITAL SIGNS: Reviewed. GENERAL: Well-developed in no acute distress. HEENT: Head is normocephalic. Pupils are equal, round. Sclerae anicteric. Mucous membranes of the mouth are moist. Neck supple. No JVD or thyromegaly LUNGS: Respirations even and unlabored. Lungs essentially clear to auscultation bilaterally. HEART: Regular rate and rhythm. S1 and S2 heard. Systolic murmur noted. EXTREMITIES: Normal range of motion. No clubbing or cyanosis. Peripheral pulses intact. No lower extremity edema NEUROLOGIC: Awake and alert. Oriented x 3. ASSESSMENT: Shortness of breath Acute on chronic heart failure with reduced EF, proBNP 5870 Intermediate probability of PE, per VQ scan Nonischemic cardiomyopathy, EF 20-25% Mild nonobstructive coronary artery disease, per cardiac catheterization in July 2022 Acute on chronic kidney disease History of lung cancer with previous lobectomy and radiation therapy Hypertension Hyperlipidemia Former nicotine dependence PLAN: IV heparin to be managed by Dr. Diaz Transition IV Lasix 40 mg every 12 hours to oral Daily weights, accurate I&O, and monitor kidney function Depending on patients prognosis in terms of her lung cancer, patient may benefit from AICD implantation secondary to LBBB and cardiomyopathy Plan to increase patient's activity level and if doing well later is cleared from cardiology for discharge and planned follow-up in the office with Dr. Arely Watson. Nurse practitioner note has been reviewed by physician. Signing provider agrees with the documented findings, assessment, and plan of care. Objective - Vital Signs Vital signs: Vital Signs Temp 98.2 F 05/26/23 14:56 Pulse 69 05/28/23 04:59 Resp 16 05/28/23 04:59 BP 114/57 05/28/23 04:59 Pulse Ox 99 05/28/23 04:59 FiO2 Intake & Output 05/27/23 05/28/23 05/28/23 18:59 06:59 18:59 Intake Total 97.68 180 Balance 97.68 180 Intake: Intake, IV Titration 97.68 Amount Heparin Sod,Pork in 0.45% 97.68 NaCl 25,000 unit In 0.45 % NaCl 1 250ml.bag @ 18 UNITS/KG/HR 12.492 mls/hr IV .Q20H1M [facility] Rx#: [id number] Oral 180 - Labs CBC & Chem 7: 05/28/23 10:50 05/27/23 04:09 Labs: Abnormal Lab Results - Last 24 Hours (Table) 05/27/23 05/27/23 05/27/23 Range/Units 09:25 11:56 12:02 APTT 77.6 H (22.0-30.0) sec POC Glucose (mg/dL) 116 H 189 H (70-110) mg/dL 05/27/23 05/27/23 Range/Units 17:38 23:10 APTT (22.0-30.0) sec POC Glucose (mg/dL) 133 H 200 H (70-110) mg/dL
--- NOTE | 2023-05-28 12:15 | P.PN ---
Subjective Progress Note Date: 05/28/23 I am seeing this patient in new consultation today 05/27/2023 after the patient presented to emergency room yesterday evening complaining of progressively worsening shortness of breath over the last 3 weeks. 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 Her PCP is Dr. Arciniega. She does also follow in the office with Dr. Lynn for her history of lung cancer. Most recent non-en hanced chest CAT scan done in March, shows a slightly diminished size of the right apical irregular density, a new 0.6 cm nodule within the lingula, thickened left adrenal gland which was stable from comparison, and stable cystic and solid findings within bilateral kidneys. Patient presented to the emergency room yesterday evening complaining of shortness of breath that has progressively worsened over the last 3 weeks. This is accompanied with a non-radiating left-sided chest pain. She first noticed it while at her great grandson's [employer] game. It has worsened to the point where she now is dyspneic even with conversations. She was given a when necessary albuterol inhaler by her PCP last Friday, which reportedly did not help much with her dyspnea. Denies any history of COPD or asthma. Denies cough, fever, chills, myalgias. Denies heart palpitations, syncope, orthopnea, or lower extremity swelling. She has been taking her Lasix. 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 On arrival to the emergency room, she was found to be mildly hypoglycemic, which was corrected. Chest x-ray on arrival showed no acute cardiopulmonary process. No focal infiltrates or evidence of pneumonia. D-dimer was elevated at 1.81. Patient does admit some recent prolonged car travel. Denies any leg pain or unilateral swelling. Denies any personal history of blood clots or coagulopathy. Chest CTA was deferred due to the patient's renal status. There is a scheduled VQ scan. Cur rently, the patient is on the high intensity heparin protocol. CBC was unremarkable on arrival. BMP shows sodium 136, potassium 3.6, chloride 101, serum bicarb 21, BUN 43, creatinine 2.03, glucose 74. Normal saline is infusing at 75 mL per hour. Troponins less than 0.012. NT proBNP elevated at 5870. No CXR evidence of fluid overload or pulmonary edema. She is currently sitting up in bed, on room air, in no acute distress. Hemodynamically she is stable. On today's evaluation of 05/28/2023, the patient remains on IV heparin. She is comfortable. No new complaints. Echocardiogram was repeated and the patient has severe decrease in LV function with an ejection fraction of 15-20% and there is global hypokinesis. LV is dilated. I discussed the case with cardiology. IV heparin will be discontinued. Hemoglobin is at 11.3 and a white cell count of 8.4. Doppler of the lower extremities were negative. Objective - Vital Signs Vital signs: Vital Signs Temp 98.4 F 05/28/23 07:00 Pulse 92 05/28/23 07:00 Resp 16 05/28/23 07:00 BP 106/53 05/28/23 07:00 Pulse Ox 99 05/28/23 07:00 FiO2 Intake & Output 05/27/23 05/28/23 05/28/23 18:59 06:59 18:59 Intake Total 97.68 180 Balance 97.68 180 Intake: Intake, IV Titration 97.68 Amount Heparin Sod,Pork in 0.45% 97.68 NaCl 25,000 unit In 0.45 % NaCl 1 250ml.bag @ 18 UNITS/KG/HR 12.492 mls/hr IV .Q20H1M [facility] Rx#: [id number] Oral 180 Other: # Voids 1 - Exam GENERAL EXAM: Alert, 82-year-old white female appearing stated age, comfortable in no apparent distress. HEAD: Normocephalic and atraumatic EYES: Normal reaction of pupils, equal size. NOSE: Clear with pink turbinates. THROAT: No erythema or exudates. NECK: No masses, no JVD. CHEST: No chest wall deformity. LUNGS: Equal air entry with no crackles, wheeze, rhonchi or dullness. On room air. Mildly dyspneic with conversation. CVS: S1 and S2 normal with no audible murmur, regular rhythm. No extra heart sounds ABDOMEN: No hepatosplenomegaly, active bowel sounds, no guarding or rigidity. SPINE: No scoliosis or deformity SKIN: No rashes CENTRAL NERVOUS SYSTEM: No focal deficits, tone is normal in all 4 extremities. EXTREMITIES: There is no peripheral edema, clubbing, or cyanosis. Peripheral pulses are intact. - Labs CBC & Chem 7: 05/28/23 10:50 05/27/23 04:09 Labs: Abnormal Lab Results - Last 24 Hours (Table) 05/27/23 05/27/23 05/27/23 Range/Units 11:56 12:02 17:38 APTT 77.6 H (22.0-30.0) sec POC Glucose (mg/dL) 189 H 133 H (70-110) mg/dL 05/27/23 Range/Units 23:10 APTT (22.0-30.0) sec POC Glucose (mg/dL) 200 H (70-110) mg/dL Assessment and Plan Assessment: Acute dyspnea, currently under investigation. Chest x-ray on arrival showed no acute cardiopulmonary process. D-dimer was elevated at 1.81. Chest CTA was deferred due to the patient's renal status. There is a scheduled VQ scan. Currently, the patient is on the high intensity heparin protocol. Elevated d-dimer Hypoglycemia, improved Acute on chronic kidney disease, creatinine 2.03 Hypomagnesemia, being corrected History of nonischemic cardiomyopathy, left ventricular ejection fraction estimated at 15% on most recent available echocardiogram done April,. History of non small cell lung carcinoma, status post right middle lobectomy back in 2016, with recurrence and subsequent SBRT in November 2021. History of pulmonary nodules, being followed on outpatient basis History of thyroid cancer, status post partial thyroidectomy Hypothyroidism, secondary to above Benign essential hypertension Hyperlipidemia Diabetes mellitus type 2 Chronic kidney disease stage IV Plan: Stop the IV heparin Placed the patient on subcu heparin for DVT prophylaxis Echocardiogram was noted and the patient has dilated LV with severe impairment of LV function with an ejection fraction of 50% Optimize CHF The patient is on oral Lasix The patient is on metoprolol and farxiga The shortness of breath is essentially related to her heart failure. Cardiology consultation is appreciated. I also reviewed her lung CAT scans from before. The patient has chronic radiation scar in the right upper lobe. 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 Subsequently, the patient was found to have a abnormal nodule in the right upper lobe that was treated with SBR T. This fibrotic area is irregular and tender diminished in size based on the most recent CAT scan of the chest lizz t was done on 03/21/2023. There is however a 6 mm nodule in the left that can be followed up on outpatient basis. Her flask handler is Dr. Lynn and she is also being followed up by radiation oncology regarding the pulmonary nodules. No active intervention is recommended regarding those nodules. I do not see the need for a CT angiogram. Low likelihood for pulmonary embolism.
[2023-05-28 12:37] LABS: ALT 23 U/L (4-34); AST 30 U/L (14-36); African American GFR (CKD) 24 (>60 ml/min/1.73 sqM); Albumin 4.3 g/dL (3.5-5.0); Alkaline Phosphatase 86 U/L (38-126); Anion Gap 12 mmol/L; Blood Urea Nitrogen 33 mg/dL (7-17); Calcium 9.3 mg/dL (8.4-10.2); Carbon Dioxide 25 mmol/L (22-30); Chloride 101 mmol/L (98-107); Glucose 259 mg/dL (74-99); Magnesium 2.4 mg/dL (1.6-2.3); Non-African American GFR(CKD) 20 (>60 ml/min/1.73 sqM); Potassium 3.3 mmol/L (3.5-5.1); Sodium 138 mmol/L (137-145); Total Bilirubin 0.6 mg/dL (0.2-1.3); Total Protein 6.9 g/dL (6.3-8.2)
[2023-05-28] MEDS ORDERED: POTASSIUM CHLORIDE ER 20 MEQ TAB.ER PO STA (12:48)
--- NOTE | 2023-05-28 12:57 | P.PN ---
Subjective Progress Note Date: 05/28/23 Hospital course: Patient is a very pleasant 82-year-old female with a past medical history of hypertension, hyperlipidemia, congestive heart failure, oin-welaxyt-arcicrahw diabetes mellitus, chronic kidney disease stage IIIB and hypothyroidism with previous diagnosis of thyroid cancer status post partial thyroidectomy. She presented to the emergency department on 05/26/23 with a chief complaint of shortness of breath. Patient reported progressively worsening exertional shortness of breath 3 weeks now shortness of breath at rest and/or with talking. She underwent full evaluation in the emergency department. EKG was completed showing sinus bradycardia at 58 bpm with a left bundle branch block (left bundle branch block previously known and on EKG from 10/18/22). X-ray was completed showing chronic changes negative for acute process and per radiology report showing no significant changes from prior chest x-ray completed 06/10/22. Labs completed and reviewed. CBC showing normocytic anemia with hemoglobin of 11.2. BMP revealing acute kidney injury with BUN of 43, creatinine 2.03, and GFR of 22. Blood glucose level was only 62 and magnesium low at 1.1. Troponin was less than 0.012 and pro-BMP was 5870. D-dimer was elevated at 1.81 and patient recently underwent a 1500 mile car ride. VQ scan and bilateral large family Dopplers were ordered. Patient was started on heparin infusion and admitted under our services with consultation to cardiology. VQ scan showing intermediate probability for pulmonary emboli. Echocardiogram completed showing a severely reduced EF of 15-20% with severe global hypokinesis consistent with nonischemic cardiomyopathy and mitral valve regurgitation. Bilateral lower extremity Doppler results negative for DVT, left lower extremity showing 4.5 cm medial anterior fluid collection consistent with Farris's cyst. Discussed with senior asic engineer, Dr. Diaz whom stated he personally reviewed VQ scan and he stated pulmonary emboli has been ruled out and discontinued IV Heparin at this time and started patient on subcu heparin for DVT prophylaxis. Physical exam: Vital signs reviewed and stable. General: Nontoxic, no distress and appears stated age. Derm: Skin warm and dry, normal coloration for ethnicity. Head: Atraumatic, normocephalic and symmetric. Eyes: EOMs intact, no lid lag, and anicteric sclera Mouth: no lip lesions, mucus membranes moist Cardiovascular: regular rate and rhythm with normal S1S2, systolic murmur, positive posterior tibial pulses bilaterally, and cap refill < 2 seconds. Lungs: Respirations even, regular, and unlabored on room air. Lungs CTA bilaterally, no rhonchi, no rales, no wheezing, and no accessory muscle usage. Abdominal: soft, nontender to palpation, no guarding, no appreciable organomegaly Ext: ROM intact. No gross muscle atrophy, no edema, no contractures Neuro: Speech clear, face symmetrical and CN II-XII grossly intact with no noted focal neuro deficits Psych: Alert and oriented to person, place, time, and situation. Appropriate and pleasant affect. Assessment and Plan of Care: Acute pulmonary emboli Acute on chronic systolic congestive heart failure exacerbation Ischemic cardiomyopathy with an EF of 15-20% and severe global hypokinesis Exertional shortness of breath, to above Elevated d-dimer, secondary to acute PE History of left bundle branch block Hypertension Hyperlipidemia -VQ scan showing intermediate probability for pulmonary emboli. Discussed with senior asic engineer, Dr. Diaz whom stated he personally reviewed VQ scan and he stated pulmonary emboli has been ruled out and discontinued IV Heparin at this time and started patient on subcu heparin for DVT prophylaxis. -Echocardiogram completed showing a severely reduced EF of 15-20% with severe global hypokinesis consistent with nonischemic cardiomyopathy and mitral valve regurgitation -Bilateral lower extremity Doppler results negative for DVT, left lower extremity showing 4.5 cm medial anterior fluid collection consistent with Farris's cyst -Cardiology following, reviewed documentation in chart and they started patient on Farxiga 10 mg daily and are recommending changing patient from IV Lasix back to oral Lasix 40 mg twice a day secondary to worsening renal function -Pulmonology following, and discussed case with senior asic engineer as stated above. -Continue Telemetry monitoring -Patient to otherwise continue with cardiac medication regimen with atorvastatin 20 mg nightly, metoprolol 50 mg daily, Lasix 40 mg twice a day, and now Farxiga 10 mg daily. Losartan was held secondary to acute kidney injury. Acute kidney injury on stage III B chronic kidney disease Hypokalemia -Hold losartan at this time secondary to acute kidney injury. -Replace abnormal electrolyte values. Repeat morning labs showing potassium of 3.3 and magnesium of 1.5. Orders placed for K Dur 40 mEq by mouth 1 dose along with magnesium sulfate 3 g IVPB. -Orders placed for repeat BMP tomorrow morning to follow up on renal function and electrolyte levels. Jpi-aujuvfr-flxhwdlrr diabetes mellitus with isolated episode of hypoglycemia -Patient had isolated episode of hypoglycemia. Glucose upon arrival to our facility was 62. -Blood glucose levels have been monitored closely and patient had no further episodes of hypoglycemia. -Continue glycemic protocol with NovoLog sliding scale. Hypomagnesemia, resolved CODE STATUS: Full code DVT prophylaxis: heparin Discussed with: patient, patient's family at bedside, senior asic engineer and RN Anticipated discharge date: clinical course to determine Anticipated discharge place: clinical course to determine Patient was seen independently by Nurse Pracitioner. This document was prepared using [employer] dictation software. Please allow for errors in varnish maker helper, while rare they do occur. Vitor Tse NP rendered care for this patient independently, reviewed the findings and plan as documented in the note above. I did not physically speak with or examine the patient on this date. Objective - Vital Signs Vital signs: Vital Signs Temp 98.2 F 05/26/23 14:56 Pulse 69 05/28/23 04:59 Resp 16 05/28/23 04:59 BP 114/57 05/28/23 04:59 Pulse Ox 99 05/28/23 04:59 FiO2 Intake & Output 05/27/23 05/28/23 05/28/23 18:59 06:59 18:59 Intake Total 97.68 Balance 97.68 Intake: Intake, IV Titration 97.68 Amount Heparin Sod,Pork in 0.45% 97.68 NaCl 25,000 unit In 0.45 % NaCl 1 250ml.bag @ 18 UNITS/KG/HR 12.492 mls/hr IV .Q20H1M [facility] Rx#: [id number] - Labs CBC & Chem 7: 05/28/23 10:50 05/28/23 10:50 Labs: Abnormal Lab Results - Last 24 Hours (Table) 05/27/23 05/27/23 05/27/23 Range/Units 09:25 11:56 12:02 APTT 77.6 H (22.0-30.0) sec POC Glucose (mg/dL) 116 H 189 H (70-110) mg/dL 05/27/23 05/27/23 Range/Units 17:38 23:10 APTT (22.0-30.0) sec POC Glucose (mg/dL) 133 H 200 H (70-110) mg/dL
[2023-05-28] MEDS: FUROSEMIDE 40 MG TAB PO SCH (16:13)
[2023-05-28 16:19] LABS: Glucose,Whole Blood 133 mg/dL (70-110)
[2023-05-28] MEDS: HEPARIN SOD,PORK IN 0.45% NACL 25,000 UNIT in 0.45% NACL 1 250ML.BAG IV SCH (17:15)
[2023-05-28 20:44] LABS: Glucose,Whole Blood 173 mg/dL (70-110)
[2023-05-28] MEDS: ATORVASTATIN 20 MG TAB PO SCH (20:57)
[2023-05-28] MEDS: HEPARIN SODIUM,PORCINE 5,000 UNIT/ML 1 ML VIAL SQ SCH (20:57)
[2023-05-29 06:04] LABS: Glucose,Whole Blood 142 mg/dL (70-110)
[2023-05-29] MEDS: INSULIN ASPART (NovoLOG) 100 UNIT/ML VIAL SQ SCH ×4 (06:08→20:31)
[2023-05-29] MEDS: LEVOTHYROXINE 25 MCG TAB PO SCH (06:12)
[2023-05-29] MEDS: METOPROLOL SUCCINATE (ER) 50 MG TAB.ER.24H PO SCH (08:39)
[2023-05-29] MEDS: PANTOPRAZOLE 40 MG/10 ML VIAL IV SCH (08:39)
[2023-05-29] MEDS: HEPARIN SODIUM,PORCINE 5,000 UNIT/ML 1 ML VIAL SQ SCH ×2 (08:39→20:32)
[2023-05-29] MEDS: DAPAGLIFLOZIN PROPANEDIOL 10 MG TABLET PO SCH (08:40)
[2023-05-29] MEDS: CITALOPRAM HYDROBROMIDE 20 MG TAB PO SCH (08:40)
[2023-05-29] MEDS: FUROSEMIDE 40 MG TAB PO SCH (08:40)
[2023-05-29 08:42] LABS: African American GFR (CKD) 20 (>60 ml/min/1.73 sqM); Anion Gap 11 mmol/L; Blood Urea Nitrogen 32 mg/dL (7-17); Calcium 9.1 mg/dL (8.4-10.2); Carbon Dioxide 24 mmol/L (22-30); Chloride 101 mmol/L (98-107); Glucose 207 mg/dL (74-99); Non-African American GFR(CKD) 18 (>60 ml/min/1.73 sqM); Potassium 4.4 mmol/L (3.5-5.1); Sodium 136 mmol/L (137-145)
--- NOTE | 2023-05-29 09:32 | CDI ---
Documentation Clarification Form Date: 05/29/2023 09:12:57 AM From: Linh Willams RN CCDS Phone: [phone] Admit Date: 05/26/2023 07:06:00 PM Patient Name: Cyndee Sapp Visit Number: [id number] Discharge Date: ATTENTION: The Clinical Documentation Specialists (CDI) and [facility] Coding Staff appreciate your assistance in clarifying documentation. Please respond to the clarification below the line at the bottom and electronically sign. The CDI & [facility] Coding staff will review the response and follow-up if needed. Please note: Queries are made part of the Legal Health Record. If you have any questions, please contact the author of this message via ITS. Dr. Cristina Mares Conflicting documentation has been found in the medical record. As attending physician, please provide clarification. Chronic kidney disease stage IV, Pulmonary H&P and Note 05/27 05/28. Chronic kidney disease stage IIIb, Medicine Notes, 05/27 & 05/28. History/Risk Factors: 82-year-old female presents with a three week history of progressive exertional dyspnea and recently shortness of breath while resting. Medical History: CKD 3b; Lung CA; Chronic systolic CHF and Thyroid disorder. H&P, 05/26 Clinical Indicators: 07/24/2022: Patients Historical BUN 36.0 CR 1.6; GFR 29.5 05/26/2023: Current BUN 43; CR 2.03; GFR 22 Treatment: 05/26 0.9NS 500cc IV Bolus; Farxiga; Losartan on hold Please clarify the stage of the CKD, if known: [ ] CKD Stage 3b (GFR 30-44) [x ] CKD Stage 4 (GFR 15-29) [ ] Other, please specify [ ] Unable to determine (Template Last revised: October 2020) MTDD
--- NOTE | 2023-05-29 11:01 | P.PN ---
Subjective Progress Note Date: 05/29/23 I am seeing this patient in new consultation today 05/27/2023 after the patient presented to emergency room yesterday evening complaining of progressively worsening shortness of breath over the last 3 weeks. 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 Her PCP is Dr. Acriniega. She does also follow in the office with Dr. Lynn for her history of lung cancer. Most recent non-en hanced chest CAT scan done in March, shows a slightly diminished size of the right apical irregular density, a new 0.6 cm nodule within the lingula, thickened left adrenal gland which was stable from comparison, and stable cystic and solid findings within bilateral kidneys. Patient presented to the emergency room yesterday evening complaining of shortness of breath that has progressively worsened over the last 3 weeks. This is accompanied with a non-radiating left-sided chest pain. She first noticed it while at her great grandson's pushd game. It has worsened to the point where she now is dyspneic even with conversations. She was given a when necessary albuterol inhaler by her PCP last Friday, which reportedly did not help much with her dyspnea. Denies any history of COPD or asthma. Denies cough, fever, chills, myalgias. Denies heart palpitations, syncope, orthopnea, or lower extremity swelling. She has been taking her Lasix. She was on her way to her medical research associate's office yesterday, when she became confused and was brought in by a family member to the emergency room. On arrival to the emergency room, she was found to be mildly hypoglycemic, which was corrected. Chest x-ray on arrival showed no acute cardiopulmonary process. No focal infiltrates or evidence of pneumonia. D-dimer was elevated at 1.81. Patient does admit some recent prolonged car travel. Denies any leg pain or unilateral swelling. Denies any personal history of blood clots or coagulopathy. Chest CTA was deferred due to the patient's renal status. There is a scheduled VQ scan. Cur rently, the patient is on the high intensity heparin protocol. CBC was unremarkable on arrival. BMP shows sodium 136, potassium 3.6, chloride 101, serum bicarb 21, BUN 43, creatinine 2.03, glucose 74. Normal saline is infusing at 75 mL per hour. Troponins less than 0.012. NT proBNP elevated at 5870. No CXR evidence of fluid overload or pulmonary edema. She is currently sitting up in bed, on room air, in no acute distress. Hemodynamically she is stable. On today's evaluation of 05/28/2023, the patient remains on IV heparin. She is comfortable. No new complaints. Echocardiogram was repeated and the patient has severe decrease in LV function with an ejection fraction of 15-20% and there is global hypokinesis. LV is dilated. I discussed the case with cardiology. IV heparin will be discontinued. Hemoglobin is at 11.3 and a white cell count of 8.4. Doppler of the lower extremities were negative. On today's evaluation of 05/29/2023, the patient is being seen for a follow-up. The patient is on room air oxygen. The patient denies having any specific complaints. She is feeling very much 50 weak and those were current complaints initially. She also has some exertional dyspnea and orthopnea. She remains on Lasix 40 mg by mouth daily. Rest of the cardiac medications remain unchanged. The patient is currently off IV heparin. She remains on room air oxygen. The lungs are clear. On her blood work, creatinine is at 2.4 with a BUN of 32 and a sodium level is at 136 and a potassium level is at 4.4. Objective - Vital Signs Vital signs: Vital Signs Temp 97.9 F 05/29/23 08:37 Pulse 66 05/29/23 08:37 Resp 18 05/29/23 08:37 BP 108/58 05/29/23 08:37 Pulse Ox 99 05/29/23 08:37 FiO2 Intake & Output 05/28/23 05/29/23 05/29/23 18:59 06:59 18:59 Intake Total 714.541 Balance 714.541 Weight 69.4 kg Intake: Intake, IV Titration 174.541 Amount Heparin Sod,Pork in 0.45% 174.541 NaCl 25,000 unit In 0.45 % NaCl 1 250ml.bag @ 18 UNITS/KG/HR 12.492 mls/hr IV .Q20H1M [facility] Rx#: [id number] Oral 540 Other: Voiding Method Toilet Toilet # Voids 3 1 - Exam GENERAL EXAM: Alert, 82-year-old white female appearing stated age, comfortable in no apparent distress. HEAD: Normocephalic and atraumatic EYES: Normal reaction of pupils, equal size. NOSE: Clear with pink turbinates. THROAT: No erythema or exudates. NECK: No masses, no JVD. CHEST: No chest wall deformity. LUNGS: Equal air entry with no crackles, wheeze, rhonchi or dullness. On room air. Mildly dyspneic with conversation. CVS: S1 and S2 normal with no audible murmur, regular rhythm. No extra heart sounds ABDOMEN: No hepatosplenomegaly, active bowel sounds, no guarding or rigidity. SPINE: No scoliosis or deformity SKIN: No rashes CENTRAL NERVOUS SYSTEM: No focal deficits, tone is normal in all 4 extremities. EXTREMITIES: There is no peripheral edema, clubbing, or cyanosis. Peripheral pulses are intact. - Labs CBC & Chem 7: 05/28/23 10:50 05/29/23 08:06 Labs: Abnormal Lab Results - Last 24 Hours (Table) 05/28/23 05/28/23 05/28/23 Range/Units 10:50 10:50 10:50 Hgb 11.3 L (11.4-16.0) gm/dL APTT (22.0-30.0) sec Sodium (137-145) mmol/L Potassium 3.3 L (3.5-5.1) mmol/L BUN 33 H (7-17) mg/dL Creatinine 2.17 H (0.52-1.04) mg/dL Glucose 259 H (74-99) mg/dL POC Glucose (mg/dL) (70-110) mg/dL Hemoglobin A1c 7.3 H (<=6.0) % Magnesium 2.4 H (1.6-2.3) mg/dL 05/28/23 05/28/23 05/28/23 Range/Units 10:50 11:37 16:18 Hgb (11.4-16.0) gm/dL APTT 122.6 H* (22.0-30.0) sec Sodium (137-145) mmol/L Potassium (3.5-5.1) mmol/L BUN (7-17) mg/dL Creatinine (0.52-1.04) mg/dL Glucose (74-99) mg/dL POC Glucose (mg/dL) 318 H 133 H (70-110) mg/dL Hemoglobin A1c (<=6.0) % Magnesium (1.6-2.3) mg/dL 05/28/23 05/29/23 05/29/23 Range/Units 20:42 06:02 08:06 Hgb (11.4-16.0) gm/dL APTT (22.0-30.0) sec Sodium 136 L (137-145) mmol/L Potassium (3.5-5.1) mmol/L BUN 32 H (7-17) mg/dL Creatinine 2.46 H (0.52-1.04) mg/dL Glucose 207 H (74-99) mg/dL POC Glucose (mg/dL) 173 H 142 H (70-110) mg/dL Hemoglobin A1c (<=6.0) % Magnesium (1.6-2.3) mg/dL Assessment and Plan Assessment: Acute dyspnea, currently under investigation. Chest x-ray on arrival showed no acute cardiopulmonary process. D-dimer was elevated at 1.81. Chest CTA was deferred due to the patient's renal status. There is a scheduled VQ scan. Currently, the patient is on the high intensity heparin protocol. Elevated d-dimer Hypoglycemia, improved Acute on chronic kidney disease, creatinine 2.03 Hypomagnesemia, being corrected History of nonischemic cardiomyopathy, left ventricular ejection fraction estimated at 15% on most recent available echocardiogram done April,. History of non small cell lung carcinoma, status post right middle lobectomy back in 2016, with recurrence and subsequent SBRT in November 2021. History of pulmonary nodules, being followed on outpatient basis History of thyroid cancer, status post partial thyroidectomy Hypothyroidism, secondary to above Benign essential hypertension Hyperlipidemia Diabetes mellitus type 2 Chronic kidney disease stage IV Plan: Monitor renal function Patient is currently on room air oxygen and she continues to have some exertional dyspnea and orthopnea Echocardiogram was noted and the patient has dilated LV with severe impairment of LV function with an ejection fraction of 15 % Optimize CHF, and cardiology is on the case The patient is on oral Lasix The patient is on metoprolol and farxiga The shortness of breath is essentially related to her heart failure. Cardiology consultation is appreciated. I also reviewed her lung CAT scans from before. The patient has chronic radiation scar in the right upper lobe. 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 Subsequently, the patient was found to have a abnormal nodule in the right upper lobe that was treated with SBRT. This fibrotic area is irregular and tender diminished in size based on the most recent CAT scan of the chest that was done on 03/21/2023. There is however a 6 mm nodule in the left that can be followed up on outpatient basis. Her contract driver is Dr. Lynn and she is also being followed up by radiation oncology regarding the pulmonary nodules. No active intervention is recommended regarding those nodules. I do not see the need for a CT angiogram. Low likelihood for pulmonary embolism. We'll continue to follow. We'll try to increase her mobility. The patient is known to have stage IV chronic kidney disease and we'll continue monitoring her renal function.
[2023-05-29 11:37] LABS: Glucose,Whole Blood 164 mg/dL (70-110)
--- NOTE | 2023-05-29 13:13 | P.PN ---
Subjective Progress Note Date: 05/29/23 Hospital Course: Patient is a very pleasant 82-year-old female with a past medical history of hypertension, hyperlipidemia, congestive heart failure, uwo-xesczvo-svypeuoxr diabetes mellitus, chronic kidney disease stage IIIB and hypothyroidism with previous diagnosis of thyroid cancer status post partial thyroidectomy. She presented to the emergency department on 05/26/23 with a chief complaint of shortness of breath. Patient reported progressively worsening exertional shortness of breath 3 weeks now shortness of breath at rest and/or with talking. She underwent full evaluation in the emergency department. EKG was completed showing sinus bradycardia at 58 bpm with a left bundle branch block (left bundle branch block previously known and on EKG from 10/18/22). X-ray was completed showing chronic changes negative for acute process and per radiology report showing no significant changes from prior chest x-ray completed 06/10/22. Labs completed and reviewed. CBC showing normocytic anemia with hemoglobin of 11.2. BMP revealing acute kidney injury with BUN of 43, creatinine 2.03, and GFR of 22. Blood glucose level was only 62 and magnesium low at 1.1. Troponin was less than 0.012 and pro-BMP was 5870. D-dimer was elevated at 1.81 and patient recently underwent a 1500 mile car ride. VQ scan and bilateral large family Dopplers were ordered. Patient was started on heparin infusion and admitted under our services with consultation to cardiology. VQ scan showing int ermediate probability for pulmonary emboli. Echocardiogram completed showing a severely reduced EF of 15-20% with severe global hypokinesis consistent with nonischemic cardiomyopathy and mitral valve regurgitation. Bilateral lower extremity Doppler results negative for DVT, left lower extremity showing 4.5 cm medial anterior fluid collection consistent with Farris's cyst. Discussed with performing arts road manager, Dr. Diaz whom stated he personally reviewed VQ scan and he stated pulmonary emboli has been ruled out and discontinued IV Heparin at this time and started patient on subcu heparin for DVT prophylaxis. Subjective: Patient seen and examined at bedside. No acute events overnight. Continues to have dyspnea with exertion and orthopnea. Feels fatigued. Pertinent positives and negatives as discussed above, a complete review of systems was performed and all other systems are negative. Vitals Signs Reviewed. General: nontoxic, no distress, appears at stated age Derm: warm, dry Head: atraumatic, normocephalic, symmetric Eyes: EOMI, no lid lag, anicteric sclera Mouth: no lip lesion, mucus membranes moist Cardiovascular: S1S2 reg, systolic murmur Lungs: CTA bilateral, no rhonchi, no rales , no accessory muscle use Abdominal: soft, nontender to palpation, no guarding, no appreciable organomegaly Ext: no gross muscle atrophy, no edema, no contractures Neuro: CN II-XI grossly intact, no focal neuro deficits Psych: Alert, oriented, appropriate affect Data Reviewed Today: Pertinent Labs: Sodium 136, potassium 4.4, BUN 32. Creatinine 2.46, magnesium 2, blood sugars range between 142-170. Imaging: No new imaging Assessment and Plan: Acute on chronic exertional dyspnea Acute on chronic systolic CHF exacerbation Nonischemic cardiomyopathy, EF 15-20% Elevated d-dimer, intermediate probability PE per VQ scan History of left bundle branch block Hypertension Dyslipidemia Hypokalemia, resolved Acute kidney injury on chronic kidney disease Type 2 diabetes Hypomagnesemia, resolved History of non-small cell lung carcinoma status post right middle lobe lobectomy, with recurrence and subsequent radiation History of thyroid cancer status post thyroidectomy Hypothyroidism -Pulmonology note reviewed, continue current management -Cardiology following, Lasix now at 40 mg daily oral, continue to monitor renal function and magnesium -Holding losartan in the setting of acute kidney injury -Potassium and magnesium normal, repeat BMP tomorrow -Continue sliding scale insulin, no changes -Pending discharge to rehab -Rest of the home medications continued DVT ppx: Subcu heparin Code status: Full code Anticipated discharge place: Rehab Anticipated discharge time: Tomorrow or Friday Objective - Vital Signs Vital signs: Vital Signs Temp 97.9 F 05/29/23 08:37 Pulse 66 05/29/23 08:37 Resp 18 05/29/23 08:37 BP 108/58 05/29/23 08:37 Pulse Ox 99 05/29/23 08:37 FiO2 Intake & Output 05/28/23 05/29/23 05/29/23 18:59 06:59 18:59 Intake Total 714.541 Balance 714.541 Weight 69.4 kg Intake: Intake, IV Titration 174.541 Amount Heparin Sod,Pork in 0.45% 174.541 NaCl 25,000 unit In 0.45 % NaCl 1 250ml.bag @ 18 UNITS/KG/HR 12.492 mls/hr IV .Q20H1M [facility] [place] Rx#: [id number] Oral 540 Other: Voiding Method Toilet Toilet Toilet # Voids 3 1 - Labs CBC & Chem 7: 05/28/23 10:50 05/29/23 08:06 Labs: Abnormal Lab Results - Last 24 Hours (Table) 05/28/23 05/28/23 05/28/23 Range/Units 10:50 16:18 20:42 Sodium (137-145) mmol/L BUN (7-17) mg/dL Creatinine (0.52-1.04) mg/dL Glucose (74-99) mg/dL POC Glucose (mg/dL) 133 H 173 H (70-110) mg/dL Hemoglobin A1c 7.3 H (<=6.0) % 05/29/23 05/29/23 05/29/23 Range/Units 06:02 08:06 11:36 Sodium 136 L (137-145) mmol/L BUN 32 H (7-17) mg/dL Creatinine 2.46 H (0.52-1.04) mg/dL Glucose 207 H (74-99) mg/dL POC Glucose (mg/dL) 142 H 164 H (70-110) mg/dL Hemoglobin A1c (<=6.0) %
--- NOTE | 2023-05-29 15:52 | P.PN ---
Subjective Progress Note Date: 05/29/23 HISTORY OF PRESENT ILLNESS: This is a 82-year-old female with a past medical history significant for hypertension, hyperlipidemia, diabetes, cardiomyopathy, congestive heart failure, nonobstructive coronary artery disease, and lung cancer with previous lobectomy and radiation. Patient follows in the office with Dr. Watson. We have been asked to see the patient in consultation for shortness of breath. Patient examined at the bedside in the emergency room. Patient states yesterday she saw her primary care physician secondary to shortness of breath. Her primary care physician recommended that she call her gun perforator loader to see if she could be seen. Patient was seen yesterday by Dr. Watson and referred to come to the ER. Patient states she has been having shortness of breath over the past couple weeks it has gotten progressively worse. She also reports having some mild lang st discomfort. She reports that she has been feeling dizzy as well lately. Denies any episodes of syncope. She states she has been feeling extremely tired and has been taking a lot of naps at home. She denies any fever or chills. * EKG reveals sinus bradycardia with left bundle branch block * Chest xray chronic changes without acute pulmonary process. * VQ scan: Intermediate probability for pulmonary embolism * Venous Doppler: Negative for DVT bilaterally * Laboratory data: WBC 6.4. Hemoglobin 10.0. Platelet count 205. Sodium 137. Potassium 3.3. BUN 39. Creatinine 1.92. ProBNP 5870. * Current home cardiac medications include losartan 25 mg daily, metoprolol succinate 50 mg daily, Lasix 40 mg twice a day, Lipitor 20 g at night * Most recent echocardiogram obtained in November 2022 at the office revealed ejection fraction 20-25%, large hypokinetic areas of the anterior and anteroseptal partida, medium-sized akinetic area of the inferior septal wall, mild aortic regurgitation, moderate mitral regurgitation, mild tricuspid regurgitation. * Cardiac catheterization history: July 2022 revealing mild nonobstructive coronary artery disease 05/28 Patient was transferred to the cardiac stepdown unit. Patient is seen today in follow-up. Echocardiogram reveals dilated ventricle with severe global hypokinesia consistent with nonischemic cardiomyopathy. Mild mitral and tricuspid regurgitation. EF 15-20%. Telemetry is sinus rhythm in the 90s, blood pressure 114/57, pulse ox 99% on room air. Patient remains on IV heparin and patient has been evaluated by pulmonary medicine thought to be low likelihood of pulmonary embolism and no need for CTA. Patient is also on IV Lasix 40 mg every 12. Weights and I&O not accurate. Patient is feeling better today from yesterday. Reviewed results with the patient. Plan to increase activity and plan for discharge soon. 05/29 Patient states she feels she is going to mush because she is in bed too much and feels she is normally more active. She states breathing is easier when she doesn't talk or when she is lying on her right side. Patient is agreeable for rehab and PT OT consults added. Repeat lab work reveals BUN 32 creatinine 2.46. Patient has been on Lasix oral 40 twice a day. Losartan, metformin, gli mepiride are on hold. Blood pressure 124/66, heart rate in the 60s. IV heparin was discontinued by pulmonary medicine. PHYSICAL EXAM: VITAL SIGNS: Reviewed. GENERAL: Well-developed in no acute distress. HEENT: Head is normocephalic. Pupils are equal, round. Sclerae anicteric. Mucous membranes of the mouth are moist. Neck supple. No JVD or thyromegaly LUNGS: Respirations even and unlabored. Lungs essentially clear to auscultation bilaterally. HEART: Regular rate and rhythm. S1 and S2 heard. Systolic murmur noted. EXTREMITIES: Normal range of motion. No clubbing or cyanosis. Peripheral pulses intact. No lower extremity edema NEUROLOGIC: Awake and alert. Oriented x 3. ASSESSMENT: Shortness of breath Acute on chronic heart failure with reduced EF, proBNP 5870 Intermediate probability of PE, per VQ scan Nonischemic cardiomyopathy, EF 20-25% Mild nonobstructive coronary artery disease, per cardiac catheterization in July 2022 Acute on chronic kidney disease History of lung cancer with previous lobectomy and radiation therapy Hypertension Hyperlipidemia Former nicotine dependence PLAN: Decrease oral Lasix to once daily, 40 mg Daily weights, accurate I&O, and monitor kidney function Recommend continuing holding losartan, metformin and glimepiride due to acute kidney injury Depending on patients prognosis in terms of her lung cancer, patient may benefit from AICD implantation secondary to LBBB and cardiomyopathy Patient is cleared from cardiology for discharge and may follow-up in the office with Dr. Arely Watson. Nurse practitioner note has been reviewed by physician. Signing provider agrees with the documented findings, assessment, and plan of care. Objective - Vital Signs Vital signs: Vital Signs Temp 97.9 F 05/29/23 08:37 Pulse 66 05/29/23 08:37 Resp 18 05/29/23 08:37 BP 108/58 05/29/23 08:37 Pulse Ox 99 05/29/23 08:37 FiO2 Intake & Output 05/28/23 05/29/23 05/29/23 18:59 06:59 18:59 Intake Total 714.541 Balance 714.541 Weight 69.4 kg Intake: Intake, IV Titration 174.541 Amount Heparin Sod,Pork in 0.45% 174.541 NaCl 25,000 unit In 0.45 % NaCl 1 250ml.bag @ 18 UNITS/KG/HR 12.492 mls/hr IV .Q20H1M [facility] Rx#: [id number] Oral 540 Other: Voiding Method Toilet Toilet # Voids 3 1 - Labs CBC & Chem 7: 05/28/23 10:50 05/29/23 08:06 Labs: Abnormal Lab Results - Last 24 Hours (Table) 05/28/23 05/28/23 05/28/23 Range/Units 10:50 10:50 10:50 Hgb 11.3 L (11.4-16.0) gm/dL APTT (22.0-30.0) sec Sodium (137-145) mmol/L Potassium 3.3 L (3.5-5.1) mmol/L BUN 33 H (7-17) mg/dL Creatinine 2.17 H (0.52-1.04) mg/dL Glucose 259 H (74-99) mg/dL POC Glucose (mg/dL) (70-110) mg/dL Hemoglobin A1c 7.3 H (<=6.0) % Magnesium 2.4 H (1.6-2.3) mg/dL 05/28/23 05/28/23 05/28/23 Range/Units 10:50 11:37 16:18 Hgb (11.4-16.0) gm/dL APTT 122.6 H* (22.0-30.0) sec Sodium (137-145) mmol/L Potassium (3.5-5.1) mmol/L BUN (7-17) mg/dL Creatinine (0.52-1.04) mg/dL Glucose (74-99) mg/dL POC Glucose (mg/dL) 318 H 133 H (70-110) mg/dL Hemoglobin A1c (<=6.0) % Magnesium (1.6-2.3) mg/dL 05/28/23 05/29/23 05/29/23 Range/Units 20:42 06:02 08:06 Hgb (11.4-16.0) gm/dL APTT (22.0-30.0) sec Sodium 136 L (137-145) mmol/L Potassium (3.5-5.1) mmol/L BUN 32 H (7-17) mg/dL Creatinine 2.46 H (0.52-1.04) mg/dL Glucose 207 H (74-99) mg/dL POC Glucose (mg/dL) 173 H 142 H (70-110) mg/dL Hemoglobin A1c (<=6.0) % Magnesium (1.6-2.3) mg/dL
[2023-05-29 16:18] LABS: Glucose,Whole Blood 228 mg/dL (70-110)
[2023-05-29 20:07] LABS: Glucose,Whole Blood 228 mg/dL (70-110)
[2023-05-29] MEDS: ATORVASTATIN 20 MG TAB PO SCH (20:32)
[2023-05-29 22:53] LABS: Glucose,Whole Blood 59 mg/dL (70-110)
[2023-05-29 23:07] LABS: Glucose,Whole Blood 100 mg/dL (70-110)
[2023-05-30 06:15] LABS: Glucose,Whole Blood 199 mg/dL (70-110)
[2023-05-30] MEDS: INSULIN ASPART (NovoLOG) 100 UNIT/ML VIAL SQ SCH ×4 (06:21→20:47)
[2023-05-30] MEDS: LEVOTHYROXINE 25 MCG TAB PO SCH (06:21)
[2023-05-30 07:59] LABS: African American GFR (CKD) 18 (>60 ml/min/1.73 sqM); Anion Gap 7 mmol/L; Blood Urea Nitrogen 37 mg/dL (7-17); Calcium 9.6 mg/dL (8.4-10.2); Carbon Dioxide 25 mmol/L (22-30); Chloride 105 mmol/L (98-107); Glucose 168 mg/dL (74-99); Non-African American GFR(CKD) 16 (>60 ml/min/1.73 sqM); Potassium 4.3 mmol/L (3.5-5.1); Sodium 137 mmol/L (137-145)
[2023-05-30] MEDS: METOPROLOL SUCCINATE (ER) 50 MG TAB.ER.24H PO SCH (08:34)
[2023-05-30] MEDS: CITALOPRAM HYDROBROMIDE 20 MG TAB PO SCH (08:34)
[2023-05-30] MEDS: DAPAGLIFLOZIN PROPANEDIOL 10 MG TABLET PO SCH (08:35)
[2023-05-30] MEDS: PANTOPRAZOLE 40 MG/10 ML VIAL IV SCH (08:35)
[2023-05-30] MEDS: HEPARIN SODIUM,PORCINE 5,000 UNIT/ML 1 ML VIAL SQ SCH ×2 (08:35→20:47)
[2023-05-30] MEDS ORDERED: FUROSEMIDE 40 MG TAB PO SCH (09:00)
--- NOTE | 2023-05-30 10:18 | P.PN ---
Subjective Progress Note Date: 05/30/23 Hospital Course: Patient is a very pleasant 82-year-old female with a past medical history of h ypertension, hyperlipidemia, congestive heart failure, [id number] diabetes mellitus, chronic kidney disease stage IIIB and hypothyroidism with previous diagnosis of thyroid cancer status post partial thyroidectomy. She presented to the emergency department on 05/26/23 with a chief complaint of shortness of breath. Patient reported progressively worsening exertional shortness of breath 3 weeks now shortness of breath at rest and/or with talking. She underwent full evaluation in the emergency department. EKG was completed showing sinus bradycardia at 58 bpm with a left bundle branch block (left bundle branch block previously known and on EKG from 10/18/22). X-ray was completed showing chronic changes negative for acute process and per radiology report showing no significant changes from prior chest x-ray completed 06/10/22. Labs completed and reviewed. CBC showing normocytic anemia with hemoglobin of 11.2. BMP revealing acute kidney injury with BUN of 43, creatinine 2.03, and GFR of 22. Blood glucose level was only 62 and magnesium low at 1.1. Troponin was less than 0.012 and pro-BMP was 5870. D-dimer was elevated at 1.81 and patient recently underwent a 1500 mile car ride. VQ scan and bilateral large family Dopplers were ordered. Patient was started on heparin infusion and admitted under our services with consultation to cardiology. VQ scan showing intermediate probability for pulmonary emboli. Echocardiogram completed showing a severely reduced EF of 15-20% with severe global hypokinesis consistent with nonischemic cardiomyopathy and mitral valve regurgitation. Bilateral lower extremity Doppler results negative for DVT, left lower extremity showing 4.5 cm medial anterior fluid collection consistent with Farris's cyst. Discussed with roving marker, Dr. Diaz whom stated he personally reviewed VQ scan and he stated pulmonary emboli has been ruled out and discontinued IV Heparin at this time and started patient on subcu heparin for DVT prophylaxis. Patient pending rehab placement. Renal function slightly worsening, likely secondary to overdiuresis. Subjective: Patient seen and examined at bedside. Was hypoglycemic overnight. Dyspnea and orthopnea slightly improved. Feels fatigued. Continues to make urine Pertinent positives and negatives as discussed above, a complete review of systems was performed and all other systems are negative. Vitals Signs Reviewed. General: nontoxic, no distress, appears at stated age Derm: warm, dry Head: atraumatic, normocephalic, symmetric Eyes: EOMI, no lid lag, anicteric sclera Mouth: no lip lesion, mucus membranes moist Cardiovascular: S1S2 reg, systolic murmur Lungs: CTA bilateral, no rhonchi, no rales , no accessory muscle use Abdominal: soft, nontender to palpation, no guarding, no appreciable organomegaly Ext: no gross muscle atrophy, no edema, no contractures Neuro: CN II-XI grossly intact, no focal neuro deficits Psych: Alert, oriented, appropriate affect Data Reviewed Today: Pertinent Labs: Sodium 137, potassium 4.3, creatinine 2.7, blood sugars range between 59-100 Imaging: No new imaging Assessment and Plan: Acute kidney injury on chronic kidney disease, worsening creatinine Type 2 diabetes, with episodes of hypoglycemia Acute on chronic exertional dyspnea Acute on chronic systolic CHF exacerbation Nonischemic cardiomyopathy, EF 15-20% Elevated d-dimer, intermediate probability PE per VQ scan History of left bundle branch block Hypertension Dyslipidemia Hypomagnesemia, resolved Hypokalemia, resolved History of non-small cell lung carcinoma status post right middle lobe lobectomy, with recurrence and subsequent radiation History of thyroid cancer status post thyroidectomy Hypothyroidism -Patient likely over diuresed, hold diuretics, repeat BMP tomorrow -Renal ultrasound ordered -Patient was on medium dose sliding scale insulin, decreased to low sliding scale insulin -Pulmonology and cardiology following -Holding losartan in the setting of acute kidney injury -Pending discharge to rehab -Rest of the home medications continued DVT ppx: Subcu heparin Code status: Full code Anticipated discharge place: Rehab Anticipated discharge time: Likely Friday Objective - Vital Signs Vital signs: Vital Signs Temp 98.1 F 05/30/23 08:00 Pulse 77 05/30/23 08:00 Resp 18 05/30/23 08:00 BP 133/55 05/30/23 08:00 Pulse Ox 99 05/30/23 08:00 FiO2 Intake & Output 05/29/23 05/30/23 05/30/23 18:59 06:59 18:59 Intake Total 360 500 480 Output Total 800 Balance 360 -300 480 Intake: Oral 360 500 480 Output: Urine 800 Other: Voiding Method Toilet Toilet Toilet # Voids 2 - Labs CBC & Chem 7: 05/28/23 10:50 05/30/23 06:57 Labs: Abnormal Lab Results - Last 24 Hours (Table) 05/29/23 05/29/23 05/29/23 Range/Units 11:36 16:17 20:05 BUN (7-17) mg/dL Creatinine (0.52-1.04) mg/dL Glucose (74-99) mg/dL POC Glucose (mg/dL) 164 H 228 H 228 H (70-110) mg/dL 05/29/23 05/30/23 05/30/23 Range/Units 22:47 06:13 06:57 BUN 37 H (7-17) mg/dL Creatinine 2.70 H (0.52-1.04) mg/dL Glucose 168 H (74-99) mg/dL POC Glucose (mg/dL) 59 L 199 H (70-110) mg/dL
[2023-05-30 11:37] LABS: Glucose,Whole Blood 178 mg/dL (70-110)
--- NOTE | 2023-05-30 12:18 | P.PN ---
Subjective Progress Note Date: 05/30/23 I am seeing this patient in new consultation today 05/27/2023 after the patient presented to emergency room yesterday evening complaining of progressively worsening shortness of breath over the last 3 weeks. 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 Her PCP is Dr. Arciniega. She does also follow in the office with Dr. Lynn for her history of lung cancer. Most recent non-en hanced chest CAT scan done in March, shows a slightly diminished size of the right apical irregular density, a new 0.6 cm nodule within the lingula, thickened left adrenal gland which was stable from comparison, and stable cystic and solid findings within bilateral kidneys. Patient presented to the emergency room yesterday evening complaining of shortness of breath that has progressively worsened over the last 3 weeks. This is accompanied with a non-radiating left-sided chest pain. She first noticed it while at her great grandson's [employer] game. It has worsened to the point where she now is dyspneic even with conversations. She was given a when necessary albuterol inhaler by her PCP last Friday, which reportedly did not help much with her dyspnea. Denies any history of COPD or asthma. Denies cough, fever, chills, myalgias. Denies heart palpitations, syncope, orthopnea, or lower extremity swelling. She has been taking her Lasix. She was on her way to her floor hand's office yesterday, when she became confused and was brought in by a family member to the emergency room. On arrival to the emergency room, she was found to be mildly hypoglycemic, which was corrected. Chest x-ray on arrival showed no acute cardiopulmonary process. No focal infiltrates or evidence of pneumonia. D-dimer was elevated at 1.81. Patient does admit some recent prolonged car travel. Denies any leg pain or unilateral swelling. Denies any personal history of blood clots or coagulopathy. Chest CTA was deferred due to the patient's renal status. There is a scheduled VQ scan. Cur rently, the patient is on the high intensity heparin protocol. CBC was unremarkable on arrival. BMP shows sodium 136, potassium 3.6, chloride 101, serum bicarb 21, BUN 43, creatinine 2.03, glucose 74. Normal saline is infusing at 75 mL per hour. Troponins less than 0.012. NT proBNP elevated at 5870. No CXR evidence of fluid overload or pulmonary edema. She is currently sitting up in bed, on room air, in no acute distress. Hemodynamically she is stable. On today's evaluation of 05/28/2023, the patient remains on IV heparin. She is comfortable. No new complaints. Echocardiogram was repeated and the patient has severe decrease in LV function with an ejection fraction of 15-20% and there is global hypokinesis. LV is dilated. I discussed the case with cardiology. IV heparin will be discontinued. Hemoglobin is at 11.3 and a white cell count of 8.4. Doppler of the lower extremities were negative. On today's evaluation of 05/29/2023, the patient is being seen for a follow-up. The patient is on room air oxygen. The patient denies having any specific complaints. She is feeling very much 50 weak and those were current complaints initially. She also has some exertional dyspnea and orthopnea. She remains on Lasix 40 mg by mouth daily. Rest of the cardiac medications remain unchanged. The patient is currently off IV heparin. She remains on room air oxygen. The lungs are clear. On her blood work, creatinine is at 2.4 with a BUN of 32 and a sodium level is at 136 and a potassium level is at 4.4. On today's evaluation of 05/30/2023, the patient is resting comfortably in bed. No specific complaints. She did have a episode of hypoglycemia last night. Based on that, she was treated and she was given D50 2 doses. She is often hypoglycemic medications for now. No significant shortness of breath. She was placed on 2 L of oxygen by nasal cannula for comfort reasons. BUN is at 37 with a creatinine of 2.7 and a sodium level is at 137. Blood sugar from this morning is at 178. She is afebrile. She is hemodynamically stable. Pulse ox is 99 room air oxygen. Objective - Vital Signs Vital signs: Vital Signs Temp 98.2 F 05/30/23 06:34 Pulse 86 05/30/23 06:34 Resp 17 05/30/23 06:34 BP 105/66 05/30/23 06:34 Pulse Ox 98 05/30/23 06:34 FiO2 Intake & Output 05/29/23 05/30/23 05/30/23 18:59 06:59 18:59 Intake Total 360 500 480 Output Total 800 Balance 360 -300 480 Intake: Oral 360 500 480 Output: Urine 800 Other: Voiding Method Toilet Toilet # Voids 2 - Exam GENERAL EXAM: Alert, 82-year-old white female appearing stated age, comfortable in no apparent distress. HEAD: Normocephalic and atraumatic EYES: Normal reaction of pupils, equal size. NOSE: Clear with pink turbinates. THROAT: No erythema or exudates. NECK: No masses, no JVD. CHEST: No chest wall deformity. LUNGS: Equal air entry with no crackles, wheeze, rhonchi or dullness. On room air. Mildly dyspneic with conversation. CVS: S1 and S2 normal with no audible murmur, regular rhythm. No extra heart so unds ABDOMEN: No hepatosplenomegaly, active bowel sounds, no guarding or rigidity. SPINE: No scoliosis or deformity SKIN: No rashes CENTRAL NERVOUS SYSTEM: No focal deficits, tone is normal in all 4 extremities. EXTREMITIES: There is no peripheral edema, clubbing, or cyanosis. Peripheral pulses are intact. - Labs CBC & Chem 7: 05/28/23 10:50 05/30/23 06:57 Labs: Abnormal Lab Results - Last 24 Hours (Table) 05/29/23 05/29/23 05/29/23 Range/Units 11:36 16:17 20:05 BUN (7-17) mg/dL Creatinine (0.52-1.04) mg/dL Glucose (74-99) mg/dL POC Glucose (mg/dL) 164 H 228 H 228 H (70-110) mg/dL 05/29/23 05/30/23 05/30/23 Range/Units 22:47 06:13 06:57 BUN 37 H (7-17) mg/dL Creatinine 2.70 H (0.52-1.04) mg/dL Glucose 168 H (74-99) mg/dL POC Glucose (mg/dL) 59 L 199 H (70-110) mg/dL Assessment and Plan Assessment: Acute dyspnea, currently under investigation. Chest x-ray on arrival showed no acute cardiopulmonary process. D-dimer was elevated at 1.81. Chest CTA was deferred due to the patient's renal status. This is related to her chronic systolic heart failure and no acute pulmonary issues. Patient has advanced coronary myopathy. No signs of any acute pulmonary edema. Pulse ox is 99% on room air oxygen. On 2 L, she is still oxygenating adequately Shortness of breath which is chronic secondary to an underlying cardiomyopathy. Elevated d-dimer Hypoglycemia, improved, treated overnight Acute on chronic kidney disease, creatinine 2. 7 Hypomagnesemia, being corrected History of nonischemic cardiomyopathy, left ventricular ejection fraction estimated at 15% on most recent available echocardiogram done April,. History of non small cell lung carcinoma, status post right middle lobectomy back in 2016, with recurrence and subsequent SBRT in November 2021. History of pulmonary nodules, being followed on outpatient basis History of thyroid cancer, status post partial thyroidectomy Hypothyroidism, secondary to above Benign essential hypertension Hyperlipidemia Diabetes mellitus type 2 Chronic kidney disease stage IV Plan: Monitor renal function Patient is currently on room air oxygen and she continues to have some exertional dyspnea and orthopnea Echocardiogram was noted and the patient has dilated LV with severe impairment of LV function with an ejection fraction of 15 % Optimize CHF, and cardiology is on the case The patient is on oral Lasix and monitor didn't function The patient is on metoprolol Monitor the blood sugar and check to avoid any hypoglycemic events. Oral hypoglycemic medications have been discontinued including Farxiga The shortness of breath is essentially related to her heart failure. Cardiology consultation is appreciated. I also reviewed her lung CAT scans from before. The patient has chronic radiation scar in the right upper lobe. 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 Subsequently, the patient was found to have a abnormal nodule in the right upper lobe that was treated with SBRT. This fibrotic area is irregular and tender diminished in size based on the most recent CAT scan of the chest that was done on 03/21/2023. There is however a 6 mm nodule in the left that can be followed up on outpatient basis. Her compliance investigator is Dr. Lynn and she is also being followed up by radiation oncology regarding the pulmonary nodules. No active intervention is recommended regarding those nodules. I do not see the need for a CT angiogram. Low likelihood for pulmonary embolism. We'll continue to follow. We'll try to increase her mobility. The patient is known to have stage IV chronic kidney disease and we'll continue monitoring her renal function.
--- NOTE | 2023-05-30 13:10 | P.PN ---
Subjective Progress Note Date: 05/30/23 HISTORY OF PRESENT ILLNESS: This is a 82-year-old female with a past medical history significant for hypertension, hyperlipidemia, diabetes, cardiomyopathy, congestive heart failure, nonobstructive coronary artery disease, and lung cancer with previous lobectomy and radiation. Patient follows in the office with Dr. Watson. We have been asked to see the patient in consultation for shortness of breath. Patient examined at the bedside in the emergency room. Patient states yesterday she saw her primary care physician secondary to shortness of breath. Her primary care physician recommended that she call her dental equipment repairer to see if she could be seen. Patient was seen yesterday by Dr. Watson and referred to come to the ER. Patient states she has been having shortness of breath over the past couple weeks it has gotten progressively worse. She also reports having some mild lang st discomfort. She reports that she has been feeling dizzy as well lately. Denies any episodes of syncope. She states she has been feeling extremely tired and has been taking a lot of naps at home. She denies any fever or chills. * EKG reveals sinus bradycardia with left bundle branch block * Chest xray chronic changes without acute pulmonary process. * VQ scan: Intermediate probability for pulmonary embolism * Venous Doppler: Negative for DVT bilaterally * Laboratory data: WBC 6.4. Hemoglobin 10.0. Platelet count 205. Sodium 137. Potassium 3.3. BUN 39. Creatinine 1.92. ProBNP 5870. * Current home cardiac medications include losartan 25 mg daily, metoprolol succinate 50 mg daily, Lasix 40 mg twice a day, Lipitor 20 g at night * Most recent echocardiogram obtained in November 2022 at the office revealed ejection fraction 20-25%, large hypokinetic areas of the anterior and anteroseptal partida, medium-sized akinetic area of the inferior septal wall, mild aortic regurgitation, moderate mitral regurgitation, mild tricuspid regurgitation. * Cardiac catheterization history: July 2022 revealing mild nonobstructive coronary artery disease 05/28 Patient was transferred to the cardiac stepdown unit. Patient is seen today in follow-up. Echocardiogram reveals dilated ventricle with severe global hypokinesia consistent with nonischemic cardiomyopathy. Mild mitral and tricuspid regurgitation. EF 15-20%. Telemetry is sinus rhythm in the 90s, blood pressure 114/57, pulse ox 99% on room air. Patient remains on IV heparin and patient has been evaluated by pulmonary medicine thought to be low likelihood of pulmonary embolism and no need for CTA. Patient is also on IV Lasix 40 mg every 12. Weights and I&O not accurate. Patient is feeling better today from yesterday. Reviewed results with the patient. Plan to increase activity and plan for discharge soon. 05/29 Patient states she feels she is going to mush because she is in bed too much and feels she is normally more active. She states breathing is easier when she doesn't talk or when she is lying on her right side. Patient is agreeable for rehab and PT OT consults added. Repeat lab work reveals BUN 32 creatinine 2.46. Patient has been on Lasix oral 40 twice a day. Losartan, metformin, gli mepiride are on hold. Blood pressure 124/66, heart rate in the 60s. IV heparin was discontinued by pulmonary medicine. 05/30 Yesterday, we decrease frequency of oral Lasix to 40 mg once daily. Repeat blood work reveals potassium 4.3 but worsening renal function with BUN 37 creatinine 2.7. Patient has been prepared for discharge to [facility] for subacute rehab but was waiting for insurance authorization. Discharge is being held until Friday due to worsening renal function. We will ask for nephrology consult. Patient currently has no signs of overt heart failure. She is found sitting up in a chair. She states her shortness of breath is significantly improved since she was placed on oxygen. Blood pressure 133/55, heart rate in the 70s and 80s, pulse ox 99% on 2 L nasal cannula, afebrile. PHYSICAL EXAM: VITAL SIGNS: Reviewed. GENERAL: Well-developed in no acute distress. HEENT: Head is normocephalic. Pupils are equal, round. Sclerae anicteric. Mucous membranes of the mouth are moist. Neck supple. No JVD or thyromegaly LUNGS: Respirations even and unlabored. Lungs clear to auscultation bilaterally. HEART: Regular rate and rhythm. S1 and S2 heard. Systolic murmur noted. EXTREMITIES: Normal range of motion. No clubbing or cyanosis. Peripheral pulses intact. No lower extremity edema NEUROLOGIC: Awake and alert. Oriented x 3. ASSESSMENT: Shortness of breath Acute on chronic heart failure with reduced EF, proBNP 5870 Intermediate probability of PE, per VQ scan-has been ruled out by pulmonary medicine Nonischemic cardiomyopathy, EF 20-25% with most recent EF 15-20% Mild nonobstructive coronary artery disease, per cardiac catheterization in July 2022 Acute on chronic kidney disease History of lung cancer with previous lobectomy and radiation therapy Hypertension Hyperlipidemia Former nicotine dependence PLAN: Lasix has been discontinued Daily weights, accurate I&O, and monitor kidney function Recommend continuing holding losartan, metformin and glimepiride due to acute kidney injury Nephrology consult for acute kidney injury Discussed with the patient that she would benefit from ICD/CRRT but she denied wanting to pursue this. She is in favor of conservative treatment. Following discharge from the hospital, patient may follow-up in the office with Dr. Arely Watson. Nurse practitioner note has been reviewed by physician. Signing provider agrees with the documented findings, assessment, and plan of care. Objective - Vital Signs Vital signs: Vital Signs Temp 98.2 F 05/30/23 06:34 Pulse 86 05/30/23 06:34 Resp 17 05/30/23 06:34 BP 105/66 05/30/23 06:34 Pulse Ox 98 05/30/23 06:34 FiO2 Intake & Output 05/29/23 05/30/23 05/30/23 18:59 06:59 18:59 Intake Total 360 500 Output Total 800 Balance 360 -300 Intake: Oral 360 500 Output: Urine 800 Other: Voiding Method Toilet Toilet # Voids 2 - Labs CBC & Chem 7: 05/28/23 10:50 05/30/23 06:57 Labs: Abnormal Lab Results - Last 24 Hours (Table) 05/29/23 05/29/23 05/29/23 Range/Units 11:36 16:17 20:05 BUN (7-17) mg/dL Creatinine (0.52-1.04) mg/dL Glucose (74-99) mg/dL POC Glucose (mg/dL) 164 H 228 H 228 H (70-110) mg/dL 05/29/23 05/30/23 05/30/23 Range/Units 22:47 06:13 06:57 BUN 37 H (7-17) mg/dL Creatinine 2.70 H (0.52-1.04) mg/dL Glucose 168 H (74-99) mg/dL POC Glucose (mg/dL) 59 L 199 H (70-110) mg/dL
--- NOTE | 2023-05-30 13:24 | US ---
EXAMINATION TYPE: US renals and bladder DATE OF EXAM: 05/30/2023 Exam done portable COMPARISON: US 2011 CLINICAL INDICATION: Female, 82 years old with history of leonardo; EXAM MEASUREMENTS: Right Kidney: 9.2 x 4.4 x 5.5 cm Left Kidney: 9.4 x 4.5 x 4.4 cm Right Kidney: wnl Left Kidney: multiple exophytic hypoechoic areas with largest measuring 1.9cm Bladder: not imaged due to patient sitting up in chair There is no evidence for hydronephrosis at this point in time. No nephrolithiasis is seen. No carole s are identified. The urinary bladder is anechoic. Bilateral ureteral jets are seen. IMPRESSION: Renal parenchymal thinning
[2023-05-30 16:35] LABS: Glucose,Whole Blood 205 mg/dL (70-110)
[2023-05-30 20:28] LABS: Glucose,Whole Blood 193 mg/dL (70-110)
[2023-05-30] MEDS: ATORVASTATIN 20 MG TAB PO SCH (20:47)
[2023-05-31 02:41] LABS: Glucose,Whole Blood 216 mg/dL (70-110)
[2023-05-31 06:01] LABS: Glucose,Whole Blood 183 mg/dL (70-110)
[2023-05-31] MEDS: LEVOTHYROXINE 25 MCG TAB PO SCH (06:21)
[2023-05-31] MEDS: INSULIN ASPART (NovoLOG) 100 UNIT/ML VIAL SQ SCH ×4 (06:21→20:48)
[2023-05-31] MEDS: METOPROLOL SUCCINATE (ER) 50 MG TAB.ER.24H PO SCH (08:19)
[2023-05-31] MEDS: CITALOPRAM HYDROBROMIDE 20 MG TAB PO SCH (08:19)
[2023-05-31] MEDS: HEPARIN SODIUM,PORCINE 5,000 UNIT/ML 1 ML VIAL SQ SCH ×2 (08:19→20:48)
[2023-05-31] MEDS: PANTOPRAZOLE 40 MG/10 ML VIAL IV SCH (08:19)
[2023-05-31 08:35] LABS: African American GFR (CKD) 19 (>60 ml/min/1.73 sqM); Anion Gap 11 mmol/L; Blood Urea Nitrogen 46 mg/dL (7-17); Calcium 9.5 mg/dL (8.4-10.2); Carbon Dioxide 22 mmol/L (22-30); Chloride 105 mmol/L (98-107); Glucose 222 mg/dL (74-99); Non-African American GFR(CKD) 17 (>60 ml/min/1.73 sqM); Potassium 4.4 mmol/L (3.5-5.1); Sodium 138 mmol/L (137-145)
[2023-05-31] MEDS ORDERED: DAPAGLIFLOZIN PROPANEDIOL 10 MG TABLET PO SCH ×2 (09:00)
--- NOTE | 2023-05-31 11:46 | P.NPCON ---
History of Present Illness - Reason for Consult acute renal failure - History of Present Illness Patient is an 82-year-old female with history of chronic kidney disease NKF stage III with baseline creatinine around 1.5-1.6 mg/dL in 2021. Patient is admitted to the hospital with complaints of severe shortness of breath. 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 Patient was also hypoglycemic on admission. Workup showed poor ejection fraction at 20-25% with intermediate probability of PE on VQ scan. Patient has been diuresed. Patient was also started on farxiga which is now discontinued. Cozaar was also discontinued on 05/27/2023. Serum creatinine was 2.0 on initial admission and increased to 2.7 yesterday. Today it is down to 2.5. Lasix is currently on hold. Patient denies any complaints of shortness of breath today. She states she has been voiding well. Blood pressure is on the lower side with systolic noted at 101 and 10 7 mmHg. Systolic blood pressure was in the 90s on initial admission on 05/26/2023. Review of Systems As per HPI Past Medical History Past Medical History: Cancer, Diabetes Mellitus, Hyperlipidemia, Hypertension, Thyroid Disorder Additional Past Medical History / Comment(s): Thyroid cancer in November 2015, post thyroidectomy, right lung mass on that investigation, diabetes mellitus, hyperlipidemia, hypertension History of Any Multi-Drug Resistant Organisms: None Reported Past Surgical History: Appendectomy, Hysterectomy, Orthopedic Surgery, Tonsillectomy Additional Past Surgical History / Comment(s): Partial thyroidectomy November,ORIF lt ankle,rt shoulder rot cuff, right partial lobectomy Past Anesthesia/Blood Transfusion Reactions: Previous Problems w/ Anesthesia, Postoperative Nausea & Vomiting (PONV) Additional Past Anesthesia/Blood Transfusion Reaction / Comment(s): states "has a hard time waking up with anesthesia" Past Psychological History: No Psychological Hx Reported Smoking Status: Former smoker Past Alcohol Use History: None Reported Past Drug Use History: None Reported - Past Family History Father Additional Family Medical History / Comment(s): emphysema Mother Additional Family Medical History / Comment(s): -fell down stairs Sister(s) Family Medical History: Cancer Additional Family Medical History / Comment(s): breast Medications and Allergies Home Medications Medication Instructions Recorded Confirmed Type Levothyroxine Sodium [Synthroid] 37.5 mcg PO DAILY 12/31/16 05/26/23 History Atorvastatin [Lipitor] 20 mg PO HS 10/25/17 05/26/23 History metFORMIN HCL [Glucophage] 500 mg PO AC-BID 10/25/17 05/26/23 History Metoprolol Succinate (ER) [Toprol 50 mg PO DAILY 06/10/22 05/26/23 History XL] Losartan [Cozaar] 25 mg PO DAILY 08/01/22 05/26/23 History Potassium Chloride [K-Tab ER] 20 meq PO DAILY 08/01/22 05/26/23 History Citalopram Hydrobromide [CeleXA] 20 mg PO DAILY 08/02/22 05/26/23 History Furosemide [Lasix] 40 mg PO BID 05/26/23 05/26/23 History Repaglinide [Prandin] 1 mg PO BID 05/26/23 05/26/23 History Allergies Allergy/AdvReac Type Severity Reaction Status Date / Time ciprofloxacin [From Cipro] Allergy Nausea & Verified 05/26/23 18:11 Vomiting-severe nitrofurantoin Allergy Confusion Verified 05/26/23 18:11 [From Macrobid] Penicillins Allergy Rash/Hives Verified 05/26/23 18:11 codeine AdvReac Nausea & Verified 05/26/23 18:11 Vomiting Physical Exam Vitals: Vital Signs Temp Pulse Resp BP Pulse Ox 05/31/23 08:00 98.2 F 72 18 101/55 96 05/31/23 02:00 98.2 F 68 17 112/55 97 05/30/23 20:00 98.0 F 73 20 107/64 98 05/30/23 15:00 98.1 F 60 18 112/53 100 05/30/23 14:00 77 18 05/30/23 12:00 56 L 18 132/62 100 Intake and Output 05/30/23 05/31/23 05/31/23 22:59 06:59 14:59 Intake Total 480 480 Balance 480 480 Intake: Oral 480 480 Other: Voiding Method Toilet Toilet Toilet # Voids 1 Patient is awake, comfortable, no acute distress Examination of the heart S1 and S2 Examination of the lungs bilateral breath sounds are heard Abdomen is soft nontender Examination of lower extremities shows no significant edema [employer]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 Acute kidney injury secondary to hypotension and hypoperfusion. ATN currently nonoliguric. Possible element of cardiorenal syndrome as well. Renal function improved slightly from yesterday. Patient is currently off of agitans receptor blockers and farxiga. Blood pressure remains on the lower side. Rule out urine retention. Ultrasound is unremarkable. UA is not available 2. Chronic kidney disease stage IIIB with baseline creatinine around 1.5-1.6 mg/dL as of July 2022 and May 2022. Etiology is likely nephrosclerosis. UA in 2017 showed no proteinuria. 3. Acute systolic CHF exacerbation. Status post diuresis 4. Cardiomyopathy with ejection fraction 15-20% 5. History of non-small cell lung cancer status post right middle lobe lobectomy with recurrence and subsequent radiation therapy in November 2021 6. History of thyroid cancer status post thyroidectomy 7. Dyspnea most likely related to CHF exacerbation currently improved Plan: Check urine analysis Check bladder scan rule out urine retention Blood pressure remains quite low. At this time I we'll continue to maintain off of angiotensin receptor blockers and we can likely resume low-dose EDSON inhi bitor's or angiotensin receptor blockers as outpatient. Also consider restarting farxiga as outpatient. Patient will likely be able to resume home dose of diuretics upon discharge. Currently off of Lasix. Follow-up as outpatient for CK D next Thank you for the consultation. We will continue to follow the patient with you during her hospitalization.
[2023-05-31 11:48] LABS: Glucose,Whole Blood 180 mg/dL (70-110)
--- NOTE | 2023-05-31 12:05 | P.PN ---
Subjective Progress Note Date: 05/31/23 I am seeing this patient in new consultation today 05/27/2023 after the patient presented to emergency room yesterday evening complaining of progressively worsening shortness of breath over the last 3 weeks. 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 Her PCP is Dr. Arciniega. She does also follow in the office with Dr. Lynn for her history of lung cancer. Most recent non-en hanced chest CAT scan done in March, shows a slightly diminished size of the right apical irregular density, a new 0.6 cm nodule within the lingula, thickened left adrenal gland which was stable from comparison, and stable cystic and solid findings within bilateral kidneys. Patient presented to the emergency room yesterday evening complaining of shortness of breath that has progressively worsened over the last 3 weeks. This is accompanied with a non-radiating left-sided chest pain. She first noticed it while at her great grandson's [employer] game. It has worsened to the point where she now is dyspneic even with conversations. She was given a when necessary albuterol inhaler by her PCP last Friday, which reportedly did not help much with her dyspnea. Denies any history of COPD or asthma. Denies cough, fever, chills, myalgias. Denies heart palpitations, syncope, orthopnea, or lower extremity swelling. She has been taking her Lasix. She was on her way to her supply chain buyer's office yesterday, when she became confused and was brought in by a family member to the emergency room. On arrival to the emergency room, she was found to be mildly hypoglycemic, which was corrected. Chest x-ray on arrival showed no acute cardiopulmonary process. No focal infiltrates or evidence of pneumonia. D-dimer was elevated at 1.81. Patient does admit some recent prolonged car travel. Denies any leg pain or unilateral swelling. Denies any personal history of blood clots or coagulopathy. Chest CTA was deferred due to the patient's renal status. There is a scheduled VQ scan. Cur rently, the patient is on the high intensity heparin protocol. CBC was unremarkable on arrival. BMP shows sodium 136, potassium 3.6, chloride 101, serum bicarb 21, BUN 43, creatinine 2.03, glucose 74. Normal saline is infusing at 75 mL per hour. Troponins less than 0.012. NT proBNP elevated at 5870. No CXR evidence of fluid overload or pulmonary edema. She is currently sitting up in bed, on room air, in no acute distress. Hemodynamically she is stable. On today's evaluation of 05/28/2023, the patient remains on IV heparin. She is comfortable. No new complaints. Echocardiogram was repeated and the patient has severe decrease in LV function with an ejection fraction of 15-20% and there is global hypokinesis. LV is dilated. I discussed the case with cardiology. IV heparin will be discontinued. Hemoglobin is at 11.3 and a white cell count of 8.4. Doppler of the lower extremities were negative. On today's evaluation of 05/29/2023, the patient is being seen for a follow-up. The patient is on room air oxygen. The patient denies having any specific complaints. She is feeling very much 50 weak and those were current complaints initially. She also has some exertional dyspnea and orthopnea. She remains on Lasix 40 mg by mouth daily. Rest of the cardiac medications remain unchanged. The patient is currently off IV heparin. She remains on room air oxygen. The lungs are clear. On her blood work, creatinine is at 2.4 with a BUN of 32 and a sodium level is at 136 and a potassium level is at 4.4. On today's evaluation of 05/30/2023, the patient is resting comfortably in bed. No specific complaints. She did have a episode of hypoglycemia last night. Based on that, she was treated and she was given D50 2 doses. She is often hypoglycemic medications for now. No significant shortness of breath. She was placed on 2 L of oxygen by nasal cannula for comfort reasons. BUN is at 37 with a creatinine of 2.7 and a sodium level is at 137. Blood sugar from this morning is at 178. She is afebrile. She is hemodynamically stable. Pulse ox is 99 room air oxygen. On today's evaluation of 05/31/2023, no new complaints. The patient is ambulating. Function slightly improved compared to yesterday. The patient was taken off the Lasix yesterday. No issues with oxygenation. Sodium is at 138, potassium is at 4.4, BUN is 46 with a creatinine of 2.5. Objective - Vital Signs Vital signs: Vital Signs Temp 98.2 F 05/31/23 02:00 Pulse 68 05/31/23 02:00 Resp 17 05/31/23 02:00 BP 112/55 05/31/23 02:00 Pulse Ox 97 05/31/23 02:00 FiO2 Intake & Output 05/30/23 05/31/23 05/31/23 18:59 06:59 18:59 Intake Total 1140 240 Balance 1140 240 Intake: Oral 1140 240 Other: Voiding Method Toilet Toilet # Voids 2 - Exam GENERAL EXAM: Alert, 82-year-old white female appearing stated age, comfortable in no apparent distress. HEAD: Normocephalic and atraumatic EYES: Normal reaction of pupils, equal size. NOSE: Clear with pink turbinates. THROAT: No erythema or exudates. NECK: No masses, no JVD. CHEST: No chest wall deformity. LUNGS: Equal air entry with no crackles, wheeze, rhonchi or dullness. On room air. Mildly dyspneic with conversation. CVS: S1 and S2 normal with no audible murmur, regular rhythm. No extra heart sounds ABDOMEN: No hepatosplenomegaly, active bowel sounds, no guarding or rigidity. SPINE: No scoliosis or deformity SKIN: No rashes CENTRAL NERVOUS SYSTEM: No focal deficits, tone is normal in all 4 extremities. EXTREMITIES: There is no peripheral edema, clubbing, or cyanosis. Peripheral pulses are intact. - Labs CBC & Chem 7: 05/28/23 10:50 05/31/23 07:35 Labs: Abnormal Lab Results - Last 24 Hours (Table) 05/30/23 05/30/23 05/30/23 Range/Units 11:36 16:33 20:27 BUN (7-17) mg/dL Creatinine (0.52-1.04) mg/dL Glucose (74-99) mg/dL POC Glucose (mg/dL) 178 H 205 H 193 H (70-110) mg/dL 05/31/23 05/31/23 05/31/23 Range/Units 02:38 05:57 07:35 BUN 46 H (7-17) mg/dL Creatinine 2.58 H (0.52-1.04) mg/dL Glucose 222 H (74-99) mg/dL POC Glucose (mg/dL) 216 H 183 H (70-110) mg/dL Assessment and Plan Assessment: Acute dyspnea, currently under investigation. Chest x-ray on arrival showed no acute cardiopulmonary process. D-dimer was elevated at 1.81. Chest CTA was deferred due to the patient's renal status. This is related to her chronic systolic heart failure and no acute pulmonary issues. Patient has advanced coronary myopathy. No signs of any acute pulmonary edema. Pulse ox is 99% on room air oxygen. On 2 L, she is still oxygenating adequately Shortness of breath which is chronic secondary to an underlying cardiomyopathy. Elevated d-dimer Hypoglycemia, improved, and no further episodes of hypoglycemia over the past 24 hours and the patient is also off metformin. Acute on chronic kidney disease, creatinine 2.5 Hypomagnesemia, being corrected History of nonischemic cardiomyopathy, left ventricular ejection fraction estimated at 15% on most recent available echocardiogram done April,. History of non small cell lung carcinoma, status post right middle lobectomy back in 2016, with recurrence and subsequent SBRT in November 2021. History of pulmonary nodules, being followed on outpatient basis History of thyroid cancer, status post partial thyroidectomy Hypothyroidism, secondary to above Benign essential hypertension Hyperlipidemia Diabetes mellitus type 2 Chronic kidney disease stage IV Plan: Monitor renal function, creatinine is improved compared to yesterday and the patient currently is off diuretics Patient is currently on room air oxygen and she continues to have some exertional dyspnea and orthopnea, otherwise stable Echocardiogram was noted and the patient has dilated LV with severe impairment of LV function with an ejection fraction of 15 % Optimize CHF, and cardiology is on the case The patient is on metoprolol Monitor the blood sugar and check to avoid any hypoglycemic events. Oral hypoglycemic medications have been discontinued including Farxiga The shortness of breath is essentially related to her heart failure. Cardiology consultation is appreciated. I also reviewed her lung CAT scans from before. The patient has chronic radiation scar in the right upper lobe. 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 Subsequently, the patient was found to have a abnormal nodule in the right upper lobe that was treated with SBRT. This fibrotic area is irregular and tender diminished in size based on the most recent CAT scan of the chest that was done on 03/21/2023. There is however a 6 mm nodule in the left that can be followed up on outpatient basis. Her senior hardware engineer is Dr. Lynn and she is also being followed up by radiation oncology regarding the pulmonary nodules. No active intervention is recommended regarding those nodules. I do not see the need for a CT angiogram. Low likelihood for pulmonary embolism. Hold metformin Monitor blood sugar We'll continue to follow. We'll try to increase her mobility. The patient is known to have stage IV chronic kidney disease and we'll continue monitoring her renal function.
[2023-05-31 12:58] VITALS: BMI 26.2
--- NOTE | 2023-05-31 14:11 | P.PN ---
Subjective Progress Note Date: 05/31/23 HISTORY OF PRESENT ILLNESS: This is a 82-year-old female with a past medical history significant for hypertension, hyperlipidemia, diabetes, cardiomyopathy, congestive heart failure, nonobstructive coronary artery disease, and lung cancer with previous lobectomy and radiation. Patient follows in the office with Dr. Watson. We have been asked to see the patient in consultation for shortness of breath. Patient examined at the bedside in the emergency room. Patient states yesterday she saw her primary care physician secondary to shortness of breath. Her primary care physician recommended that she call her rock crusher operator to see if she could be seen. Patient was seen yesterday by Dr. Watson and referred to come to the ER. Patient states she has been having shortness of breath over the past couple weeks it has gotten progressively worse. She also reports having some mild lang st discomfort. She reports that she has been feeling dizzy as well lately. Denies any episodes of syncope. She states she has been feeling extremely tired and has been taking a lot of naps at home. She denies any fever or chills. * EKG reveals sinus bradycardia with left bundle branch block * Chest xray chronic changes without acute pulmonary process. * VQ scan: Intermediate probability for pulmonary embolism * Venous Doppler: Negative for DVT bilaterally * Laboratory data: WBC 6.4. Hemoglobin 10.0. Platelet count 205. Sodium 137. Potassium 3.3. BUN 39. Creatinine 1.92. ProBNP 5870. * Current home cardiac medications include losartan 25 mg daily, metoprolol succinate 50 mg daily, Lasix 40 mg twice a day, Lipitor 20 g at night * Most recent echocardiogram obtained in November 2022 at the office revealed ejection fraction 20-25%, large hypokinetic areas of the anterior and anteroseptal partida, medium-sized akinetic area of the inferior septal wall, mild aortic regurgitation, moderate mitral regurgitation, mild tricuspid regurgitation. * Cardiac catheterization history: July 2022 revealing mild nonobstructive coronary artery disease 05/28 Patient was transferred to the cardiac stepdown unit. Patient is seen today in follow-up. Echocardiogram reveals dilated ventricle with severe global hypokinesia consistent with nonischemic cardiomyopathy. Mild mitral and tricuspid regurgitation. EF 15-20%. Telemetry is sinus rhythm in the 90s, blood pressure 114/57, pulse ox 99% on room air. Patient remains on IV heparin and patient has been evaluated by pulmonary medicine thought to be low likelihood of pulmonary embolism and no need for CTA. Patient is also on IV Lasix 40 mg every 12. Weights and I&O not accurate. Patient is feeling better today from yesterday. Reviewed results with the patient. Plan to increase activity and plan for discharge soon. 05/29 Patient states she feels she is going to mush because she is in bed too much and feels she is normally more active. She states breathing is easier when she doesn't talk or when she is lying on her right side. Patient is agreeable for rehab and PT OT consults added. Repeat lab work reveals BUN 32 creatinine 2.46. Patient has been on Lasix oral 40 twice a day. Losartan, metformin, gli mepiride are on hold. Blood pressure 124/66, heart rate in the 60s. IV heparin was discontinued by pulmonary medicine. 05/30 Yesterday, we decrease frequency of oral Lasix to 40 mg once daily. Repeat blood work reveals potassium 4.3 but worsening renal function with BUN 37 creatinine 2.7. Patient has been prepared for discharge to [facility] for subacute rehab but was waiting for insurance authorization. Discharge is being held until Friday due to worsening renal function. We will ask for nephrology consult. Patient currently has no signs of overt heart failure. She is found sitting up in a chair. She states her shortness of breath is significantly improved since she was placed on oxygen. Blood pressure 133/55, heart rate in the 70s and 80s, pulse ox 99% on 2 L nasal cannula, afebrile. 05/31/2023. Patient's creatinine was trending to 2.7 unit today creatinine is around 2.5. Due to elevation of creatinine we have stopped her Lasix and other medications administered Her GFR. Nephrology was consulted. Patient otherwise appears well from cardiac vessel standpoint. She appears to be wall limits with no evidence of lower extremity edema, lung crackles or JVD. PHYSICAL EXAM: VITAL SIGNS: Reviewed. GENERAL: Well-developed in no acute distress. HEENT: Head is normocephalic. Pupils are equal, round. Sclerae anicteric. Mucous membranes of the mouth are moist. Neck supple. No JVD or thyromegaly LUNGS: Respirations even and unlabored. Lungs clear to auscultation bilaterally. HEART: Regular rate and rhythm. S1 and S2 heard. Systolic murmur noted. EXTREMITIES: Normal range of motion. No clubbing or cyanosis. Peripheral pul ses intact. No lower extremity edema NEUROLOGIC: Awake and alert. Oriented x 3. ASSESSMENT: Shortness of breath Acute on chronic heart failure with reduced EF, proBNP 5870 Intermediate probability of PE, per VQ scan-has been ruled out by pulmonary medicine Nonischemic cardiomyopathy, EF 20-25% with most recent EF 15-20% Mild nonobstructive coronary artery disease, per cardiac catheterization in July 2022 Acute on chronic kidney disease History of lung cancer with previous lobectomy and radiation therapy Hypertension Hyperlipidemia Former nicotine dependence PLAN: Patient appears euvolemic on physical examination with negative JVD and no fur scraper ckles in the lungs and no swelling in the legs. I agree with holding her diuretic. Would follow nephrology recommendations for elevated creatinine which has somewhat started to reverse in the right direction I feel patient should be related to go home tomorrow if her renal function is stabilized and have improved On discharge we will put her on low-dose Lasix 20 mg daily by mouth Continue her on metoprolol succinate 50 mg daily & atorvastatin 20 mg daily Patient is DNR/DNI. 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 Objective - Vital Signs Vital signs: Vital Signs Temp 98 F 05/31/23 12:00 Pulse 59 L 05/31/23 12:00 Resp 18 05/31/23 12:00 BP 112/60 05/31/23 12:00 Pulse Ox 100 05/31/23 12:00 FiO2 Intake & Output 05/30/23 05/31/23 05/31/23 18:59 06:59 18:59 Intake Total 1140 480 Output Total 0 Balance 1140 480 Weight 69.4 kg Intake: Oral 1140 480 Output: Post Void Residual 0 Other: Voiding Method Toilet Toilet Toilet # Voids 2 1 - Labs CBC & Chem 7: 05/28/23 10:50 05/31/23 07:35 Labs: Abnormal Lab Results - Last 24 Hours (Table) 05/30/23 05/30/23 05/31/23 Range/Units 16:33 20:27 02:38 BUN (7-17) mg/dL Creatinine (0.52-1.04) mg/dL Glucose (74-99) mg/dL POC Glucose (mg/dL) 205 H 193 H 216 H (70-110) mg/dL 05/31/23 05/31/23 05/31/23 Range/Units 05:57 07:35 11:47 BUN 46 H (7-17) mg/dL Creatinine 2.58 H (0.52-1.04) mg/dL Glucose 222 H (74-99) mg/dL POC Glucose (mg/dL) 183 H 180 H (70-110) mg/dL
--- NOTE | 2023-05-31 15:28 | P.PN ---
Subjective Progress Note Date: 05/31/23 Hospital course: Patient is a very pleasant 82-year-old female with a past medical history of hypertension, hyperlipidemia, congestive heart failure, [id number] diabetes mellitus, chronic kidney disease stage IIIB and hypothyroidism with previous diagnosis of thyroid cancer status post partial thyroidectomy. She presented to the emergency department on 05/26/23 with a chief complaint of shortness of breath. Patient reported progressively worsening exertional shortness of breath 3 weeks now shortness of breath at rest and/or with talking. She underwent full evaluation in the emergency department. EKG was completed showing sinus bradycardia at 58 bpm with a left bundle branch block (left bundle branch block previously known and on EKG from 10/18/22). X-ray was completed showing chronic changes negative for acute process and per radiology report showing no significant changes from prior chest x-ray completed 06/10/22. Labs completed and reviewed. CBC showing normocytic anemia with hemoglobin of 11.2. BMP revealing acute kidney injury with BUN of 43, creatinine 2.03, and GFR of 22. Blood glucose level was only 62 and magnesium low at 1.1. Troponin was less than 0.012 and pro-BMP was 5870. D-dimer was elevated at 1.81 and patient recently underwent a 1500 mile car ride. VQ scan and bilateral large family Dopplers were ordered. Patient was started on heparin infusion and admitted under our services with consultation to cardiology. VQ scan showing i ntermediate probability for pulmonary emboli. Echocardiogram completed showing a severely reduced EF of 15-20% with severe global hypokinesis consistent with nonischemic cardiomyopathy and mitral valve regurgitation. Bilateral lower extremity Doppler results negative for DVT, left lower extremity showing 4.5 cm medial anterior fluid collection consistent with Farris's cyst. Discussed with med dir, Dr. Diaz whom stated he personally reviewed VQ scan and he stated pulmonary emboli has been ruled out and discontinued IV Heparin at this time and started patient on subcu heparin for DVT prophylaxis. Patient pending rehab placement. Renal function slightly worsening, likely secondary to overdiuresis. Physical exam: Patient seen and fully evaluated at the bedside this morning. Patient's son also at bedside. Patient reports feeling great this morning and currently denies having any complaints including headache, lightheadedness, dizziness, chest pain, palpitations, shortness of breath, or experiencing any numbness/tingling/weakness/swelling in extremities. General: non toxic, no distress, appears at stated age Derm: warm, dry Head: atraumatic, normocephalic, symmetric Eyes: EOMI, no lid lag, anicteric sclera Mouth: no lip lesion, mucus membranes moist Cardiovascular: S1S2 reg, no murmur, positive posterior tibial pulse bilateral, Lungs: CTA bilateral, no rhonchi, no rales , no accessory muscle use Abdominal: soft, nontender to palpation, no guarding, no appreciable organomegaly Ext: no gross muscle atrophy, no edema, no contractures Neuro: CN II-XI grossly intact, no focal neuro deficits Psych: Alert, oriented, appropriate affect Assessment and Plan: Acute kidney injury on chronic kidney disease, worsening creatinine Type 2 diabetes, with episodes of hypoglycemia Acute on chronic exertional dyspnea Acute on chronic systolic CHF exacerbation Nonischemic cardiomyopathy, EF 15-20% Elevated d-dimer, intermediate probability PE per VQ scan, med dir ruled out History of left bundle branch block Hypertension Dyslipidemia Hypomagnesemia, resolved Hypokalemia, resolved History of non-small cell lung carcinoma status post right middle lobe lobectomy, with recurrence and subsequent radiation History of thyroid cancer status post thyroidectomy Hypothyroidism -Patient likely over diuresed, hold diuretics, repeat BMP tomorrow. -Renal ultrasound radiology report reviewed showing renal parenchymal thinning but negative for hydronephrosis -Order placed for urinalysis -Patient episode of hypoglycemia, NovoLog sliding scale was changed to low-dose. Blood glucose levels have ranged from 168-222 over the past 24 hours. -Pulmonology following, reviewed documentation on chart -Cardiology following, reviewed documentation in chart. -Continue Holding losartan in the setting of acute kidney injury and patient to continue remaining home medication regimen with levothyroxine 37.5 g daily, metoprolol 50 mg daily, and Celexa 20 mg daily -Pending discharge to rehab Data Reviewed Today: -BMP revealing BUN of 46, creatinine 2.58, and GFR of 17 this is showing very little improvement when compared to labs completed yesterday showing BUN of 37, creatinine 2.70, GFR of 16. -Vital signs reviewed. Blood pressure 102/65, heart rate 70, respiratory rate 14, and temp 98.4F with SpO2 of 96% on room air. Imaging: -No new imaging for review DVT: Subcu heparin Code status: Full code Anticipated discharge place: Rehab ([facility]) Anticipated discharge time: Likely Friday, pending insurance authorization Patient was seen independently by Nurse Pracitioner. This document was prepared using [employer] dictation software. Please allow for errors in motion picture cameraman, while rare they do occur. Objective - Vital Signs Vital signs: Vital Signs Temp 98.2 F 05/31/23 02:00 Pulse 68 05/31/23 02:00 Resp 17 05/31/23 02:00 BP 112/55 05/31/23 02:00 Pulse Ox 97 05/31/23 02:00 FiO2 Intake & Output 05/30/23 05/31/23 05/31/23 18:59 06:59 18:59 Intake Total 1140 Balance 1140 Intake: Oral 1140 Other: Voiding Method Toilet Toilet # Voids 2 - Labs CBC & Chem 7: 05/28/23 10:50 05/31/23 07:35 Labs: Abnormal Lab Results - Last 24 Hours (Table) 05/30/23 05/30/23 05/30/23 Range/Units 11:36 16:33 20:27 BUN (7-17) mg/dL Creatinine (0.52-1.04) mg/dL Glucose (74-99) mg/dL POC Glucose (mg/dL) 178 H 205 H 193 H (70-110) mg/dL 05/31/23 05/31/23 05/31/23 Range/Units 02:38 05:57 07:35 BUN 46 H (7-17) mg/dL Creatinine 2.58 H (0.52-1.04) mg/dL Glucose 222 H (74-99) mg/dL POC Glucose (mg/dL) 216 H 183 H (70-110) mg/dL
[2023-05-31 16:42] LABS: Glucose,Whole Blood 253 mg/dL (70-110)
[2023-05-31 17:14] LABS: Appearance,Urine Clear (Clear); Bilirubin,Urine Negative (Negative); Blood,Urine Negative (Negative); Color,Urine Colorless; Glucose,Urine (UA) 4+ (Negative); Ketones,Urine Negative (Negative); Leukocyte Esterase,Urine Negative (Negative); Nitrite,Urine Negative (Negative); Protein,Urine Negative (Negative); Specific Gravity,Urine 1.005 (1.001-1.035); Urobilinogen,Urine <2.0 mg/dL (<2.0)
[2023-05-31 20:40] LABS: Glucose,Whole Blood 192 mg/dL (70-110)
[2023-05-31] MEDS: ATORVASTATIN 20 MG TAB PO SCH (20:48)
[2023-06-01 05:59] LABS: Glucose,Whole Blood 157 mg/dL (70-110)
[2023-06-01] MEDS: INSULIN ASPART (NovoLOG) 100 UNIT/ML VIAL SQ SCH ×4 (06:31→20:30)
[2023-06-01] MEDS: LEVOTHYROXINE 25 MCG TAB PO SCH (06:32)
[2023-06-01] MEDS: METOPROLOL SUCCINATE (ER) 50 MG TAB.ER.24H PO SCH (07:44)
[2023-06-01] MEDS: PANTOPRAZOLE 40 MG/10 ML VIAL IV SCH (07:45)
[2023-06-01] MEDS: HEPARIN SODIUM,PORCINE 5,000 UNIT/ML 1 ML VIAL SQ SCH ×2 (07:45→20:30)
[2023-06-01] MEDS: CITALOPRAM HYDROBROMIDE 20 MG TAB PO SCH (07:45)
[2023-06-01] MEDS ORDERED: FUROSEMIDE 20 MG TAB PO SCH (09:00)
--- NOTE | 2023-06-01 10:34 | P.PN ---
Subjective Patient is seen for follow-up for acute kidney injury, mostly ATN secondary to hypotension. Possible component of cardiorenal syndrome as well. Currently off of angiotensin receptor blockers and Farxiga. Diuretics are also on hold. No complaints of shortness of breath Labs are pending from today. Good urine output per patient. Objective - Vital Signs Vital signs: Vital Signs Temp 98.1 F 06/01/23 08:00 Pulse 70 06/01/23 08:00 Resp 18 06/01/23 08:00 BP 118/69 06/01/23 08:00 Pulse Ox 94 L 06/01/23 08:00 FiO2 Intake & Output 05/31/23 06/01/23 06/01/23 18:59 06:59 18:59 Intake Total 1620 240 Output Total 200 Balance 1420 240 Weight 69.4 kg Intake: Oral 1620 240 Output: Urine 200 Post Void Residual 0 Other: Voiding Method Toilet Toilet Toilet # Voids 1 2 1 - Exam Patient is awake, comfortable, no acute distress Examination of the heart S1 and S2 Examination of the lungs bilateral breath sounds are heard Abdomen is soft nontender Examination of lower extremities shows no significant edema 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 Acute kidney injury secondary to hypotension and hypoperfusion. ATN cur rently nonoliguric. Possible element of cardiorenal syndrome as well. Renal function improved slightly . Patient is currently off of angiotensin receptor blockers and farxiga. Blood pressure remains on the lower side. Ultrasound is unremarkable. UA is benign. 2. Chronic kidney disease stage IIIB with baseline creatinine around 1.5-1.6 mg/dL as of July 2022 and May 2022. Etiology is likely nephrosclerosis. UA in 2017 showed no proteinuria. 3. Acute systolic CHF exacerbation. Status post diuresis 4. Cardiomyopathy with ejection fraction 15-20% 5. History of non-small cell lung cancer status post right middle lobe lobectomy with recurrence and subsequent radiation therapy in November 2021 6. History of thyroid cancer status post thyroidectomy 7. Dyspnea most likely related to CHF exacerbation currently improved Plan: Follow-up on labs from today Blood pressure remains quite low. At this time I will continue to maintain off of angiotensin receptor blockers and we can likely resume low-dose EDSON inhibitor's or angiotensin receptor blockers as outpatient. Also consider restarting farxiga as outpatient. Patient will likely be able to resume home dose of diuretics upon discharge. Currently off of Lasix. Follow-up as outpatient for CKD
[2023-06-01 11:14] LABS: HCT 30.4 % (34.0-46.0); Hypochromasia Slight; MCH 30.2 pg (25.0-35.0); MCHC 31.8 g/dL (31.0-37.0); Mean Platelet Volume 10.9; Platelet Count 217 k/uL (150-450); RDW 13.4 % (11.5-15.5); WBC 6.6 k/uL (3.8-10.6)
[2023-06-01 11:25] LABS: African American GFR (CKD) 22 (>60 ml/min/1.73 sqM); Anion Gap 8 mmol/L; Blood Urea Nitrogen 41 mg/dL (7-17); Calcium 9.2 mg/dL (8.4-10.2); Carbon Dioxide 22 mmol/L (22-30); Chloride 105 mmol/L (98-107); Glucose 242 mg/dL (74-99); HGB 9.6 gm/dL (11.4-16.0); Magnesium 2.2 mg/dL (1.6-2.3); Non-African American GFR(CKD) 19 (>60 ml/min/1.73 sqM); Potassium 4.4 mmol/L (3.5-5.1); Sodium 135 mmol/L (137-145)
[2023-06-01 11:45] LABS: Glucose,Whole Blood 243 mg/dL (70-110)
--- NOTE | 2023-06-01 11:49 | P.PN ---
Subjective Progress Note Date: 06/01/23 I am seeing this patient in new consultation today 05/27/2023 after the patient presented to emergency room yesterday evening complaining of progressively worsening shortness of breath over the last 3 weeks. 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 Her PCP is Dr. Arciniega. She does also follow in the office with Dr. Lynn for her history of lung cancer. Most recent non-en hanced chest CAT scan done in March, shows a slightly diminished size of the right apical irregular density, a new 0.6 cm nodule within the lingula, thickened left adrenal gland which was stable from comparison, and stable cystic and solid findings within bilateral kidneys. Patient presented to the emergency room yesterday evening complaining of shortness of breath that has progressively worsened over the last 3 weeks. This is accompanied with a non-radiating left-sided chest pain. She first noticed it while at her great grandson's [employer] game. It has worsened to the point where she now is dyspneic even with conversations. She was given a when necessary albuterol inhaler by her PCP last Friday, which reportedly did not help much with her dyspnea. Denies any history of COPD or asthma. Denies cough, fever, chills, myalgias. Denies heart palpitations, syncope, orthopnea, or lower extremity swelling. She has been taking her Lasix. She was on her way to her senior partner's office yesterday, when she became confused and was brought in by a family member to the emergency room. On arrival to the emergency room, she was found to be mildly hypoglycemic, which was corrected. Chest x-ray on arrival showed no acute cardiopulmonary process. No focal infiltrates or evidence of pneumonia. D-dimer was elevated at 1.81. Patient does admit some recent prolonged car travel. Denies any leg pain or unilateral swelling. Denies any personal history of blood clots or coagulopathy. Chest CTA was deferred due to the patient's renal status. There is a scheduled VQ scan. Cur rently, the patient is on the high intensity heparin protocol. CBC was unremarkable on arrival. BMP shows sodium 136, potassium 3.6, chloride 101, serum bicarb 21, BUN 43, creatinine 2.03, glucose 74. Normal saline is infusing at 75 mL per hour. Troponins less than 0.012. NT proBNP elevated at 5870. No CXR evidence of fluid overload or pulmonary edema. She is currently sitting up in bed, on room air, in no acute distress. Hemodynamically she is stable. On today's evaluation of 05/28/2023, the patient remains on IV heparin. She is comfortable. No new complaints. Echocardiogram was repeated and the patient has severe decrease in LV function with an ejection fraction of 15-20% and there is global hypokinesis. LV is dilated. I discussed the case with cardiology. IV heparin will be discontinued. Hemoglobin is at 11.3 and a white cell count of 8.4. Doppler of the lower extremities were negative. On today's evaluation of 05/29/2023, the patient is being seen for a follow-up. The patient is on room air oxygen. The patient denies having any specific complaints. She is feeling very much 50 weak and those were current complaints initially. She also has some exertional dyspnea and orthopnea. She remains on Lasix 40 mg by mouth daily. Rest of the cardiac medications remain unchanged. The patient is currently off IV heparin. She remains on room air oxygen. The lungs are clear. On her blood work, creatinine is at 2.4 with a BUN of 32 and a sodium level is at 136 and a potassium level is at 4.4. On today's evaluation of 05/30/2023, the patient is resting comfortably in bed. No specific complaints. She did have a episode of hypoglycemia last night. Based on that, she was treated and she was given D50 2 doses. She is often hypoglycemic medications for now. No significant shortness of breath. She was placed on 2 L of oxygen by nasal cannula for comfort reasons. BUN is at 37 with a creatinine of 2.7 and a sodium level is at 137. Blood sugar from this morning is at 178. She is afebrile. She is hemodynamically stable. Pulse ox is 99 room air oxygen. On today's evaluation of 05/31/2023, no new complaints. The patient is ambulating. Function slightly improved compared to yesterday. The patient was taken off the Lasix yesterday. No issues with oxygenation. Sodium is at 138, potassium is at 4.4, BUN is 46 with a creatinine of 2.5. On today's evaluation 72,023, the patient's renal function is stable with a creatinine of 2.38 and the patient has a BUN of 41. Electrodes are normal. Hemoglobin was at 1.6. The patient is ventilating. The patient is on room air oxygen. Objective - Vital Signs Vital signs: Vital Signs Temp 98.1 F 06/01/23 08:00 Pulse 70 06/01/23 08:00 Resp 18 06/01/23 08:00 BP 118/69 06/01/23 08:00 Pulse Ox 94 L 06/01/23 08:00 FiO2 Intake & Output 05/31/23 06/01/23 06/01/23 18:59 06:59 18:59 Intake Total 1620 240 Output Total 200 Balance 1420 240 Weight 69.4 kg Intake: Oral 1620 240 Output: Urine 200 Post Void Residual 0 Other: Voiding Method Toilet Toilet Toilet # Voids 1 2 1 - Exam GENERAL EXAM: Alert, 82-year-old white female appearing stated age, comfortable in no apparent distress. HEAD: Normocephalic and atraumatic EYES: Normal reaction of pupils, equal size. NOSE: Clear with pink turbinates. THROAT: No erythema or exudates. NECK: No masses, no JVD. CHEST: No chest wall deformity. LUNGS: Equal air entry with no crackles, wheeze, rhonchi or dullness. On room air. Mildly dyspneic with conversation. CVS: S1 and S2 normal with no audible murmur, regular rhythm. No extra heart sounds ABDOMEN: No hepatosplenomegaly, active bowel sounds, no guarding or rigidity. SPINE: No scoliosis or deformity SKIN: No rashes CENTRAL NERVOUS SYSTEM: No focal deficits, tone is normal in all 4 extremities. EXTREMITIES: There is no peripheral edema, clubbing, or cyanosis. Peripheral pulses are intact. - Labs CBC & Chem 7: 06/01/23 11:02 06/01/23 11:02 Labs: Abnormal Lab Results - Last 24 Hours (Table) 05/31/23 05/31/23 05/31/23 Range/Units 11:47 16:41 17:06 POC Glucose (mg/dL) 180 H 253 H (70-110) mg/dL Urine Glucose (UA) 4+ H (Negative) 05/31/23 06/01/23 Range/Units 20:39 05:58 POC Glucose (mg/dL) 192 H 157 H (70-110) mg/dL Urine Glucose (UA) (Negative) Assessment and Plan Assessment: Acute dyspnea, currently under investigation. Chest x-ray on arrival showed no acute cardiopulmonary process. D-dimer was elevated at 1.81. Chest CTA was de ferred due to the patient's renal status. This is related to her chronic systolic heart failure and no acute pulmonary issues. Patient has advanced coronary myopathy. No signs of any acute pulmonary edema. Pulse ox is 99% on room air oxygen. She is currently on room air oxygen Shortness of breath which is chronic secondary to an underlying cardiomyopathy. Elevated d-dimer Hypoglycemia, improved, and no further episodes of hypoglycemia over the past 24 hours and the patient is also off metformin. Acute on chronic kidney disease, creatinine 2.34 Hypomagnesemia, being corrected History of nonischemic cardiomyopathy, left ventricular ejection fraction estimated at 15% on most recent available echocardiogram done April,. History of non small cell lung carcinoma, status post right middle lobectomy back in 2016, with recurrence and subsequent SBRT in November 2021. History of pulmonary nodules, being followed on outpatient basis History of thyroid cancer, status post partial thyroidectomy Hypothyroidism, secondary to above Benign essential hypertension Hyperlipidemia Diabetes mellitus type 2 Chronic kidney disease stage IV Plan: Clinically stable and the patient is ambulating Monitor renal function, creatinine is improved compared to yesterday and the patient currently is off diuretics Renal function continues to improve Patient is currently on room air oxygen and she continues to have some exertional dyspnea and orthopnea, otherwise stable Echocardiogram was noted and the patient has dilated LV with severe impairment of LV function with an ejection fraction of 15 % Optimize CHF, and cardiology is on the case The patient is on metoprolol Monitor the blood sugar and check to avoid any hypoglycemic events. Oral hypoglycemic medications have been discontinued including Farxiga The shortness of breath is essentially related to her heart failure. Car diology consultation is appreciated. I also reviewed her lung CAT scans from before. The patient has chronic radiation scar in the right upper lobe. 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 Subsequently, the patient was found to have a abnormal nodule in the right upper lobe that was treated with SBRT. This fibrotic area is irregular and tender diminished in size based on the most recent CAT scan of the chest that was done on 03/21/2023. There is however a 6 mm nodule in the left that can be followed up on outpatient basis. Her pharm tech is Dr. Lynn and she is also being followed up by radiation oncology regarding the pulmonary nodules. No active intervention is recommended regarding those nodules. I do not see the need for a CT angiogram. Low likelihood for pulmonary embolism. Hold metformin Monitor blood sugar We'll continue to follow. We'll try to increase her mobility. The patient is known to have stage IV chronic kidney disease and we'll continue monitoring her renal function. We'll see when necessary
--- NOTE | 2023-06-01 13:59 | P.PN ---
Subjective Progress Note Date: 06/01/23 Hospital course: Patient is a very pleasant 82-year-old female with a past medical history of hypertension, hyperlipidemia, congestive heart failure, [id number] diabetes mellitus, chronic kidney disease stage IIIB and hypothyroidism with previous diagnosis of thyroid cancer status post partial thyroidectomy. She presented to the emergency department on 05/26/23 with a chief complaint of shortness of breath. Patient reported progressively worsening exertional shortness of breath 3 weeks now shortness of breath at rest and/or with talking. She underwent full evaluation in the emergency department. EKG was completed showing sinus bradycardia at 58 bpm with a left bundle branch block (left bundle branch block previously known and on EKG from 10/18/22). X-ray was completed showing chronic changes negative for acute process and per radiology report showing no significant changes from prior chest x-ray completed 06/10/22. Labs completed and reviewed. CBC showing normocytic anemia with hemoglobin of 11.2. BMP revealing acute kidney injury with BUN of 43, creatinine 2.03, and GFR of 22. Blood glucose level was only 62 and magnesium low at 1.1. Troponin was less than 0.012 and pro-BMP was 5870. D-dimer was elevated at 1.81 and patient recently underwent a 1500 mile car ride. VQ scan and bilateral large family Dopplers were ordered. Patient was started on heparin infusion and admitted under our services with consultation to cardiology. VQ scan showing i ntermediate probability for pulmonary emboli. Echocardiogram completed showing a severely reduced EF of 15-20% with severe global hypokinesis consistent with nonischemic cardiomyopathy and mitral valve regurgitation. Bilateral lower extremity Doppler results negative for DVT, left lower extremity showing 4.5 cm medial anterior fluid collection consistent with Farris's cyst. Discussed with senior java data architect, Dr. Diaz whom stated he personally reviewed VQ scan and he stated pulmonary emboli has been ruled out and discontinued IV Heparin at this time and started patient on subcu heparin for DVT prophylaxis. Patient pending rehab placement. Renal function slightly worsening, likely secondary to overdiuresis. Physical exam: Patient seen and fully evaluated at the bedside this morning. Patient sitting up on edge of bed. She reports feeling well this morning and denies having any complaints. General: non toxic, no distress, appears at stated age Derm: warm, dry Head: atraumatic, normocephalic, symmetric Eyes: EOMI, no lid lag, anicteric sclera Mouth: no lip lesion, mucus membranes moist Cardiovascular: S1S2 reg, no murmur, positive posterior tibial pulse bilateral, Lungs: CTA bilateral, no rhonchi, no rales , no accessory muscle use Abdominal: soft, nontender to palpation, no guarding, no appreciable organomegaly Ext: no gross muscle atrophy, no edema, no contractures Neuro: CN II-XI grossly intact, no focal neuro deficits Psych: Alert, oriented, appropriate affect Assessment and Plan: Acute kidney injury on chronic kidney disease, worsening creatinine Type 2 diabetes, with episodes of hypoglycemia Acute on chronic exertional dyspnea Acute on chronic systolic CHF exacerbation Nonischemic cardiomyopathy, EF 15-20% Elevated d-dimer, intermediate probability PE per VQ scan, senior java data architect ruled out History of left bundle branch block Hypertension Dyslipidemia Hypomagnesemia, resolved Hypokalemia, resolved History of non-small cell lung carcinoma status post right middle lobe lobectomy, with recurrence and subsequent radiation History of thyroid cancer status post thyroidectomy Hypothyroidism -Patient likely over diuresed, hold diuretics, repeat BMP tomorrow. -Renal ultrasound radiology report reviewed showing renal parenchymal thinning but negative for hydronephrosis -Urinalysis negative for infection. -Patient had isolated episode of hypoglycemia, NovoLog sliding scale was changed to low-dose. Blood glucose levels have ranged from 178-253 over the past 24 hours. -Pulmonology following, reviewed documentation on chart -Cardiology following, reviewed documentation in chart.. -Nephrology following, reviewed documentation in chart. -Continue Holding losartan in the setting of acute kidney injury and patient to continue remaining home medication regimen with levothyroxine 37.5 g daily, metoprolol 50 mg daily, and Celexa 20 mg daily -Pending discharge to rehab Data Reviewed Today: -Morning labs pending. -Vital signs reviewed. Blood pressure 118/69, heart rate 70, respiratory rate 18, temp 98.1F, and SpO2 94% on room air. Imaging: -No new imaging for review DVT: Subcu heparin Code status: Full code Anticipated discharge place: Rehab ([facility]) Anticipated discharge time: Likely Friday, pending insurance authorization Patient was seen independently by Nurse Pracitioner. This document was prepared using [employer] dictation software. Please allow for errors in sternman, while rare they do occur. Objective - Vital Signs Vital signs: Vital Signs Temp 98.0 F 06/01/23 04:00 Pulse 66 06/01/23 04:00 Resp 18 06/01/23 04:00 BP 114/58 06/01/23 04:00 Pulse Ox 95 06/01/23 04:00 FiO2 Intake & Output 05/31/23 06/01/23 06/01/23 18:59 06:59 18:59 Intake Total 1620 Output Total 200 Balance 1420 Weight 69.4 kg Intake: Oral 1620 Output: Urine 200 Post Void Residual 0 Other: Voiding Method Toilet Toilet # Voids 1 2 - Labs CBC & Chem 7: 06/01/23 11:02 06/01/23 11:02 Labs: Abnormal Lab Results - Last 24 Hours (Table) 05/31/23 05/31/23 05/31/23 Range/Units 11:47 16:41 17:06 POC Glucose (mg/dL) 180 H 253 H (70-110) mg/dL Urine Glucose (UA) 4+ H (Negative) 05/31/23 06/01/23 Range/Units 20:39 05:58 POC Glucose (mg/dL) 192 H 157 H (70-110) mg/dL Urine Glucose (UA) (Negative)
--- NOTE | 2023-06-01 14:08 | P.PN ---
Subjective Progress Note Date: 06/01/23 HISTORY OF PRESENT ILLNESS: This is a 82-year-old female with a past medical history significant for hypertension, hyperlipidemia, diabetes, cardiomyopathy, congestive heart failure, nonobstructive coronary artery disease, and lung cancer with previous lobectomy and radiation. Patient follows in the office with Dr. Watson. We have been asked to see the patient in consultation for shortness of breath. Patient examined at the bedside in the emergency room. Patient states yesterday she saw her primary care physician secondary to shortness of breath. Her primary care physician recommended that she call her retoucher to see if she could be seen. Patient was seen yesterday by Dr. Watson and referred to come to the ER. Patient states she has been having shortness of breath over the past couple weeks it has gotten progressively worse. She also reports having some mild lang st discomfort. She reports that she has been feeling dizzy as well lately. Denies any episodes of syncope. She states she has been feeling extremely tired and has been taking a lot of naps at home. She denies any fever or chills. * EKG reveals sinus bradycardia with left bundle branch block * Chest xray chronic changes without acute pulmonary process. * VQ scan: Intermediate probability for pulmonary embolism * Venous Doppler: Negative for DVT bilaterally * Laboratory data: WBC 6.4. Hemoglobin 10.0. Platelet count 205. Sodium 137. Potassium 3.3. BUN 39. Creatinine 1.92. ProBNP 5870. * Current home cardiac medications include losartan 25 mg daily, metoprolol succinate 50 mg daily, Lasix 40 mg twice a day, Lipitor 20 g at night * Most recent echocardiogram obtained in November 2022 at the office revealed ejection fraction 20-25%, large hypokinetic areas of the anterior and anteroseptal partida, medium-sized akinetic area of the inferior septal wall, mild aortic regurgitation, moderate mitral regurgitation, mild tricuspid regurgitation. * Cardiac catheterization history: July 2022 revealing mild nonobstructive coronary artery disease 05/28 Patient was transferred to the cardiac stepdown unit. Patient is seen today in follow-up. Echocardiogram reveals dilated ventricle with severe global hypokinesia consistent with nonischemic cardiomyopathy. Mild mitral and tricuspid regurgitation. EF 15-20%. Telemetry is sinus rhythm in the 90s, blood pressure 114/57, pulse ox 99% on room air. Patient remains on IV heparin and patient has been evaluated by pulmonary medicine thought to be low likelihood of pulmonary embolism and no need for CTA. Patient is also on IV Lasix 40 mg every 12. Weights and I&O not accurate. Patient is feeling better today from yesterday. Reviewed results with the patient. Plan to increase activity and plan for discharge soon. 05/29 Patient states she feels she is going to mush because she is in bed too much and feels she is normally more active. She states breathing is easier when she doesn't talk or when she is lying on her right side. Patient is agreeable for rehab and PT OT consults added. Repeat lab work reveals BUN 32 creatinine 2.46. Patient has been on Lasix oral 40 twice a day. Losartan, metformin, gli mepiride are on hold. Blood pressure 124/66, heart rate in the 60s. IV heparin was discontinued by pulmonary medicine. 05/30 Yesterday, we decrease frequency of oral Lasix to 40 mg once daily. Repeat blood work reveals potassium 4.3 but worsening renal function with BUN 37 creatinine 2.7. Patient has been prepared for discharge to [facility] for subacute rehab but was waiting for insurance authorization. Discharge is being held until Friday due to worsening renal function. We will ask for nephrology consult. Patient currently has no signs of overt heart failure. She is found sitting up in a chair. She states her shortness of breath is significantly improved since she was placed on oxygen. Blood pressure 133/55, heart rate in the 70s and 80s, pulse ox 99% on 2 L nasal cannula, afebrile. 05/31/2023. Patient's creatinine was trending to 2.7 unit today creatinine is around 2.5. Due to elevation of creatinine we have stopped her Lasix and other medications administered Her GFR. Nephrology was consulted. Patient otherwise appears well from cardiac vessel standpoint. She appears to be wall limits with no evidence of lower extremity edema, lung crackles or JVD. 2022 Patient's creatinine is 2.3 today. It has trended in the right direction. I feel patient should be related to go home tomorrow. He appears somewhat euvolemic. I will start him on gentle diuresis with far see the inside of her diuretic at this time and would like to follow up outpatient. PHYSICAL EXAM: VITAL SIGNS: Reviewed. GENERAL: Well-developed in no acute distress. HEENT: Head is normocephalic. Pupils are equal, round. Sclerae anicteric. Mucous membranes of the mouth are moist. Neck supple. No JVD or thyromegaly LUNGS: Respirations even and unlabored. Lungs clear to auscultation bilaterally. HEART: Regular rate and rhythm. S1 and S2 heard. Systolic murmur noted. EXTREMITIES: Normal range of motion. No clubbing or cyanosis. Peripheral pu lses intact. No lower extremity edema NEUROLOGIC: Awake and alert. Oriented x 3. ASSESSMENT: Shortness of breath Acute on chronic heart failure with reduced EF, proBNP 5870 Intermediate probability of PE, per VQ scan-has been ruled out by pulmonary medicine Nonischemic cardiomyopathy, EF 20-25% with most recent EF 15-20% Mild nonobstructive coronary artery disease, per cardiac catheterization in July 2022 Acute on chronic kidney disease History of lung cancer with previous lobectomy and radiation therapy Hypertension Hyperlipidemia Former nicotine dependence PLAN: Patient appears euvolemic on physical examination with negative JVD and no cr ackles in the lungs and no swelling in the legs. I agree with holding her diuretic. Patient's creatinine is trending in the right direction. Repeat labs tomorrow. I feel patient should be related to go home tomorrow. Start Farxiga 10 mg daily to help with cardiomyopathy and gentle diuresis Continue her on metoprolol succinate 50 mg daily & atorvastatin 20 mg daily Patient is DNR/DNI. She is denying any further invasive interventions like JACKHAMMER OPERATOR/AICD for cardiomyopathy. Objective - Vital Signs Vital signs: Vital Signs Temp 97.8 F 06/01/23 11:27 Pulse 59 L 06/01/23 11:27 Resp 20 06/01/23 11:27 BP 104/54 06/01/23 11:27 Pulse Ox 100 06/01/23 11:27 FiO2 Intake & Output 05/31/23 06/01/23 06/01/23 18:59 06:59 18:59 Intake Total 1620 240 Output Total 200 Balance 1420 240 Weight 69.4 kg Intake: Oral 1620 240 Output: Urine 200 Post Void Residual 0 Other: Voiding Method Toilet Toilet Toilet # Voids 1 2 1 - Labs CBC & Chem 7: 06/01/23 11:02 09/17/23 11:02 Labs: Abnormal Lab Results - Last 24 Hours (Table) 05/31/23 05/31/23 05/31/23 Range/Units 16:41 17:06 20:39 RBC (3.80-5.40) m/uL Hgb (11.4-16.0) gm/dL Hct (34.0-46.0) % Sodium (137-145) mmol/L BUN (7-17) mg/dL Creatinine (0.52-1.04) mg/dL Glucose (74-99) mg/dL POC Glucose (mg/dL) 253 H 192 H (70-110) mg/dL Urine Glucose (UA) 4+ H (Negative) 06/01/23 06/01/23 06/01/23 Range/Units 05:58 11:02 11:02 RBC 3.20 L (3.80-5.40) m/uL Hgb 9.6 L D (11.4-16.0) gm/dL Hct 30.4 L (34.0-46.0) % Sodium 135 L (137-145) mmol/L BUN 41 H (7-17) mg/dL Creatinine 2.34 H (0.52-1.04) mg/dL Glucose 242 H (74-99) mg/dL POC Glucose (mg/dL) 157 H (70-110) mg/dL Urine Glucose (UA) (Negative) 06/01/23 Range/Units 11:44 RBC (3.80-5.40) m/uL Hgb (11.4-16.0) gm/dL Hct (34.0-46.0) % Sodium (137-145) mmol/L BUN (7-17) mg/dL Creatinine (0.52-1.04) mg/dL Glucose (74-99) mg/dL POC Glucose (mg/dL) 243 H (70-110) mg/dL Urine Glucose (UA) (Negative)
[2023-06-01] MEDS: DAPAGLIFLOZIN PROPANEDIOL 10 MG TABLET PO SCH (14:27)
[2023-06-01 16:16] LABS: Glucose,Whole Blood 169 mg/dL (70-110)
[2023-06-01 20:03] LABS: Glucose,Whole Blood 267 mg/dL (70-110)
[2023-06-01] MEDS: ATORVASTATIN 20 MG TAB PO SCH (20:30)
[2023-06-02 06:11] LABS: Glucose,Whole Blood 238 mg/dL (70-110)
[2023-06-02] MEDS: LEVOTHYROXINE 25 MCG TAB PO SCH (06:36)
[2023-06-02] MEDS: INSULIN ASPART (NovoLOG) 100 UNIT/ML VIAL SQ SCH ×2 (06:36→12:15)
[2023-06-02 09:32] VITALS: TEMP 97.4
[2023-06-02] MEDS: CITALOPRAM HYDROBROMIDE 20 MG TAB PO SCH (09:35)
[2023-06-02] MEDS: DAPAGLIFLOZIN PROPANEDIOL 10 MG TABLET PO SCH (09:35)
[2023-06-02] MEDS: METOPROLOL SUCCINATE (ER) 50 MG TAB.ER.24H PO SCH (09:35)
[2023-06-02] MEDS: HEPARIN SODIUM,PORCINE 5,000 UNIT/ML 1 ML VIAL SQ SCH (09:36)
[2023-06-02] MEDS: PANTOPRAZOLE 40 MG/10 ML VIAL IV SCH (09:36)
[2023-06-02 09:41] LABS: African American GFR (CKD) 21 (>60 ml/min/1.73 sqM); Anion Gap 8 mmol/L; Blood Urea Nitrogen 43 mg/dL (7-17); Calcium 9.1 mg/dL (8.4-10.2); Carbon Dioxide 21 mmol/L (22-30); Chloride 107 mmol/L (98-107); Glucose 279 mg/dL (74-99); Non-African American GFR(CKD) 19 (>60 ml/min/1.73 sqM); Potassium 4.7 mmol/L (3.5-5.1); Sodium 136 mmol/L (137-145)
--- NOTE | 2023-06-02 09:45 | P.PN ---
Subjective Patient is seen in follow-up for acute kidney injury on chronic kidney disease. Creatinine 2.34 yesterday. Resting in bed. Denies chest pain or shortness of breath. Has been voiding. Vital signs are stable. General: No acute distress. HEENT: Head exam is unremarkable. LUNGS: No audible rhonchi or wheezes. HEART: Rate and Rhythm are regular. ABDOMEN: Nontender. EXTREMITITES: No edema. Objective - Vital Signs Vital signs: Vital Signs Temp 97.4 F L 06/02/23 08:00 Pulse 71 06/02/23 08:00 Resp 18 06/02/23 08:00 BP 126/60 06/02/23 08:00 Pulse Ox 98 06/02/23 08:00 FiO2 Intake & Output 06/01/23 06/02/23 06/02/23 18:59 06:59 18:59 Intake Total 960 128 Balance 960 128 Intake: IV 10 Invasive Line 1 10 Oral 960 118 Other: Voiding Method Toilet Toilet # Voids 2 2 - Labs CBC & Chem 7: 06/01/23 11:02 06/01/23 11:02 Labs: Abnormal Lab Results - Last 24 Hours (Table) 06/01/23 06/01/23 06/01/23 Range/Units 11:02 11:02 11:44 RBC 3.20 L (3.80-5.40) m/uL Hgb 9.6 L D (11.4-16.0) gm/dL Hct 30.4 L (34.0-46.0) % Sodium 135 L (137-145) mmol/L BUN 41 H (7-17) mg/dL Creatinine 2.34 H (0.52-1.04) mg/dL Glucose 242 H (74-99) mg/dL POC Glucose (mg/dL) 243 H (70-110) mg/dL 06/01/23 06/01/23 06/02/23 Range/Units 16:14 20:02 06:10 RBC (3.80-5.40) m/uL Hgb (11.4-16.0) gm/dL Hct (34.0-46.0) % Sodium (137-145) mmol/L BUN (7-17) mg/dL Creatinine (0.52-1.04) mg/dL Glucose (74-99) mg/dL POC Glucose (mg/dL) 169 H 267 H 238 H (70-110) mg/dL Assessment and Plan Plan: Assessment: 1. Acute kidney injury secondary to ATN secondary to hypotension and cardio renal syndrome. Creatinine 2.34 as of yesterday. UA benign. No hydronephrosis noted on kidney ultrasound. 2. Chronic kidney disease stage IIIb. Baseline creatinine 1.5-1.6 in May and July 2022. Suspect nephrosclerosis. 3. Acute on chronic systolic CHF with ejection fraction of 15-20%. Status post diuresis. 4. 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 5. Anemia of chronic kidney disease. Plan: Continue to hold diuretics. Started on farxiga by cardiology. Check iron studies. Avoid nephrotoxins. Continue to monitor renal function and urine output.
--- NOTE | 2023-06-02 11:34 | P.PN ---
Subjective HISTORY OF PRESENT ILLNESS: This is a 82-year-old female with a past medical history significant for hypertension, hyperlipidemia, diabetes, cardiomyopathy, congestive heart failure, nonobstructive coronary artery disease, and lung cancer with previous lobectomy and radiation. Patient follows in the office with Dr. Watson. We have been asked to see the patient in consultation for shortness of breath. Patient examined at the bedside in the emergency room. Patient states yesterday she saw her primary care physician secondary to shortness of breath. Her primary care physician recommended that she call her vascular ultrasound technician to see if she could be seen. Patient was seen yesterday by Dr. Watson and referred to come to the ER. Patient states she has been having shortness of breath over the past couple weeks it has gotten progressively worse. She also reports having some mild chest discomfort. She reports that she has been feeling dizzy as well lately. Denies any episodes of syncope. She states she has been feeling extremely tired and has been taking a lot of naps at home. She denies any fever or chills. * EKG reveals sinus bradycardia with left bundle branch block * Chest xray chronic changes without acute pulmonary process. * VQ scan: Intermediate probability for pulmonary embolism * Venous Doppler: Negative for DVT bilaterally * Laboratory data: WBC 6.4. Hemoglobin 10.0. Platelet count 205. Sodium 137. Potassium 3.3. BUN 39. Creatinine 1.92. ProBNP 5870. * Current home cardiac medications include losartan 25 mg daily, metoprolol succinate 50 mg daily, Lasix 40 mg twice a day, Lipitor 20 g at night * Most recent echocardiogram obtained in November 2022 at the office revealed ejection fraction 20-25%, large hypokinetic areas of the anterior and anteroseptal partida, medium-sized akinetic area of the inferior septal wall, mild aortic regurgitation, moderate mitral regurgitation, mild tricuspid regurgitation. * Cardiac catheterization history: July 2022 revealing mild nonobstructive coronary artery disease 06/02/2023 Patient examined this morning at the bedside. Patient denies chest pain or pressure. She denies shortness of breath. She states that she slept well overnight and is feeling well this morning. She is hoping to be discharged home today. Patient's vital signs are stable. PHYSICAL EXAM: VITAL SIGNS: Reviewed. GENERAL: Well-developed in no acute distress. HEENT: Head is normocephalic. Pupils are equal, round. Sclerae anicteric. Mucous membranes of the mouth are moist. Neck supple. No JVD or thyromegaly LUNGS: Respirations even and unlabored. Lungs essentially clear to auscultation bilaterally. HEART: Regular rate and rhythm. S1 and S2 heard. Systolic murmur noted. ABDOMEN: Soft. Nondistended. Nontender. EXTREMITIES: Normal range of motion. No clubbing or cyanosis. Peripheral pulses intact. No lower extremity edema NEUROLOGIC: Awake and alert. Oriented x 3. ASSESSMENT: Shortness of breath Acute on chronic heart failure with reduced EF, proBNP 5870 Intermediate probability of PE, per VQ scan; ruled out by pulmonary medicine Nonischemic cardiomyopathy, EF 20-25% Mild nonobstructive coronary artery disease, per cardiac catheterization in July 2022 Acute on chronic kidney disease History of lung cancer with previous lobectomy and radiation therapy Hypertension Hyperlipidemia Former nicotine dependence PLAN: Continue current cardiac medications Diuretics on hold secondary to acute kidney injury Patient is stable for discharge home today from a cardiac standpoint Patient to follow-up post discharge Further recommendations pending patient course Nurse practitioner note has been reviewed by physician. Signing provider agrees with the documented findings, assessment, and plan of care. Objective - Vital Signs Vital signs: Vital Signs Temp 97.4 F L 06/02/23 08:00 Pulse 71 06/02/23 08:00 Resp 18 06/02/23 08:00 BP 126/60 06/02/23 08:00 Pulse Ox 98 06/02/23 08:00 FiO2 Intake & Output 06/01/23 06/02/23 06/02/23 18:59 06:59 18:59 Intake Total 960 128 Balance 960 128 Intake: IV 10 Invasive Line 1 10 Oral 960 118 Other: Voiding Method Toilet Toilet Toilet # Voids 2 2 - Labs CBC & Chem 7: 06/01/23 11:02 06/02/23 09:01 Labs: Abnormal Lab Results - Last 24 Hours (Table) 06/01/23 06/01/23 06/01/23 Range/Units 11:44 16:14 20:02 Sodium (137-145) mmol/L Carbon Dioxide (22-30) mmol/L BUN (7-17) mg/dL Creatinine (0.52-1.04) mg/dL Glucose (74-99) mg/dL POC Glucose (mg/dL) 243 H 169 H 267 H (70-110) mg/dL 06/02/23 06/02/23 Range/Units 06:10 09:01 Sodium 136 L (137-145) mmol/L Carbon Dioxide 21 L (22-30) mmol/L BUN 43 H (7-17) mg/dL Creatinine 2.35 H (0.52-1.04) mg/dL Glucose 279 H (74-99) mg/dL POC Glucose (mg/dL) 238 H (70-110) mg/dL
[2023-06-02 11:48] LABS: Glucose,Whole Blood 205 mg/dL (70-110)
[2023-06-02 12:56] VITALS: BP 129/58; PULSE 56; RESP 16
--- NOTE | 2023-06-02 13:56 | P.DS ---
Providers Date of admission: 05/26/23 19:06 Expected date of discharge: 06/02/23 Attending physician: Catie Scott MD Consults: 05/26/23 19:03 Consult Physician Routine Consulting Provider: Prashanth Diaz Consult Reason/Comments: sob Do you want consulting provider notified?: Yes Consult Physician Routine Consulting Provider: Ubaldo Thorpe Consult Reason/Comments: sob Do you want consulting provider notified?: Yes 05/30/23 11:53 Consult Physician Routine Consulting Provider: Leandra Keller Consult Reason/Comments: leonardo Do you want consulting provider notified?: Yes Primary care physician: [facility] Course: Discharge Diagnosis: Acute kidney injury on chronic kidney disease Type 2 diabetes, with episodes of hypoglycemia Acute on chronic exertional dyspnea Acute on chronic systolic CHF exacerbation Nonischemic cardiomyopathy, EF 15-20% Elevated d-dimer, intermediate probability PE per VQ scan, garment turner ruled out History of left bundle branch block Hypertension Dyslipidemia Hypomagnesemia, resolved Hypokalemia, resolved History of non-small cell lung carcinoma status post right middle lobe lobectomy, with recurrence and subsequent radiation History of thyroid cancer status post thyroidectomy Hypothyroidism Hospital Course: Patient is a very pleasant 82-year-old female with a past medical history of hypertension, hyperlipidemia, congestive heart failure, kjl-sichmve-clzcytzib diabetes mellitus, chronic kidney disease stage IIIB and hypothyroidism with previous diagnosis of thyroid cancer status post partial thyroidectomy. She presented to the emergency department on 05/26/23 with a chief complaint of shortness of breath. Patient reported progressively worsening exertional shortness of breath 3 weeks now shortness of breath at rest and/or with talking. She underwent full evaluation in the emergency department. EKG was completed showing sinus bradycardia at 58 bpm with a left bundle branch block (left bundle branch block previously known and on EKG from 10/18/22). X-ray was completed showing chronic changes negative for acute process and per radiology report showing no significant changes from prior chest x-ray completed 06/10/22. Labs completed and reviewed. CBC showing normocytic anemia with hemoglobin of 11.2. BMP revealing acute kidney injury with BUN of 43, creatinine 2.03, and GFR of 22. Blood glucose level was only 62 and magnesium low at 1.1. Troponin was less than 0.012 and pro-BMP was 5870. D-dimer was elevated at 1.81 and patient recently underwent a 1500 mile car ride. VQ scan and bilateral large family Dopplers were ordered. Patient was started on heparin infusion and admitted under our services with consultation to cardiology. VQ scan showing intermediate probability for pulmonary emboli. Echocardiogram completed showing a severely reduced EF of 15-20% with severe global hypokinesis consistent with nonischemic cardiomyopathy and mitral valve regurgitation. Bilateral lower extremity Doppler results negative for DVT, left lower extremity showing 4.5 cm medial anterior fluid collection consistent with Farris's cyst. Discussed with garment turner, Dr. Diaz whom stated he personally reviewed VQ scan and he stated pulmonary emboli has been ruled out and discontinued IV Heparin at this time and started patient on subcu heparin for DVT prophylaxis. Patient pending rehab placement. Renal function slightly worsening, likely secondary to overdiuresis. Patient remained in the hospital and losartan and Lasix were held at this time. Nephrology and cardiology following. Renal function plateaued with BUN of 43, creatinine 2.35, GFR of 19. Nephrology recommending to continue to hold losartan and furosemide at this time. Cardiology started patient on Farxiga and clearing patient from cardiac perspective for discharge at this time. Nephrology also clearing patient recommending outpatient follow-up in their office in one week. Medically, patient is stable at this time and free from any complaints. Patient being discharged home with prescription for repeat BMP in 3 days with results to be sent PCP, oil lease operator, and backpackers manager for follow-up and management. Patient also provided/prescription sent for rolling walker with seat and home care has been set up by case management. Patient medically stable for discharge at this time. Physical exam: Patient seen and fully evaluated at the bedside this morning. Patient ambulating in room without any difficulties She reports feeling well this morning and denies having any complaints. General: non toxic, no distress, appears at stated age Derm: warm, dry Head: atraumatic, normocephalic, symmetric Eyes: EOMI, no lid lag, anicteric sclera Mouth: no lip lesion, mucus membranes moist Cardiovascular: S1S2 reg, no murmur, positive posterior tibial pulse bilateral, Lungs: CTA bilateral, no rhonchi, no rales , no accessory muscle use Abdominal: soft, nontender to palpation, no guarding, no appreciable organomegaly Ext: no gross muscle atrophy, no edema, no contractures Neuro: CN II-XI grossly intact, no focal neuro deficits Psych: Alert, oriented, appropriate affect A total of 39 minutes of time were spent preparing this complex discharge summary. Pt was discharged on 05/23/23 at 11:50 AM Patient was seen independently by Nurse Practitioner. This document was prepared using [employer] dictation software. Please allow for errors in advertising account representative while rare they do occur. Patient Condition at Discharge: Stable Plan - Discharge Summary Discharge Rx Participant: No New Discharge Prescriptions: New Dapagliflozin Propanediol [Farxiga] 10 mg PO DAILY 30 Days #30 tab Continue Levothyroxine Sodium [Synthroid] 37.5 mcg PO DAILY Atorvastatin [Lipitor] 20 mg PO HS metFORMIN HCL [Glucophage] 500 mg PO AC-BID Repaglinide [Prandin] 1 mg PO BID Metoprolol Succinate (ER) [Toprol XL] 50 mg PO DAILY Citalopram Hydrobromide [CeleXA] 20 mg PO DAILY Discontinued Losartan [Cozaar] 25 mg PO DAILY No Action Potassium Chloride [K-Tab ER] 20 meq PO DAILY Furosemide [Lasix] 40 mg PO BID Discharge Medication List Levothyroxine Sodium [Synthroid] 37.5 mcg PO DAILY 12/31/16 [History] Atorvastatin [Lipitor] 20 mg PO HS 10/25/17 [History] metFORMIN HCL [Glucophage] 500 mg PO AC-BID 10/25/17 [History] Metoprolol Succinate (ER) [Toprol XL] 50 mg PO DAILY 06/10/22 [History] Potassium Chloride [K-Tab ER] 20 meq PO DAILY 08/01/22 [History] Citalopram Hydrobromide [CeleXA] 20 mg PO DAILY 08/02/22 [History] Furosemide [Lasix] 40 mg PO BID 05/26/23 [History] Repaglinide [Prandin] 1 mg PO BID 05/26/23 [History] Dapagliflozin Propanediol [Farxiga] 10 mg PO DAILY 30 Days #30 tab 06/02/23 [Rx] Follow up Appointment(s)/Referral(s): Leandra Keller MD [STAFF PHYSICIAN] - 06/18/23 10:00 am Champ Arciniega MD [Primary Care Provider] - 06/06/23 1:40 pm Jaime Montana [NON-STAFF] - As Needed ([facility] will deliver the rollator to your home after discharge. Please call them if you do not hear from them within 24 hours of discharge. ) Gaurav Watson MD [STAFF PHYSICIAN] - 06/13/23 3:00 pm Ambulatory/Diagnostic Orders: Basic Metabolic Panel [LAB.AMB] Time Frame: 3 Days, Location: None Selected Patient Instructions/Handouts: Acute Kidney Injury (DC), Chronic Kidney Disease Diet (DC), Hypoglycemia in a Person with Diabetes (DC), Dizziness (ED) Activity/Diet/Wound Care/Special Instructions: Activity: As tolerated. Take breaks as needed. Diet: Heart healthy and carb consistent diet. Avoid salts, or foods with hidden salts such as canned or boxed foods and frozen dinners. Extra salt makes your heart work harder and traps the fluid in your body for longer. Special Instructions: Take all of your medications as directed and remember to keep all of your doctor's appointments and follow-up as needed. Continue to hold Lasix until repeat labs and follow up with her backpackers manager in 1 week. You willl need your labs drawn in 3 days to follow-up on your kidney function and these results will go to your PCP, oil lease operator, and backpackers manager for follow-up and management. Thank you for allowing us to participate in your care, it was truly a pleasure having you for our patient!!! Discharge Disposition: HOME WITH HOME HEALTH SERVICES
[2023-06-02 15:53] LABS: % Iron Saturation 12.62 (12.00-45.00)
== END 2023-06-02 14:33 | disposition home health service (06) | DRG 291 ==
LOC: EC 14:55 → 6NMEDSUR 19:06 → OBSVTOIN 19:06 → 6NMEDSUR 19:42 → 3SCARD 05-27 18:05 → INTOOBSV 05-28 10:42 → OBSVTOIN 05-28 10:42
PROVIDERS: ADMIT Internal Medicine; ATTEND Internal Medicine
DX: I13.0 Hypertensive heart and chronic kidney disease with heart failure and stage 1 through stage 4 chronic kidney disease, or unspecified chronic kidney disease (principal); I50.23 Acute on chronic systolic (congestive) heart failure; N17.0 Acute kidney failure with tubular necrosis; N18.4 Chronic kidney disease, stage 4 (severe); I95.9 Hypotension, unspecified; E11.649 Type 2 diabetes mellitus with hypoglycemia without coma; D63.1 Anemia in chronic kidney disease; E11.22 Type 2 diabetes mellitus with diabetic chronic kidney disease; I42.8 Other cardiomyopathies; E78.5 Hyperlipidemia, unspecified; E83.42 Hypomagnesemia; E87.6 Hypokalemia; I25.10 Atherosclerotic heart disease of native coronary artery without angina pectoris; I34.0 Nonrheumatic mitral (valve) insufficiency; I44.7 Left bundle-branch block, unspecified; T50.2X5A Adverse effect of carbonic-anhydrase inhibitors, benzothiadiazides and other diuretics, initial encounter; R91.8 Other nonspecific abnormal finding of lung field; E89.0 Postprocedural hypothyroidism; M71.22 Synovial cyst of popliteal space [Baker], left knee; Z79.890 Hormone replacement therapy; Z79.84 Long term (current) use of oral hypoglycemic drugs; Z79.899 Other long term (current) drug therapy; Z85.118 Personal history of other malignant neoplasm of bronchus and lung; Z85.850 Personal history of malignant neoplasm of thyroid; Z87.891 Personal history of nicotine dependence; Z92.3 Personal history of irradiation; Z88.1 Allergy status to other antibiotic agents; Z88.5 Allergy status to narcotic agent; Z88.0 Allergy status to penicillin
CPT/HCPCS: 36415; 71046; 76770; 78582; 80048; 80053; 81003; 82550; 82728; 83036; 83540; 83550; 83735; 83880; 84100; 84484; 85025; 85027; 85379; 85610; 85730; 93005; 93306; 93970; 94640; 96361; 96365; 96366; 96367; 96375; 96376; 99285

== ENCOUNTER → 2023-10-07 | Outpatient (CLI) | payer MEDICARE ==
--- NOTE | 2023-10-07 12:24 | CT ---
EXAMINATION TYPE: CT chest wo con DATE OF EXAM: 10/07/2023 COMPARISON: 03/21/2023 HISTORY: f/u lung ca CT DLP: 292.5 mGycm, Automated exposure control for dose reduction was used. CONTRAST: Performed injected with 0 mL of Isovue 300. TECHNIQUE: Axial images were obtained at 5 mm thick sections. Reconstructed images are reviewed on [employer] computer in the coronal plane. FINDINGS: Portion of the thyroid visualized is normal. There is an irregular 3.5 x 2.4 cm area within the right apex. This area is stable in size from lo rison. There is a punctate density within the range of fissure in the anterior right lower lung field. Serie s 4 image 37. This was present previously. A 0.5 cm high density area in the periphery of the right l ateral lung base appears stable from comparison. Series 4 image 41. No enlarged mediastinal or hilar adenopathy is evident. The ascending aorta diameter at the level o f the main pulmonary artery is 3.4 cm. The main pulmonary artery diameter at the bifurcation is 2.9 cm. Coronary artery calcification is present Limited CT sections are obtained through the upper abdomen. Calcified granulomata within the spleen. The left adrenal gland is thickened measuring 1.5 cm. Previous measurement 1.9 cm. IMPRESSION: 1. No suspicious recurrent or metastatic changes. Right apical irregular density is stable in size an d additional punctate densities are unchanged from prior exam. 2. Diminished size of the somewhat prominent left adrenal gland.
== END | disposition home or self-care (01) ==
LOC: RADCTMAIN 10:55
PROVIDERS: ATTEND Radiology Radiation Oncology
DX: J98.4 Other disorders of lung (principal); C34.2 Malignant neoplasm of middle lobe, bronchus or lung; C34.11 Malignant neoplasm of upper lobe, right bronchus or lung; Z90.2 Acquired absence of lung [part of]
CPT/HCPCS: 71250

== ENCOUNTER → 2024-04-06 | Outpatient (CLI) | payer MEDICARE ==
--- NOTE | 2024-04-06 19:16 | CT ---
EXAMINATION TYPE: CT chest wo con CT DLP: 621 mGycm, Automated exposure control for dose reduction was used. DATE OF EXAM: 04/06/2024 3:21 PM COMPARISON: CT chest no 10/07/2023. 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 R/O return of CA. TECHNIQUE: Multiple axial images were obtained through the chest. Sagittal and coronal reformats were created for review. Contrast used: mL of (None if empty) Oral contrast used: (None if empty) FINDINGS: LUNGS/ PLEURA: 2.4 x 3.4 cm scarlike lesion in the right lung apex appears stable. Thin linear scar in right middle lobe is stable. Densely calcified granuloma in the lateral segment of the right lower lobe (series 4, image 39). Likely corresponds to benign granuloma based on its calcification pattern . Other nearby tiny nodules also appear densely calcified. AIRWAY: Patent and unremarkable. HEART: Size within normal limits. Moderately pronounced calcific coronary artery atherosclerotic dise ase is present. MEDIASTINUM: No gross evidence of adenopathy. VASCULATURE: No aortic aneurysm. MUSCULOSKELETAL: No acute osseous abnormalities SOFT TISSUES/LYMPH NODES: Unremarkable. LOWER NECK: No significant findings. UPPER ABDOMEN: No significant findings. IMPRESSION: Stable appearance of lungs with right upper lobe scar and scattered stable nodules. No evidence of caitie ng cancer recurrence. Moderately pronounced coronary artery disease. Follow up recommendations for incidental pulmonary nodules, if there are any, are per [employer] or [employer]. https://radiopaedia.org/articles/[email or web address]?lang=us
== END | disposition home or self-care (01) ==
LOC: RADCTMAIN 14:47
PROVIDERS: ATTEND Radiology Radiation Oncology
DX: C34.11 Malignant neoplasm of upper lobe, right bronchus or lung (principal); C34.2 Malignant neoplasm of middle lobe, bronchus or lung; J98.4 Other disorders of lung; J91.8 Pleural effusion in other conditions classified elsewhere; I25.10 Atherosclerotic heart disease of native coronary artery without angina pectoris; Z08 Encounter for follow-up examination after completed treatment for malignant neoplasm; Z92.3 Personal history of irradiation; Z90.2 Acquired absence of lung [part of]
CPT/HCPCS: 71250

== ENCOUNTER 2024-07-21 12:36 | Emergency (ER) | payer BC, MEDICARE, SELFPAY ==
[2024-07-21 12:45] VITALS: RESP 18
[2024-07-21] MEDS: SODIUM CHLORIDE 0.9% 1,000 ML IV STA (13:13)
[2024-07-21] MEDS: ACETAMINOPHEN TAB 500 MG TAB PO STA (13:14)
[2024-07-21] MEDS: IBUPROFEN 600 MG TAB PO STA (13:16)
[2024-07-21 13:20] LABS: Basophils % (A) 0 %; Eosinophils # (A) 0.2 k/uL (0-0.7); Eosinophils % (A) 3 %; HCT 39.8 % (34.0-46.0); Lymphocytes # (A) 1.4 k/uL (1.0-4.8); Lymphocytes % (A) 18 %; MCH 30.4 pg (25.0-35.0); MCHC 32.5 g/dL (31.0-37.0); MCV 93.4 fL (80.0-100.0); Monocytes # (A) 0.4 k/uL (0-1.0); Monocytes % (A) 6 %; Neutrophils # (A) 5.5 k/uL (1.3-7.7); Neutrophils % (A) 72 %; Platelet Count 165 k/uL (150-450); RBC 4.26 m/uL (3.80-5.40); RDW 13.7 % (11.5-15.5); WBC 7.7 k/uL (3.8-10.6)
[2024-07-21 13:30] LABS: ALT 17 U/L (4-34); African American GFR (CKD) 29 (>60 ml/min/1.73 sqM); Albumin 3.9 g/dL (3.5-5.0); Anion Gap 11 mmol/L; Blood Urea Nitrogen 21 mg/dL (7-17); Calcium 8.7 mg/dL (8.4-10.2); Carbon Dioxide 23 mmol/L (22-30); Chloride 103 mmol/L (98-107); Glucose 186 mg/dL (74-99); Non-African American GFR(CKD) 25 (>60 ml/min/1.73 sqM); Sodium 137 mmol/L (137-145); Total Bilirubin 0.8 mg/dL (0.2-1.3); Total Protein 6.4 g/dL (6.3-8.2)
[2024-07-21 13:44] LABS: AST 28 U/L (14-36); Alkaline Phosphatase 71 U/L (38-126); Magnesium 1.5 mg/dL (1.6-2.3); Potassium 4.1 mmol/L (3.5-5.1)
--- NOTE | 2024-07-21 13:56 | XR ---
EXAMINATION TYPE: XR chest 2V DATE OF EXAM: 07/21/2024 COMPARISON: NONE CLINICAL INDICATION: Female, 84 years old with history of Weakness; , TECHNIQUE: XR chest 2V views of the chest. FINDINGS: The lungs are clear and there is no pneumothorax, pleural effusion, or focal pneumonia. The heart is enlarged but no overt failure. Osseous structures demonstrate hypertrophic and degenerative changes of the spine. AC joint arthropathy. Tiny nodule right lower lobe likely related to tiny granuloma sta ble from prior exam. A focal lung nodule or scarring noted by previous CT scan stable. IMPRESSION: 1. No acute process. Stable right apical nodule or scarring unchanged from prior exam. [facility], , 07/21/2024 1:54 PM
[2024-07-21] MEDS: MAGNESIUM SULFATE-D5W PMX 1 GM in DEXTROSE/WATER 1 100ML.BAG IVPB ONE (14:14)
--- NOTE | 2024-07-21 14:25 | ED ---
General Adult HPI - General Chief complaint: Upper Respiratory Infection Stated complaint: Flu like symptons, left arm weakness Time Seen by Provider: 07/21/24 12:50 Source: patient, EMS, RN notes reviewed, old records reviewed Mode of arrival: EMS Limitations: no limitations - History of Present Illness Initial comments: An 84-year-old female who presents to the emergency department complaining of a sore throat and a dry cough. Patient states she also feels very tired and fatigued. PatientPatient states she also has some achiness in her body a little bit more so in the left forearm but has it everywhere. Patient denies any shortness of breath or chest pain. Patient denies any palpitations. Patient has abdominal pain patient has nausea vomit diarrhea - Related Data Home Medications Medication Instructions Recorded Confirmed Levothyroxine Sodium [Synthroid] 25 mcg PO DAILY 12/31/16 07/15/23 Atorvastatin [Lipitor] 20 mg PO HS 10/25/17 07/15/23 Metoprolol Succinate (ER) [Toprol 50 mg PO DAILY 06/10/22 07/15/23 XL] Potassium Chloride [K-Tab ER] 20 meq PO DAILY 08/01/22 07/15/23 Citalopram Hydrobromide [CeleXA] 20 mg PO DAILY 08/02/22 07/15/23 Furosemide [Lasix] 40 mg PO BID 05/26/23 07/15/23 Repaglinide [Prandin] 1 mg PO BID 05/26/23 07/15/23 Repaglinide [Prandin] 3 mg PO ONCE 07/01/23 07/15/23 calcitrioL 0.25 mcg PO DAILY 07/01/23 07/22/23 Previous Rx's Medication Instructions Recorded Dapagliflozin Propanediol [Farxiga] 10 mg PO DAILY 30 Days #30 tab 06/02/23 Allergies Allergy/AdvReac Type Severity Reaction Status Date / Time ciprofloxacin [From Cipro] Allergy Nausea & Verified 07/21/24 12:45 Vomiting-severe nitrofurantoin Allergy Confusion Verified 07/21/24 12:45 [From Macrobid] Penicillins Allergy Rash/Hives Verified 07/21/24 12:45 codeine AdvReac Nausea & Verified 07/21/24 12:45 Vomiting Review of Systems ROS Statement: Those systems with pertinent positive or pertinent negative responses have been documented in the HPI. ROS Other: All systems not noted in ROS Statement are negative. Past Medical History Past Medical History: Cancer, Heart Failure, Diabetes Mellitus, Hyperlipidemia, Hypertension, Thyroid Disorder Additional Past Medical History / Comment(s): Thyroid cancer in November 2015, post thyroidectomy, right lung mass on that investigation, diabetes mellitus, hyperlipidemia, hypertension History of Any Multi-Drug Resistant Organisms: None Reported Past Surgical History: Appendectomy, Hysterectomy, Orthopedic Surgery, Tonsillectomy Additional Past Surgical History / Comment(s): Partial thyroidectomy November,ORIF lt ankle,rt shoulder rot cuff, right partial lobectomy Past Anesthesia/Blood Transfusion Reactions: Previous Problems w/ Anesthesia, Postoperative Nausea & Vomiting (PONV) Additional Past Anesthesia/Blood Transfusion Reaction / Comment(s): states "has a hard time waking up with anesthesia" Past Psychological History: No Psychological Hx Reported Smoking Status: Former smoker - Past Family History Father Additional Family Medical History / Comment(s): emphysema Mother Additional Family Medical History / Comment(s): -fell down stairs Sister(s) Family Medical History: Cancer Additional Family Medical History / Comment(s): breast General Exam - General Exam Comments Initial Comments: GENERAL: Patient is well-developed and well-nourished. Patient is nontoxic and well- hydrated and is in distress. ENT: Neck is soft and supple. No significant lymphadenopathy is noted. Oropharynx is clear. Moist mucous membranes. Neck has full range of motion without eliciting any pain. EYES: The sclera were anicteric and conjunctiva were pink and moist. Extraocular movements were intact and pupils were equal round and reactive to light. Eyelids were unremarkable. PULMONARY: Unlabored respirations. Good breath sounds bilaterally. No audible rales rhonchi or wheezing was noted. CARDIOVASCULAR: There is a regular rate and rhythm without any murmurs gallops or rubs. ABDOMEN: Soft and nontender with normal bowel sounds. SKIN: Skin is clear with no lesions or rashes and otherwise unremarkable. NEUROLOGIC: Patient is alert and oriented x3. Cranial nerves II through XII are grossly in tact. Motor and sensory are also intact. Normal speech, volume and content. Symmetrical smile. MUSCULOSKELETAL: Normal extremities with adequate strength and full range of motion. LYMPHATICS: No significant lymphadenopathy is noted PSYCHIATRIC: Normal psychiatric evaluation. Limitations: no limitations Course Vital Signs 07/21/24 12:40 Temperature 99.9 F H Pulse Rate 71 Respiratory 18 Rate Blood Pressure 126/71 O2 Sat by Pulse 99 Oximetry Medical Decision Making - Medical Decision Making EKG is interpreted by myself. EKG shows sinus rhythm at 75 bpm [place] interval is 210 QRS is 170 QT interval is 437 QTc is 466. Patient's EKG shows a left bundle branch block. Was pt. sent in by a medical professional or institution (LALITA Langley, FAMILY PRACTICE DOCTOR, urgent care, hospital, or residential...) When possible be specific @ -No Did you speak to anyone other than the patient for history (EMS, parent, family, police, friend...)? What history was obtained from this source @ -No Did you review nursing and triage notes (agree or disagree)? Why? @ -I reviewed and agree with nursing and triage notes Were old charts reviewed (outside hosp., previous admission, EMS record, old EKG, old radiological studies, urgent care reports/EKG's, residential records)? Report findings @ -No old charts were reviewed Differential Diagnosis? @ -COVID, influenza A, influenza B, RSV, bronchitis, pneumonia, this is not an all-inclusive list EKG interpreted by me (3pts min.). @ -As above X-rays interpreted by me (1pt min.). @ -Chest x-ray shows no acute abnormality CT interpreted by me (1pt min.). @ -None done U/S interpreted by me (1pt. min.). @ -None done What testing was considered but not performed or refused? (CT, X-rays, U/S, labs)? Why? @ -None What meds were considered but not given or refused? Why? @ -None Did you discuss the management of the patient with other professionals (professionals i.e. LALITA Langley, FAMILY PRACTICE DOCTOR, lab, RT, psych nurse, social work program coordinator, business lawyer, teacher, correctional officer lieutenant, case assistant)? Give summary @ -No Was smoking cessation discussed for >3mins.? @ -No Was critical care preformed (if so, how long)? @ -No Were there social determinants of health that impacted care today? How? (Homelessness, low income, unemployed, alcoholism, drug addiction, transportation, low edu. Level, literacy, decrease access to med. care, nursing home, rehab)? @ -No Was there de-escalation of care discussed even if they declined (Discuss DNR or withdrawal of care, Hospice)? DNR status @ -No What co-morbidities impacted this encounter? (DM, HTN, Smoking, COPD, CAD, Cancer, CVA, ARF, Chemo, Hep., AIDS, mental health diagnosis, sleep apnea, morbid obesity)? @ -None Was patient admitted / discharged? Hospital course, mention meds given and route, prescriptions, significant lab abnormalities, going to OR and other pertinent info. @ -Patient had a 99.9 temperature. Patient was given Tylenol for this. Patient's magnesium was slightly low at 1.5 so I gave the patient 1 g of magnesium sulfate patient was tested positive for COVID patient will be dis[facility] home she was instructed to come back with any difficulty breathing or any new symptoms. Undiagnosed new problem with uncertain prognosis? @ -No Drug Therapy requiring intensive monitoring for toxicity (Heparin, Nitro, Insulin, Cardizem)? @ -No Were any procedures done? @ -No Diagnosis/symptom? @ -COVID Acute, or Chronic, or Acute on Chronic? @ -Acute Uncomplicated (without systemic symptoms) or Complicated (systemic symptoms)? @ -Complicated Side effects of treatment? @ -No Exacerbation, Progression, or Severe Exacerbation? @ -No Poses a threat to life or bodily function? How? (Chest pain, [place], [place], pneumonia, PE, COPD, DKA, ARF, appy, cholecystitis, CVA, Diverticulitis, Homicidal, Suicid al, threat to staff... and all critical care pts) @ -No - Lab Data Result diagrams: 07/21/24 12:59 07/21/24 12:59 Lab Results 07/21/24 07/21/24 07/21/24 Range/Units 12:59 12:59 12:59 WBC 7.7 (3.8-10.6) k/uL RBC 4.26 (3.80-5.40) m/uL Hgb 13.0 (11.4-16.0) gm/dL Hct 39.8 (34.0-46.0) % MCV 93.4 (80.0-100.0) fL MCH 30.4 (25.0-35.0) pg MCHC 32.5 (31.0-37.0) g/dL RDW 13.7 (11.5-15.5) % Plt Count 165 (150-450) k/uL MPV 9.0 Neutrophils % 72 % Lymphocytes % 18 % Monocytes % 6 % Eosinophils % 3 % Basophils % 0 % Neutrophils # 5.5 (1.3-7.7) k/uL Lymphocytes # 1.4 (1.0-4.8) k/uL Monocytes # 0.4 (0-1.0) k/uL Eosinophils # 0.2 (0-0.7) k/uL Basophils # 0.0 (0-0.2) k/uL Sodium 137 (137-145) mmol/L Potassium 4.1 (3.5-5.1) mmol/L Chloride 103 (98-107) mmol/L Carbon Dioxide 23 (22-30) mmol/L Anion Gap 11 mmol/L BUN 21 H (7-17) mg/dL Creatinine 1.83 H (0.52-1.04) mg/dL Est GFR (CKD-EPI)AfAm 29 (>60 ml/min/1.73 sqM) Est GFR (CKD-EPI)NonAf 25 (>60 ml/min/1.73 sqM) Glucose 186 H (74-99) mg/dL Calcium 8.7 (8.4-10.2) mg/dL Magnesium 1.5 L (1.6-2.3) mg/dL Total Bilirubin 0.8 (0.2-1.3) mg/dL AST 28 (14-36) U/L ALT 17 (4-34) U/L Alkaline Phosphatase 71 (38-126) U/L Total Protein 6.4 (6.3-8.2) g/dL Albumin 3.9 (3.5-5.0) g/dL Influenza Type A (PCR) (Not Detectd) Influenza Type B (PCR) (Not Detectd) RSV (PCR) (Not Detectd) SARS-CoV-2 (PCR) (Not Detectd) Group A Strep (PCR) NOT DETECTED (Not Detectd) 07/21/24 Range/Units 12:59 WBC (3.8-10.6) k/uL RBC (3.80-5.40) m/uL Hgb (11.4-16.0) gm/dL Hct (34.0-46.0) % MCV (80.0-100.0) fL MCH (25.0-35.0) pg MCHC (31.0-37.0) g/dL RDW (11.5-15.5) % Plt Count (150-450) k/uL MPV Neutrophils % % Lymphocytes % % Monocytes % % Eosinophils % % Basophils % % Neutrophils # (1.3-7.7) k/uL Lymphocytes # (1.0-4.8) k/uL Monocytes # (0-1.0) k/uL Eosinophils # (0-0.7) k/uL Basophils # (0-0.2) k/uL Sodium (137-145) mmol/L Potassium (3.5-5.1) mmol/L Chloride (98-107) mmol/L Carbon Dioxide (22-30) mmol/L Anion Gap mmol/L BUN (7-17) mg/dL Creatinine (0.52-1.04) mg/dL Est GFR (CKD-EPI)AfAm (>60 ml/min/1.73 sqM) Est GFR (CKD-EPI)NonAf (>60 ml/min/1.73 sqM) Glucose (74-99) mg/dL Calcium (8.4-10.2) mg/dL Magnesium (1.6-2.3) mg/dL Total Bilirubin (0.2-1.3) mg/dL AST (14-36) U/L ALT (4-34) U/L Alkaline Phosphatase (38-126) U/L Total Protein (6.3-8.2) g/dL Albumin (3.5-5.0) g/dL Influenza Type A (PCR) Not Detected (Not Detectd) Influenza Type B (PCR) Not Detected (Not Detectd) RSV (PCR) Not Detected (Not Detectd) SARS-CoV-2 (PCR) Detected A (Not Detectd) Group A Strep (PCR) (Not Detectd) Disposition Clinical Impression: COVID-19, Hypomagnesemia Disposition: HOME SELF-CARE Condition: Good Instructions (If sedation given, give patient instructions): Nicotine (Into the mouth), COVID-19 (Coronavirus Disease 2019) (ED) Is patient prescribed a controlled substance at d/c from ED?: No Referrals: Champ Arciniega MD [Primary Care Provider] - 1-2 days Time of Disposition: 14:25
[2024-07-21 15:07] VITALS: BP 122/67; PULSE 62; TEMP 98.7
== END 2024-07-21 15:24 | disposition home or self-care (01) ==
LOC: EC 12:36
DX: U07.1 COVID-19 (principal); E83.42 Hypomagnesemia; Z87.891 Personal history of nicotine dependence; Z88.5 Allergy status to narcotic agent; Z88.1 Allergy status to other antibiotic agents; Z88.0 Allergy status to penicillin
CPT/HCPCS: 36415; 93005; 87651; 80053; 83735; 85025; 87636; 71046; 99284; 96365; 96361; J3475

== ENCOUNTER → 2025-01-03 | Outpatient (CLI) | payer MEDICARE ==
--- NOTE | 2025-01-03 12:17 | CT ---
EXAMINATION TYPE: CT chest wo con DATE OF EXAM: 01/03/2025 11:58 AM COMPARISON: 04/06/2024. CLINICAL INDICATION: Female, 84 years old with history of C34.2 Z08 Z92.3 Z90.2 C3411; PHH, f/u lung ca TECHNIQUE: Multiple axial images were obtained through the chest. Sagittal and coronal reformats were created for review. MIP was performed on a separate workstation. Contrast used: mL of (None if empty) Oral contrast used: (None if empty) CT DLP: 320.4 mGycm, Automated exposure control for dose reduction was used. FINDINGS: LUNGS/ PLEURA: Stable morphology to the right upper lobe scarring bilobed calcific granulomas. Right lower lobe posterior groundglass nodule stable measuring up to 8 mm series 3 image 34. Stable left lo wer lobe lateral groundglass pulmonary nodule measuring 9 mm series 3 image 38. No focal consolidatio n, pneumothorax or pleural effusion. AIRWAY: Patent and unremarkable. HEART: Size within normal limits. Moderate coronary artery calcifications present. MEDIASTINUM: Hiatal hernia present. VASCULATURE: No aortic aneurysm. MUSCULOSKELETAL: No acute osseous abnormalities SOFT TISSUES/LYMPH NODES: Unremarkable. LOWER NECK: No significant findings. UPPER ABDOMEN: Partially visualized hyperdense cysts in the right kidney is stable to prior measuring up to 17 mm. Findings likely represent part/hemorrhagic cyst. No follow-up recommended. Scattered ca lcified granulomas in the liver and spleen. IMPRESSION: 1. Stable right upper lobe scarring/post treatment change. No new or enlarging pulmonary nodules. No new or enlarging lymph nodes. Moderate coronary artery atherosclerosis. Small hiatal hernia present. 2. Sequela granulomatous disease 3. The liver, spleen and lungs. [facility], , 01/03/2025 12:14 PM
== END | disposition home or self-care (01) ==
LOC: RADCTMAIN 11:21
PROVIDERS: ATTEND Radiology Radiation Oncology
DX: C34.2 Malignant neoplasm of middle lobe, bronchus or lung (principal); C34.11 Malignant neoplasm of upper lobe, right bronchus or lung; Z92.3 Personal history of irradiation; J98.4 Other disorders of lung; I25.10 Atherosclerotic heart disease of native coronary artery without angina pectoris; K44.9 Diaphragmatic hernia without obstruction or gangrene; Z90.2 Acquired absence of lung [part of]; Z08 Encounter for follow-up examination after completed treatment for malignant neoplasm; J84.10 Pulmonary fibrosis, unspecified
CPT/HCPCS: 71250